=== PATIENT | male | born 1985 | race African-American/Black ===

== ENCOUNTER 2016-12-28 03:40 | Emergency (ER) | payer OTHER ==
[~2016-12-28] VITALS: Ht 180.3 cm; Wt 73.1 kg
[2016-12-28 03:39] VITALS: TEMP 36.6; Ht 180.3 cm; Wt 73.1 kg
--- NOTE | 2016-12-28 03:59 | EMERGENCY ROOM VISIT NOTE ---
History Report prepared by Silvina: Minoo Brooks Under the Supervision of: Dr. Yandy Hook D.O. First contact with patient: 03:43 Chief Complaint: OTHER COMPLAINT History of Present Illness The patient is a 31 year old male who presents to the Emergency Room for medical clearance upon being arrested this evening. The patient is a current meth user for the past 2 weeks, using everyday by snorting and smoking the drug. The patient has also been using Suboxone for the past 2 years everyday orally. He notes the Suboxone is not his prescription. He states that he has not been drinking much recently however he is typically a heavy drinker. The patient does not normally use meth but began due to fights with his girlfriend who is a recovering addict. Last time using meth was yesterday. He denies any other symptoms at this time. Source of History: patient History Limited By: other Onset: tonight Position: other (global) Quality: other (medical clearance) Note: Patient has been using meth for 2 weeks and Suboxone for 2 years. He denies any symptoms at this time. Review of Systems See HPI for pertinent positives & negatives. A total of 10 systems reviewed and were otherwise negative. Past Medical & Surgical No PMH Family History Patient reports no known family medical history. Social History Smoking Status: Current Every Day Smoker Alcohol Use: heavy Drug Use: other (meth) Marital Status: in relationship Housing Status: lives with significant other Occupation Status: employed Current/Historical Medications No Active Prescriptions or Reported Meds Allergies Coded Allergies: Fish (Verified Allergy, Severe, ANAPHYLAXIS, 12/28/16) Physical Exam Vital Signs Date Time Temp Pulse Resp B/P Pulse Ox O2 Delivery O2 Flow Rate FiO2 12/28/16 04:05 84 18 138/93 99 12/28/16 03:39 36.6 78 18 138/93 99 Room Air Physical Exam HEENT: Head - normocephalic and atraumatic Pupils are equal, round, and reactive to light. Extraocular eye muscles are intact, and sclera are anicteric. Nose - moist nasal mucosa without discharge. Mouth - moist buccal mucosa. Oropharynx is nonerythematous and there is no tonsillar exudate or edema noted. Neck: Supple; no JVD, nuchal rigidity, cervical lymphadenopathy. Heart: Regular rate and rhythm. There is a normal S1 and S2 with no murmurs, clicks, or gallops appreciated. Lungs: Clear to auscultation bilaterally with no wheezes, rales, or rhonchi. Abdomen: Soft, completely nontender, nondistended, with good bowel sounds. There are no palpable pulsatile masses or hepatosplenomegaly. There is no guarding, rigidity, or rebound noted. Extremities: Superficial laceration of ventral aspect of right 5th digit. No evidence of cyanosis, clubbing, or edema. There are easily palpable peripheral pulses. Skin: warm and dry with good turgor and no rashes. Medical Decision & Procedures ED Course 0347: The patient was evaluated in room B12. A complete history and physical exam was performed. I looked at the wound on his right hand. It was redressed with a Band-Aid. 0356: The patient was hemodynamically stable. He had no complaints of pain. He only complained of sleep deprivation. The patient will be discharged in the care of police. Medical Decision The patient is a 31 year old male who presents to the ED for medical clearance before he [facility]. The patient has been abusing oral Suboxone and meth for the past 2 weeks. He has not slept in last 5 days. He got into an argument with his girlfriend herberth and states that he went crazy. Police were called. They responded to the home and did not find the patient. He was out for a stroll as he describes it. Finally he got tired and came back to the house. He was arrested at that time brought here for medical clearance. Impression Primary Impression: Polysubstance abuse Additional Impression: Sleep deprivation Scribe Attestation The scribe's documentation has been prepared under my direction and personally reviewed by me in its entirety. I confirm that the note above accurately reflects all work, treatment, procedures, and medical decision making performed by me. Departure Information Dispostion Other (Prision) Prescriptions No Active Prescriptions or Reported Meds Referrals No Doctor, Assigned (PCP) Forms HOME CARE DOCUMENTATION FORM, IMPORTANT VISIT INFORMATION, WORK / SCHOOL INSTRUCTIONS Patient Instructions My [facility] Additional Instructions Avoid suboxone abuse and meth use. Keep the wound on your finger clean with soap and water. Watch for signs of infection Problem Qualifiers
[2016-12-28 04:05] VITALS: BP 138/93; PULSE 84; O2SAT 99
[2017-05-20] MEDS ORDERED: GABA1CAP PO (12:30)
== END 2016-12-28 04:06 | disposition home or self-care (01) ==
LOC: EDSEX 03:40 → EDBD 03:40 → C.EDB 03:41
DX: F15.10 Other stimulant abuse, uncomplicated (principal); F11.10 Opioid abuse, uncomplicated; Z72.820 Sleep deprivation; F17.210 Nicotine dependence, cigarettes, uncomplicated

== ENCOUNTER → 2017-04-13 | Outpatient (CLI) | payer OTHER ==
[~2017-04-13] MED LIST: AMOX500C3 PO; AMX500 PO; BUPR1SUB23 PO; CMD5 PO; DOXY100C76 PO; ENOX120I SQ; GABA1CAP PO; HYDR-3126 PO; LACT1TAB4 PO; LCTX PO; OXYC1TAB3 PO; RIVA1.5T PO; WARF5TAB90 PO
--- NOTE | 2017-04-13 15:51 | DIAGNOSTIC IMAGING REPORT ---
CHEST 2 VIEWS ROUTINE CLINICAL HISTORY: R07.89 Atypical chest pain COMPARISON STUDY: No previous studies for comparison. FINDINGS: The cardiac and mediastinal contours are normal. There is no evidence of focal pulmonary consolidation. There is no evidence of failure. No pleural effusions are visualized.[ There are linear opacities the right lung base, likely representing subsegmental atelectasis. There is a retroxiphoid opacity, likely representing a prominent fat pad. IMPRESSION: 1. Linear right basilar opacities, likely atelectatic 2. Retroxiphoid opacity, likely secondary to a prominent fat pad 3. No evidence of lobar consolidation. No evidence of failure. No evidence of pneumothorax. Electronically signed by: Benjamin Welch M.D. 04/13/2017 3:50 PM Dictated Date/Time: 04/13/2017 3:48 PM
[2017-04-13 17:17] LABS: BASO % 0.3 %; BASO ABS # 0.04 K/uL (0-0.2); COMPLETE YES; EOS % 2.9 %; HEMATOCRIT 40.2 % (42-52); IG% 0.8 %; LYMPH % 17.6 %; LYMPH ABS # 2.11 K/uL (1.2-3.4); MEAN CELL VOLUME 86.6 fL (80-100); MEAN CORPUSCULAR HGB CONC 35.8 g/dl (32-36); MEAN PLATELET VOLUME 9.6 fL (7.4-10.4); MONO % 12.7 %; NEUT % 65.7 %; PLATELET COUNT 255 K/uL (130-400); RED BLOOD COUNT 4.64 M/uL (4.7-6.1); WHITE BLOOD COUNT 11.98 K/uL (4.8-10.8)
[2017-04-13 17:27] LABS: ALT/SGPT 41 U/L (12-78); AST/SGOT 27 U/L (15-37); BLOOD UREA NITROGEN 12 mg/dl (7-18); BUN/CREATININE RATIO 9.7 (10-20); CALCIUM 8.8 mg/dl (8.5-10.1); CARBON DIOXIDE 26 mmol/L (21-32); CHLORIDE 105 mmol/L (98-107); GLUCOSE 96 mg/dl (70-99); POTASSIUM 4.3 mmol/L (3.5-5.1); SODIUM 137 mmol/L (136-145)
[2017-04-13 17:38] LABS: ALB/GLOB RATIO 1.1 (0.9-2); ALKALINE PHOSPHATASE 152 U/L (45-117)
== END | disposition home or self-care (01) ==
LOC: C.RADBC 15:30
PROVIDERS: ATTEND Physician Assistant
DX: R07.89 Other chest pain (principal); J98.4 Other disorders of lung

== ENCOUNTER 2017-04-16 12:16 | Emergency (ER) | payer OTHER ==
[~2017-04-16] VITALS: Ht 180.3 cm; Wt 84.8 kg
[2017-04-16 12:22] VITALS: TEMP 37.2; Ht 180.3 cm; Wt 84.8 kg
[2017-04-16] MEDS ORDERED: IBUPROFEN 600 MG TAB PO STA (13:49)
--- NOTE | 2017-04-16 13:55 | DIAGNOSTIC IMAGING REPORT ---
CHEST 2 VIEWS ROUTINE CLINICAL HISTORY: Difficulty breathing COMPARISON STUDY: 04/13/2017 FINDINGS: The heart remains normal in size. There are progressive right basilar airspace opacities. This favors an inflammatory over atelectatic process. Again evident is a retroxiphoid opacity. Previously this is felt to represent a prominent fat pad. It is conceivable that this represents a pleural-based area of focal consolidation. CT angiography the chest might be considered to exclude a pulmonary infarct.[ IMPRESSION: 1. Progressive right basilar airspace opacities 2. Retroxiphoid opacity. A pleural-based area of parenchymal consolidation cannot be excluded. 3. CT angiography of the chest should be considered in follow-up to exclude pulmonary embolism with infarction. Electronically signed by: Benjamin Welch M.D. 04/16/2017 1:54 PM Dictated Date/Time: 04/16/2017 1:52 PM
--- NOTE | 2017-04-16 14:01 | EMERGENCY ROOM VISIT NOTE ---
History Report prepared by Silvina: Juanjo Joy Under the Supervision of: Dr. Julio Yap M.D. First contact with patient: 13:45 Chief Complaint: RESPIRATORY PROBLEMS Stated Complaint: DIFFICULTY BREATHING-SENT BY DR.-WTE PROCTOR [facility] Triage Summary: Pt states "Dr Rosenda Lawton said my white count in my one lung is high and in the other it's off. I think I have walking pneumonia." Denies cough. Pt c/o pain in "my lungs" x 2 days. "I'm disoriented, I've been fired from 2 jobs in the last week". States they did xray and blood work at [facility] but did not prescribe any antibiotics. Pt states he passed out twice 2 days ago. Takes Gabapentin for anxiety. History of Present Illness The patient is a 32 year old male who presents to the Emergency Room with complaints of constant shortness of breath for the past few days, and a sharp pain in his back The patient states that he was told that he had walking pneumonia yesterday, though he was not prescribed any antibiotics. The patient additionally states that he has a fever and chills. He denies any cough or abdominal pain. He states that he might have had pneumonia when he was younger, and he smokes about a pack per day. The patient states that he took a gabapentin this morning. Source of History: patient Onset: a few days ago Position: other (global) Quality: other (shortness of breath) Timing: constant Associated Symptoms: + fevers, + chills, No cough, No abdominal pain Review of Systems All systems have been listed, reviewed, and are negative other than those previously mentioned. Please see Additional Medical History Sheet. Family History FH: pulmonary embolism Heart disease Hypertension Social History Smoking Status: Current Every Day Smoker Alcohol Use: heavy Drug Use: other Marital Status: in relationship Housing Status: lives with significant other Occupation Status: employed Current/Historical Medications No Active Prescriptions or Reported Meds Allergies Coded Allergies: Fish (Verified Allergy, Severe, ANAPHYLAXIS, 04/16/17) Physical Exam Vital Signs Date Time Temp Pulse Resp B/P (MAP) Pulse Ox O2 Delivery O2 Flow Rate FiO2 04/16/17 17:43 71 18 139/66 97 Room Air 04/16/17 16:08 76 18 120/65 98 Room Air 04/16/17 16:07 80 04/16/17 15:16 89 18 149/82 95 Room Air 04/16/17 14:04 18 167/88 98 04/16/17 12:27 98 Room Air 04/16/17 12:22 37.2 110 18 129/79 97 Room Air Physical Exam GENERAL: Patient awake, alert, oriented x 3. Patient follows commands. Patient does not appear toxic. Patient is adequately hydrated and well- nourished. SKIN: No erythema, pallor, cyanosis or rash HEENT: Normal head, pupils equal, reactive to light and accommodation. Ears normal. Oral cavity and posterior pharynx appear normal. Neck: Without adenopathy, no neck vein distention. LUNGS: Some pain with deep inspiration. Clear to auscultation. No wheezes, no rales, no rhonchi. HEART: No murmurs. No gallops. No rubs EXTREMITIES: No signs of trauma or infection. NEUROLOGIC: Cranial nerves II-XII within normal limits. No gross motor sensory function deficits. Medical Decision & Procedures ER Provider Diagnostic Interpretation: Radiology results as stated below per my review and radiologist interpretation: CHEST 2 VIEWS ROUTINE CLINICAL HISTORY: Difficulty breathing COMPARISON STUDY: 04/13/2017 FINDINGS: The heart remains normal in size. There are progressive right basilar airspace opacities. This favors an inflammatory over atelectatic process. Again evident is a retroxiphoid opacity. Previously this is felt to represent a prominent fat pad. It is conceivable that this represents a pleural-based area of focal consolidation. CT angiography the chest might be considered to exclude a pulmonary infarct.[ IMPRESSION: 1. Progressive right basilar airspace opacities 2. Retroxiphoid opacity. A pleural-based area of parenchymal consolidation cannot be excluded. 3. CT angiography of the chest should be considered in follow-up to exclude pulmonary embolism with infarction. Electronically signed by: Benjamin Welch M.D. 04/16/2017 1:54 PM Dictated Date/Time: 04/16/2017 1:52 PM (CHEST FOR PE) ANGIO WITH CLINICAL HISTORY: 32 years-old Male presenting with chest pain. TECHNIQUE: Multidetector CT angiography of the chest was performed after administration of intravenous contrast. 3-D volumetric and maximum intensity projection (MIP) images were subsequently reconstructed for review. IV contrast: 100 mL of Optiray 320. COMPARISON: Chest x-ray performed the same day. CT DOSE: The estimated cumulative dose is 389.57 mGy.cm. FINDINGS: Gear Repair Supervisor topogram: Bandlike opacity in the right lung base. Pulmonary vasculature: The study is adequate for assessment of the pulmonary vascular tree. Filling defect within segmental pulmonary arteries to the anteromedial basal left lower lobe, which appear acute. Main pulmonary artery not enlarged. No flattening of the interventricular septum. No intracardiac filling defect. Remaining chest: On soft tissue windows, normal thyroid and thoracic inlet. No axillary, supraclavicular, or mediastinal lymphadenopathy. Few prominent lymph nodes in the right hilum. Top normal heart size. No pericardial effusion. Trace right pleural effusion. On lung windows, bandlike opacities in the right middle and lower lobes. Groundglass opacity in the right apex and right lung base dependently. No opacity in the left lung. Airways patent. On bone windows, normal osseous structures. IMPRESSION: 1. Acute pulmonary embolus in the anteromedial basal segmental artery to the left lower lobe. No radiographic evidence of right heart failure. 2. Bandlike and hazy opacities in the right lung may represent atelectasis, although the presence of a trace right effusion may raise concern for other etiologies including infection. The report will be called/faxed according to standard departmental protocol. Electronically signed by: Chau Mathews M.D. 04/16/2017 3:55 PM Dictated Date/Time: 04/16/2017 3:45 PM Laboratory Results 04/16/17 14:10 Red Blood Count 5.08, Mean Corpuscular Volume 87.2, Mean Corpuscular Hemoglobin 31.7, Mean Corpuscular Hemoglobin Concent 36.3, Mean Platelet Volume 9.5, Neutrophils (%) (Auto) 61.4, Lymphocytes (%) (Auto) 21.8, Monocytes (%) (Auto) 11.3, Eosinophils (%) (Auto) 4.1, Basophils (%) (Auto) 0.7, Neutrophils # (Auto ) 5.51, Lymphocytes # (Auto) 1.95, Monocytes # (Auto) 1.01, Eosinophils # (Auto ) 0.37, Basophils # (Auto) 0.06 04/16/17 14:10 Test 04/16/17 14:10 White Blood Count 8.96 K/uL (4.8-10.8) Red Blood Count 5.08 M/uL (4.7-6.1) Hemoglobin 16.1 g/dL (14.0-18.0) Hematocrit 44.3 % (42-52) Mean Corpuscular Volume 87.2 fL (80-100) Mean Corpuscular Hemoglobin 31.7 pg (25-34) Mean Corpuscular Hemoglobin Concent 36.3 g/dl (32-36) Platelet Count 247 K/uL (130-400) Mean Platelet Volume 9.5 fL (7.4-10.4) Neutrophils (%) (Auto) 61.4 % Lymphocytes (%) (Auto) 21.8 % Monocytes (%) (Auto) 11.3 % Eosinophils (%) (Auto) 4.1 % Basophils (%) (Auto) 0.7 % Neutrophils # (Auto) 5.51 K/uL (1.4-6.5) Lymphocytes # (Auto) 1.95 K/uL (1.2-3.4) Monocytes # (Auto) 1.01 K/uL (0.11-0.59) Eosinophils # (Auto) 0.37 K/uL (0-0.5) Basophils # (Auto) 0.06 K/uL (0-0.2) RDW Standard Deviation 35.9 fL (36.4-46.3) RDW Coefficient of Variation 11.3 % (11.5-14.5) Immature Granulocyte % (Auto) 0.7 % Immature Granulocyte # (Auto) 0.06 K/uL (0.00-0.02) Anion Gap 4.0 mmol/L (3-11) Est Creatinine Clear Calc Drug Dose 92.3 ml/min Estimated GFR () 90.9 Estimated GFR (Non- 78.4 BUN/Creatinine Ratio 11.9 (10-20) Calcium Level 9.3 mg/dl (8.5-10.1) Total Bilirubin 0.5 mg/dl (0.2-1) Aspartate Amino Transf (AST/SGOT) 26 U/L (15-37) Alanine Aminotransferase (ALT/SGPT) 33 U/L (12-78) Alkaline Phosphatase 156 U/L (45-117) Troponin I < 0.015 ng/ml (0-0.045) Total Protein 7.5 gm/dl (6.4-8.2) Albumin 3.6 gm/dl (3.4-5.0) Globulin 3.9 gm/dl (2.5-4.0) Albumin/Globulin Ratio 0.9 (0.9-2) Laboratory results as stated above per my review. Medications Administered Medications (Trade) Dose Ordered Sig/Herb Route Start Time Stop Time Status Last Admin Dose Admin Ibuprofen (Motrin Tab) 600 mg NOW STAT PO 04/16/17 13:49 04/16/17 13:50 DC 04/16/17 14:05 600 MG ECG Indication: SOB/dyspnea Rate (beats per minute): 71 Rhythm: normal sinus Findings: nonspecific-ST abn, no ectopy ED Course 1345: Past medical records reviewed. The patient was evaluated in room B7. A complete history and physical examination was performed. 1349: Ibuprofen 600mg PO 1616:I discussed the patient's case with Dr. Perry, Hospitalist, and he thinks that the patient can be discharged home. 170: I discussed the patients case with Dr. Breaux, Tap Out Operator, and he is going to follow up with the patient on Wednesday at 6pm in his office. 1715: Xarelto Tab 15mg PO 1739: Upon reevaluation, the patient appeared to have improvement of his symptoms. I discussed today's findings with him. He verbalized agreement of the treatment plan. He was discharged home. Medical Decision Nurses notes reviewed. Medical history sheet reviewed. Differential diagnosis includes but is not limited to: pneumonia, atelectasis, muscle strain, rib fracture. Blood pressure Screening: Patient was found to have normal blood pressure on screening and does not require follow up. Medication Reconciliation: I attest that I have personally reviewed the patient' s current medication list. Multiple labs, EKG and imaging were obtained. Please see above. The patient has a segmental PE. I believe this is the source of his discomfort. I discussed care with who believes he can safely be discharged home on Xarelto. The patient was started on Xarelto now. He will continue that medication bid. The patient has a scheduled appointment on 04/19 for follow-up. He is encouraged to return here sooner if he's having more shortness of breath or chest pain. Consults Time Called: 1610 Consulting Physician: Dr. Perry, Hospitalist Returned Call: 1616 I discussed the patient's case with Dr. Perry, Hospitalist, and he thinks that the patient can be discharged home. Additional Consults: Time Called: 1650 Consulted Physician: Dr. Breaux Returned Call: 1700 Additional Comments: I discussed the patients case with Dr. Breaux, Tap Out Operator, and he is going to follow up with the patient on Wednesday at 6pm in his office. Impression Primary Impression: Pulmonary embolism Scribe Attestation The scribe's documentation has been prepared under my direction and personally reviewed by me in its entirety. I confirm that the note above accurately reflects all work, treatment, procedures, and medical decision making performed by me. Departure Information Dispostion Home / Self-Care Prescriptions No Active Prescriptions or Reported Meds Referrals No Doctor, Assigned (PCP) Forms HOME CARE DOCUMENTATION FORM, IMPORTANT VISIT INFORMATION, WORK / SCHOOL INSTRUCTIONS Patient Instructions My [facility] T-Quad 22, Rivaroxaban oral tablets Additional Instructions 15 mg of Xarelto twice a day with food for the next 21 days. Follow-up with on Wednesday at 6 pm [facility] office. Return here sooner if you become more short of breath or develop more chest pain. Slowly wean your self off of gabapentin.
[2017-04-16 14:22] LABS: BASO % 0.7 %; BASO ABS # 0.06 K/uL (0-0.2); COMPLETE YES; EOS % 4.1 %; HEMATOCRIT 44.3 % (42-52); IG% 0.7 %; LYMPH % 21.8 %; LYMPH ABS # 1.95 K/uL (1.2-3.4); MEAN CELL VOLUME 87.2 fL (80-100); MEAN CORPUSCULAR HEMOGLOBIN 31.7 pg (25-34); MEAN CORPUSCULAR HGB CONC 36.3 g/dl (32-36); MEAN PLATELET VOLUME 9.5 fL (7.4-10.4); MONO % 11.3 %; NEUT % 61.4 %; PLATELET COUNT 247 K/uL (130-400); RED BLOOD COUNT 5.08 M/uL (4.7-6.1); WHITE BLOOD COUNT 8.96 K/uL (4.8-10.8)
[2017-04-16 14:39] LABS: BUN/CREATININE RATIO 11.9 (10-20); CALCIUM 9.3 mg/dl (8.5-10.1); CREATININE 1.2 mg/dl (0.60-1.40); POTASSIUM 4.3 mmol/L (3.5-5.1)
[2017-04-16 14:42] LABS: ALB/GLOB RATIO 0.9 (0.9-2)
[2017-04-16] MEDS ORDERED: OPTIRAY 320 IV PRN (15:15)
--- NOTE | 2017-04-16 15:56 | DIAGNOSTIC IMAGING REPORT ---
(CHEST FOR PE) ANGIO WITH CLINICAL HISTORY: 32 years-old Male presenting with chest pain. TECHNIQUE: Multidetector CT angiography of the chest was performed after administration of intravenous contrast. 3-D volumetric and maximum intensity projection (MIP) images were subsequently reconstructed for review. IV contrast: 100 mL of Optiray 320. COMPARISON: Chest x-ray performed the same day. CT DOSE: The estimated cumulative dose is 389.57 mGy.cm. FINDINGS: Director Of Surgery topogram: Bandlike opacity in the right lung base. Pulmonary vasculature: The study is adequate for assessment of the pulmonary vascular tree. Filling defect within segmental pulmonary arteries to the anteromedial basal left lower lobe, which appear acute. Main pulmonary artery not enlarged. No flattening of the interventricular septum. No intracardiac filling defect. Remaining chest: On soft tissue windows, normal thyroid and thoracic inlet. No axillary, supraclavicular, or mediastinal lymphadenopathy. Few prominent lymph nodes in the right hilum. Top normal heart size. No pericardial effusion. Trace right pleural effusion. On lung windows, bandlike opacities in the right middle and lower lobes. Groundglass opacity in the right apex and right lung base dependently. No opacity in the left lung. Airways patent. On bone windows, normal osseous structures. IMPRESSION: 1. Acute pulmonary embolus in the anteromedial basal segmental artery to the left lower lobe. No radiographic evidence of right heart failure. 2. Bandlike and hazy opacities in the right lung may represent atelectasis, although the presence of a trace right effusion may raise concern for other etiologies including infection. The report will be called/faxed according to standard departmental protocol. Electronically signed by: Chau Mathews M.D. 04/16/2017 3:55 PM Dictated Date/Time: 04/16/2017 3:45 PM
[2017-04-16] MEDS ORDERED: RIVAROXABAN 20 MG TAB PO ONE (17:15)
[2017-04-16] MEDS ORDERED: RIVAROXABAN TAB 15 MG TAB PO ONE (17:15)
[2017-04-16 17:43] VITALS: BP 139/66; PULSE 71; O2SAT 97
== END 2017-04-16 17:57 | disposition home or self-care (01) ==
LOC: C.EDB 12:20
DX: I26.99 Other pulmonary embolism without acute cor pulmonale (principal); F17.210 Nicotine dependence, cigarettes, uncomplicated; Z82.49 Family history of ischemic heart disease and other diseases of the circulatory system

== ENCOUNTER → 2017-04-22 | Outpatient (CLI) | payer OTHER ==
[2017-04-22 11:48] LABS: INR 1.2 (0.9-1.1); PARTIAL THROMBOPLASTIN RATIO 1.6; PROTHROMBIN TIME (PATIENT) 13.2 SECONDS (9.0-12.0)
[2017-04-26 23:37] LABS: B2 GLYCOPROTEIN IGA <9 SAU (<=20); B2 GLYCOPROTEIN IGG <9 SGU (<=20); B2 GLYCOPROTEIN IGM <9 SMU (<=20); COAG FACTOR 2 ACTIVITY*TC 331 117 % (70-150); DRVVT MIX INTERPRETAION Not Indicated; LAC PTT SCREEN 61 sec (<=40); LUPUS ANTICOAGULANT** TC36573X Positive (Negative); PHOSPHATIDYLSERINE IGA <20 U/mL (<20); PHOSPHATIDYLSERINE IGG 13 U/mL (<10); PHOSPHATIDYLSERINE IGM <25 U/mL (<25); PROTEIN C ACTIVITY** TC 1777X 165 % (70-180); PROTEIN S ACT(FUNCT)**1779X 138 % (70-150)
[2017-04-28 07:20] LABS: THROMBIN TIME(REFLEX!DO NOTORD 15 sec (13-19)
[2017-04-28 07:23] LABS: DRVVTNEUT(REFLEX!DO NOT ORDER) Negative (Negative)
== END | disposition home or self-care (01) ==
LOC: C.LAB1850 11:03
PROVIDERS: ATTEND Internal Medicine
DX: I26.99 Other pulmonary embolism without acute cor pulmonale (principal)

== ENCOUNTER → 2017-04-23 | Outpatient (CLI) | payer OTHER ==
--- NOTE | 2017-04-23 12:43 | DIAGNOSTIC IMAGING REPORT ---
(RENAL)RETROPERITONEA COMP HISTORY: Pain R10.9 Acute right flank pain COMPARISON: None. FINDINGS: Right kidney: Maximum dimension 12.0 cm. No evidence for hydronephrosis. Normal corticomedullary differentiation and cortical thickness. Left kidney: Maximum dimension 11.9 cm. No evidence for hydronephrosis. Normal corticomedullary differentiation and cortical thickness. Bladder: No bladder wall thickening. The bilateral ureteral jets were identified. IMPRESSION: Normal renal ultrasound. The above report was generated using voice recognition software. It may contain grammatical, syntax or spelling errors. Electronically signed by: Mark Anthony Vasquez M.D. 04/23/2017 12:42 PM Dictated Date/Time: 04/23/2017 12:41 PM
== END | disposition home or self-care (01) ==
LOC: C.ULTR 12:11
PROVIDERS: ATTEND Physician Assistant
DX: R10.9 Unspecified abdominal pain (principal)

== ENCOUNTER 2017-04-24 10:53 | Emergency (ER) | payer OTHER ==
[~2017-04-24] VITALS: Ht 180.3 cm; Wt 84.1 kg
[2017-04-24 10:56] VITALS: TEMP 36.8; Ht 180.3 cm; Wt 84.1 kg
[2017-04-24] MEDS ORDERED: HYDROmorphone INJ 1 MG/ML SYR IV STA (11:35)
[2017-04-24] MEDS ORDERED: SODIUM CHLORIDE 0.9% 1000ML 1,000 ML IV STA (11:35)
--- NOTE | 2017-04-24 11:40 | EMERGENCY ROOM VISIT NOTE ---
History Report prepared by Silvina: Robert Choi Under the Supervision of: Dr. Greg Murphy M.D. First contact with patient: 11:23 Chief Complaint: PAIN (GENERALIZED) Stated Complaint: PE, SOB, CHEST PAIN SWELLING TO LEFT LEG History of Present Illness The patient is a 32 year old male who presents to the Emergency Room with complaints of constant right sided abdominal pain that started a couple of days ago. He rates his pain as a 9/10 in severity. The patient states that he has been experiencing chest pains, shortness of breath, swelling to his left leg, and states his right kidney "feels like it is going to explode". The patient states that he was seen here two days ago and had an ultrasound done yesterday. The patient denies taking any medication for his current symptoms. He admits that he takes Xarelto and denies missing a dose. The patient also admits that he has a history of pulmonary embolism that he was diagnosed with on April 16. Source of History: patient Onset: a couple of days ago Position: abdomen Symptom Intensity: 9/10 Timing: constant Associated Symptoms: + chest pain, + SOB Review of Systems See HPI for pertinent positives & negatives. A total of 10 systems reviewed and were otherwise negative. Family History FH: pulmonary embolism Heart disease Hypertension Social History Smoking Status: Current Every Day Smoker Alcohol Use: heavy Drug Use: other Marital Status: in relationship Housing Status: lives with significant other Occupation Status: employed Current/Historical Medications Scheduled Doxycycline Monohydrate (Monodox), 100 MG PO BID Gabapentin (Neurontin), 200 MG PO TID Hydroxyzine Hcl (Atarax), 50 MG PO DAILY Rivaroxaban (Xarelto), 15 MG PO BID Scheduled PRN Oxycodone Immediate Rel Tab (Roxicodone Ir), 1-2 TAB PO Q4H PRN for Severe Pain Allergies Coded Allergies: Fish (Verified Allergy, Severe, ANAPHYLAXIS, 04/24/17) Physical Exam Vital Signs Date Time Temp Pulse Resp B/P (MAP) Pulse Ox O2 Delivery O2 Flow Rate FiO2 04/24/17 14:01 88 133/94 99 04/24/17 13:31 133/94 04/24/17 13:23 81 22 04/24/17 13:01 144/89 04/24/17 12:53 83 15 100 04/24/17 12:31 148/89 04/24/17 12:28 84 04/24/17 12:24 142/92 04/24/17 11:42 100 Room Air 04/24/17 11:41 100 Room Air 04/24/17 10:56 36.8 97 20 143/83 97 Room Air Physical Exam GENERAL: Patient is a healthy-appearing well-nourished mildly uncomfortably 32 year old male. HEAD: Normocephalic atraumatic EYES: Ocular movements intact pupils equal and react to light OROPHARYNX mucous membranes are moist no exudates present no erythema or edema present NECK: Supple no nuchal rigidity CHEST: Good equal expansion LUNGS: Clear and equal to auscultation CARDIAC: Normal S1 and S2 ABDOMEN: exquisitely tender to right upper abdomen area. no guarding BACK: No CVA tenderness EXTREMITIES: No pain upon palpation normal muscle strength in all groups no clubbing cyanosis or edema NEURO: Patient is following commands and answering questions appropriately. Alert and oriented x3 Cranial Nerves 2-12 grossly intact Medical Decision & Procedures ER Provider Diagnostic Interpretation: Radiology results as stated below per my review and radiologist interpretation: CHEST ONE VIEW PORTABLE CLINICAL HISTORY: Chest pain and. Shortness of breath. COMPARISON STUDY: Chest CT April 16, 2017. FINDINGS: There is no pneumothorax. There is no evidence of pulmonary edema. Cardiac size is normal. A small right pleural effusion is present. Linear right lower lung opacity favors atelectasis. IMPRESSION: Small right pleural effusion. Mild right lower lung opacity. While nonspecific, the configuration favors atelectasis. Electronically signed by: Robert Schulte M.D. 04/24/2017 12:24 PM Dictated Date/Time: 04/24/2017 12:[address] OF THE ABDOMEN AND PELVIS WITH CONTRAST CLINICAL HISTORY: Right upper quadrant pain. Right flank pain. History of recent pulmonary embolus. COMPARISON STUDY: Chest CT April 16, 2017. Renal ultrasound April 23, 2017. TECHNIQUE: Following IV administration of 95 mL of Optiray-320, axial images of the abdomen and pelvis were obtained from the lung bases to the proximal femurs. Images were reviewed in the axial, sagittal, and coronal planes. IV contrast was administered without complication. A dose lowering technique was utilized adhering to the principles of ALARA. CT DOSE: 483.94 mGy.cm FINDINGS: Visualized portions of the lower chest demonstrate slight increase in size of a small right pleural effusion since chest CT of April 16, 2017. There are persistent linear and groundglass right middle lobe and right lower lobe opacities. The liver, spleen, adrenal glands, kidneys and pancreas are unremarkable. There is no biliary or pancreatic ductal dilatation. There is no peripancreatic or pericholecystic infiltration. Caliber and wall thickness of small and large bowel are normal. The appendix is normal. There is no ascites. There is no lymphadenopathy. Skeletal structures are unremarkable. IMPRESSION: 1. No acute process within the abdomen or pelvis. 2. Slight increase in size of a small right pleural effusion since chest CT of April 16, 2017. Persistent right middle lobe and lower lobe groundglass and linear opacities. These findings are nonspecific but could reflect pneumonia or occult pulmonary infarct given known pulmonary emboli shown on prior chest CT. Electronically signed by: Robert Schulte M.D. 04/24/2017 12:51 PM Dictated Date/Time: 04/24/2017 12:43 PM Laboratory Results 04/24/17 11:38 Red Blood Count 4.63, Mean Corpuscular Volume 86.0, Mean Corpuscular Hemoglobin 31.3, Mean Corpuscular Hemoglobin Concent 36.4, Mean Platelet Volume 9.0, Neutrophils (%) (Auto) 63.0, Lymphocytes (%) (Auto) 14.9, Monocytes (%) (Auto) 11.4, Eosinophils (%) (Auto) 9.9, Basophils (%) (Auto) 0.4, Neutrophils # (Auto ) 7.11, Lymphocytes # (Auto) 1.68, Monocytes # (Auto) 1.29, Eosinophils # (Auto ) 1.12, Basophils # (Auto) 0.04 04/24/17 11:38 Test 04/24/17 11:38 04/24/17 11:48 White Blood Count 11.29 K/uL (4.8-10.8) Red Blood Count 4.63 M/uL (4.7-6.1) Hemoglobin 14.5 g/dL (14.0-18.0) Hematocrit 39.8 % (42-52) Mean Corpuscular Volume 86.0 fL (80-100) Mean Corpuscular Hemoglobin 31.3 pg (25-34) Mean Corpuscular Hemoglobin Concent 36.4 g/dl (32-36) Platelet Count 286 K/uL (130-400) Mean Platelet Volume 9.0 fL (7.4-10.4) Neutrophils (%) (Auto) 63.0 % Lymphocytes (%) (Auto) 14.9 % Monocytes (%) (Auto) 11.4 % Eosinophils (%) (Auto) 9.9 % Basophils (%) (Auto) 0.4 % Neutrophils # (Auto) 7.11 K/uL (1.4-6.5) Lymphocytes # (Auto) 1.68 K/uL (1.2-3.4) Monocytes # (Auto) 1.29 K/uL (0.11-0.59) Eosinophils # (Auto) 1.12 K/uL (0-0.5) Basophils # (Auto) 0.04 K/uL (0-0.2) RDW Standard Deviation 34.5 fL (36.4-46.3) RDW Coefficient of Variation 11.1 % (11.5-14.5) Immature Granulocyte % (Auto) 0.4 % Immature Granulocyte # (Auto) 0.05 K/uL (0.00-0.02) Est Creatinine Clear Calc Drug Dose 92.3 ml/min Estimated GFR () 90.9 Estimated GFR (Non- 78.4 BUN/Creatinine Ratio 12.5 (10-20) Calcium Level 8.9 mg/dl (8.5-10.1) Total Bilirubin 0.4 mg/dl (0.2-1) Direct Bilirubin 0.1 mg/dl (0-0.2) Aspartate Amino Transf (AST/SGOT) 19 U/L (15-37) Alanine Aminotransferase (ALT/SGPT) 27 U/L (12-78) Alkaline Phosphatase 152 U/L (45-117) Total Creatine Kinase 192 U/L (39-308) Creatine Kinase MB 1.4 ng/ml (0.5-3.6) Creatine Kinase MB Ratio 0.7 (0-3.0) Troponin I < 0.015 ng/ml (0-0.045) Total Protein 7.4 gm/dl (6.4-8.2) Albumin 3.5 gm/dl (3.4-5.0) Lipase 109 U/L (73-393) Bedside Hemoglobin 13.3 g/dl (14.0-18.0) Bedside Hematocrit 39 % (42-52) Bedside Sodium 139 mEq/L (135-144) Bedside Potassium 4.1 mEq/L (3.3-5.0) Bedside Chloride 100 mEq/L (101-112) Bedside Total CO2 28 mEq/l (24-31) Anion Gap 17.0 mmol/L (16-25) Bedside Blood Urea Nitrogen 16 mg/dl (7-18) Bedside Creatinine 1.4 mg/dl (0.6-1.3) Bedside Glucose (other) 72 mg/dl (70-99) Bedside Ionized Calcium (Berto) 1.23 mmol/l (1.12-1.32) Labs reviewed by ED physician. Medications Administered Medications (Trade) Dose Ordered Sig/Herb Route Start Time Stop Time Status Last Admin Dose Admin Sodium Chloride 1,000 ml @ 999 mls/hr Q1H1M STAT IV 04/24/17 11:35 04/24/17 12:35 DC 04/24/17 11:53 999 MLS/HR Hydromorphone HCl (Dilaudid Inj) 1 mg NOW STAT IV 04/24/17 11:35 04/24/17 11:37 DC 04/24/17 11:53 1 MG Doxycycline Hyclate (Vibramycin Cap) 100 mg ONE ONCE PO 04/24/17 13:30 04/24/17 13:31 DC 04/24/17 13:57 100 MG ECG Indication: chest pain Rate (beats per minute): 76 Rhythm: normal sinus Findings: no acute ischemic change, no ectopy ED Course 1130: Past medical records reviewed. The patient was evaluated in room C10. A complete history and physical examination was performed. 1135: Dilaudid Injection 1 mg, Sodium Chloride 1000 ml @ 999 mls/hr IV. 1256: I discussed the patient's case with Dr. Blevins Pulmonology. He advises that the patient be admitted and follow up with him. 1258: Upon reexamination the patient is resting comfortably. I discussed results and treatment plan with the patient and had a full length conversation about my recommendation to be admitted. He would not like to be admitted and wants to go home. I told him to follow up with Dr. Blevins, Pulmonology. The patient is ready for discharge. 1330: Vibramycin Cap 100 mg PO. Medical Decision The differential diagnosis includes but is not limited to: etiologies such as appendicitis, diverticulitis, PUD, biliary pathology, UTI, pancreatitis, obstruction, mesenteric ischemia, aortic pathology, infections, inflammatory bowel disease, renal colic, as well as others were entertained. Medication Reconciliation: I attest that I have personally reviewed the patient' s current medication list Blood Pressure Screening: Patient was found to have an elevated blood pressure and was referred to their primary care doctor for recheck and further treatment This is a 32-year-old male who presents emergency department complaining of right-sided chest pain and is increased since last week. Based on the patient' s inability to take deep breath on physical exam as well as his history of PE the patient was sent over for CAT scan of the abdomen and pelvis. This was concerning for right pulmonary infarction however there does not appear to be any evidence of PE at this point. Patient reports she has not missed any doses of his arrival toe. I did discuss this case with pulmonology and recommended to the patient that he be admitted however at this point he is adamantly refusing. I am going to cover him for pneumonia and place him on doxycycline and I stressed the need to have his pain under control. In the emergency department he was given Dilaudid. I recommended Tylenol at home as well as on see for breakthrough pain as well as a follow-up with Dr. Blevins. The patient has demonstrated no significant defect in the decision-making capacity to make choices. The encounter had a good level of communication with language the patient can easily understand. I feel trust was present and conveyed that our action/intentions were the best interest of the patient. The patient was given all relevant information and reiterated the explained risks and benefits. The patient explained the reasoning for refusing treatment clearly. The patient possesses and expresses a set of values and goals, the ability to communicate and understand, and an ability to reason and deliberate. Despite acting emphatically, attentively and with the utmost patient's the patient declined further treatment. I offered options, negotiated, and explored every reasonable choice. I must respect the patient's autonomy and that they feel that their choices are best for them despite the associated risks of leaving without completing the evaluation. The patient was informed about the findings as listed above. All questions were answered and he was pleased with the treatment. Return instructions were outlined and the patient was discharged in stable condition. Consults Time Called: [phone] Consulting Physician: Dr. Blevins, Pulmonology Returned Call: [phone] I discussed the patient's case with Dr. Blevins Pulmonology. He advises that the patient be admitted and follow up with him. Impression Primary Impression: Pulmonary infarction Scribe Attestation The scribe's documentation has been prepared under my direction and personally reviewed by me in its entirety. I confirm that the note above accurately reflects all work, treatment, procedures, and medical decision making performed by me. Departure Information Dispostion Home / Self-Care Prescriptions Doxycycline Monohydrate (Monodox) 100 Mg Cap 100 MG PO BID for 10 Days, #20 CAP Prov: Greg Murphy MD 04/24/17 Oxycodone Immediate Rel Tab (ROXICODONE IR) 5 Mg Tab 1-2 TAB PO Q4H Y for Severe Pain, #24 TAB Prov: Greg Murphy MD 04/24/17 Referrals Lidya Breaux M.D. (PCP) Forms HOME CARE DOCUMENTATION FORM, IMPORTANT VISIT INFORMATION, WORK / SCHOOL INSTRUCTIONS Patient Instructions Incentive Spirometer Fl, [facility] Additional Instructions Follow up with DR Blevins's office Use incentive spirometer every 15 minutes You were found to have an elevated blood pressure today (>120 sytolic or >90 diastolic). Per medicare guidelines, you need to follow up with this blood pressure screening with your Primary Care Physician (PCP). For a new PCP call [phone]. You received narcotic or benzodiazepene medication while in the emergency room today. Do not drive, operate heavy machinery, or drink alcohol under the influence of this medication. Take 1000 mg Tylenol every 6 hours Take oxy for breakthrough pain Continue Xarelto You have been examined and treated today on an emergency basis only. This is not a substitute for, or an effort to provide, complete comprehensive medical care. It is impossible to recognize and treat all injuries or illnesses in a single emergency department visit. It is therefore important that you follow up closely with Dr Breaux. Call as soon as possible for an appointment. Thank you for your time and consideration. I look forward to speaking with you again soon. Please don't hesitate to call us if you have any questions.
[2017-04-24 11:42] VITALS: O2SAT 100
[2017-04-24] MEDS ORDERED: OPTIRAY 320 IV PRN (11:45)
[2017-04-24 11:47] LABS: BASO % 0.4 %; BASO ABS # 0.04 K/uL (0-0.2); COMPLETE YES; EOS % 9.9 %; HEMATOCRIT 39.8 % (42-52); IG% 0.4 %; LYMPH % 14.9 %; LYMPH ABS # 1.68 K/uL (1.2-3.4); MEAN CORPUSCULAR HEMOGLOBIN 31.3 pg (25-34); MEAN CORPUSCULAR HGB CONC 36.4 g/dl (32-36); MONO % 11.4 %; PLATELET COUNT 286 K/uL (130-400); RED BLOOD COUNT 4.63 M/uL (4.7-6.1); WHITE BLOOD COUNT 11.29 K/uL (4.8-10.8)
[2017-04-24 11:59] LABS: ISTAT CREATININE 1.4 mg/dl (0.6-1.3); ISTAT HEMOGLOBIN 13.3 g/dl (14.0-18.0); ISTAT IONIZED CALCIUM 1.23 mmol/l (1.12-1.32)
[2017-04-24 12:06] LABS: ALT/SGPT 27 U/L (12-78); AST/SGOT 19 U/L (15-37); BLOOD UREA NITROGEN 15 mg/dl (7-18); BUN/CREATININE RATIO 12.5 (10-20); CALCIUM 8.9 mg/dl (8.5-10.1); CARBON DIOXIDE 30 mmol/L (21-32); CHLORIDE 107 mmol/L (98-107); GLUCOSE 97 mg/dl (70-99); POTASSIUM 4.2 mmol/L (3.5-5.1); SODIUM 141 mmol/L (136-145)
[2017-04-24 12:11] LABS: ALKALINE PHOSPHATASE 152 U/L (45-117); CKMB/CK RATIO 0.7 (0-3.0)
--- NOTE | 2017-04-24 12:26 | DIAGNOSTIC IMAGING REPORT ---
CHEST ONE VIEW PORTABLE CLINICAL HISTORY: Chest pain and. Shortness of breath. COMPARISON STUDY: Chest CT April 16, 2017. FINDINGS: There is no pneumothorax. There is no evidence of pulmonary edema. Cardiac size is normal. A small right pleural effusion is present. Linear right lower lung opacity favors atelectasis. IMPRESSION: Small right pleural effusion. Mild right lower lung opacity. While nonspecific, the configuration favors atelectasis. Electronically signed by: Robert Schulte M.D. 04/24/2017 12:24 PM Dictated Date/Time: 04/24/2017 12:21 PM
[2017-04-24] MEDS ORDERED: HYDR-3126 PO (12:30)
[2017-04-24] MEDS ORDERED: RIVA1.5T PO (12:31)
--- NOTE | 2017-04-24 12:53 | DIAGNOSTIC IMAGING REPORT ---
CT OF THE ABDOMEN AND PELVIS WITH CONTRAST CLINICAL HISTORY: Right upper quadrant pain. Right flank pain. History of recent pulmonary embolus. COMPARISON STUDY: Chest CT April 16, 2017. Renal ultrasound April 23, 2017. TECHNIQUE: Following IV administration of 95 mL of Optiray-320, axial images of the abdomen and pelvis were obtained from the lung bases to the proximal femurs. Images were reviewed in the axial, sagittal, and coronal planes. IV contrast was administered without complication. A dose lowering technique was utilized adhering to the principles of ALARA. CT DOSE: 483.94 mGy.cm FINDINGS: Visualized portions of the lower chest demonstrate slight increase in size of a small right pleural effusion since chest CT of April 16, 2017. There are persistent linear and groundglass right middle lobe and right lower lobe opacities. The liver, spleen, adrenal glands, kidneys and pancreas are unremarkable. There is no biliary or pancreatic ductal dilatation. There is no peripancreatic or pericholecystic infiltration. Caliber and wall thickness of small and large bowel are normal. The appendix is normal. There is no ascites. There is no lymphadenopathy. Skeletal structures are unremarkable. IMPRESSION: 1. No acute process within the abdomen or pelvis. 2. Slight increase in size of a small right pleural effusion since chest CT of April 16, 2017. Persistent right middle lobe and lower lobe groundglass and linear opacities. These findings are nonspecific but could reflect pneumonia or occult pulmonary infarct given known pulmonary emboli shown on prior chest CT. Electronically signed by: Robert Schlute M.D. 04/24/2017 12:51 PM Dictated Date/Time: 04/24/2017 12:43 PM
[2017-04-24] MEDS ORDERED: OXYC1TAB3 PO (13:21)
[2017-04-24] MEDS ORDERED: DOXY100C76 PO (13:21)
[2017-04-24] MEDS ORDERED: DOXYCYCLINE HYCLATE 100 MG CAP PO ONE (13:30)
[2017-04-24 14:01] VITALS: BP 133/94; PULSE 88; O2SAT 99
[2017-05-20] MEDS ORDERED: GABA1CAP PO (12:30)
== END 2017-04-24 14:07 | disposition home or self-care (01) ==
LOC: C.EDB 10:55 → C.EDC 14:07
DX: I26.99 Other pulmonary embolism without acute cor pulmonale (principal); Z82.49 Family history of ischemic heart disease and other diseases of the circulatory system; F17.200 Nicotine dependence, unspecified, uncomplicated; F10.10 Alcohol abuse, uncomplicated

== ENCOUNTER 2017-04-29 12:18 | Inpatient (IN) | payer OTHER ==
[~2017-04-29] VITALS: Ht 180.3 cm; Wt 85.6 kg
[~2017-04-29 12:18] MED LIST changes: -AMOX500C3 PO; -AMX500 PO; -BUPR1SUB23 PO; -CMD5 PO; -ENOX120I SQ; -GABA1CAP PO; -LACT1TAB4 PO; -LCTX PO; -WARF5TAB90 PO
[2017-04-29 17:15] VITALS: BP 146/82; PULSE 103; TEMP 36.7; O2SAT 98; Ht 180.3 cm; Wt 85.6 kg
[2017-04-29] MEDS ORDERED: POLYETHYLENE (MIRALAX) 17 GM PACK PO PRN (17:30)
[2017-04-29] MEDS ORDERED: ACETAMINOPHEN 325 MG TAB PO PRN (17:30)
[2017-04-29] MEDS ORDERED: ONDANSETRON INJ 2 MG/ML 2 ML VIAL IV PRN (17:30)
[2017-04-29] MEDS ORDERED: ALUMINUM/MAGNESIUM/SIMETH (MAALOX MAX) 30 ML UDC PO PRN (17:30)
[2017-04-29] MEDS ORDERED: MAGNESIUM HYDROXIDE SUSP 30 ML UDC PO PRN (17:30)
[2017-04-29] MEDS ORDERED: VANCOMYCIN CONSULT ACTIVE PRN (18:00)
[2017-04-29] MEDS ORDERED: OPTIRAY 320 IV PRN (18:00)
[2017-04-29] MEDS ORDERED: PIPERACILL/TAZOBAC CONSULT ACTIVE PRN (18:00)
[2017-04-29] MEDS: OXYCODONE HCL IR 5 MG TAB (IMMEDIATE RELEASE) PO PRN ×2 (18:04→22:03)
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
[2017-04-29] MEDS: NICOTINE 14 MG/24 HR TDSY TD SCH (18:22)
[2017-04-29 19:22] LABS: BASO % 0.2 %; BASO ABS # 0.03 K/uL (0-0.2); COMPLETE YES; EOS % 12.2 %; HEMATOCRIT 37.3 % (42-52); IG% 0.7 %; LYMPH % 20.5 %; LYMPH ABS # 2.57 K/uL (1.2-3.4); MEAN CELL VOLUME 86.1 fL (80-100); MEAN CORPUSCULAR HEMOGLOBIN 30.3 pg (25-34); MEAN CORPUSCULAR HGB CONC 35.1 g/dl (32-36); MONO % 10.4 %; PLATELET COUNT 309 K/uL (130-400); RED BLOOD COUNT 4.33 M/uL (4.7-6.1); WHITE BLOOD COUNT 12.51 K/uL (4.8-10.8)
[2017-04-29] MEDS ORDERED: PIPERACILL/TAZOBAC IV 4.5 GM in DEXTROSE 5% 100ML IV ONE (19:30)
[2017-04-29 19:36] VITALS: BP 117/71; PULSE 91; TEMP 36.9; O2SAT 93
[2017-04-29 19:37] LABS: INR 1.1 (0.9-1.1); PARTIAL THROMBOPLASTIN RATIO 1.4; PROTHROMBIN TIME (PATIENT) 11.3 SECONDS (9.0-12.0)
[2017-04-29 19:47] LABS: ALT/SGPT 23 U/L (12-78); AST/SGOT 18 U/L (15-37); BLOOD UREA NITROGEN 12 mg/dl (7-18); BUN/CREATININE RATIO 9.9 (10-20); CALCIUM 8.7 mg/dl (8.5-10.1); CARBON DIOXIDE 30 mmol/L (21-32); CHLORIDE 107 mmol/L (98-107); GLUCOSE 98 mg/dl (70-99); POTASSIUM 3.7 mmol/L (3.5-5.1); SODIUM 140 mmol/L (136-145)
[2017-04-29 19:52] LABS: ALB/GLOB RATIO 0.9 (0.9-2); ALKALINE PHOSPHATASE 152 U/L (45-117)
[2017-04-29] MEDS ORDERED: VANCOMYCIN INJ 2,000 MG in SODIUM CHLORIDE 0.9% 500ML 500 ML IV ONE (20:00)
--- NOTE | 2017-04-29 20:52 | Pharmacy Progress Note ---
Pharmacy Abx Dose Short Note Date of Service Apr 29, 2017. Assessment & Plan Pt is a 32 yo M presents after being seen by Dr. Harris today. Starting empiric Vanco/Zosyn for PNA or IE (infective endocarditis). He recently was prescribed PO Doxycycline. He currently is afebrile, experiencing leukocytosis with a left shift, tachycardic, RR WNL. Currently no SOB or wheezing. CRP is pending. Renal fxn looks to be at baseline: pt population p'kinetics: ke=0.081, t1/2=8.5, Vd= 0.7. MRSA nasal is pending, BC pending, Sputum pending. He has a h/o of IVDU (Minor Rodriguez Criteria). At the current time unsure if he has any Major Rodriguez Criteria for infective endocarditis; however, proper pathogens are covered: MRSA, MSSA, Enterococci, HACEK group. Cardiology and ID both consulted. Vanco: * Vanco 2000mg(24mg/kg) x1 @2000, to achieve a peak of about 34mcg/mL * Then Vanco 1250mg(14.7mg/kg) q10 @0200 04/30/17 * Goal trough: 15-20mcg/mL * Trough ordered: 05/01/17 @0730 prior to the 4th MD. Pharmacy will continue to follow and will adjust dose/frequency as necessary. Thank you.
[2017-04-29] MEDS ORDERED: VANCOMYCIN INJ 1,000 MG in SODIUM CHLORIDE 0.9% 250ML 250 ML IV SCH (21:00)
[2017-04-29] MEDS ORDERED: PIPERACILL/TAZOBAC IV 3.375 GM in DEXTROSE 5% 100ML 100 ML IV SCH (21:00)
[2017-04-29 21:08] LABS: C-REACTIVE PROTEIN 3.42 mg/dl (0-0.29)
--- NOTE | 2017-04-29 21:38 | DIAGNOSTIC IMAGING REPORT ---
(CHEST FOR PE) ANGIO WITH CT DOSE: 497.90 mGycm HISTORY: 32 years-old Male with acute chest pain and pneumonia. Recently diagnosed acute pulmonary embolus. TECHNIQUE: Multiple CTA images of the chest were obtained after the intravenous administration of 111ml Optiray 320. Coronal and sagittal MIPS were obtained from the axial data set and were submitted for review. A dose lowering technique was utilized adhering to the principles of ALARA. COMPARISON: CT chest 04/16/2017. FINDINGS: CTA: Heart is normal in size. No thoracic aortic aneurysm or dissection. There is near complete resolution of the previously noted emboli of the left lower lobe. There is linear filling defect seen within a lingular lobar branch on image 182 suggesting residual chronic thrombus. No new pulmonary emboli are identified. CT CHEST: There is a [id number] right pleural effusion. Multifocal consolidative opacities involve the right middle and right lower lobes. Ground glass opacities involve the right upper lobe. The left lung is generally clear. No obstructing bronchial lesion is seen. The upper abdominal structures are within normal limits. The soft tissues are unremarkable. The bones appear intact. IMPRESSION: 1. Near complete resolution of the previously noted pulmonary emboli of the left lower lobe. Likely minimal residual thrombus is seen within a lingular lobar branch. No acute occlusive pulmonary emboli are identified. 2. Small to moderate right pleural effusion with multifocal consolidative opacities of the right middle and lower lobes suggest pneumonia with associated bronchitis. 3. Groundglass opacities of the upper lobes suggest associated atelectasis. The above report was generated using voice recognition software. It may contain grammatical, syntax or spelling errors. Electronically signed by: Harris Jacobo M.D. 04/29/2017 9:37 PM Dictated Date/Time: 04/29/2017 9:30 PM
--- NOTE | 2017-04-29 21:48 | DIAGNOSTIC IMAGING REPORT ---
BILATERAL LOWER EXTREMITY VENOUS DOPPLER HISTORY: Pulmonary embolus. COMPARISON STUDY: CTA pulmonary artery study of same day. FINDINGS: There is normal compressibility, flow, and augmentation within the bilateral lower extremity deep venous systems. IMPRESSION: No DVT within the right or left lower extremity. Electronically signed by: Harris Jacobo M.D. 04/29/2017 9:47 PM Dictated Date/Time: 04/29/2017 9:46 PM
[2017-04-29] MEDS: GABAPENTIN 100 MG CAP PO SCH (22:03)
[2017-04-29 23:31] VITALS: BP 132/86; PULSE 76; TEMP 36.8; O2SAT 97
[2017-04-30] VITALS (7 sets, daily range): BP systolic 122–136; BP diastolic 71–85; PULSE 72–83; TEMP 36.4–37.1; O2SAT 95–97
[2017-04-30] MEDS: PIPERACILL/TAZOBAC IV 3.375 GM in DEXTROSE 5% 100ML IV SCH ×3 (01:43→17:25)
[2017-04-30] MEDS ORDERED: VANCOMYCIN INJ 1,250 MG in SODIUM CHLORIDE 0.9% 250ML 250 ML IV SCH (02:00)
[2017-04-30 02:12] LABS: URINE APPEARANCE CLEAR (CLEAR); URINE BILIRUBIN NEG (NEG); URINE COLOR YELLOW; URINE EPITHELIAL CELL AUTO 0-5 /lpf (0-5); URINE NITRITE NEG (NEG); URINE SPECIFIC GRAVITY > 1.045 (1.000-1.030); UROBILINOGEN NEG (NEG); ZZUR CULT IF INDIC CLEAN CATCH NO
[2017-04-30 02:13] LABS: MANUAL MICROSCOPIC REQUIRED? NO; REVIEW REQ? NO
[2017-04-30] MEDS: OXYCODONE HCL IR 5 MG TAB (IMMEDIATE RELEASE) PO PRN (06:31)
[2017-04-30] MEDS: NICOTINE 14 MG/24 HR TDSY TD SCH (06:32)
[2017-04-30] MEDS ORDERED: HEPARIN 25000 UNIT/ D5W 500 ML (PHARMACY PREPARED) IV PRN ×2 (07:00)
[2017-04-30] MEDS ORDERED: HEPARIN IV BOLUS 6,000 UNIT in SYRINGE 0 ML IV ONE (07:00)
[2017-04-30 07:30] LABS: HEMATOCRIT 37.6 % (42-52); MEAN CELL VOLUME 86.6 fL (80-100); MEAN CORPUSCULAR HEMOGLOBIN 30.2 pg (25-34); MEAN CORPUSCULAR HGB CONC 34.8 g/dl (32-36); MEAN PLATELET VOLUME 8.8 fL (7.4-10.4); PLATELET COUNT 294 K/uL (130-400); RED BLOOD COUNT 4.34 M/uL (4.7-6.1); WHITE BLOOD COUNT 11.21 K/uL (4.8-10.8)
[2017-04-30 07:57] LABS: ALT/SGPT 22 U/L (12-78); AST/SGOT 17 U/L (15-37); BLOOD UREA NITROGEN 10 mg/dl (7-18); BUN/CREATININE RATIO 9.1 (10-20); CALCIUM 8.6 mg/dl (8.5-10.1); CARBON DIOXIDE 31 mmol/L (21-32); CHLORIDE 106 mmol/L (98-107); GLUCOSE 87 mg/dl (70-99); MAGNESIUM 2.2 mg/dl (1.8-2.4); POTASSIUM 3.5 mmol/L (3.5-5.1); SODIUM 139 mmol/L (136-145)
[2017-04-30 08:02] LABS: ALB/GLOB RATIO 0.9 (0.9-2); ALKALINE PHOSPHATASE 147 U/L (45-117); PHOSPHORUS 4.1 mg/dl (2.5-4.9)
[2017-04-30 08:10] LABS: COMPLETE YES; EOSINOPHIL % 10.4 %; LYMPH ABS # 2.34 K/uL (1.2-3.4); LYMPHOCYTE % 20.9 %; MYELOCYTE % 1.7 %; NEUTROPHILS % 58.3 %
[2017-04-30 08:30] LABS: PARTIAL THROMBOPLASTIN RATIO > 11.0
[2017-04-30] MEDS: GABAPENTIN 100 MG CAP PO SCH ×3 (09:08→20:43)
--- NOTE | 2017-04-30 12:10 | Pulmonary Consultation ---
History General Date of Service: Apr 30, 2017. Stated Complaint: Pleurisy, Pneumonia, Pleural Effusion HPI The patient is a 32 year old male who presents to [facility] with complaints of Pneumonia, Pleural Effusion. The patient's primary care provider is Lidya Breaux M.D.. Patient is a pleasant 32-year-old male admitted for chest pain. His a past medical history significant for lupus anticoagulation testing positive, sickle cell trait, history of drug abuse, tobacco use/abuse, depression, anxiety, PTSD and aggressive behavior. He is a recent complex history in which she presented to the emergency room on 04/16/[address] angiographic criteria for acute pulmonary embolisms. He was started on Zaroxolyn at that time and discharged as he refused admission and was notably hemodynamically stable. He then represented to the emergency room on 04/24/2017 where he was worked up for right-sided flank and abdominal discomfort with a diagnosis of pneumonia made it was started on doxycycline. Patient is also recently been worked up for kidney stones and ruled out on 04/22/[address] Corey. As stated earlier the patient does have a history of hypercoagulable state with sickle cell trait as well as SLE and a strong family history with his sister/ triplet and father both having clotting episodes in the past. I spoke to the patient at length and he denies any history of previous anticoagulation prior to 04/16/2017. Recent hypercoagulable workup didn't demonstrate lupus anticoagulant positive study. At this time the patient still notes severe right- sided chest pain at 8 out of 10 at times with deep inspiration or aggressive motion which is consistent with pleurisy. He denies: Fever, chills, productive cough, classic cardiac chest pain or unintentional weight loss. Current Work-Up EKG: NSR, rate: 76, with signs of LVH WBC: 13K11K H/H: 13/38 PLT: 309--294 ESR: 10 (WNL) PT: 11.3 INR: 1.1 aPPT: >300 PTT ratio: >11 Troponin I: <0.015 Albumin: 3.2 HIV: Negative Pending: Urine Legionella Quantiferon Gold [id number] CTA Thorax (04/29/17) No Acute PE noted Near complete resolution of the emboli in the LLL Decreased emboli burden in the Lingula Small moderate right sided pleural effusion Opacification of the RML & RLL with associated bronchiectasis GGO Review of Systems Constitutional: reports: no symptoms Eyes: reports: no symptoms ENT: reports: no symptoms Cardiovascular: reports: as stated in HPI Respiratory: reports: as stated in HPI Gastrointestinal: reports: no symptoms Genitourinary - Male: reports: no symptoms Musculoskeletal: reports: no symptoms Integumentary: reports: no symptoms Neurologic: reports: no symptoms Psychiatric: reports: no symptoms Endocrine: no symptoms Hematologic / Lymphatic: no symptoms Allergic / Immunologic: no symptoms Past Medical History Past Medical History: lupus anticoagulant positive sickle-cell trait h/o drug abuse-- snorting/smoking meth and marijuana tobacco abuse depression/anxiety/PTSD/explosive disorder Anxiety Atypical Chest pain Epididymitis Glaucoma PTSDprevious service Past Surgical History: none per patient Family History FH: pulmonary embolism Heart disease Hypertension pulmonary embolism Heart disease Hypertension Bipolar/Depression HTN Sickle cell trait Social History Smoking Status: Current Every Day Smoker Smokeless Tobacco Use: No Alcohol Use: occasionally/Hx of abuse Drug Use: snorting/smoking meth and marijuana Marital Status: in relationship Occupational Status: employed 1 of 3 siblings/triplets Hx Tobacco Use In Past Year?: Yes Smoking Status: Current Every Day Smoker Marital status: in relationship Occupational Status: employed Allergies Coded Allergies: Fish (Verified Allergy, Severe, ANAPHYLAXIS, 04/24/17) Current Medications Reported Home Medications Medications Dose Route/Sig Max Daily Dose Days Date Category Monodox (Doxycycline Monohydrate) 100 Mg Cap 100 Mg PO BID 10 04/24/17 Rx Roxicodone Ir (Oxycodone HCl) 5 Mg Tab 1-2 Tab PO Q4H PRN 04/24/17 Rx Xarelto (Rivaroxaban) 15 Mg Tab 15 Mg PO BID 04/24/17 Reported Atarax (Hydroxyzine Hcl) 50 Mg Tab 50 Mg PO DAILY 04/24/17 Reported Neurontin (Gabapentin) 100 Mg Cap 200 Mg PO TID 04/24/17 Reported Physical Physical Exam Vital Signs: Date Time Temp Pulse Resp B/P (MAP) Pulse Ox O2 Delivery O2 Flow Rate FiO2 04/30/17 08:02 36.7 83 19 122/79 (93) 95 Room Air 04/30/17 07:28 Room Air 04/30/17 04:00 Room Air 04/30/17 03:20 36.4 80 18 126/72 (90) 96 Room Air 04/29/17 23:59 Room Air 04/29/17 23:31 36.8 76 22 132/86 (101) 97 Room Air 04/29/17 20:00 Room Air 04/29/17 19:36 36.9 91 22 117/71 (86) 93 Room Air 04/29/17 17:15 36.7 103 16 146/82 98 Room Air General Appearance: WELL-APPEARING, WD/WN, NO APPARENT DISTRESS, uncomfortable Head: NORMOCEPHALIC, ATRAUMATIC Eyes: PERRLA, NO DISCHARGE, EOMI, SCLERAE NORMAL, CONJUNCTIVAE NORMAL ENT: NORMAL EAR EXAM, NORMAL NASAL EXAM, NORMAL MOUTH EXAM, NORMAL THROAT EXAM , NORMAL DENTAL EXAM, NORMAL SINUS EXAM Neck: NORMAL RANGE OF MOTION, NO TENDERNESS, TRACHEA MIDLINE, NO STRIDOR Respiratory: other (decreased breath sounds right lower lobe with dullness to percussion and notable splinting) Cardiovasular: REGULAR RATE/RHYTHM, NORMAL S1S2, NO M/G/R, NO MURMUR, NO GALLOP Abdomen: NON TENDER, NORMAL BOWEL SOUNDS, NO REBOUND, NO MASSES, NO GUARDING, NO ORGANOMEGALY Genitourinary - Male: EXTERNAL GENITALIA NORMAL Back: NORMAL INSPECTION, NO MIDLINE TENDERNESS, NO CVA TENDERNESS, NO PARAVERTEBRAL TTP Upper Extremities: NO EDEMA, NO DEFORMITY, NORMAL ROM Lower Extremities: NO EDEMA, NO DEFORMITY, NORMAL ROM Pulses: carotid (R) (2+), carotid (L) (2+), posterior tibial (R), posterior tibial (L) (2+) Neuro: ALERT, ORIENTED x 3, NORMAL MOTOR EXAM, NORMAL SENSATION, NORMAL CEREBELLAR EXAM, NORMAL SPEECH Reflexes: biceps (R) (2+), bicpes (L) (2+), achilles (R) (2+), achilles (L) (2+ ) Babinski Testing: right (downgoing), left (downgoing) Psychiatric: NORMAL AFFECT, NO SUICIDAL IDEATION Diagnostics Labs Results Past 24 Hours Test 04/29/17 18:09 04/29/17 18:48 04/30/17 00:25 04/30/17 01:45 Range/Units Creatine Kinase MB Ratio 0-3.0 White Blood Count 12.51 4.8-10.8 K/uL Red Blood Count 4.33 4.7-6.1 M/uL Hemoglobin 13.1 14.0-18.0 g/dL Hematocrit 37.3 42-52 % Mean Corpuscular Volume 86.1 80-100 fL Mean Corpuscular Hemoglobin 30.3 25-34 pg Mean Corpuscular Hemoglobin Concent 35.1 32-36 g/dl Platelet Count 309 130-400 K/uL Mean Platelet Volume 9.0 7.4-10.4 fL Neutrophils (%) (Auto) 56.0 % Lymphocytes (%) (Auto) 20.5 % Monocytes (%) (Auto) 10.4 % Eosinophils (%) (Auto) 12.2 % Basophils (%) (Auto) 0.2 % Neutrophils # (Auto) 6.99 1.4-6.5 K/uL Lymphocytes # (Auto) 2.57 1.2-3.4 K/uL Monocytes # (Auto) 1.30 0.11-0.59 K/uL Eosinophils # (Auto) 1.53 0-0.5 K/uL Basophils # (Auto) 0.03 0-0.2 K/uL RDW Standard Deviation 35.1 36.4-46.3 fL RDW Coefficient of Variation 11.2 11.5-14.5 % Immature Granulocyte % (Auto) 0.7 % Immature Granulocyte # (Auto) 0.09 0.00-0.02 K/uL Erythrocyte Sedimentation Rate 10 0-14 mm/hr Prothrombin Time 11.3 9.0-12.0 SECONDS Prothromb Time International Ratio 1.1 0.9-1.1 Activated Partial Thromboplast Time 35.7 21.0-31.0 SECONDS Partial Thromboplastin Ratio 1.4 Sodium Level 140 136-145 mmol/L Potassium Level 3.7 3.5-5.1 mmol/L Chloride Level 107 98-107 mmol/L Carbon Dioxide Level 30 21-32 mmol/L Anion Gap 3.0 3-11 mmol/L Blood Urea Nitrogen 12 7-18 mg/dl Creatinine 1.20 0.60-1.40 mg/dl Est Creatinine Clear Calc Drug Dose 92.3 ml/min Estimated GFR () 90.9 Estimated GFR (Non- 78.4 BUN/Creatinine Ratio 9.9 10-20 Random Glucose 98 70-99 mg/dl Calcium Level 8.7 8.5-10.1 mg/dl Total Bilirubin 0.4 0.2-1 mg/dl Aspartate Amino Transf (AST/SGOT) 18 15-37 U/L Alanine Aminotransferase (ALT/SGPT) 23 12-78 U/L Alkaline Phosphatase 152 45-117 U/L Creatine Kinase MB 1.6 0.5-3.6 ng/ml Troponin I < 0.015 < 0.015 0-0.045 ng/ml C-Reactive Protein 3.42 0-0.29 mg/dl Total Protein 7.0 6.4-8.2 gm/dl Albumin 3.3 3.4-5.0 gm/dl Globulin 3.7 2.5-4.0 gm/dl Albumin/Globulin Ratio 0.9 0.9-2 HIV (1&2) Ab and P24 Ag, 4th Gener NEG NEG Procalcitonin 0.19 0-0.5 ng/ml Urine Color YELLOW Urine Appearance CLEAR CLEAR Urine pH 5.0 4.5-7.5 Urine Specific Media > 1.045 1.000-1.030 Urine Protein NEG NEG Urine Glucose (UA) NEG NEG Urine Ketones NEG NEG Urine Occult Blood NEG NEG Urine Nitrite NEG NEG Urine Bilirubin NEG NEG Urine Urobilinogen NEG NEG Urine Leukocyte Esterase NEG NEG Urine WBC (Auto) 1-5 0-5 /hpf Urine RBC (Auto) 0-4 0-4 /hpf Urine Hyaline Casts (Auto) 0 0-5 /lpf Urine Epithelial Cells (Auto) 0-5 0-5 /lpf Urine Bacteria (Auto) NEG NEG Test 04/30/17 07:10 Range/Units White Blood Count 11.21 4.8-10.8 K/uL Red Blood Count 4.34 4.7-6.1 M/uL Hemoglobin 13.1 14.0-18.0 g/dL Hematocrit 37.6 42-52 % Mean Corpuscular Volume 86.6 80-100 fL Mean Corpuscular Hemoglobin 30.2 25-34 pg Mean Corpuscular Hemoglobin Concent 34.8 32-36 g/dl Platelet Count 294 130-400 K/uL Mean Platelet Volume 8.8 7.4-10.4 fL RDW Standard Deviation 35.4 36.4-46.3 fL RDW Coefficient of Variation 11.2 11.5-14.5 % Neutrophils % (Manual) 58.3 % Lymphocytes % (Manual) 20.9 % Monocytes % (Manual) 8.7 % Eosinophils % (Manual) 10.4 % Myelocytes % 1.7 % Neutrophils # (Manual) 6.54 1.4-6.5 K/uL Total Absolute Neutrophils 6.54 1.4-6.5 K/uL Lymphocytes # (Manual) 2.34 1.2-3.4 K/uL Total Absolute Lymphocytes 2.34 1.2-3.4 K/uL Monocytes # (Manual) 0.98 0.11-0.59 K/uL Eosinophils # (Manual) 1.17 0-0.5 K/uL Myelocytes # 0.19 0-0 K/uL Activated Partial Thromboplast Time > 300.0 21.0-31.0 SECONDS Partial Thromboplastin Ratio > 11.0 Sodium Level 139 136-145 mmol/L Potassium Level 3.5 3.5-5.1 mmol/L Chloride Level 106 98-107 mmol/L Carbon Dioxide Level 31 21-32 mmol/L Anion Gap 2.0 3-11 mmol/L Blood Urea Nitrogen 10 7-18 mg/dl Creatinine 1.10 0.60-1.40 mg/dl Est Creatinine Clear Calc Drug Dose 100.7 ml/min Estimated GFR () 101.0 Estimated GFR (Non- 87.1 BUN/Creatinine Ratio 9.1 10-20 Random Glucose 87 70-99 mg/dl Lactic Acid Level 0.8 0.4-2.0 mmol/L Calcium Level 8.6 8.5-10.1 mg/dl Phosphorus Level 4.1 2.5-4.9 mg/dl Magnesium Level 2.2 1.8-2.4 mg/dl Total Bilirubin 0.6 0.2-1 mg/dl Aspartate Amino Transf (AST/SGOT) 17 15-37 U/L Alanine Aminotransferase (ALT/SGPT) 22 12-78 U/L Alkaline Phosphatase 147 45-117 U/L Troponin I < 0.015 0-0.045 ng/ml Total Protein 6.7 6.4-8.2 gm/dl Albumin 3.2 3.4-5.0 gm/dl Globulin 3.5 2.5-4.0 gm/dl Albumin/Globulin Ratio 0.9 0.9-2 Microbiology Results 04/29/17 Blood Culture, Received Pending 04/29/17 Blood Culture, Received Pending 04/29/17 MRSA DNA Surveillance Screen - Final, Complete Specimen Negative for MRSA by DNA Probe Diagnostic Radiology CTA Thorax (04/29/17) No Acute PE noted Near complete resolution of the emboli in the LLL Decreased emboli burden in the Lingula Small moderate right sided pleural effusion Opacification of the RML & RLL with associated bronchiectasis GGO EKG NSR, rate: 76, with signs of LVH Impression Assessment and Plan 52-year-old male with hypercoagulable background admitted with a recent pulmonary emboli, possible pneumonia and chest pain: #1 Chest pain: At this time I believe the most likely etiology of the patient's chest pain is pleurisy. The etiology could be from previous pulmonary emboli causing localized lung infarction and/or new or possibly new pneumonia. I will start the patient on Toradol. #2 Pulmonary Embolism: There are no definitive evaluations of the patient with hypercoagulable state such as sickle cell trait or lupus anticoagulant positive studies. This shows no definitive literature suggesting Xarelto is an appropriate treatment I do suggest we initiate Lovenox at this time and start Coumadin. As the patient has a strong family history of venous thromboembolism' s as well as medical characteristics/diseases such as sickle cell trait and positive lupus anticoagulant require lifetime anticoagulation. I suggest we initiate therapy and then consult the admitting/anticoagulation clinic.
--- NOTE | 2017-04-30 12:37 | Medical Consult ---
Consultation Date of Consultation: Apr 30, 2017. Attending Physician: Roc Ortiz M.D. Reason for Consultation: RLL opacity, hx. drug abuse History of Present Illness Patient is a 32-year-old male who presented to the hospital for admission under the recommendation of Dr. Harris the in regards to right-sided chest pain. The patient has a complicated past medical history including sickle cell trait, positive lupus anticoagulant, history of drug abuse, PTSD, and recently was diagnosed with a PE and placed on Xarelto. The patient states he had been experiencing this right-sided chest pain for multiple days, but otherwise has felt well. He feels the pain is worse with a deep breath, coughing, and movement. He has had a very mild, nonproductive cough starting yesterday. The patient did have a CTA of the chest upon admission, which showed near complete resolution of prior PE. It also showed small to moderate right pleural effusion with multi focal consolidative opacities of the right middle and lower lobe suggesting pneumonia. The patient was placed on IV vancomycin and Zosyn. Blood cultures are pending. MRSA nasal swab was negative. white blood cell count on admission was 12.51. ESR was 10. Procalcitonin was 0.19, and C reactive protein was 3.42. I did discuss this patient with Dr. Connors, Dr. Ng, and Dr. Ortiz. Past Medical/Surgical History Medical Problems: (1) Polysubstance abuse Status: Acute (2) Pulmonary embolism Status: Acute (3) Pulmonary infarction Status: Acute (4) Sleep deprivation Status: Acute Medical Problems: (1) Chest pain, pleuritic (2) Pulmonary embolism Family History FH: pulmonary embolism Heart disease Hypertension Noncontributory Social History Smoking Status: Current Every Day Smoker Smokeless Tobacco Use: No Alcohol Use: occasionally Drug Use: other Marital Status: in relationship Housing Status: lives with significant other Occupation Status: employed Allergies Coded Allergies: Fish (Verified Allergy, Severe, ANAPHYLAXIS, 04/24/17) Home Medications Reported Home Medications Medications Dose Route/Sig Max Daily Dose Days Date Category Monodox (Doxycycline Monohydrate) 100 Mg Cap 100 Mg PO BID 10 04/24/17 Rx Roxicodone Ir (Oxycodone HCl) 5 Mg Tab 1-2 Tab PO Q4H PRN 04/24/17 Rx Xarelto (Rivaroxaban) 15 Mg Tab 15 Mg PO BID 04/24/17 Reported Atarax (Hydroxyzine Hcl) 50 Mg Tab 50 Mg PO DAILY 04/24/17 Reported Neurontin (Gabapentin) 100 Mg Cap 200 Mg PO TID 04/24/17 Reported Current Inpatient Medications Current Inpatient Medications Medications (Trade) Dose Ordered Sig/Herb Route Start Time Stop Time Status Last Admin Dose Admin Acetaminophen (Tylenol Tab) 650 mg Q4H PRN PO 04/29/17 17:30 05/29/17 17:29 Al Hydrox/Mg Hydrox/Simethicone (Maalox Max Susp) 15 ml Q4H PRN PO 04/29/17 17:30 05/29/17 17:29 Magnesium Hydroxide (Milk Of Magnesia Susp) 30 ml Q12H PRN PO 04/29/17 17:30 05/29/17 17:29 Ondansetron HCl (Zofran Inj) 4 mg Q6H PRN IV 04/29/17 17:30 05/29/17 17:29 Polyethylene (Miralax Powder Packet) 17 gm DAILY PRN PO 04/29/17 17:30 05/29/17 17:29 Gabapentin (Neurontin Cap) 200 mg TID PO 04/29/17 21:00 05/29/17 20:59 04/30/17 09:08 200 MG Oxycodone HCl (Roxicodone Immediate Rel Tab) 5 mg Q4H PRN PO 04/29/17 17:30 05/13/17 17:29 04/30/17 06:31 5 MG Nicotine (Nicoderm Cq 14MG Patch) 1 patch QAM TD 04/29/17 18:00 05/29/17 17:59 04/30/17 06:32 1 PATCH Miscellaneous (Remove Nicoderm Patch) 1 ea HS N/A 04/29/17 21:00 05/29/17 20:59 Ioversol (Optiray 320) 100 ml UD PRN IV 04/29/17 18:00 05/03/17 17:59 Piperacillin Sod/ Tazobactam Sod (Consult) 1 ea UD PRN N/A 04/29/17 18:00 05/29/17 17:59 Piperacillin Sod/ Tazobactam Sod 3.375 gm/Dextrose 115 ml @ 28.75 mls/ hr Q8H IV 04/30/17 02:00 05/02/17 01:59 04/30/17 09:43 28.75 MLS/HR Heparin Sodium (Porcine) 94919 unit/Dextrose 500 ml @ 28 mls/hr [id number] PRN IV 04/30/17 07:00 05/30/17 06:59 04/30/17 07:06 28 MLS/HR Miscellaneous Information (Standard Warfarin Nomogram) 1 ea DAILY@14 PO 04/30/17 14:00 05/30/17 13:59 UNV Miscellaneous Information (Standard Warfarin Nomogram) 1 ea DAILY@14 PO 04/30/17 14:00 05/30/17 13:59 UNV Miscellaneous Information (Standard Warfarin Nomogram) 1 ea DAILY@14 PO 04/30/17 14:00 05/30/17 13:59 UNV Miscellaneous Information (Low Intensity Warfarin Nomogram) 1 ea DAILY@14 PO 04/30/17 14:00 05/30/17 13:59 UNV Review of Systems Constitutional: No fever, No chills, No sweats Eyes: No worsening of vision ENT: No hearing loss Respiratory: + cough (yesterday, mild ), No shortness of breath, No dyspnea on exertion Cardiovascular: + chest pain (right sided) Abdomen: No pain, No nausea, No vomiting Musculoskeletal: No joint pain, No muscle pain Genitourinary - Male: No hematuria, No dysuria, No urinary frequency Neurologic: No numbness/tingling Integumentary: No rash, No itch Physical Exam Date Time Temp Pulse Resp B/P (MAP) Pulse Ox O2 Delivery O2 Flow Rate FiO2 04/30/17 11:55 36.5 77 20 136/75 (95) 96 Room Air 04/30/17 08:02 36.7 83 19 122/79 (93) 95 Room Air 04/30/17 07:28 Room Air 04/30/17 04:00 Room Air 04/30/17 03:20 36.4 80 18 126/72 (90) 96 Room Air 04/29/17 23:59 Room Air 04/29/17 23:31 36.8 76 22 132/86 (101) 97 Room Air 04/29/17 20:00 Room Air 7/27/17 19:36 36.9 91 22 117/71 (86) 93 Room Air 04/29/17 17:15 36.7 103 16 146/82 98 Room Air General: Patient is awake, alert, cooperative, and in no acute distress. Well developed. Well-nourished. Skin: Normal appearance, texture, and temperature. No apparent rash or ecchymoses. HEENT: Normocephalic and atraumatic. Eyes are anicteric and non-erythematous. EOMI c PERRLA. Hearing intact and without difficulty. Nose appears normal and without drainage. Trachea midline. Thyroid appears normal, and neck is supple. Lungs: No accessory muscle use. Decreased breath sounds right base. Heart: Regular rate and rhythm. Normal S1 and S2 heard. No S3/S4, rubs, murmurs , or gallops appreciated. Abdomen: Active bowel sounds heard throughout all 4 quadrants. Abdomen is soft and nontender with no organomegally or masses to palpation. Extremities: No cyanosis or edema. Gait normal and without difficulty. Freely moving extremities during exam. Neuro: Alert and oriented X3. CN II-XII grossly intact. Sensation and motor function grossly intact. Psych: Mood and affect are slightly labile Laboratory Results (CHEST FOR PE) ANGIO WITH CT DOSE: 497.90 mGycm HISTORY: 32 years-old Male with acute chest pain and pneumonia. Recently diagnosed acute pulmonary embolus. TECHNIQUE: Multiple CTA images of the chest were obtained after the intravenous administration of 111ml Optiray 320. Coronal and sagittal MIPS were obtained from the axial data set and were submitted for review. A dose lowering technique was utilized adhering to the principles of ALARA. COMPARISON: CT chest 04/16/2017. FINDINGS: CTA: Heart is normal in size. No thoracic aortic aneurysm or dissection. There is near complete resolution of the previously noted emboli of the left lower lobe. There is linear filling defect seen within a lingular lobar branch on image 182 suggesting residual chronic thrombus. No new pulmonary emboli are identified. CT CHEST: There is a [id number] right pleural effusion. Multifocal consolidative opacities involve the right middle and right lower lobes. Ground glass opacities involve the right upper lobe. The left lung is generally clear. No obstructing bronchial lesion is seen. The upper abdominal structures are within normal limits. The soft tissues are unremarkable. The bones appear intact. IMPRESSION: 1. Near complete resolution of the previously noted pulmonary emboli of the left lower lobe. Likely minimal residual thrombus is seen within a lingular lobar branch. No acute occlusive pulmonary emboli are identified. 2. Small to moderate right pleural effusion with multifocal consolidative opacities of the right middle and lower lobes suggest pneumonia with associated bronchitis. 3. Groundglass opacities of the upper lobes suggest associated atelectasis. Item Value Date Time MRSA DNA Surveillance Screen - Final Complete 04/29/17 2300 Nasal Specimen Negative for MRSA by DNA Probe Blood Culture Received 04/29/17 1905 Blood Pending Blood Culture Received 04/29/17 1848 Blood Pending Last 24 Hours Test 04/29/17 18:09 04/29/17 18:48 04/30/17 00:25 04/30/17 01:45 Creatine Kinase MB Ratio White Blood Count 12.51 K/uL Red Blood Count 4.33 M/uL Hemoglobin 13.1 g/dL Hematocrit 37.3 % Mean Corpuscular Volume 86.1 fL Mean Corpuscular Hemoglobin 30.3 pg Mean Corpuscular Hemoglobin Concent 35.1 g/dl Platelet Count 309 K/uL Mean Platelet Volume 9.0 fL Neutrophils (%) (Auto) 56.0 % Lymphocytes (%) (Auto) 20.5 % Monocytes (%) (Auto) 10.4 % Eosinophils (%) (Auto) 12.2 % Basophils (%) (Auto) 0.2 % Neutrophils # (Auto) 6.99 K/uL Lymphocytes # (Auto) 2.57 K/uL Monocytes # (Auto) 1.30 K/uL Eosinophils # (Auto) 1.53 K/uL Basophils # (Auto) 0.03 K/uL RDW Standard Deviation 35.1 fL RDW Coefficient of Variation 11.2 % Immature Granulocyte % (Auto) 0.7 % Immature Granulocyte # (Auto) 0.09 K/uL Erythrocyte Sedimentation Rate 10 mm/hr Prothrombin Time 11.3 SECONDS Prothromb Time International Ratio 1.1 Activated Partial Thromboplast Time 35.7 SECONDS Partial Thromboplastin Ratio 1.4 Sodium Level 140 mmol/L Potassium Level 3.7 mmol/L Chloride Level 107 mmol/L Carbon Dioxide Level 30 mmol/L Anion Gap 3.0 mmol/L Blood Urea Nitrogen 12 mg/dl Creatinine 1.20 mg/dl Est Creatinine Clear Calc Drug Dose 92.3 ml/min Estimated GFR () 90.9 Estimated GFR (Non- 78.4 BUN/Creatinine Ratio 9.9 Random Glucose 98 mg/dl Calcium Level 8.7 mg/dl Total Bilirubin 0.4 mg/dl Aspartate Amino Transf (AST/SGOT) 18 U/L Alanine Aminotransferase (ALT/SGPT) 23 U/L Alkaline Phosphatase 152 U/L Creatine Kinase MB 1.6 ng/ml Troponin I < 0.015 ng/ml < 0.015 ng/ml C-Reactive Protein 3.42 mg/dl Total Protein 7.0 gm/dl Albumin 3.3 gm/dl Globulin 3.7 gm/dl Albumin/Globulin Ratio 0.9 HIV (1&2) Ab and P24 Ag, 4th Gener NEG Procalcitonin 0.19 ng/ml Urine Color YELLOW Urine Appearance CLEAR Urine pH 5.0 Urine Specific [place] > 1.045 Urine Protein NEG Urine Glucose (UA) NEG Urine Ketones NEG Urine Occult Blood NEG Urine Nitrite NEG Urine Bilirubin NEG Urine Urobilinogen NEG Urine Leukocyte Esterase NEG Urine WBC (Auto) 1-5 /hpf Urine RBC (Auto) 0-4 /hpf Urine Hyaline Casts (Auto) 0 /lpf Urine Epithelial Cells (Auto) 0-5 /lpf Urine Bacteria (Auto) NEG Test 04/30/17 07:10 White Blood Count 11.21 K/uL Red Blood Count 4.34 M/uL Hemoglobin 13.1 g/dL Hematocrit 37.6 % Mean Corpuscular Volume 86.6 fL Mean Corpuscular Hemoglobin 30.2 pg Mean Corpuscular Hemoglobin Concent 34.8 g/dl Platelet Count 294 K/uL Mean Platelet Volume 8.8 fL RDW Standard Deviation 35.4 fL RDW Coefficient of Variation 11.2 % Neutrophils % (Manual) 58.3 % Lymphocytes % (Manual) 20.9 % Monocytes % (Manual) 8.7 % Eosinophils % (Manual) 10.4 % Myelocytes % 1.7 % Neutrophils # (Manual) 6.54 K/uL Total Absolute Neutrophils 6.54 K/uL Lymphocytes # (Manual) 2.34 K/uL Total Absolute Lymphocytes 2.34 K/uL Monocytes # (Manual) 0.98 K/uL Eosinophils # (Manual) 1.17 K/uL Myelocytes # 0.19 K/uL Activated Partial Thromboplast Time > 300.0 SECONDS Partial Thromboplastin Ratio > 11.0 Sodium Level 139 mmol/L Potassium Level 3.5 mmol/L Chloride Level 106 mmol/L Carbon Dioxide Level 31 mmol/L Anion Gap 2.0 mmol/L Blood Urea Nitrogen 10 mg/dl Creatinine 1.10 mg/dl Est Creatinine Clear Calc Drug Dose 100.7 ml/min Estimated GFR () 101.0 Estimated GFR (Non- 87.1 BUN/Creatinine Ratio 9.1 Random Glucose 87 mg/dl Lactic Acid Level 0.8 mmol/L Calcium Level 8.6 mg/dl Phosphorus Level 4.1 mg/dl Magnesium Level 2.2 mg/dl Total Bilirubin 0.6 mg/dl Aspartate Amino Transf (AST/SGOT) 17 U/L Alanine Aminotransferase (ALT/SGPT) 22 U/L Alkaline Phosphatase 147 U/L Troponin I < 0.015 ng/ml Total Protein 6.7 gm/dl Albumin 3.2 gm/dl Globulin 3.5 gm/dl Albumin/Globulin Ratio 0.9 Assessment & Plan Patient with chest pain, probable pleuritic in nature, and possible new pneumonia of the RML and RLL. He is currently on IV Vancomycin and Zosyn. MRSA nasal swab was negative. Will D/C Vancomycin. Feel that Zosyn is appropriate pending further workup/improvement. He may ultimately be OK to transition to PO Augmentin if he continues to improve to complete 7-10 days. We will follow. PROVIDER ADDENDUM: Patient examined and reviewed with YOVANA. Agree with above assessment.
[2017-04-30] MEDS ORDERED: ACETAMINOPHEN IV 650 MG in EMPTY BAG 0 ML IV PRN (12:45)
[2017-04-30] MEDS ORDERED: LOW INTENSITY WARFARIN NOMOGRAM PO SCH (14:00)
[2017-04-30] MEDS ORDERED: STANDARD WARFARIN NOMOGRAM PO SCH ×3 (14:00)
[2017-04-30] MEDS: CeleBREX 100 MG CAP PO SCH ×2 (14:13→20:43)
[2017-04-30 16:23] LABS: PARTIAL THROMBOPLASTIN RATIO 2.2
[2017-04-30] MEDS: WARFARIN SOD 5 MG TAB PO SCH (16:48)
--- NOTE | 2017-04-30 18:15 | Progress Note ---
Subjective Date of Service: Apr 30, 2017. Subjective this pt is still with pleuritic pain, no cough tobacco withdrawal qwelled with patch Problem List Medical Problems: (1) Polysubstance abuse Status: Acute (2) Pulmonary embolism Status: Acute (3) Pulmonary infarction Status: Acute (4) Sleep deprivation Status: Acute Review of Systems Constitutional: No fever, No chills Respiratory: + dyspnea on exertion, No cough, No sputum, No wheezing, No shortness of breath Cardiac: + chest pain, No orthopnea, No PND, No edema Abdomen: No pain, No nausea, No vomiting, No diarrhea Psychiatric: No depression symptoms, No anhedonism Objective Vital Signs Date Time Temp Pulse Resp B/P (MAP) Pulse Ox O2 Delivery O2 Flow Rate FiO2 04/30/17 08:02 36.7 83 19 122/79 (93) 95 Room Air 04/30/17 07:28 Room Air 04/30/17 04:00 Room Air 04/30/17 03:20 36.4 80 18 126/72 (90) 96 Room Air 04/29/17 23:59 Room Air 04/29/17 23:31 36.8 76 22 132/86 (101) 97 Room Air 04/29/17 20:00 Room Air 04/29/17 19:36 36.9 91 22 117/71 (86) 93 Room Air 04/29/17 17:15 36.7 103 16 146/82 98 Room Air Physical Exam General Appearance: WD/WN, + mild distress Neck: supple, no JVD Respiratory/Chest: no respiratory distress, + decreased breath sounds, + accessory muscle use Cardiovascular: regular rate, rhythm, no murmur Abdomen: normal bowel sounds, non tender, soft Extremities: no pedal edema, no calf tenderness Neurologic/Psychiatric: alert, oriented x 3 Laboratory Results Last 24 Hours Test 04/29/17 18:09 04/29/17 18:48 04/30/17 00:25 04/30/17 01:45 Creatine Kinase MB Ratio White Blood Count 12.51 K/uL Red Blood Count 4.33 M/uL Hemoglobin 13.1 g/dL Hematocrit 37.3 % Mean Corpuscular Volume 86.1 fL Mean Corpuscular Hemoglobin 30.3 pg Mean Corpuscular Hemoglobin Concent 35.1 g/dl Platelet Count 309 K/uL Mean Platelet Volume 9.0 fL Neutrophils (%) (Auto) 56.0 % Lymphocytes (%) (Auto) 20.5 % Monocytes (%) (Auto) 10.4 % Eosinophils (%) (Auto) 12.2 % Basophils (%) (Auto) 0.2 % Neutrophils # (Auto) 6.99 K/uL Lymphocytes # (Auto) 2.57 K/uL Monocytes # (Auto) 1.30 K/uL Eosinophils # (Auto) 1.53 K/uL Basophils # (Auto) 0.03 K/uL RDW Standard Deviation 35.1 fL RDW Coefficient of Variation 11.2 % Immature Granulocyte % (Auto) 0.7 % Immature Granulocyte # (Auto) 0.09 K/uL Erythrocyte Sedimentation Rate 10 mm/hr Prothrombin Time 11.3 SECONDS Prothromb Time International Ratio 1.1 Activated Partial Thromboplast Time 35.7 SECONDS Partial Thromboplastin Ratio 1.4 Sodium Level 140 mmol/L Potassium Level 3.7 mmol/L Chloride Level 107 mmol/L Carbon Dioxide Level 30 mmol/L Anion Gap 3.0 mmol/L Blood Urea Nitrogen 12 mg/dl Creatinine 1.20 mg/dl Est Creatinine Clear Calc Drug Dose 92.3 ml/min Estimated GFR () 90.9 Estimated GFR (Non- 78.4 BUN/Creatinine Ratio 9.9 Random Glucose 98 mg/dl Calcium Level 8.7 mg/dl Total Bilirubin 0.4 mg/dl Aspartate Amino Transf (AST/SGOT) 18 U/L Alanine Aminotransferase (ALT/SGPT) 23 U/L Alkaline Phosphatase 152 U/L Creatine Kinase MB 1.6 ng/ml Troponin I < 0.015 ng/ml < 0.015 ng/ml C-Reactive Protein 3.42 mg/dl Total Protein 7.0 gm/dl Albumin 3.3 gm/dl Globulin 3.7 gm/dl Albumin/Globulin Ratio 0.9 HIV (1&2) Ab and P24 Ag, 4th Gener NEG Procalcitonin 0.19 ng/ml Urine Color YELLOW Urine Appearance CLEAR Urine pH 5.0 Urine Specific [place] > 1.045 Urine Protein NEG Urine Glucose (UA) NEG Urine Ketones NEG Urine Occult Blood NEG Urine Nitrite NEG Urine Bilirubin NEG Urine Urobilinogen NEG Urine Leukocyte Esterase NEG Urine WBC (Auto) 1-5 /hpf Urine RBC (Auto) 0-4 /hpf Urine Hyaline Casts (Auto) 0 /lpf Urine Epithelial Cells (Auto) 0-5 /lpf Urine Bacteria (Auto) NEG Test 04/30/17 07:10 White Blood Count 11.21 K/uL Red Blood Count 4.34 M/uL Hemoglobin 13.1 g/dL Hematocrit 37.6 % Mean Corpuscular Volume 86.6 fL Mean Corpuscular Hemoglobin 30.2 pg Mean Corpuscular Hemoglobin Concent 34.8 g/dl Platelet Count 294 K/uL Mean Platelet Volume 8.8 fL RDW Standard Deviation 35.4 fL RDW Coefficient of Variation 11.2 % Neutrophils % (Manual) 58.3 % Lymphocytes % (Manual) 20.9 % Monocytes % (Manual) 8.7 % Eosinophils % (Manual) 10.4 % Myelocytes % 1.7 % Neutrophils # (Manual) 6.54 K/uL Total Absolute Neutrophils 6.54 K/uL Lymphocytes # (Manual) 2.34 K/uL Total Absolute Lymphocytes 2.34 K/uL Monocytes # (Manual) 0.98 K/uL Eosinophils # (Manual) 1.17 K/uL Myelocytes # 0.19 K/uL Sodium Level 139 mmol/L Potassium Level 3.5 mmol/L Chloride Level 106 mmol/L Carbon Dioxide Level 31 mmol/L Anion Gap 2.0 mmol/L Blood Urea Nitrogen 10 mg/dl Creatinine 1.10 mg/dl Est Creatinine Clear Calc Drug Dose 100.7 ml/min Estimated GFR () 101.0 Estimated GFR (Non- 87.1 BUN/Creatinine Ratio 9.1 Random Glucose 87 mg/dl Lactic Acid Level 0.8 mmol/L Calcium Level 8.6 mg/dl Phosphorus Level 4.1 mg/dl Magnesium Level 2.2 mg/dl Total Bilirubin 0.6 mg/dl Aspartate Amino Transf (AST/SGOT) 17 U/L Alanine Aminotransferase (ALT/SGPT) 22 U/L Alkaline Phosphatase 147 U/L Troponin I < 0.015 ng/ml Total Protein 6.7 gm/dl Albumin 3.2 gm/dl Globulin 3.5 gm/dl Albumin/Globulin Ratio 0.9 Assessment and Plan 32 M with chest pain recent PE, concern for pneumonia, with PMHx of PE, lupus anticoagulant positive, sickle-cell trait, h/o drug abuse, tobacco abuse, depression/anxiety/PTSD, chest pain- ECHO endocarditis - Hold Xarelto and begin IV Heparin, given hypercoagulable lupus anticoagulant positive and sickle cell trait, xarelto may not be best choice and pulmonary med feels should transition to coumadin - Broad spectrum IV antibiotics w/ IV Zosyn - Oxycodone and Tylenol PRN for pain control - Consult Dr. Connors no plans for thoracentesis Anxiety/depression, PTSD, explosive disorder: Continue Gabapentin 100 mg TID h/o drug abuse, counselled on stopping h/o tobacco abuse- 1/2-1 pack per day: Nicotine patch DVT Prophylaxis: Xarelto/IV Heparin Code Status: LEVEL I, FULL Dispo: From home- transition social worker consulted
--- NOTE | 2017-04-30 18:26 | ECHOCARDIOGRAM REPORT ---
*NOTICE TO RECEIVING LIBERTARIAN AGENCY This information is strictly Confidential and protected under [place] law. [place] law prohibits you from making any further disclosure of this information unless further disclosure is expressly permitted by the written consent of the person to whom it pertains or is authorized by law. A general authorization for the release of medical or other information is not sufficient for this purpose. Hospital accepts no responsibility if the information is made available to any other person, INCLUDING THE PATIENT. Interpretation Summary * Name: VICKY ESCOBAR II Study Date: 04/30/2017 01:15 PM BP: 126/72 mmHg * Patient Location: [facility]\S\S241\S\1 HR: 80 * : 1985 (M/d/yyyy) Gender: Male Height: 75 in * Age: 32 yrs Ethnicity: AA Weight: 186 lb * Ordering Physician: Starla Rosales * Referring Physician: Alejandro Martin * Performed By: Keren Diop RCS * * Reason For Study: Endocarditis * BSA: 2.1 m2 * -- Conclusions -- * 1. Normal LV size and wall thickness. * 2. Normal LV systolic funciton. LVEF 60-65%. No regional wall motion abnormalities. * 3. Normal RV size and function. * 4. No significant valvular pathology. No vegetations noted. * 5. Positive bubble study for interatrial shunt. * 6. No prior studies for comparison. Procedure Details * A complete two-dimensional transthoracic echocardiogram was performed (2D, M-mode, Doppler and color flow Doppler). * A saline contrast injection was performed to assess for cardiac shunting. * The injection was performed through an intravenous line in the right arm. * The attending nurse who injected the saline contrast was Deja Batista RN. * A total of 10 cc of agitated saline was given. Left Ventricle * The left ventricle is grossly normal size. * There is normal left ventricular wall thickness. * Ejection Fraction = 60-65%. * No regional wall motion abnormalities noted. Right Ventricle * The right ventricle is grossly normal size. * The right ventricular systolic function is normal as assessed by tricuspid annular plane systolic excursion (TAPSE) (normal >1.5 cm). Atria * The left atrial size is normal. * Right atrial size is normal. * Injection of contrast documented an interatrial shunt. Mitral Valve * The mitral valve is grossly normal. * There is no vegetation seen on the mitral valve. * Mitral stenosis is absent. * Significant mitral regurgitation is absent. Tricuspid Valve * There is no tricuspid valve vegetation. * There is trace tricuspid regurgitation. * Right ventricular systolic pressure is normal. Aortic Valve * The aortic valve opens well. * The aortic valve is trileaflet. * There is no aortic valvular vegetation. * No hemodynamically significant valvular aortic stenosis. * Trace aortic regurgitation. Pulmonic Valve * The pulmonary valve is inadequately visualized, but the Doppler data is adequate for interpretation. * Pulmonic stenosis is absent. * Trace pulmonic valvular regurgitation. Great Vessels * The aortic root and proximal ascending aorta are normal sized. Pericardium/Pleural * There is no pericardial effusion. Great Vessels * Normal inferior vena cava size and collapsability with sniff indicates a normal right atrial pressure of 3 mmHg MMode 2D Measurements and Calculations IVSd 0.99 cm IVSs 1.3 cm LVIDd 4.8 cm LVIDs 3.2 cm LVPWd 0.92 cm LVPWs 1.3 cm IVS/LVPW 1.1 FS 31.7 % EDV(Teich) 105.4 ml ESV(Teich) 42.5 ml EF(Teich) 59.7 % EDV(cubed) 107.8 ml ESV(cubed) 34.3 ml EF(cubed) 68.2 % % IVS thick 35.1 % % LVPW thick 40.9 % LV mass(C)d 157.0 grams LV mass(C)dI 73.8 grams/m\S\2 LV mass(C)s 140.6 grams LV mass(C)sI 66.1 grams/m\S\2 CO(Teich) 4.8 l/min CI(Teich) 2.3 l/min/m\S\2 SV(Teich) 62.9 ml SI(Teich) 29.6 ml/m\S\2 CO(cubed) 5.7 l/min CI(cubed) 2.7 l/min/m\S\2 SV(cubed) 73.5 ml SI(cubed) 34.6 ml/m\S\2 Ao root diam 3.2 cm Ao root area 8.1 cm\S\2 ACS 2.1 cm LA dimension 3.5 cm asc Aorta Diam 2.6 cm LA/Ao 1.1 LVAd ap4 32.4 cm\S\2 LVLd ap4 8.4 cm EDV(MOD-sp4) 104.0 ml LVAs ap4 16.5 cm\S\2 LVLs ap4 7.1 cm ESV(MOD-sp4) 33.0 ml EF(MOD-sp4) 68.3 % LVAd ap2 35.1 cm\S\2 LVLd ap2 8.9 cm EDV(MOD-sp2) 119.0 ml LVAs ap2 18.9 cm\S\2 LVLs ap2 7.1 cm ESV(MOD-sp2) 46.0 ml EF(MOD-sp2) 61.3 % CO(MOD-sp4) 5.5 l/min CI(MOD-sp4) 2.6 l/min/m\S\2 SV(MOD-sp4) 71.0 ml SI(MOD-sp4) 33.4 ml/m\S\2 CO(MOD-sp2) 5.6 l/min CI(MOD-sp2) 2.6 l/min/m\S\2 SV(MOD-sp2) 73.0 ml SI(MOD-sp2) 34.3 ml/m\S\2 Doppler Measurements and Calculations MV E max viv 96.7 cm/sec MV A max viv 65.6 cm/sec MV E/A 1.5 MV P1/2t max viv 121.2 cm/sec MV P1/2t 83.1 msec MVA(P1/2t) 2.6 cm\S\2 MV dec slope 427.1 cm/sec\S\2 MV dec time 0.20 sec Ao V2 max 132.7 cm/sec Ao max PG 7.0 mmHg Ao max PG (full) 1.0 mmHg LV V1 max PG 6.0 mmHg LV V1 max 122.9 cm/sec PA V2 max 98.5 cm/sec PA max PG 3.9 mmHg PI max viv 201.5 cm/sec PI max PG 16.2 mmHg PI dec slope 190.7 cm/sec\S\2 PI P1/2t 309.5 msec TR max viv 272.7 cm/sec
[2017-05-01] MEDS: HEPARIN 25,000 UNIT/500ML D5W 500 ML IV PRN ×2 (00:50→18:15)
[2017-05-01] MEDS: PIPERACILL/TAZOBAC IV 3.375 GM in DEXTROSE 5% 100ML IV SCH ×3 (02:09→18:13)
[2017-05-01 04:09] VITALS: BP 130/80; PULSE 70; TEMP 36.5; O2SAT 96
[2017-05-01 04:27] LABS: HEMATOCRIT 34.4 % (42-52); MEAN CELL VOLUME 87.1 fL (80-100); MEAN CORPUSCULAR HEMOGLOBIN 30.4 pg (25-34); MEAN CORPUSCULAR HGB CONC 34.9 g/dl (32-36); MEAN PLATELET VOLUME 9.6 fL (7.4-10.4); PLATELET COUNT 296 K/uL (130-400); RED BLOOD COUNT 3.95 M/uL (4.7-6.1); WHITE BLOOD COUNT 10.92 K/uL (4.8-10.8)
[2017-05-01 04:42] LABS: PARTIAL THROMBOPLASTIN RATIO 2.4; PROTHROMBIN TIME (PATIENT) 10.4 SECONDS (9.0-12.0)
[2017-05-01 04:52] LABS: BUN/CREATININE RATIO 15.9 (10-20); CALCIUM 8.7 mg/dl (8.5-10.1); CREATININE 1.2 mg/dl (0.60-1.40); POTASSIUM 4.1 mmol/L (3.5-5.1)
[2017-05-01] MEDS ORDERED: VANCOMYCIN CONSULT ACTIVE PRN (06:45)
[2017-05-01] MEDS ORDERED: VANCOMYCIN INJ 1,250 MG in SODIUM CHLORIDE 0.9% 250ML 250 ML IV ONE (07:00)
[2017-05-01] MEDS ORDERED: VANCOMYCIN TROUGH ONE (07:30)
[2017-05-01 07:57] VITALS: BP 115/68; PULSE 65; TEMP 37; O2SAT 96
[2017-05-01] MEDS: GABAPENTIN 100 MG CAP PO SCH ×3 (09:10→20:32)
[2017-05-01] MEDS: CeleBREX 100 MG CAP PO SCH ×2 (09:10→20:32)
[2017-05-01] MEDS: NICOTINE 14 MG/24 HR TDSY TD SCH (09:11)
[2017-05-01] MEDS: TRAMADOL HCL 50 MG TAB PO PRN (10:58)
[2017-05-01 11:15] VITALS: BP 121/72; PULSE 80; TEMP 36.7; O2SAT 97
[2017-05-01 12:50] VITALS: BP 121/72; PULSE 80; TEMP 36.7; O2SAT 97
[2017-05-01] MEDS: OXYCODONE HCL IR 5 MG TAB (IMMEDIATE RELEASE) PO PRN ×2 (14:32→20:32)
--- NOTE | 2017-05-01 14:32 | Pulmonology Progress Note ---
Pulmonary Progress Note Date of Service May 01, 2017. Attending Dr. Connors Subjective The patient notes overall improvement in his chest pain Objective Patient is sitting up in bed able to easily finish our conversation was no signs of increased work of breathing or splinting at this time. Vital signs: Patient currently in room air Respiratory: Rhonchi appreciated in the right hemithorax lower quadrants predominant Cardiac: S1-S2 regular rate and rhythm next and abdomen: Positive bowel sounds soft nontender Assessment & Plan 32-year-old gentleman admitted for uncontrollable chest pain with history of pulmonary embolism: #1 chest pain: Etiology of her patient's chest pain is most likely pleurisy/ pleuritic in nature. At this time it is improving he will continue Toradol. #2 pulmonary embolism: As the patient does have a hypercoagulable underlying disorder and no current literature suggests its role to his appropriate treatment we have initiated Lovenox and we are bridging to Coumadin. Once the patient's pain is well-controlled and he is properly anticoagulated he can follow-up in the pulmonary Department and anticoagulation clinic. Data Medications: Current Inpatient Medications Medications (Trade) Dose Ordered Sig/Herb Route Start Time Stop Time Status Last Admin Dose Admin Acetaminophen (Tylenol Tab) 650 mg Q4H PRN PO 04/29/17 17:30 05/29/17 17:29 Al Hydrox/Mg Hydrox/Simethicone (Maalox Max Susp) 15 ml Q4H PRN PO 04/29/17 17:30 05/29/17 17:29 Magnesium Hydroxide (Milk Of Magnesia Susp) 30 ml Q12H PRN PO 04/29/17 17:30 05/29/17 17:29 Ondansetron HCl (Zofran Inj) 4 mg Q6H PRN IV 04/29/17 17:30 05/29/17 17:29 Polyethylene (Miralax Powder Packet) 17 gm DAILY PRN PO 04/29/17 17:30 05/29/17 17:29 Gabapentin (Neurontin Cap) 200 mg TID PO 04/29/17 21:00 05/29/17 20:59 05/01/17 09:10 200 MG Oxycodone HCl (Roxicodone Immediate Rel Tab) 5 mg Q4H PRN PO 04/29/17 17:30 05/13/17 17:29 04/30/17 06:31 5 MG Nicotine (Nicoderm Cq 14MG Patch) 1 patch QAM TD 04/29/17 18:00 05/29/17 17:59 05/01/17 09:11 1 PATCH Miscellaneous (Remove Nicoderm Patch) 1 ea HS N/A 04/29/17 21:00 05/29/17 20:59 04/30/17 20:42 1 EA Ioversol (Optiray 320) 100 ml UD PRN IV 04/29/17 18:00 05/03/17 17:59 Piperacillin Sod/ Tazobactam Sod (Consult) 1 ea UD PRN N/A 04/29/17 18:00 05/29/17 17:59 Piperacillin Sod/ Tazobactam Sod 3.375 gm/Dextrose 115 ml @ 28.75 mls/ hr Q8H IV 04/30/17 02:00 05/02/17 01:59 05/01/17 10:29 28.75 MLS/HR Acetaminophen 650 mg/Empty Bag 65 ml @ 260 mls/hr Q6H PRN IV 04/30/17 12:45 05/30/17 12:44 Celecoxib (CeleBREX CAP) 100 mg BID PO 04/30/17 12:45 05/30/17 12:44 05/01/17 09:10 100 MG Tramadol HCl (Ultram Tab) 50 mg Q4H PRN PO 04/30/17 12:45 05/30/17 12:44 05/01/17 10:58 50 MG Warfarin Sodium (Coumadin Tab) 5 mg DAILY@16 PO 04/30/17 16:00 05/30/17 15:59 04/30/17 16:48 5 MG Heparin Sodium/ Dextrose 500 ml @ 28 mls/hr [id number] PRN IV 05/01/17 00:15 05/31/17 00:14 05/01/17 00:50 28 MLS/HR Vancomycin HCl (Consult) 1 ea UD PRN N/A 05/01/17 06:45 05/31/17 06:44 Vancomycin HCl 1350 mg/Sodium Chloride 277 ml @ 125 mls/hr Q10H IV 05/01/17 14:00 05/15/17 13:59 Vital Signs: Date Time Temp Pulse Resp B/P (MAP) Pulse Ox O2 Delivery O2 Flow Rate FiO2 05/01/17 12:50 36.7 80 18 97 05/01/17 11:15 36.7 80 18 121/72 (88) 97 Room Air 05/01/17 08:00 Room Air 05/01/17 07:57 37.0 65 18 115/68 (84) 96 Room Air 05/01/17 04:09 36.5 70 22 130/80 (97) 96 Room Air 05/01/17 04:00 Room Air 05/01/17 00:00 Room Air 04/30/17 23:39 37.1 73 22 123/71 (88) 96 Room Air 04/30/17 20:00 Room Air 04/30/17 19:34 36.9 76 19 128/77 (94) 97 Room Air 04/30/17 16:00 Room Air 04/30/17 15:32 36.7 72 20 135/85 (102) 97 Room Air Laboratory Results: Last 24 Hours Test 04/30/17 15:45 05/01/17 03:45 Activated Partial Thromboplast Time 57.5 SECONDS 61.8 SECONDS Partial Thromboplastin Ratio 2.2 2.4 White Blood Count 10.92 K/uL Red Blood Count 3.95 M/uL Hemoglobin 12.0 g/dL Hematocrit 34.4 % Mean Corpuscular Volume 87.1 fL Mean Corpuscular Hemoglobin 30.4 pg Mean Corpuscular Hemoglobin Concent 34.9 g/dl RDW Standard Deviation 36.0 fL RDW Coefficient of Variation 11.2 % Platelet Count 296 K/uL Mean Platelet Volume 9.6 fL Prothrombin Time 10.4 SECONDS Prothromb Time International Ratio 1.0 Sodium Level 140 mmol/L Potassium Level 4.1 mmol/L Chloride Level 106 mmol/L Carbon Dioxide Level 31 mmol/L Anion Gap 3.0 mmol/L Blood Urea Nitrogen 19 mg/dl Creatinine 1.20 mg/dl Est Creatinine Clear Calc Drug Dose 92.3 ml/min Estimated GFR () 90.9 Estimated GFR (Non- 78.4 BUN/Creatinine Ratio 15.9 Random Glucose 103 mg/dl Calcium Level 8.7 mg/dl
[2017-05-01] MEDS: WARFARIN SOD 5 MG TAB PO SCH (16:18)
[2017-05-01] MEDS: VANCOMYCIN INJ 1,350 MG in SODIUM CHLORIDE 0.9% 250ML 250 ML IV SCH (16:18)
[2017-05-01 16:22] VITALS: BP 149/88; PULSE 73; TEMP 36.3; O2SAT 96
[2017-05-01] MEDS ORDERED: WARFARIN SOD 5 MG TAB PO ONE (16:53)
--- NOTE | 2017-05-01 17:16 | Progress Note ---
Subjective Date of Service: May 01, 2017. Subjective this pt is doing well and his pain is improving, understands that he will be on coumadin Problem List Medical Problems: (1) Polysubstance abuse Status: Acute (2) Pulmonary embolism Status: Acute (3) Pulmonary infarction Status: Acute (4) Sleep deprivation Status: Acute Review of Systems Constitutional: + fever, + chills, + weakness Respiratory: + cough, + shortness of breath, + dyspnea on exertion Abdomen: + pain, + nausea, + vomiting, + diarrhea Musculoskeletal: No joint pain, No muscle pain Male : No dysuria, No urinary frequency, No incontinence Psychiatric: No depression symptoms, No anhedonism Objective Vital Signs Date Time Temp Pulse Resp B/P (MAP) Pulse Ox O2 Delivery O2 Flow Rate FiO2 05/01/17 16:22 36.3 73 18 149/88 (108) 96 Room Air 05/01/17 12:50 36.7 80 18 97 05/01/17 11:15 36.7 80 18 121/72 (88) 97 Room Air 05/01/17 08:00 Room Air 05/01/17 07:57 37.0 65 18 115/68 (84) 96 Room Air 05/01/17 04:09 36.5 70 22 130/80 (97) 96 Room Air 05/01/17 04:00 Room Air 05/01/17 00:00 Room Air 04/30/17 23:39 37.1 73 22 123/71 (88) 96 Room Air 04/30/17 20:00 Room Air 04/30/17 19:34 36.9 76 19 128/77 (94) 97 Room Air Physical Exam General Appearance: WD/WN, + mild distress Neck: supple, no JVD Respiratory/Chest: chest non-tender, lungs clear, normal breath sounds Cardiovascular: regular rate, rhythm, no murmur Abdomen: normal bowel sounds, non tender, soft Extremities: no pedal edema, no calf tenderness Neurologic/Psychiatric: alert, oriented x 3 Laboratory Results Last 24 Hours Test 05/01/17 03:45 White Blood Count 10.92 K/uL Red Blood Count 3.95 M/uL Hemoglobin 12.0 g/dL Hematocrit 34.4 % Mean Corpuscular Volume 87.1 fL Mean Corpuscular Hemoglobin 30.4 pg Mean Corpuscular Hemoglobin Concent 34.9 g/dl RDW Standard Deviation 36.0 fL RDW Coefficient of Variation 11.2 % Platelet Count 296 K/uL Mean Platelet Volume 9.6 fL Prothrombin Time 10.4 SECONDS Prothromb Time International Ratio 1.0 Activated Partial Thromboplast Time 61.8 SECONDS Partial Thromboplastin Ratio 2.4 Sodium Level 140 mmol/L Potassium Level 4.1 mmol/L Chloride Level 106 mmol/L Carbon Dioxide Level 31 mmol/L Anion Gap 3.0 mmol/L Blood Urea Nitrogen 19 mg/dl Creatinine 1.20 mg/dl Est Creatinine Clear Calc Drug Dose 92.3 ml/min Estimated GFR () 90.9 Estimated GFR (Non- 78.4 BUN/Creatinine Ratio 15.9 Random Glucose 103 mg/dl Calcium Level 8.7 mg/dl Assessment and Plan 32 M with chest pain recent PE, concern for pneumonia, with PMHx of PE, lupus anticoagulant positive, sickle-cell trait, h/o drug abuse, tobacco abuse, depression/anxiety/PTSD, chest pain- ECHO endocarditis -Discontinue Xarelto and begin IV Heparin, given hypercoagulable lupus anticoagulant positive and sickle cell trait, xarelto will not be best choice and pulmonary med feels best treatment will be coumadin, this was also discussed with coumadin clinic - Broad spectrum IV antibiotics w/ IV Zosyn consider transition to augmentin - Oxycodone and Tylenol PRN for pain control - Dr. Connors no plans for thoracentesis Anxiety/depression, PTSD, explosive disorder: Continue Gabapentin 100 mg TID h/o drug abuse, counselled on stopping h/o tobacco abuse- 1/2-1 pack per day: Nicotine patch wants to go outside promises not to smoke DVT Prophylaxis: IV Heparin Code Status: LEVEL I, FULL Dispo: From home- adoption social worker consulted
[2017-05-01] MEDS ORDERED: NICOTINE 14 MG/24 HR TDSY TD ONE (19:30)
[2017-05-01 23:07] VITALS: BP 162/88; PULSE 79; TEMP 36.4; O2SAT 98
[2017-05-02 07:12] VITALS: BP 144/91; PULSE 84; TEMP 36.9; O2SAT 96
[2017-05-02] MEDS: NICOTINE 14 MG/24 HR TDSY TD SCH (07:56)
[2017-05-02] MEDS: GABAPENTIN 100 MG CAP PO SCH ×3 (07:57→21:16)
[2017-05-02] MEDS: CeleBREX 100 MG CAP PO SCH ×2 (07:58→21:16)
[2017-05-02 08:00] LABS: INR 1.1 (0.9-1.1); PROTHROMBIN TIME (PATIENT) 11.8 SECONDS (9.0-12.0)
[2017-05-02] MEDS: VANCOMYCIN INJ 1,350 MG in SODIUM CHLORIDE 0.9% 250ML 250 ML IV SCH ×3 (10:25)
[2017-05-02 10:59] LABS: PARTIAL THROMBOPLASTIN RATIO 2.6
[2017-05-02] MEDS: HEPARIN 25,000 UNIT/500ML D5W 500 ML IV PRN (10:59)
[2017-05-02] MEDS: AMOXICILLIN/CLAVULANATE TAB 875 MG TAB PO SCH ×2 (12:55→17:08)
--- NOTE | 2017-05-02 14:14 | Pulmonology Progress Note ---
Pulmonary Progress Note Date of Service May 02, 2017. Attending Dr. Connors Subjective Patient doing well today notes dramatic improvement almost completely resolution of his pleurisy Objective Patient is standing up in the room moving around freely showing no signs of respiratory insufficiency Vital signs: Patient currently in room air Respiratory: Rhonchi appreciated in the right hemithorax lower quadrants predominant Cardiac: S1-S2 regular rate and rhythm next and abdomen: Positive bowel sounds soft nontender INR: 2.6 Assessment & Plan 32-year-old gentleman admitted for uncontrollable chest pain with history of pulmonary embolism: #1 Chest Pain: I believe the most likely etiology of the patient's chest pain was pleurisy which has been well-controlled. At this time the easiest medication to control pleurisy as an outpatient is actually ibuprofen 600-800 mg 3-4 times per day as needed. I did discuss this with the patient also told him he cannot be on ibuprofen chronically as this can cause chronic renal as well as gastric issues. This should only be used for a 2-3 day window as needed. #2 Pulmonary Embolism: As the patient does have a hypercoagulable underlying disorder and no current literature suggests its role to his appropriate treatment we have initiated Lovenox and we are bridging to Coumadin. Once the patient's pain is well-controlled and he is properly anticoagulated he can follow-up in the pulmonary Department and anticoagulation clinic. #3: Follow-up: The patient should follow up 2-3 weeks after his discharge with the pulmonary Department. Signoff: At this time the pulmonary team will sign off Data Medications: Current Inpatient Medications Medications (Trade) Dose Ordered Sig/Herb Route Start Time Stop Time Status Last Admin Dose Admin Acetaminophen (Tylenol Tab) 650 mg Q4H PRN PO 04/29/17 17:30 05/29/17 17:29 Al Hydrox/Mg Hydrox/Simethicone (Maalox Max Susp) 15 ml Q4H PRN PO 04/29/17 17:30 05/29/17 17:29 Magnesium Hydroxide (Milk Of Magnesia Susp) 30 ml Q12H PRN PO 04/29/17 17:30 05/29/17 17:29 Ondansetron HCl (Zofran Inj) 4 mg Q6H PRN IV 04/29/17 17:30 05/29/17 17:29 Polyethylene (Miralax Powder Packet) 17 gm DAILY PRN PO 04/29/17 17:30 05/29/17 17:29 Gabapentin (Neurontin Cap) 200 mg TID PO 04/29/17 21:00 05/29/17 20:59 05/02/17 12:55 200 MG Oxycodone HCl (Roxicodone Immediate Rel Tab) 5 mg Q4H PRN PO 04/29/17 17:30 05/13/17 17:29 05/01/17 20:32 5 MG Nicotine (Nicoderm Cq 14MG Patch) 1 patch QAM TD 04/29/17 18:00 05/29/17 17:59 05/02/17 07:56 1 PATCH Miscellaneous (Remove Nicoderm Patch) 1 ea HS N/A 04/29/17 21:00 05/29/17 20:59 04/30/17 20:42 1 EA Ioversol (Optiray 320) 100 ml UD PRN IV 04/29/17 18:00 05/03/17 17:59 Acetaminophen 650 mg/Empty Bag 65 ml @ 260 mls/hr Q6H PRN IV 04/30/17 12:45 05/30/17 12:44 Celecoxib (CeleBREX CAP) 100 mg BID PO 04/30/17 12:45 05/30/17 12:44 05/02/17 07:58 100 MG Tramadol HCl (Ultram Tab) 50 mg Q4H PRN PO 04/30/17 12:45 05/30/17 12:44 05/01/17 10:58 50 MG Warfarin Sodium (Coumadin Tab) 5 mg DAILY@16 PO 04/30/17 16:00 05/30/17 15:59 05/01/17 16:18 5 MG Heparin Sodium/ Dextrose 500 ml @ 28 mls/hr [id number] PRN IV 05/01/17 00:15 05/31/17 00:14 05/02/17 10:59 28 MLS/HR Amoxicillin/ Clavulanate Potassium (Augmentin Tab) 875 mg BIDM PO 05/02/17 11:27 05/09/17 11:26 05/02/17 12:55 875 MG Vital Signs: Date Time Temp Pulse Resp B/P (MAP) Pulse Ox O2 Delivery O2 Flow Rate FiO2 05/02/17 08:28 Room Air 05/02/17 07:12 36.9 84 18 144/91 (108) 96 Room Air 05/02/17 00:00 Room Air 05/01/17 23:07 36.4 79 18 162/88 (112) 98 Room Air 05/01/17 20:00 Room Air 05/01/17 16:22 36.3 73 18 149/88 (108) 96 Room Air 05/01/17 16:00 Room Air Laboratory Results: Last 24 Hours Test 05/02/17 07:07 05/02/17 09:48 Prothrombin Time 11.8 SECONDS Prothromb Time International Ratio 1.1 Activated Partial Thromboplast Time 66.9 SECONDS Partial Thromboplastin Ratio 2.6
--- NOTE | 2017-05-02 14:14 | Progress Note ---
Subjective Date of Service: May 02, 2017. Subjective pt continues to improve with pain and deep breathing. inr is stubborn to rise up. Problem List Medical Problems: (1) Polysubstance abuse Status: Acute (2) Pulmonary embolism Status: Acute (3) Pulmonary infarction Status: Acute (4) Sleep deprivation Status: Acute Review of Systems Constitutional: No fever, No chills Respiratory: No cough, No shortness of breath, No dyspnea on exertion Cardiac: + chest pain, No orthopnea, No edema Abdomen: No pain, No nausea Psychiatric: No depression symptoms, No anhedonism Objective Vital Signs Date Time Temp Pulse Resp B/P (MAP) Pulse Ox O2 Delivery O2 Flow Rate FiO2 05/02/17 08:28 Room Air 05/02/17 07:12 36.9 84 18 144/91 (108) 96 Room Air 05/02/17 00:00 Room Air 05/01/17 23:07 36.4 79 18 162/88 (112) 98 Room Air 05/01/17 20:00 Room Air 05/01/17 16:22 36.3 73 18 149/88 (108) 96 Room Air 05/01/17 16:00 Room Air Physical Exam General Appearance: WD/WN, + mild distress Neck: supple, thyroid normal Respiratory/Chest: chest non-tender, lungs clear, normal breath sounds Cardiovascular: regular rate, rhythm, no murmur Abdomen: normal bowel sounds, non tender, soft Extremities: no pedal edema, no calf tenderness Neurologic/Psychiatric: alert, oriented x 3 Laboratory Results Last 24 Hours Test 05/02/17 07:07 05/02/17 09:48 Prothrombin Time 11.8 SECONDS Prothromb Time International Ratio 1.1 Activated Partial Thromboplast Time 66.9 SECONDS Partial Thromboplastin Ratio 2.6 Assessment and Plan 32 M with chest pain recent PE, concern for pneumonia, with PMHx of PE, lupus anticoagulant positive, sickle-cell trait, h/o drug abuse, tobacco abuse, depression/anxiety/PTSD, chest pain felt to be pleuritic chests pain, from recent PE possible pulm infarct or even associated with mild pneumonia, ECHO normal except for intraatrial shunt -Discontinue Xarelto and begin IV Heparin, given hypercoagulable lupus anticoagulant positive and sickle cell trait, xarelto will not be best choice and pulmonary med feels best treatment will be coumadin, this was also discussed with coumadin clinic has gotten 02-10-10 - Broad spectrum IV antibiotics transition to augmentin - Oxycodone and Tylenol PRN for pain control - Dr. Connors no plans for thoracentesis Anxiety/depression, PTSD, explosive disorder: Continue Gabapentin 100 mg TID h/o drug abuse, counselled on stopping h/o tobacco abuse- 1/2-1 pack per day: Nicotine patch, has gone for walks outside promises not to smoke DVT Prophylaxis: IV Heparin/ coumadin Code Status: LEVEL I, FULL Dispo: From home- director of social work consulted
[2017-05-02 15:35] VITALS: BP 152/91; PULSE 83; TEMP 36.4; O2SAT 98
[2017-05-02] MEDS: WARFARIN SOD 5 MG TAB PO SCH (16:21)
[2017-05-02] MEDS: OXYCODONE HCL IR 5 MG TAB (IMMEDIATE RELEASE) PO PRN (21:17)
[2017-05-03 00:05] VITALS: BP 160/94; PULSE 101; TEMP 36.9; O2SAT 97
[2017-05-03] MEDS ORDERED: NURSING VERBAL MED ORDER ONE (05:00)
[2017-05-03] MEDS ORDERED: CETIRIZINE HCL 10 MG TAB PO ONE (05:15)
[2017-05-03] MEDS: HEPARIN 25,000 UNIT/500ML D5W 500 ML IV PRN ×2 (05:29→23:52)
[2017-05-03] MEDS ORDERED: VANCOMYCIN TROUGH SCH ×2 (05:30→06:00)
[2017-05-03 07:20] VITALS: BP 142/93; PULSE 83; TEMP 36.5; O2SAT 97
[2017-05-03 07:45] LABS: INR 1.4 (0.9-1.1); PROTHROMBIN TIME (PATIENT) 15.3 SECONDS (9.0-12.0)
[2017-05-03 09:04] LABS: PARTIAL THROMBOPLASTIN RATIO 2.5
[2017-05-03] MEDS: GABAPENTIN 100 MG CAP PO SCH ×3 (09:26→20:48)
[2017-05-03] MEDS: AMOXICILLIN/CLAVULANATE TAB 875 MG TAB PO SCH (09:26)
[2017-05-03] MEDS: NICOTINE 14 MG/24 HR TDSY TD SCH (09:27)
[2017-05-03] MEDS: CeleBREX 100 MG CAP PO SCH ×2 (09:27→20:47)
[2017-05-03] MEDS: OXYCODONE HCL IR 5 MG TAB (IMMEDIATE RELEASE) PO PRN ×3 (09:33→23:58)
--- NOTE | 2017-05-03 10:47 | Infectious Disease Progress Nt ---
Progress Note Date of Service May 03, 2017. Subjective Pt evaluation today including: conversation w/ patient, physical exam, chart review, lab review, review of studies, review of inpatient medication list Patient is feeling poorly this morning. He is very concerned about his lungs. He is labile during discussion. The patient did have Aerobic Actinomyces growing in 1/2 blood cultures from admission. He was transitioned to PO Augmentin. He is tolerating that medication well. He states that the pain in his right side had dissipated but is unfortunately coming back now. All Other Systems: Reviewed and Negative Medications Current Inpatient Medications Medications (Trade) Dose Ordered Sig/Herb Route Start Time Stop Time Status Last Admin Dose Admin Acetaminophen (Tylenol Tab) 650 mg Q4H PRN PO 04/29/17 17:30 05/29/17 17:29 Al Hydrox/Mg Hydrox/Simethicone (Maalox Max Susp) 15 ml Q4H PRN PO 04/29/17 17:30 05/29/17 17:29 Magnesium Hydroxide (Milk Of Magnesia Susp) 30 ml Q12H PRN PO 04/29/17 17:30 05/29/17 17:29 Ondansetron HCl (Zofran Inj) 4 mg Q6H PRN IV 04/29/17 17:30 05/29/17 17:29 Polyethylene (Miralax Powder Packet) 17 gm DAILY PRN PO 04/29/17 17:30 05/29/17 17:29 Gabapentin (Neurontin Cap) 200 mg TID PO 04/29/17 21:00 05/29/17 20:59 05/03/17 09:26 200 MG Oxycodone HCl (Roxicodone Immediate Rel Tab) 5 mg Q4H PRN PO 04/29/17 17:30 05/13/17 17:29 05/03/17 09:33 5 MG Nicotine (Nicoderm Cq 14MG Patch) 1 patch QAM TD 04/29/17 18:00 05/29/17 17:59 05/03/17 09:27 1 PATCH Miscellaneous (Remove Nicoderm Patch) 1 ea HS N/A 04/29/17 21:00 05/29/17 20:59 05/02/17 21:17 1 EA Ioversol (Optiray 320) 100 ml UD PRN IV 04/29/17 18:00 05/03/17 17:59 Acetaminophen 650 mg/Empty Bag 65 ml @ 260 mls/hr Q6H PRN IV 04/30/17 12:45 05/30/17 12:44 Celecoxib (CeleBREX CAP) 100 mg BID PO 04/30/17 12:45 05/30/17 12:44 05/03/17 09:27 100 MG Tramadol HCl (Ultram Tab) 50 mg Q4H PRN PO 04/30/17 12:45 05/30/17 12:44 05/01/17 10:58 50 MG Warfarin Sodium (Coumadin Tab) 5 mg DAILY@16 PO 04/30/17 16:00 05/30/17 15:59 05/02/17 16:21 5 MG Heparin Sodium/ Dextrose 500 ml @ 28 mls/hr [id number] PRN IV 05/01/17 00:15 05/31/17 00:14 05/03/17 05:29 28 MLS/HR Amoxicillin/ Clavulanate Potassium (Augmentin Tab) 875 mg BIDM PO 05/02/17 11:27 05/09/17 11:26 05/03/17 09:26 875 MG Objective Vital Signs Date Time Temp Pulse Resp B/P (MAP) Pulse Ox O2 Delivery O2 Flow Rate FiO2 05/03/17 07:20 36.5 83 18 142/93 (109) 97 Room Air 05/03/17 00:05 36.9 101 16 160/94 (116) 97 Room Air 05/03/17 00:00 Room Air 05/02/17 16:00 Room Air 05/02/17 15:35 36.4 83 18 152/91 (111) 98 Room Air Physical Exam General Appearance: WD/WN, + mild distress (labile) Eyes: normal inspection, sclerae normal ENT: hearing grossly normal Neck: supple, trachea midline Respiratory/Chest: chest non-tender, no respiratory distress, no accessory muscle use, + decreased breath sounds (right base), + pertinent finding (coarse breath sounds of right lower lobe) Cardiovascular: regular rate, rhythm Abdomen: normal bowel sounds, non tender Extremities: normal range of motion, normal inspection Neurologic/Psychiatric: alert, + depressed affect Skin: normal color, warm/dry, no rash Laboratory Results Item Value Date Time MRSA DNA Surveillance Screen - Final Complete 04/29/17 2300 Nasal Specimen Negative for MRSA by DNA Probe Blood Culture - Preliminary Resulted 04/29/17 1905 Blood NO GROWTH TO DATE. Blood Culture - Preliminary Resulted 04/29/17 1848 Blood Aerobic Actinomycete Last 24 Hours Test 05/02/17 16:50 05/03/17 07:18 Prothrombin Time 15.3 SECONDS Prothromb Time International Ratio 1.4 Activated Partial Thromboplast Time 63.7 SECONDS Partial Thromboplastin Ratio 2.5 Assessment and Plan Patient with chest pain, probable pleuritic in nature, and possible pneumonia of the RML and RLL with Actinomyces growing in 1/2 initial blood cultures. He is currently on PO Augmentin. Will repeat blood cultures. Will transition back to IV Unasyn pending likely surgical intervention. Augmentin should cover, but pending further workup will change to IV therapy. PROVIDER ADDENDUM: Pt. reviewed with YOVANA. Agree with above assessment.
[2017-05-03 11:05] LABS: QUANTIF TB AG-NIL 0.03 IU/ML; QUANTIFERON NIL 0.04 IU/ML
[2017-05-03 11:47] LABS: LEGIONELLA ANTIGEN NOT DETECTED (NOT DETECTED)
[2017-05-03] MEDS ORDERED: AMPICILLIN/SULBACTAM CONSULT ACTIVE PRN ×2 (12:45)
[2017-05-03] MEDS: AMPICILLIN/SULBACTAM SOD INJ 3,000 MG in SODIUM CHLORIDE 0.9% 100ML 100 ML IV SCH ×3 (13:34→23:53)
--- NOTE | 2017-05-03 14:48 | Progress Note ---
Subjective Date of Service: May 03, 2017. Subjective Pt evaluation today including: conversation w/ patient, physical exam, chart review, lab review, review of studies, conversation w/ independent consultant, review of inpatient medication list Problem List Medical Problems: (1) Polysubstance abuse Status: Acute (2) Pulmonary embolism Status: Acute (3) Pulmonary infarction Status: Acute (4) Sleep deprivation Status: Acute Review of Systems Constitutional: No see HPI, No fever, No chills, No sweats, No weight loss, No weakness, No fatigue, No problem reported Eyes: No see HPI, No worsening of vision, No eye pain, No redness, No discharge , No diplopia, No problem reported ENT: No see HPI, No hearing loss, No unusual epistaxis, No nasal symptoms, No sore throat, No tinnitus, No dental problems, No trouble swallowing, No problem reported Respiratory: No see HPI, No cough, No sputum, No wheezing, No shortness of breath, No dyspnea on exertion, No dyspnea at rest, No hemoptysis, No problem reported Cardiac: + chest pain, No see HPI, No orthopnea, No PND, No edema, No claudication, No palpitations, No problem reported Abdomen: No see HPI, No pain, No nausea, No vomiting, No diarrhea, No constipation, No GI bleeding, No problem reported Musculoskeletal: No see HPI, No joint pain, No muscle pain, No swelling, No calf pain, No problem reported Male : No see HPI, No dysuria, No urinary frequency, No incontinence, No nocturia more than once/night, No slowing stream, No hematuria, No sexual dysfunction, No problem reported Neurologic: No see HPI, No memory loss, No paralysis, No weakness, No numbness/ tingling, No vertigo, No balance problems, No problem reported Psychiatric: No see HPI, No depression symptoms, No anhedonism, No anxiety, No insomnia, No substance abuse, No problem reported Endo: No see HPI, No fatigue, No excessive thirst, No excessive urination, No problem reported Skin: No see HPI, No rash, No itch, No new/changing skin lesions, No color change, No bleeding, No problem reported Objective Vital Signs Date Time Temp Pulse Resp B/P (MAP) Pulse Ox O2 Delivery O2 Flow Rate FiO2 05/03/17 08:00 Room Air 05/03/17 07:20 36.5 83 18 142/93 (109) 97 Room Air 05/03/17 00:05 36.9 101 16 160/94 (116) 97 Room Air 05/03/17 00:00 Room Air 05/02/17 16:00 Room Air 05/02/17 15:35 36.4 83 18 152/91 (111) 98 Room Air Physical Exam General Appearance: WD/WN, no apparent distress Eyes: normal inspection, EOMI ENT: normal ENT inspection, hearing grossly normal Neck: supple Respiratory/Chest: chest non-tender, lungs clear, normal breath sounds, no respiratory distress, no accessory muscle use Cardiovascular: regular rate, rhythm, no edema, no gallop, no JVD, no murmur Abdomen: normal bowel sounds, non tender, soft, no organomegaly Extremities: normal range of motion, non-tender, normal inspection, no pedal edema Neurologic/Psychiatric: floorperson II-XII nml as tested, no motor/sensory deficits, alert, normal mood/affect, oriented x 3 Skin: normal color, warm/dry, no rash Laboratory Results Last 24 Hours Test 05/02/17 16:50 05/03/17 07:18 Prothrombin Time 15.3 SECONDS Prothromb Time International Ratio 1.4 Activated Partial Thromboplast Time 63.7 SECONDS Partial Thromboplastin Ratio 2.5 Assessment and Plan 32 y/o male, with PMHx of drug and tobacco abuse, depression, anxiety, PTSD and positive SLE recently Dx with left sided PE started on xarelto. Patient continued to complain of severe right CVA pain. CT abd showed worsening effusion and lower lung density (note his PE is on the left side) Assessment: RLL density/pleural effusion, likely parapneumonic in nature actinomyces bacteremia Recent PE Hx of drug abuse Plan: - consult ID, consult Dr. Connors appreciated - will need PIC line for prolong Abx (denies any IVDA, in the past he used to snore) - TTE showed no endocarditis but was Positive bubble study for interatrial shunt., will need BRODIE - continue holding Xarelto and begin IV Heparin tomorrow AM - Hypercoagulable workup completed- lupus anticoagulant positive - Broad spectrum IV antibiotics w/ IV Zosyn and Vancomycin- MRSA swab pending - Oxycodone and Tylenol PRN for pain control - BCx grew actinomyces - Check UA - pending Fungitel / Quantiferone Gold -HIV test (patient verbally agreed)
--- NOTE | 2017-05-03 15:04 | Hospitalist Progress Note ---
Hospitalist Progress Note Date of Service May 03, 2017. (Starla Rosales ., YOVANA) Subjective Pt evaluation today including: conversation w/ patient, physical exam, chart review, lab review, review of studies, review of inpatient medication list Voiding: no voiding problems, no incontinence Patient states he is feeling well. Continues to have pleuritic chest pain. Patient denies any fever, chills, sweats, lightheadedness, dizziness, vision changes, palpitations, edema, SOB, wheezing, cough, abdominal pain, nausea, vomiting, diarrhea, urinary symptoms, melena, numbness/tingling, weakness, muscle/joint pain, anxiety/depression, active bleeding, or new skin discoloration/changes. (Starla Rosales ., ISAACC) Medications Current Inpatient Medications Medications (Trade) Dose Ordered Sig/Herb Route Start Time Stop Time Status Last Admin Dose Admin Acetaminophen (Tylenol Tab) 650 mg Q4H PRN PO 04/29/17 17:30 05/29/17 17:29 Al Hydrox/Mg Hydrox/Simethicone (Maalox Max Susp) 15 ml Q4H PRN PO 04/29/17 17:30 05/29/17 17:29 Magnesium Hydroxide (Milk Of Magnesia Susp) 30 ml Q12H PRN PO 04/29/17 17:30 05/29/17 17:29 Ondansetron HCl (Zofran Inj) 4 mg Q6H PRN IV 04/29/17 17:30 05/29/17 17:29 Polyethylene (Miralax Powder Packet) 17 gm DAILY PRN PO 04/29/17 17:30 05/29/17 17:29 Gabapentin (Neurontin Cap) 200 mg TID PO 04/29/17 21:00 05/29/17 20:59 05/03/17 13:35 200 MG Oxycodone HCl (Roxicodone Immediate Rel Tab) 5 mg Q4H PRN PO 04/29/17 17:30 05/13/17 17:29 05/03/17 09:33 5 MG Nicotine (Nicoderm Cq 14MG Patch) 1 patch QAM TD 04/29/17 18:00 05/29/17 17:59 05/03/17 09:27 1 PATCH Miscellaneous (Remove Nicoderm Patch) 1 ea HS N/A 04/29/17 21:00 05/29/17 20:59 05/02/17 21:17 1 EA Ioversol (Optiray 320) 100 ml UD PRN IV 04/29/17 18:00 05/03/17 17:59 Acetaminophen 650 mg/Empty Bag 65 ml @ 260 mls/hr Q6H PRN IV 04/30/17 12:45 05/30/17 12:44 Celecoxib (CeleBREX CAP) 100 mg BID PO 04/30/17 12:45 05/30/17 12:44 05/03/17 09:27 100 MG Tramadol HCl (Ultram Tab) 50 mg Q4H PRN PO 04/30/17 12:45 05/30/17 12:44 05/01/17 10:58 50 MG Heparin Sodium/ Dextrose 500 ml @ 28 mls/hr [id number] PRN IV 05/01/17 00:15 05/31/17 00:14 05/03/17 05:29 28 MLS/HR Ampicillin Sodium/ Sulbactam Sodium 3000 mg/Sodium Chloride 108 ml @ 200 mls/hr Q6H IV 05/03/17 12:00 05/10/17 11:59 05/03/17 13:34 200 MLS/HR Ampicillin Sodium/ Sulbactam Sodium (Consult) 1 ea UD PRN N/A 05/03/17 12:45 06/02/17 12:44 (Starla Rosales, PA-C) Objective Vital Signs Date Time Temp Pulse Resp B/P (MAP) Pulse Ox O2 Delivery O2 Flow Rate FiO2 05/03/17 08:00 Room Air 05/03/17 07:20 36.5 83 18 142/93 (109) 97 Room Air 05/03/17 00:05 36.9 101 16 160/94 (116) 97 Room Air 05/03/17 00:00 Room Air 05/02/17 16:00 Room Air 05/02/17 15:35 36.4 83 18 152/91 (111) 98 Room Air (Starla Rosales, PA-C) Physical Exam General Appearance: no apparent distress Eyes: normal inspection, PERRL ENT: hearing grossly normal Neck: supple Respiratory/Chest: lungs clear, no respiratory distress, no accessory muscle use Cardiovascular: regular rate, rhythm Abdomen: normal bowel sounds, non tender, soft Extremities: no pedal edema, no calf tenderness Neurologic/Psychiatric: alert, normal mood/affect, oriented x 3 Skin: normal color, warm/dry, no rash (Starla Rosales PA-C) Laboratory Results Last 24 Hours Test 05/02/17 16:50 05/03/17 07:18 Prothrombin Time 15.3 SECONDS Prothromb Time International Ratio 1.4 Activated Partial Thromboplast Time 63.7 SECONDS Partial Thromboplastin Ratio 2.5 (Starla Rosales PA-C) Assessment and Plan Patient is a pleasant 32 y/o male, with PMHx of PE, lupus anticoagulant positive , sickle-cell trait, h/o drug abuse, tobacco abuse, depression/anxiety/PTSD, who was a direct admission from Dr. Harris's office due to persistent pleuritic right-sided CP here for additional workup. Persistent pleuritic right-sided CP: - Admit to tele for cardiac monitoring- no acute events -- Transferred to med/surg on 05/01 - Cardiac enzymes- negative - CTA reviewed - Bilateral lower extremity venous US- no evidence of DVT - ECHO to r/o endocarditis * 1. Normal LV size and wall thickness. * 2. Normal LV systolic funciton. LVEF 60-65%. No regional wall motion abnormalities. * 3. Normal RV size and function. * 4. No significant valvular pathology. No vegetations noted. * 5. Positive bubble study for interatrial shunt. * 6. No prior studies for comparison. - IV Heparin bridging w/ PO Coumadin due to hypercoagulable state -- Following INR - Hypercoagulable workup completed- lupus anticoagulant positive - Broad spectrum IV antibiotics w/ IV Zosyn and Vancomycin- MRSA swab negative -- Transitioned to PO Augmentin on 05/02- d/c'd on 05/03 and transitioned to IV Unasyn due to BCx - Oxycodone, Celebrex BID, and Tramadol, Tylenol PRN for pain control - BCx- growing aerobic actinomycete -- Repeat BCx on 05/03 -- ID following- begin IV Unasyn - UA, HIV, TB, urine legionella- negative - CBC, CMP, PT/INR/PTT pending at this time - Consult pulmonary, appreciate recommendations -- No thoracentesis - Consult ID, appreciate recommendations - Consult thoracic surgery, appreciate recommendations Anxiety/depression, PTSD, explosive disorder: Continue Gabapentin 100 mg TID h/o drug abuse- use to snort/smoke Meth: Denies IVDA h/o tobacco abuse- 1/2-1 pack per day: Nicotine patch DVT Prophylaxis: IV Heparin, Coumadin Code Status: LEVEL I, FULL Dispo: From home- social work specialist consulted - Will need PICC for antibiotic therapy at discharge (Starla Rosales, PA-C) Addendum added separately (Alejandro Martin MD)
[2017-05-03 15:33] VITALS: BP 137/78; PULSE 80; TEMP 36.5; O2SAT 97
[2017-05-03 18:41] LABS: FUNGITELL (1-3)-B-D-GLUCAN* <31 pg/mL; FUNGITELL INTERP NEGATIVE
--- NOTE | 2017-05-03 19:11 | Pulmonology Progress Note ---
Pulmonary Progress Note Date of Service May 03, 2017. Attending Dr. Blevins Subjective Patient seen and examined. He is still complaining of right pleuritic chest pain with deep inspiration. He denies any fevers, chills, cough, shortness of breath. Objective Vital signs reviewed and within normal limits. Gen.: Sitting in bed, in no acute respiratory distress, speaking in full sentences on room air. Head: Atraumatic, normocephalic Mouth: No oral thrush, no tonsillar exudates. Neck: Supple, nontender, no cervical lymphadenopathy CVS: S1-S2, regular rate and rhythm, no murmurs, rubs or gallops appreciated Lungs/chest: good air entry bilaterally, basilar crackles on the right. Reproducible chest pain on palpation of right chest wall. Abdomen: Soft, nontender, bowel sounds positive Extremities: No edema bilaterally seen on lower extremities, no cyanosis, no clubbing Labs and medications reviewed Labs CoagulationPTT 62.7 INR 1.4 Phosphatidylserine IgG 13 HIV antibody 04/29/2017negative Urine Legionella from 04/30/2017not detected QuantiFERON from 04/22/2017negative Beta-1, 3-D glucan from 04/30/2017pending Microbiology Blood culture 04/29/2017Actinomyces Blood culture 04/29/2017no growth to date Blood culture 2 05/03/2017pending TTE * -- Conclusions -- * 1. Normal LV size and wall thickness. * 2. Normal LV systolic funciton. LVEF 60-65%. No regional wall motion abnormalities. * 3. Normal RV size and function. * 4. No significant valvular pathology. No vegetations noted. * 5. Positive bubble study for interatrial shunt. * 6. No prior studies for comparison. Assessment & Plan 32-year-old male with right-sided pleuritic chest pain as he is being .Patient found to have right-sided pleural effusion and is currently being treated for left-sided pulmonary embolism. He is positive for lupus anticoagulant and is currently on heparin drip and Coumadin for anticoagulation. Blood cultures positive for actinomyces. He was empirically treated with vancomycin and Zosyn, and from 04/29/2017 to . His clinical status improved and he was switched to Augmentin on 05/02. However in light of his new blood cultures used has been switched to Unasyn. HIV, QuantiFERON and urine legionella are negative thus far. He has been on oxycodone, Celebrex, tramadol and Tylenol when necessary for pain control. As the aggressive nature of actinomyces, agree with treatment with Unasyn. Recommend repeat blood cultures as well as BRODIE to rule out endocarditis. Will follow-up with Dr. Santiago regarding thoracentesis to evaluate pleural fluid. If this is an actinomyces empyema decortication is warranted. Discussed the risk and benefits of this procedure with patient and he would like time to consider it if needed. For tobacco use disorder continue with nicotine patch. Smoking cessation and illicit drug cessation advised. For the venous thromboembolism, he will most likely require lifelong treatment and to be followed up as outpatient. He does not require supplemental at this time oxygen. 2 L nasal cannula when necessary if needed. Patient is emotionally labile and compliance with medical treatment may be compromised because of this. I will continue to follow with you. Data Medications: Current Inpatient Medications Medications (Trade) Dose Ordered Sig/Herb Route Start Time Stop Time Status Last Admin Dose Admin Acetaminophen (Tylenol Tab) 650 mg Q4H PRN PO 04/29/17 17:30 05/29/17 17:29 Al Hydrox/Mg Hydrox/Simethicone (Maalox Max Susp) 15 ml Q4H PRN PO 04/29/17 17:30 05/29/17 17:29 Magnesium Hydroxide (Milk Of Magnesia Susp) 30 ml Q12H PRN PO 04/29/17 17:30 05/29/17 17:29 Ondansetron HCl (Zofran Inj) 4 mg Q6H PRN IV 04/29/17 17:30 05/29/17 17:29 Polyethylene (Miralax Powder Packet) 17 gm DAILY PRN PO 04/29/17 17:30 05/29/17 17:29 Gabapentin (Neurontin Cap) 200 mg TID PO 04/29/17 21:00 05/29/17 20:59 05/03/17 13:35 200 MG Oxycodone HCl (Roxicodone Immediate Rel Tab) 5 mg Q4H PRN PO 04/29/17 17:30 05/13/17 17:29 05/03/17 16:49 5 MG Nicotine (Nicoderm Cq 14MG Patch) 1 patch QAM TD 04/29/17 18:00 8/26/17 17:59 05/03/17 09:27 1 PATCH Miscellaneous (Remove Nicoderm Patch) 1 ea HS N/A 04/29/17 21:00 05/29/17 20:59 05/02/17 21:17 1 EA Acetaminophen 650 mg/Empty Bag 65 ml @ 260 mls/hr Q6H PRN IV 04/30/17 12:45 05/30/17 12:44 Celecoxib (CeleBREX CAP) 100 mg BID PO 04/30/17 12:45 05/30/17 12:44 05/03/17 09:27 100 MG Tramadol HCl (Ultram Tab) 50 mg Q4H PRN PO 04/30/17 12:45 05/30/17 12:44 05/01/17 10:58 50 MG Heparin Sodium/ Dextrose 500 ml @ 28 mls/hr [id number] PRN IV 05/01/17 00:15 05/31/17 00:14 05/03/17 05:29 28 MLS/HR Ampicillin Sodium/ Sulbactam Sodium 3000 mg/Sodium Chloride 108 ml @ 200 mls/hr Q6H IV 05/03/17 12:00 05/10/17 11:59 05/03/17 18:25 200 MLS/HR Ampicillin Sodium/ Sulbactam Sodium (Consult) 1 ea UD PRN N/A 05/03/17 12:45 06/02/17 12:44 Heparin Sodium (Porcine) (Heparin 10 Unit/ ml 5 ml Flush) 5 ml PRN PRN FLUSH 05/03/17 17:00 06/02/17 16:59 I & O: 24-Hour Column 05/04/17 08:00 Intake Total 462 ml Balance 462 ml Vital Signs: Date Time Temp Pulse Resp B/P (MAP) Pulse Ox O2 Delivery O2 Flow Rate FiO2 05/03/17 15:33 36.5 80 16 137/78 (97) 97 Room Air 05/03/17 08:00 Room Air 05/03/17 07:20 36.5 83 18 142/93 (109) 97 Room Air 05/03/17 00:05 36.9 101 16 160/94 (116) 97 Room Air 05/03/17 00:00 Room Air Laboratory Results: Last 24 Hours Test 05/03/17 07:18 Prothrombin Time 15.3 SECONDS Prothromb Time International Ratio 1.4 Activated Partial Thromboplast Time 63.7 SECONDS Partial Thromboplastin Ratio 2.5
--- NOTE | 2017-05-03 19:18 | Pulmonology Progress Note ---
Pulmonary Progress Note Date of Service May 03, 2017. Attending Assessment & Plan Please see follow-up written at later time. This note was written in error. Data Medications: Current Inpatient Medications Medications (Trade) Dose Ordered Sig/Herb Route Start Time Stop Time Status Last Admin Dose Admin Acetaminophen (Tylenol Tab) 650 mg Q4H PRN PO 04/29/17 17:30 05/29/17 17:29 Al Hydrox/Mg Hydrox/Simethicone (Maalox Max Susp) 15 ml Q4H PRN PO 04/29/17 17:30 05/29/17 17:29 Magnesium Hydroxide (Milk Of Magnesia Susp) 30 ml Q12H PRN PO 04/29/17 17:30 05/29/17 17:29 Ondansetron HCl (Zofran Inj) 4 mg Q6H PRN IV 04/29/17 17:30 05/29/17 17:29 Polyethylene (Miralax Powder Packet) 17 gm DAILY PRN PO 04/29/17 17:30 05/29/17 17:29 Gabapentin (Neurontin Cap) 200 mg TID PO 04/29/17 21:00 05/29/17 20:59 05/03/17 13:35 200 MG Oxycodone HCl (Roxicodone Immediate Rel Tab) 5 mg Q4H PRN PO 04/29/17 17:30 05/13/17 17:29 05/03/17 09:33 5 MG Nicotine (Nicoderm Cq 14MG Patch) 1 patch QAM TD 04/29/17 18:00 05/29/17 17:59 05/03/17 09:27 1 PATCH Miscellaneous (Remove Nicoderm Patch) 1 ea HS N/A 04/29/17 21:00 05/29/17 20:59 05/02/17 21:17 1 EA Ioversol (Optiray 320) 100 ml UD PRN IV 04/29/17 18:00 05/03/17 17:59 Acetaminophen 650 mg/Empty Bag 65 ml @ 260 mls/hr Q6H PRN IV 04/30/17 12:45 05/30/17 12:44 Celecoxib (CeleBREX CAP) 100 mg BID PO 04/30/17 12:45 05/30/17 12:44 05/03/17 09:27 100 MG Tramadol HCl (Ultram Tab) 50 mg Q4H PRN PO 04/30/17 12:45 05/30/17 12:44 05/01/17 10:58 50 MG Heparin Sodium/ Dextrose 500 ml @ 28 mls/hr [id number] PRN IV 05/01/17 00:15 05/31/17 00:14 05/03/17 05:29 28 MLS/HR Ampicillin Sodium/ Sulbactam Sodium 3000 mg/Sodium Chloride 108 ml @ 200 mls/hr Q6H IV 05/03/17 12:00 05/10/17 11:59 05/03/17 13:34 200 MLS/HR Ampicillin Sodium/ Sulbactam Sodium (Consult) 1 ea UD PRN N/A 05/03/17 12:45 06/02/17 12:44 I & O: 24-Hour Column 05/04/17 08:00 Intake Total 462 ml Balance 462 ml Vital Signs: Date Time Temp Pulse Resp B/P (MAP) Pulse Ox O2 Delivery O2 Flow Rate FiO2 05/03/17 15:33 36.5 80 16 137/78 (97) 97 Room Air 05/03/17 08:00 Room Air 05/03/17 07:20 36.5 83 18 142/93 (109) 97 Room Air 05/03/17 00:05 36.9 101 16 160/94 (116) 97 Room Air 05/03/17 00:00 Room Air 05/02/17 16:00 Room Air Laboratory Results: Last 24 Hours Test 05/02/17 16:50 05/03/17 07:18 Prothrombin Time 15.3 SECONDS Prothromb Time International Ratio 1.4 Activated Partial Thromboplast Time 63.7 SECONDS Partial Thromboplastin Ratio 2.5
[2017-05-03 23:12] VITALS: BP 138/81; PULSE 93; TEMP 37.1; O2SAT 98
--- NOTE | 2017-05-04 00:44 | SURGICAL CONSULTATION ---
DATE OF CONSULTATION: 05/03/2017 REASON FOR CONSULTATION: Actinomyces empyema and pneumonic process, right chest. HISTORY OF PRESENT ILLNESS: A 32-year-old, who has multiple issues, including use of cigarettes, non-IV drug use, sickle cell trait, lupus anticoagulant positive, PTSD after his [place] in the [place], anxiety, depression and "explosive disorder" and was found to have a recent pulmonary emboli, where he presented with acute shortness of breath. He refused admission for this on 04/16/2017, but was treated with Xarelto. He came back 8 days later, he worked up for right-sided abdominal pain and was found to have, what appeared to be, pneumonia and was placed on doxycycline. He had right-sided pleural chest pain and was finally admitted 3 days ago, on 04/30/2017, with marked pleuritic pain on the right. This has improved. He never had a productive cough. He denied any drinking in the last 3 months. He has had no weight loss. PAST MEDICAL HISTORY: 1. Positive lupus anticoagulant (by history). 2. Sickle cell trait. 3. Non-IV drug use. 4. History of cigarette smoking. 5. Depression and anxiety. 6. Posttraumatic stress disorder. 7. Explosive disorder. 8. Anxiety. 9. Epididymitis in the past. 10. Questionable glaucoma. PAST SURGICAL HISTORY: Suturing of a laceration of the scalp. MEDICATIONS: 1. Doxycycline. 2. Oxycodone. 3. Xarelto. 4. Atarax. 5. Gabapentin. ALLERGIES: No known drug allergies, although he has a severe FISH ALLERGY WITH ANAPHYLAXIS. FAMILY MEDICAL HISTORY: The patient is one of triplets. His sister and his father both had venous thrombosis in the past. SOCIAL HISTORY: The patient is a smoker. He does not use drugs now or alcohol really. He is employed. He is one of triplets. He is currently employed. 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 REVIEW OF SYSTEMS: He has had no weight loss, no productive cough, no fevers. He has had no GI or complaints. He has had no wound breakdown. He has had no visual or auditory symptoms. PHYSICAL EXAMINATION: GENERAL: Well-developed, well-nourished, -M[place] male, who is awake, alert and oriented. He stands 5 feet 11 inches tall and weighs 188 pounds. HEENT: His extraocular movements are intact. His pupils are equal, round and reactive. His sclerae are anicteric. He has no nasolabial flattening. His teeth are in good repair. He has no oral mucosal lesions. He has no supraclavicular, cervical or axillary adenopathy. NECK: No thyromegaly or carotid bruits. LUNGS: He does have decreased breath sounds on the right. HEART: He has a regular rate and rhythm of his heart without a rub. ABDOMEN: Flat, soft, nontender. EXTREMITIES: Good femoral pulses. Good pedal pulses. No peripheral edema, no wound breakdown and no joint swelling. NEUROLOGIC: Completely intact. ASSESSMENT AND PLAN: 1. 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 I discussed this case with Louise Rogers from infectious disease as well as Dr. Connors from pulmonary. The patient has improved clinically with antibiotics. I will discuss this case with infectious disease further, but I think at this point, I would hold off decortication. This is especially in view of the fact that he has had acute pulmonary emboli about 2 weeks ago. He does have resolution of these emboli on CT scan and his clot burden is greatly decreased, but he now has fluid in his chest that could well be due to actinomycosis, as this is going out of his blood. I would not be interested to do a decortication on this patient. He really has no symptoms from this. He denies shortness of breath. He has had no productive cough. I would like to treat him further with antibiotics and repeat a CT scan in the near future.
[2017-05-04 05:27] LABS: BASO % 0.4 %; BASO ABS # 0.05 K/uL (0-0.2); COMPLETE YES; EOS % 15.5 %; HEMATOCRIT 36.8 % (42-52); IG% 0.5 %; LYMPH % 16.2 %; LYMPH ABS # 2.08 K/uL (1.2-3.4); MEAN CELL VOLUME 86.6 fL (80-100); MEAN CORPUSCULAR HEMOGLOBIN 29.9 pg (25-34); MEAN CORPUSCULAR HGB CONC 34.5 g/dl (32-36); MEAN PLATELET VOLUME 9.3 fL (7.4-10.4); MONO % 11.1 %; NEUT % 56.3 %; PLATELET COUNT 308 K/uL (130-400); RED BLOOD COUNT 4.25 M/uL (4.7-6.1); WHITE BLOOD COUNT 12.84 K/uL (4.8-10.8)
[2017-05-04 05:47] LABS: INR 1.4 (0.9-1.1); PARTIAL THROMBOPLASTIN RATIO 2.9; PROTHROMBIN TIME (PATIENT) 15.5 SECONDS (9.0-12.0)
[2017-05-04 05:52] LABS: BUN/CREATININE RATIO 11.1 (10-20); CREATININE 0.97 mg/dl (0.60-1.40); MAGNESIUM 2.1 mg/dl (1.8-2.4); POTASSIUM 3.9 mmol/L (3.5-5.1)
[2017-05-04 05:54] LABS: ALB/GLOB RATIO 0.9 (0.9-2); PHOSPHORUS 3.4 mg/dl (2.5-4.9)
[2017-05-04] MEDS: AMPICILLIN/SULBACTAM SOD INJ 3,000 MG in SODIUM CHLORIDE 0.9% 100ML 100 ML IV SCH ×2 (06:06→11:23)
[2017-05-04] MEDS: HEPARIN 25,000 UNIT/500ML D5W 500 ML IV PRN ×5 (06:07→23:13)
[2017-05-04 07:09] VITALS: BP 146/76; PULSE 73; TEMP 36.5; O2SAT 97
[2017-05-04] MEDS: GABAPENTIN 100 MG CAP PO SCH ×3 (08:50→21:20)
[2017-05-04] MEDS: CeleBREX 100 MG CAP PO SCH ×2 (08:50→21:20)
[2017-05-04] MEDS: NICOTINE 14 MG/24 HR TDSY TD SCH (08:50)
--- NOTE | 2017-05-04 09:50 | SURGERY PROGRESS NOTE ---
DATE: 05/04/2017 I saw Mr. Panda today on 05/04/2017 with his significant other. He looks good. He states he had a quiet night. His pain seems a bit better. He is afebrile. Vital signs are stable. Pulse oximetry is 97% on room air. He does have decreased breath sounds on the right. His white count bumped a bit to 12,840. Hemoglobin is stable. Platelet count is stable. His vital signs are stable. His INR is up to 1.4 and his PT is 76.3. I had a long discussion with the patient, his significant other as well as Dr. Blevins and Dr. Connors. We could make a case for performing a thoracentesis; however, he has very little fluid. Dr. Blevins is going to use an ultrasound to see if he thinks he could tap a small amount of fluid at bedside under ultrasound guidance. I discussed this with Mr. Panda and of course he is agreeable. On the other hand, he looks so much better that I think simply repeating a CT scan in a few days to see where we are from a fluid standpoint is also an option.
[2017-05-04] MEDS: OXYCODONE HCL IR 5 MG TAB (IMMEDIATE RELEASE) PO PRN ×2 (11:21→21:19)
[2017-05-04 12:43] LABS: PARTIAL THROMBOPLASTIN RATIO 2.6
[2017-05-04] MEDS ORDERED: ENOX120I SQ ×2 (13:23→13:29)
[2017-05-04] MEDS ORDERED: WARF5TAB90 PO (13:23)
--- NOTE | 2017-05-04 13:29 | Medical Student: [facility] ---
Med Student Progress Note Date of Service May 04, 2017. Dottie Pierce is doing well today. His only complaint today is some back pain with deep inspiration. He describes the pain as an achy type pain, and says that it has improved since yesterday. He does not feel short of breath however, and denies productive cough, fever, chills, nausea or vomiting. He expressed his concerns regarding being discharged too soon and discussed how he would rather stay longer if it meant less problems in the long run. 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 He also wanted to know more about cleaning and protecting the PICC line area. I told him that these details will be discussed closer to discharge and he will receive instructions at that time. He also mentioned concerns with housing and finances. Review of Systems Constitutional: No fever, No chills, No sweats, No problem reported ENT: No nasal symptoms, No sore throat Respiratory: + see HPI, + problem reported (Pain with deep inhalation), No cough, No sputum, No wheezing, No shortness of breath Cardiac: No chest pain, No PND, No edema, No claudication, No problem reported Abdomen: No pain, No nausea, No vomiting, No diarrhea, No problem reported Objective Vital Signs Date Time Temp Pulse Resp B/P (MAP) Pulse Ox O2 Delivery O2 Flow Rate FiO2 05/04/17 07:58 Room Air 05/04/17 07:09 36.5 73 18 146/76 (99) 97 Room Air 05/04/17 00:00 Room Air 05/03/17 23:12 37.1 93 20 138/81 (100) 98 Room Air 05/03/17 16:00 Room Air 05/03/17 15:33 36.5 80 16 137/78 (97) 97 Room Air Physical Exam General Appearance: WD/WN, + mild distress ENT: hearing grossly normal Neck: no JVD, trachea midline Respiratory/Chest: chest non-tender, no respiratory distress, no accessory muscle use, + decreased breath sounds (bilaterally lower thomas, with greater decrease on right compared to left. Dullness to percussion on both bases.) Cardiovascular: regular rate, rhythm, no edema, no JVD, no murmur, + extra beats (heard best over pulmonic valve) Abdomen: normal bowel sounds, non tender, soft Extremities: no pedal edema Neurologic/Psychiatric: alert, normal mood/affect, oriented x 3 Skin: normal color, warm/dry Laboratory Results Last 24 Hours Test 05/04/17 04:55 05/04/17 12:11 White Blood Count 12.84 K/uL Red Blood Count 4.25 M/uL Hemoglobin 12.7 g/dL Hematocrit 36.8 % Mean Corpuscular Volume 86.6 fL Mean Corpuscular Hemoglobin 29.9 pg Mean Corpuscular Hemoglobin Concent 34.5 g/dl Platelet Count 308 K/uL Mean Platelet Volume 9.3 fL Neutrophils (%) (Auto) 56.3 % Lymphocytes (%) (Auto) 16.2 % Monocytes (%) (Auto) 11.1 % Eosinophils (%) (Auto) 15.5 % Basophils (%) (Auto) 0.4 % Neutrophils # (Auto) 7.24 K/uL Lymphocytes # (Auto) 2.08 K/uL Monocytes # (Auto) 1.42 K/uL Eosinophils # (Auto) 1.99 K/uL Basophils # (Auto) 0.05 K/uL RDW Standard Deviation 35.5 fL RDW Coefficient of Variation 11.4 % Immature Granulocyte % (Auto) 0.5 % Immature Granulocyte # (Auto) 0.06 K/uL Prothrombin Time 15.5 SECONDS Prothromb Time International Ratio 1.4 Activated Partial Thromboplast Time 76.3 SECONDS 66.8 SECONDS Partial Thromboplastin Ratio 2.9 2.6 Sodium Level 141 mmol/L Potassium Level 3.9 mmol/L Chloride Level 108 mmol/L Carbon Dioxide Level 27 mmol/L Anion Gap 6.0 mmol/L Blood Urea Nitrogen 11 mg/dl Creatinine 0.97 mg/dl Est Creatinine Clear Calc Drug Dose 114.2 ml/min Estimated GFR () 117.6 Estimated GFR (Non- 101.4 BUN/Creatinine Ratio 11.1 Random Glucose 117 mg/dl Calcium Level 9.0 mg/dl Phosphorus Level 3.4 mg/dl Magnesium Level 2.1 mg/dl Total Bilirubin 0.2 mg/dl Aspartate Amino Transf (AST/SGOT) 23 U/L Alanine Aminotransferase (ALT/SGPT) 28 U/L Alkaline Phosphatase 162 U/L Total Protein 7.3 gm/dl Albumin 3.4 gm/dl Globulin 3.9 gm/dl Albumin/Globulin Ratio 0.9 Assessment and Plan Assessment and Plan: Stan is a 32 yo male with a history notable for non-IV substance use, hypercoagulability, Pulmonary Embolism, and Sickle cell trait who presented for shortness of breath and chest pain. Was found to have consolidation of fluid in right lung on CXR. Blood cultures grew Actinomyces. He is being treated with IV Ampicillin/Sulbactam. Pneumonia: He is currently stable and in only mild distress. Thoracic surgery consult decided not to intervene at this time. His treatment will need to continue for 4-6 weeks via IV, followed by 6-12 months oral penicillin. He will need a PICC line placed for outpatient therapy and education provided. Continue with monitoring for signs of worsening pulmonary function. Hypercoagulable state: Continue with heparin while inpatient. Continue with Warfarin outpatient. Social concerns: there is a concern that he may have difficulty with housing following discharge, and this may severely impact his ability to manage a PICC line outpatient. client services director consult may be beneficial. I personally examined and interviewed the patient I discussed above plan with medical student I wrote a separate note Alejandro Woodson
[2017-05-04] MEDS ORDERED: LCTX PO (13:41)
--- NOTE | 2017-05-04 13:49 | Discharge Instructions ---
Discharge Instructions Date of Service May 04, 2017. Admission Reason for Admission: Pneumonia, Pleural Effusion Discharge Discharge Diagnosis / Problem: Bacteremia Discharge Goals Goal(s): Decrease discomfort, Improve function, Improve disease control, Learn about illness, Diagnostic testing, Therapeutic intervention, Prevent Disease Progression Activity Recommendations Activity Limitations: resume your previous activity . Instructions / Follow-Up Instructions / Follow-Up You were admitted to the hospital because of persistent right-sided chest pain, which is likely multifactorial: 1. 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 This requires IV Penicillin G ( antibiotic) x6 weeks, then oral antibiotics x1 year Due to 6 weeks of IV antibiotic treatment, a PICC line was placed. Your were evaluated by thoracic surgery (Dr. Santiago)- sometimes, decortication (removing the bacteria) is need. Fortunately, no intervention is required. A repeat CT scan was completed on 05/09, which reported improved in consolidation opacities (infection). Please take the Floranex (probiotic) 4 tablets by mouth three times per day. This will help keep the "good" bacteria growing in your GI tract while on antibiotic therapy. 2. Pulmonary embolism- Due to your history of hypercoagulable state, Xarelto is NOT recommended. We have been treating you with IV Heparin/Lovenox and Coumadin in the hospital. You will be taking Coumadin by mouth once daily TAKE 2.5 mg Coumadin (half a tablet) on 05/10 and follow INR on 05/11 You will need to follow-up with routine INR blood work- you will then be further be instructed on your Coumadin dosage. Blood work will be completed by home health services and sent to your PCP. 3. Pleural effusion (fluid between the lung and chest wall)- You were evaluated by Dr. Santiago and pulmonary (Dr. Blevins)- sometimes this fluid needs drained. Fortunately, no intervention is required at this time. A repeat CT scan was completed on 05/09, which reported improved pleural effusion. For the chest pain: You may take Ibuprofen 600 mg by mouth as needed every 6 hours. Do NOT take for more than 2-3 days as excessive use of this medication can be harmful to the kidneys Please eat when taking medication to prevent upset stomach Additionally, you may take Tylenol 650 mg by mouth as needed every 6 hours. Do NOT exceed more than 4g of Tylenol per day as excessive use of this medication can be harmful to the liver FOLLOW-UP: Please follow-up with your PCP as scheduled on 05/13/17 Please follow-up with Infectious disease as scheduled on 05/21/17 Please follow-up with Pulmonary on 05/28/17 Follow-up with routine INR Please follow-up/keep all of your subspecialty appointments Medication Instructions: * Warfarin is a medicine prescribed to prevent blood clots * Warfarin will thin your blood and help prevent new clots * Take your medications exactly as directed * Never skip a dose. Never take a double dose. If you miss a dose, take it as soon as you remember * It is important for your doctor to monitor your prothrombin time (PT). This is a lab test * Keep your appointment for lab tests Risk of Adverse Drug Reactions and Interactions: * Warfarin increases your risk of bleeding * The food you eat and other medications you take can affect how Warfarin works in your body * Ask your doctor about daily aspirin therapy * It is very important to talk with your doctor about all of the other medicines, antibiotics, vitamins or herbal products that you are taking * All of your medication must be approved by your doctor, including new medicines, as well as medicines you have taken before you started taking Warfarin Diet: * In order for Warfarin to work properly, it is important to keep your intake of Vitamin K as consistent as possible * You should avoid any sudden change in Vitamin K intake * Report any significant changes in your diet or weight to your doctor Call your Doctor if you experience any of the following: * Swelling or Pain in your leg * Sudden, continuous pain deep in a muscle * Pain that worsens when you are active or when you stand still for a long time * Chest Pain * Sudden Shortness of Breath * Rapid or pounding heart beat * Fainting * Dizziness * Cough with blood or bloody sputum * Sweating more than normal * Bruises * heavy or uncontrolled bleeding * Blood in your urine, stool or vomit * Black or tarry stools Caring for Your Self at Home: * Avoid sitting, standing or lying down for long periods without moving your legs and feet * When traveling by car, stop to get out and move around at least once every 3 hours * On long airplane, train or bus rides, get up and move around when possible * If you can't get up, wiggle your toes and tighten your calves to keep your blood moving Follow Up: * It is important for you to keep your follow up appointments with your medical provider. Current Hospital Diet Patient's current hospital diet: Regular Diet Discharge Diet Recommended Diet: Regular Diet Procedures Procedures Performed: Echocardiogram, cheat CTA, bilateral lower extremity venous doppler, upper extremity ultrasound, chest CT Pending Studies Studies pending at discharge: no Medical Emergencies . Who to Call and When: Medical Emergencies: If at any time you feel your situation is an emergency, please call 911 immediately. . Non-Emergent Contact Non-Emergency issues call your: Primary Care Provider . . "Provider Documentation" section prepared by Starla Rosales. . VTE Core Measure Inpt VTE Proph given/why not?: Enoxaparin (Lovenox)SQ (bridged with Lovenox until INR therapuetic x2 days), Warfarin (Coumadin), T.E.D. Stockings, SCD's
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
[2017-05-04 14:49] VITALS: BP 101/72; PULSE 110; TEMP 36.8; O2SAT 97
[2017-05-04] MEDS ORDERED: PENICILLIN G POTASSIUM IV 6 MU in DEXTROSE 5% 250ML 250 ML IV ONE (15:00)
--- NOTE | 2017-05-04 15:12 | Hospitalist Progress Note ---
Hospitalist Progress Note Date of Service May 04, 2017. Subjective Pt evaluation today including: conversation w/ patient, physical exam, chart review, lab review, review of inpatient medication list Voiding: no voiding problems, no incontinence Patient states he is feeling well. Eating and drinking OK. No pleuritic CP. Patient denies any fever, chills, sweats, lightheadedness, dizziness, vision changes, CP, palpitations, edema, SOB, wheezing, cough, abdominal pain, nausea, vomiting, diarrhea, urinary symptoms, melena, numbness/tingling, weakness, muscle/joint pain, anxiety/depression, active bleeding, or new skin discoloration/changes. Medications Current Inpatient Medications Medications (Trade) Dose Ordered Sig/Herb Route Start Time Stop Time Status Last Admin Dose Admin Acetaminophen (Tylenol Tab) 650 mg Q4H PRN PO 04/29/17 17:30 05/29/17 17:29 Al Hydrox/Mg Hydrox/Simethicone (Maalox Max Susp) 15 ml Q4H PRN PO 04/29/17 17:30 05/29/17 17:29 Magnesium Hydroxide (Milk Of Magnesia Susp) 30 ml Q12H PRN PO 04/29/17 17:30 05/29/17 17:29 Ondansetron HCl (Zofran Inj) 4 mg Q6H PRN IV 04/29/17 17:30 05/29/17 17:29 Polyethylene (Miralax Powder Packet) 17 gm DAILY PRN PO 04/29/17 17:30 05/29/17 17:29 Gabapentin (Neurontin Cap) 200 mg TID PO 04/29/17 21:00 05/29/17 20:59 05/04/17 08:50 200 MG Oxycodone HCl (Roxicodone Immediate Rel Tab) 5 mg Q4H PRN PO 04/29/17 17:30 05/13/17 17:29 05/03/17 23:58 5 MG Nicotine (Nicoderm Cq 14MG Patch) 1 patch QAM TD 04/29/17 18:00 05/29/17 17:59 05/04/17 08:50 1 PATCH Miscellaneous (Remove Nicoderm Patch) 1 ea HS N/A 04/29/17 21:00 05/29/17 20:59 05/03/17 20:49 1 EA Acetaminophen 650 mg/Empty Bag 65 ml @ 260 mls/hr Q6H PRN IV 04/30/17 12:45 05/30/17 12:44 Celecoxib (CeleBREX CAP) 100 mg BID PO 04/30/17 12:45 05/30/17 12:44 05/04/17 08:50 100 MG Tramadol HCl (Ultram Tab) 50 mg Q4H PRN PO 04/30/17 12:45 05/30/17 12:44 05/01/17 10:58 50 MG Heparin Sodium/ Dextrose 500 ml @ 28 mls/hr [id number] PRN IV 05/01/17 00:15 05/31/17 00:14 05/04/17 06:56 28 MLS/HR Ampicillin Sodium/ Sulbactam Sodium 3000 mg/Sodium Chloride 108 ml @ 200 mls/hr Q6H IV 05/03/17 12:00 05/10/17 11:59 05/04/17 06:06 200 MLS/HR Ampicillin Sodium/ Sulbactam Sodium (Consult) 1 ea UD PRN N/A 05/03/17 12:45 06/02/17 12:44 Heparin Sodium (Porcine) (Heparin 10 Unit/ ml 5 ml Flush) 5 ml PRN PRN FLUSH 05/03/17 17:00 06/02/17 16:59 05/04/17 08:51 5 ML Objective Vital Signs Date Time Temp Pulse Resp B/P (MAP) Pulse Ox O2 Delivery O2 Flow Rate FiO2 05/04/17 07:58 Room Air 05/04/17 07:09 36.5 73 18 146/76 (99) 97 Room Air 05/04/17 00:00 Room Air 05/03/17 23:12 37.1 93 20 138/81 (100) 98 Room Air 05/03/17 16:00 Room Air 05/03/17 15:33 36.5 80 16 137/78 (97) 97 Room Air Physical Exam General Appearance: WD/WN, no apparent distress Eyes: PERRL ENT: hearing grossly normal Neck: supple Respiratory/Chest: lungs clear, no respiratory distress, no accessory muscle use Cardiovascular: regular rate, rhythm Abdomen: normal bowel sounds, non tender, soft Extremities: no pedal edema, no calf tenderness Neurologic/Psychiatric: no motor/sensory deficits, alert, normal mood/affect, oriented x 3 Skin: normal color, warm/dry, no rash Laboratory Results Last 24 Hours Test 05/04/17 04:55 White Blood Count 12.84 K/uL Red Blood Count 4.25 M/uL Hemoglobin 12.7 g/dL Hematocrit 36.8 % Mean Corpuscular Volume 86.6 fL Mean Corpuscular Hemoglobin 29.9 pg Mean Corpuscular Hemoglobin Concent 34.5 g/dl Platelet Count 308 K/uL Mean Platelet Volume 9.3 fL Neutrophils (%) (Auto) 56.3 % Lymphocytes (%) (Auto) 16.2 % Monocytes (%) (Auto) 11.1 % Eosinophils (%) (Auto) 15.5 % Basophils (%) (Auto) 0.4 % Neutrophils # (Auto) 7.24 K/uL Lymphocytes # (Auto) 2.08 K/uL Monocytes # (Auto) 1.42 K/uL Eosinophils # (Auto) 1.99 K/uL Basophils # (Auto) 0.05 K/uL RDW Standard Deviation 35.5 fL RDW Coefficient of Variation 11.4 % Immature Granulocyte % (Auto) 0.5 % Immature Granulocyte # (Auto) 0.06 K/uL Prothrombin Time 15.5 SECONDS Prothromb Time International Ratio 1.4 Activated Partial Thromboplast Time 76.3 SECONDS Partial Thromboplastin Ratio 2.9 Sodium Level 141 mmol/L Potassium Level 3.9 mmol/L Chloride Level 108 mmol/L Carbon Dioxide Level 27 mmol/L Anion Gap 6.0 mmol/L Blood Urea Nitrogen 11 mg/dl Creatinine 0.97 mg/dl Est Creatinine Clear Calc Drug Dose 114.2 ml/min Estimated GFR () 117.6 Estimated GFR (Non- 101.4 BUN/Creatinine Ratio 11.1 Random Glucose 117 mg/dl Calcium Level 9.0 mg/dl Phosphorus Level 3.4 mg/dl Magnesium Level 2.1 mg/dl Total Bilirubin 0.2 mg/dl Aspartate Amino Transf (AST/SGOT) 23 U/L Alanine Aminotransferase (ALT/SGPT) 28 U/L Alkaline Phosphatase 162 U/L Total Protein 7.3 gm/dl Albumin 3.4 gm/dl Globulin 3.9 gm/dl Albumin/Globulin Ratio 0.9 Assessment and Plan Patient is a pleasant 32 y/o male, with PMHx of PE, lupus anticoagulant positive , sickle-cell trait, h/o drug abuse, tobacco abuse, depression/anxiety/PTSD, who was a direct admission from Dr. Harris's office due to persistent pleuritic right-sided CP here for additional workup. Persistent pleuritic right-sided CP: - Admit to tele for cardiac monitoring- no acute events -- Transferred to med/surg on 05/01 - Cardiac enzymes- negative - CTA reviewed - Bilateral lower extremity venous US- no evidence of DVT - ECHO to r/o endocarditis * 1. Normal LV size and wall thickness. * 2. Normal LV systolic funciton. LVEF 60-65%. No regional wall motion abnormalities. * 3. Normal RV size and function. * 4. No significant valvular pathology. No vegetations noted. * 5. Positive bubble study for interatrial shunt. * 6. No prior studies for comparison. - Obtain BRODIE to r/o endocarditis - IV Heparin bridging w/ PO Coumadin due to hypercoagulable state -- Following INR - Hypercoagulable workup completed- lupus anticoagulant positive - Broad spectrum IV antibiotics w/ IV Zosyn and Vancomycin- MRSA swab negative -- Transitioned to PO Augmentin on 05/02- d/c'd on 05/03 and transitioned to IV Unasyn due to BCx- transition to Penicillin G on 05/04 - Oxycodone, Celebrex BID, and Tramadol, Tylenol PRN for pain control - BCx- growing aerobic actinomycete -- Repeat BCx on 05/03 pending -- ID following- begin IV Unasyn - UA, HIV, TB, urine legionella- negative - CBC, CMP, PT/INR/PTT pending at this time - Consult pulmonary, appreciate recommendations -- No thoracentesis - Consult ID, appreciate recommendations -- Penicillin G IV 24 mu daily x6 weeks, then PO antibiotic x1 year - Consult thoracic surgery, appreciate recommendations -- No indication for decortication Anxiety/depression, PTSD, explosive disorder: Continue Gabapentin 100 mg TID h/o drug abuse- use to snort/smoke Meth: Denies IVDA h/o tobacco abuse- 1/2-1 pack per day: Nicotine patch DVT Prophylaxis: IV Heparin, Coumadin Code Status: LEVEL I, FULL Dispo: Discharge to home tomorrow - PICC placed on 05/03
--- NOTE | 2017-05-04 15:30 | Infectious Disease Progress Nt ---
Progress Note Date of Service May 04, 2017. Subjective Pt evaluation today including: conversation w/ patient, physical exam, chart review, lab review, review of studies, conversation w/ databases software consultant, review of inpatient medication list Patient doing somewhat better, anticipating discharge. No fever. No other new complaints. Appears to be tolerating antibiotic without apparent difficulty. All Other Systems: Reviewed and Negative Medications Current Inpatient Medications Medications (Trade) Dose Ordered Sig/Herb Route Start Time Stop Time Status Last Admin Dose Admin Acetaminophen (Tylenol Tab) 650 mg Q4H PRN PO 04/29/17 17:30 05/29/17 17:29 Al Hydrox/Mg Hydrox/Simethicone (Maalox Max Susp) 15 ml Q4H PRN PO 04/29/17 17:30 05/29/17 17:29 Magnesium Hydroxide (Milk Of Magnesia Susp) 30 ml Q12H PRN PO 04/29/17 17:30 05/29/17 17:29 Ondansetron HCl (Zofran Inj) 4 mg Q6H PRN IV 04/29/17 17:30 05/29/17 17:29 Polyethylene (Miralax Powder Packet) 17 gm DAILY PRN PO 04/29/17 17:30 05/29/17 17:29 Gabapentin (Neurontin Cap) 200 mg TID PO 04/29/17 21:00 05/29/17 20:59 05/04/17 13:26 200 MG Oxycodone HCl (Roxicodone Immediate Rel Tab) 5 mg Q4H PRN PO 04/29/17 17:30 05/13/17 17:29 05/04/17 11:21 5 MG Nicotine (Nicoderm Cq 14MG Patch) 1 patch QAM TD 04/29/17 18:00 05/29/17 17:59 05/04/17 08:50 1 PATCH Miscellaneous (Remove Nicoderm Patch) 1 ea HS N/A 04/29/17 21:00 05/29/17 20:59 05/03/17 20:49 1 EA Acetaminophen 650 mg/Empty Bag 65 ml @ 260 mls/hr Q6H PRN IV 04/30/17 12:45 05/30/17 12:44 Celecoxib (CeleBREX CAP) 100 mg BID PO 04/30/17 12:45 05/30/17 12:44 05/04/17 08:50 100 MG Tramadol HCl (Ultram Tab) 50 mg Q4H PRN PO 04/30/17 12:45 05/30/17 12:44 05/01/17 10:58 50 MG Heparin Sodium/ Dextrose 500 ml @ 25 mls/hr Q20H PRN IV 05/01/17 00:15 05/31/17 00:14 05/04/17 14:02 25 MLS/HR Ampicillin Sodium/ Sulbactam Sodium (Consult) 1 ea UD PRN N/A 05/03/17 12:45 06/02/17 12:44 Heparin Sodium (Porcine) (Heparin 10 Unit/ ml 5 ml Flush) 5 ml PRN PRN FLUSH 05/03/17 17:00 06/02/17 16:59 05/04/17 08:51 5 ML Penicillin G Potassium 6 mu/ Dextrose 262 ml @ 100 mls/hr Q6 IV 05/04/17 15:15 05/18/17 15:14 UNV Objective Vital Signs Date Time Temp Pulse Resp B/P (MAP) Pulse Ox O2 Delivery O2 Flow Rate FiO2 05/04/17 14:49 36.8 110 20 101/72 (82) 97 Room Air 05/04/17 07:58 Room Air 05/04/17 07:09 36.5 73 18 146/76 (99) 97 Room Air 05/04/17 00:00 Room Air 05/03/17 23:12 37.1 93 20 138/81 (100) 98 Room Air 05/03/17 16:00 Room Air 05/03/17 15:33 36.5 80 16 137/78 (97) 97 Room Air Physical Exam General Appearance: WD/WN, no apparent distress Eyes: normal inspection, EOMI, sclerae normal ENT: normal ENT inspection, hearing grossly normal, pharynx normal Neck: supple, no adenopathy, thyroid normal, trachea midline Respiratory/Chest: chest non-tender, no respiratory distress, no accessory muscle use, + rhonchi Cardiovascular: regular rate, rhythm, no gallop, no murmur Abdomen: normal bowel sounds, non tender, soft, no organomegaly Extremities: non-tender, no calf tenderness Neurologic/Psychiatric: blueprint blocker II-XII nml as tested, alert, oriented x 3 Skin: normal color, no rash Lymphatic: no adenopathy Laboratory Results Last 24 Hours Test 05/04/17 04:55 05/04/17 12:11 White Blood Count 12.84 K/uL Red Blood Count 4.25 M/uL Hemoglobin 12.7 g/dL Hematocrit 36.8 % Mean Corpuscular Volume 86.6 fL Mean Corpuscular Hemoglobin 29.9 pg Mean Corpuscular Hemoglobin Concent 34.5 g/dl Platelet Count 308 K/uL Mean Platelet Volume 9.3 fL Neutrophils (%) (Auto) 56.3 % Lymphocytes (%) (Auto) 16.2 % Monocytes (%) (Auto) 11.1 % Eosinophils (%) (Auto) 15.5 % Basophils (%) (Auto) 0.4 % Neutrophils # (Auto) 7.24 K/uL Lymphocytes # (Auto) 2.08 K/uL Monocytes # (Auto) 1.42 K/uL Eosinophils # (Auto) 1.99 K/uL Basophils # (Auto) 0.05 K/uL RDW Standard Deviation 35.5 fL RDW Coefficient of Variation 11.4 % Immature Granulocyte % (Auto) 0.5 % Immature Granulocyte # (Auto) 0.06 K/uL Prothrombin Time 15.5 SECONDS Prothromb Time International Ratio 1.4 Activated Partial Thromboplast Time 76.3 SECONDS 66.8 SECONDS Partial Thromboplastin Ratio 2.9 2.6 Sodium Level 141 mmol/L Potassium Level 3.9 mmol/L Chloride Level 108 mmol/L Carbon Dioxide Level 27 mmol/L Anion Gap 6.0 mmol/L Blood Urea Nitrogen 11 mg/dl Creatinine 0.97 mg/dl Est Creatinine Clear Calc Drug Dose 114.2 ml/min Estimated GFR () 117.6 Estimated GFR (Non- 101.4 BUN/Creatinine Ratio 11.1 Random Glucose 117 mg/dl Calcium Level 9.0 mg/dl Phosphorus Level 3.4 mg/dl Magnesium Level 2.1 mg/dl Total Bilirubin 0.2 mg/dl Aspartate Amino Transf (AST/SGOT) 23 U/L Alanine Aminotransferase (ALT/SGPT) 28 U/L Alkaline Phosphatase 162 U/L Total Protein 7.3 gm/dl Albumin 3.4 gm/dl Globulin 3.9 gm/dl Albumin/Globulin Ratio 0.9 Assessment and Plan Patient with chest pain, probable pleuritic in nature, and possible pneumonia of the RML and RLL with Actinomyces growing in 2 initial blood cultures. He will be discharged for outpatient treatment with IV penicillin as discussed with hospitalist service. Will follow up with patient in the office.
--- NOTE | 2017-05-04 15:50 | Pulmonology Progress Note ---
Pulmonary Progress Note Date of Service May 04, 2017. Attending Dr. Blevins Subjective Patient seen and examined this morning. He still complains of right pleuritic chest pain with deep inspiration. Denies any fevers, chills, cough, or shortness of breath. Objective Vital signs reviewed and within normal limits. Gen.: Sitting in bed, in no acute respiratory distress, speaking in full sentences on room air. Head: Atraumatic, normocephalic Mouth: No oral thrush, no tonsillar exudates. Neck: Supple, nontender, no cervical lymphadenopathy CVS: S1-S2, regular rate and rhythm, no murmurs, rubs or gallops appreciated Lungs/chest: good air entry bilaterally, basilar crackles on the right. Reproducible chest pain on palpation of right chest wall. Abdomen: Soft, nontender, bowel sounds positive Extremities: No edema bilaterally seen on lower extremities, no cyanosis, no clubbing Bedside ultrasound done to evaluate for possible thoracentesis. There was not a sufficient echogenic fluid window for safe thoracentesis to be performed. Labs and medications reviewed Labs reviewed Phosphatidylserine IgG 13 HIV antibody 04/29/2017negative Urine Legionella from 04/30/2017not detected QuantiFERON from 04/22/2017negative Beta-1, 3-D glucan from 04/30/2017 negative Microbiology Blood culture 04/29/2017Actinomyces Blood culture 04/29/2017no growth to date Blood culture 2 05/03/2017pending TTE * -- Conclusions -- * 1. Normal LV size and wall thickness. * 2. Normal LV systolic funciton. LVEF 60-65%. No regional wall motion abnormalities. * 3. Normal RV size and function. * 4. No significant valvular pathology. No vegetations noted. * 5. Positive bubble study for interatrial shunt. * 6. No prior studies for comparison. Assessment & Plan Actinomyces bacteremia Right pleuritic chest pain Right pleural effusion Pulmonary embolism 32-year-old male who presented with right-sided pleuritic chest pain. Patient found to have right-sided pleural effusion and is currently being treated for left-sided pulmonary embolism. He is positive for lupus anticoagulant and is currently on heparin drip and Coumadin for anticoagulation. Blood cultures positive for actinomyces. He was empirically treated with vancomycin and Zosyn, and from 04/29/2017 to . His clinical status improved and he was switched to Augmentin on 05/02. However in light of his new blood cultures used has been switched to Unasyn. Today he was switched to penicillin G per infectious disease recommendations. HIV, QuantiFERON and urine legionella are negative thus far. He has been on oxycodone, Celebrex, tramadol and Tylenol when necessary for pain control. Recommendations: Follow-up repeat blood cultures. Recommend BRODIE to rule out endocarditis. Patient did not have sufficient window to safely perform thoracentesis. At this time I would recommend to continue with penicillin per ID recommendations. He should have a repeat CT chest without contrast 6-8 weeks after completion of antibiotic therapy to evaluate for interval resolution of pleural effusion. 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 For tobacco use disorder continue with nicotine patch. Smoking cessation and illicit drug cessation advised. Data Medications: Current Inpatient Medications Medications (Trade) Dose Ordered Sig/Herb Route Start Time Stop Time Status Last Admin Dose Admin Acetaminophen (Tylenol Tab) 650 mg Q4H PRN PO 04/29/17 17:30 05/29/17 17:29 Al Hydrox/Mg Hydrox/Simethicone (Maalox Max Susp) 15 ml Q4H PRN PO 04/29/17 17:30 05/29/17 17:29 Magnesium Hydroxide (Milk Of Magnesia Susp) 30 ml Q12H PRN PO 04/29/17 17:30 05/29/17 17:29 Ondansetron HCl (Zofran Inj) 4 mg Q6H PRN IV 04/29/17 17:30 05/29/17 17:29 Polyethylene (Miralax Powder Packet) 17 gm DAILY PRN PO 04/29/17 17:30 05/29/17 17:29 Gabapentin (Neurontin Cap) 200 mg TID PO 04/29/17 21:00 05/29/17 20:59 05/04/17 13:26 200 MG Oxycodone HCl (Roxicodone Immediate Rel Tab) 5 mg Q4H PRN PO 04/29/17 17:30 05/13/17 17:29 05/04/17 11:21 5 MG Nicotine (Nicoderm Cq 14MG Patch) 1 patch QAM TD 04/29/17 18:00 05/29/17 17:59 05/04/17 08:50 1 PATCH Miscellaneous (Remove Nicoderm Patch) 1 ea HS N/A 04/29/17 21:00 05/29/17 20:59 05/03/17 20:49 1 EA Acetaminophen 650 mg/Empty Bag 65 ml @ 260 mls/hr Q6H PRN IV 04/30/17 12:45 05/30/17 12:44 Celecoxib (CeleBREX CAP) 100 mg BID PO 04/30/17 12:45 05/30/17 12:44 05/04/17 08:50 100 MG Tramadol HCl (Ultram Tab) 50 mg Q4H PRN PO 04/30/17 12:45 05/30/17 12:44 05/01/17 10:58 50 MG Heparin Sodium/ Dextrose 500 ml @ 25 mls/hr Q20H PRN IV 05/01/17 00:15 05/31/17 00:14 05/04/17 14:02 25 MLS/HR Heparin Sodium (Porcine) (Heparin 10 Unit/ ml 5 ml Flush) 5 ml PRN PRN FLUSH 05/03/17 17:00 06/02/17 16:59 05/04/17 08:51 5 ML Penicillin G Potassium 6 mu/ Dextrose 262 ml @ 100 mls/hr Q6@0400,1000,1600,2200 IV 05/04/17 16:00 05/18/17 15:59 I & O: 24-Hour Column 05/05/17 08:00 Intake Total 739 ml Balance 739 ml Vital Signs: Date Time Temp Pulse Resp B/P (MAP) Pulse Ox O2 Delivery O2 Flow Rate FiO2 05/04/17 14:49 36.8 110 20 101/72 (82) 97 Room Air 05/04/17 07:58 Room Air 05/04/17 07:09 36.5 73 18 146/76 (99) 97 Room Air 05/04/17 00:00 Room Air 05/03/17 23:12 37.1 93 20 138/81 (100) 98 Room Air 05/03/17 16:00 Room Air Laboratory Results: Last 24 Hours Test 05/04/17 04:55 05/04/17 12:11 White Blood Count 12.84 K/uL Red Blood Count 4.25 M/uL Hemoglobin 12.7 g/dL Hematocrit 36.8 % Mean Corpuscular Volume 86.6 fL Mean Corpuscular Hemoglobin 29.9 pg Mean Corpuscular Hemoglobin Concent 34.5 g/dl Platelet Count 308 K/uL Mean Platelet Volume 9.3 fL Neutrophils (%) (Auto) 56.3 % Lymphocytes (%) (Auto) 16.2 % Monocytes (%) (Auto) 11.1 % Eosinophils (%) (Auto) 15.5 % Basophils (%) (Auto) 0.4 % Neutrophils # (Auto) 7.24 K/uL Lymphocytes # (Auto) 2.08 K/uL Monocytes # (Auto) 1.42 K/uL Eosinophils # (Auto) 1.99 K/uL Basophils # (Auto) 0.05 K/uL RDW Standard Deviation 35.5 fL RDW Coefficient of Variation 11.4 % Immature Granulocyte % (Auto) 0.5 % Immature Granulocyte # (Auto) 0.06 K/uL Prothrombin Time 15.5 SECONDS Prothromb Time International Ratio 1.4 Activated Partial Thromboplast Time 76.3 SECONDS 66.8 SECONDS Partial Thromboplastin Ratio 2.9 2.6 Sodium Level 141 mmol/L Potassium Level 3.9 mmol/L Chloride Level 108 mmol/L Carbon Dioxide Level 27 mmol/L Anion Gap 6.0 mmol/L Blood Urea Nitrogen 11 mg/dl Creatinine 0.97 mg/dl Est Creatinine Clear Calc Drug Dose 114.2 ml/min Estimated GFR () 117.6 Estimated GFR (Non- 101.4 BUN/Creatinine Ratio 11.1 Random Glucose 117 mg/dl Calcium Level 9.0 mg/dl Phosphorus Level 3.4 mg/dl Magnesium Level 2.1 mg/dl Total Bilirubin 0.2 mg/dl Aspartate Amino Transf (AST/SGOT) 23 U/L Alanine Aminotransferase (ALT/SGPT) 28 U/L Alkaline Phosphatase 162 U/L Total Protein 7.3 gm/dl Albumin 3.4 gm/dl Globulin 3.9 gm/dl Albumin/Globulin Ratio 0.9
[2017-05-04 16:00] VITALS: O2SAT 97
[2017-05-04] MEDS: PENICILLIN G POTASSIUM IV 6 MU in DEXTROSE 5% 250ML 250 ML IV SCH ×2 (16:26→22:01)
--- NOTE | 2017-05-04 17:57 | Progress Note ---
Subjective Date of Service: May 04, 2017. Subjective Pt evaluation today including: conversation w/ patient, physical exam, chart review, lab review, review of studies, conversation w/ furniture sales consultant, review of inpatient medication list Problem List Medical Problems: (1) Polysubstance abuse Status: Acute (2) Pulmonary embolism Status: Acute (3) Pulmonary infarction Status: Acute (4) Sleep deprivation Status: Acute Review of Systems Constitutional: No see HPI, No fever, No chills, No sweats, No weight loss, No weakness, No fatigue, No problem reported Eyes: No see HPI, No worsening of vision, No eye pain, No redness, No discharge , No diplopia, No problem reported ENT: No see HPI, No hearing loss, No unusual epistaxis, No nasal symptoms, No sore throat, No tinnitus, No dental problems, No trouble swallowing, No problem reported Respiratory: No see HPI, No cough, No sputum, No wheezing, No shortness of breath, No dyspnea on exertion, No dyspnea at rest, No hemoptysis, No problem reported Cardiac: No see HPI, No chest pain, No orthopnea, No PND, No edema, No claudication, No palpitations, No problem reported Abdomen: No see HPI, No pain, No nausea, No vomiting, No diarrhea, No constipation, No GI bleeding, No problem reported Musculoskeletal: No see HPI, No joint pain, No muscle pain, No swelling, No calf pain, No problem reported Neurologic: No see HPI, No memory loss, No paralysis, No weakness, No numbness/ tingling, No vertigo, No balance problems, No problem reported Psychiatric: No see HPI, No depression symptoms, No anhedonism, No anxiety, No insomnia, No substance abuse, No problem reported Heme: No see HPI, No abnormal bleeding/bruising, No clotting problems, No swollen lymph nodes, No night sweats, No problem reported Endo: No see HPI, No fatigue, No excessive thirst, No excessive urination, No problem reported Skin: No see HPI, No rash, No itch, No new/changing skin lesions, No color change, No bleeding, No problem reported Objective Vital Signs Date Time Temp Pulse Resp B/P (MAP) Pulse Ox O2 Delivery O2 Flow Rate FiO2 05/04/17 16:00 97 Room Air 05/04/17 14:49 36.8 110 20 101/72 (82) 97 Room Air 8/1/17 07:58 Room Air 05/04/17 07:09 36.5 73 18 146/76 (99) 97 Room Air 05/04/17 00:00 Room Air 05/03/17 23:12 37.1 93 20 138/81 (100) 98 Room Air Physical Exam General Appearance: WD/WN, no apparent distress Eyes: normal inspection, EOMI ENT: normal ENT inspection, hearing grossly normal Neck: supple Respiratory/Chest: chest non-tender, lungs clear, normal breath sounds, no respiratory distress, no accessory muscle use Cardiovascular: regular rate, rhythm, no edema, no gallop, no JVD, no murmur Abdomen: normal bowel sounds, non tender, soft, no organomegaly, no pulsatile mass Extremities: normal range of motion, non-tender, normal inspection, no pedal edema, no calf tenderness Neurologic/Psychiatric: whipper II-XII nml as tested, no motor/sensory deficits, alert, normal mood/affect, oriented x 3 Skin: normal color, warm/dry, no rash Laboratory Results Last 24 Hours Test 05/04/17 04:55 05/04/17 12:11 White Blood Count 12.84 K/uL Red Blood Count 4.25 M/uL Hemoglobin 12.7 g/dL Hematocrit 36.8 % Mean Corpuscular Volume 86.6 fL Mean Corpuscular Hemoglobin 29.9 pg Mean Corpuscular Hemoglobin Concent 34.5 g/dl Platelet Count 308 K/uL Mean Platelet Volume 9.3 fL Neutrophils (%) (Auto) 56.3 % Lymphocytes (%) (Auto) 16.2 % Monocytes (%) (Auto) 11.1 % Eosinophils (%) (Auto) 15.5 % Basophils (%) (Auto) 0.4 % Neutrophils # (Auto) 7.24 K/uL Lymphocytes # (Auto) 2.08 K/uL Monocytes # (Auto) 1.42 K/uL Eosinophils # (Auto) 1.99 K/uL Basophils # (Auto) 0.05 K/uL RDW Standard Deviation 35.5 fL RDW Coefficient of Variation 11.4 % Immature Granulocyte % (Auto) 0.5 % Immature Granulocyte # (Auto) 0.06 K/uL Prothrombin Time 15.5 SECONDS Prothromb Time International Ratio 1.4 Activated Partial Thromboplast Time 76.3 SECONDS 66.8 SECONDS Partial Thromboplastin Ratio 2.9 2.6 Sodium Level 141 mmol/L Potassium Level 3.9 mmol/L Chloride Level 108 mmol/L Carbon Dioxide Level 27 mmol/L Anion Gap 6.0 mmol/L Blood Urea Nitrogen 11 mg/dl Creatinine 0.97 mg/dl Est Creatinine Clear Calc Drug Dose 114.2 ml/min Estimated GFR () 117.6 Estimated GFR (Non- 101.4 BUN/Creatinine Ratio 11.1 Random Glucose 117 mg/dl Calcium Level 9.0 mg/dl Phosphorus Level 3.4 mg/dl Magnesium Level 2.1 mg/dl Total Bilirubin 0.2 mg/dl Aspartate Amino Transf (AST/SGOT) 23 U/L Alanine Aminotransferase (ALT/SGPT) 28 U/L Alkaline Phosphatase 162 U/L Total Protein 7.3 gm/dl Albumin 3.4 gm/dl Globulin 3.9 gm/dl Albumin/Globulin Ratio 0.9 Assessment and Plan Assessment: RLL density/pleural effusion, likely parapneumonic in nature actinomyces bacteremia Recent PE intra atrial shunt (positive bubble sign on echo) Hx of drug abuse (only smoking or sniffing never IV ) Plan: - consult ID, consult and Pulm - PIC line placed 05/03 after 5 days of Abx , previous blood Cx turned positive after 4 days. doubt any culture will turn machine operator positive but discussed with patient and ID. He is supposed to come back in 5-7 days for removal of this PICC and placing a new one in the other arm (discussed with IV team, being on coumadin is fine ) (denies any IVDA, in the past he used to snore), will need 6 weeks of IV PCN then repeat CT chest as an OP, F/U w implement mechanic and ID, then after 6 weeks of IV he will need 12 months of oral, plus probiotics - TTE showed no endocarditis but was Positive bubble study for interatrial shunt., instructed to always use a filter for his IV line, instructed to keep INR 2-3 , patient was given a copy of his echo report (can not have repair until infection is treated) - switched Abx to PCN G IV - Hypercoagulable workup completed- lupus anticoagulant positive - Oxycodone and Tylenol PRN for pain control - BCx 04/30 grew actinomyces , the rest of Bcx are negative thus far but need to be followed for a longer time - negative Fungitel / Quantiferone Gold -HIV test pending(patient verbally agreed)
[2017-05-04] MEDS: WARFARIN SOD 5 MG TAB PO SCH (19:30)
[2017-05-04 23:36] VITALS: PULSE 104; TEMP 37; O2SAT 98
[2017-05-05] MEDS: OXYCODONE HCL IR 5 MG TAB (IMMEDIATE RELEASE) PO PRN ×2 (01:28→19:00)
[2017-05-05] MEDS: PENICILLIN G POTASSIUM IV 6 MU in DEXTROSE 5% 250ML 250 ML IV SCH ×4 (04:08→21:39)
[2017-05-05 05:53] LABS: BASO % 0.4 %; BASO ABS # 0.05 K/uL (0-0.2); COMPLETE YES; EOS % 15.9 %; HEMATOCRIT 35.6 % (42-52); IG% 0.8 %; LYMPH % 16.7 %; LYMPH ABS # 2.12 K/uL (1.2-3.4); MEAN CELL VOLUME 86.8 fL (80-100); MEAN CORPUSCULAR HEMOGLOBIN 30.5 pg (25-34); MEAN CORPUSCULAR HGB CONC 35.1 g/dl (32-36); MEAN PLATELET VOLUME 9.2 fL (7.4-10.4); MONO % 10.3 %; NEUT % 55.9 %; PLATELET COUNT 264 K/uL (130-400); WHITE BLOOD COUNT 12.69 K/uL (4.8-10.8)
[2017-05-05 06:22] LABS: INR 1.3 (0.9-1.1); PARTIAL THROMBOPLASTIN RATIO 2.5; PROTHROMBIN TIME (PATIENT) 14.2 SECONDS (9.0-12.0)
[2017-05-05 06:26] LABS: BUN/CREATININE RATIO 9.6 (10-20); POTASSIUM 4.2 mmol/L (3.5-5.1)
[2017-05-05 06:28] LABS: ALB/GLOB RATIO 0.8 (0.9-2)
--- NOTE | 2017-05-05 06:35 | DIAGNOSTIC IMAGING REPORT ---
ULTRASOUND venous Doppler ultrasound the right upper extremity CLINICAL HISTORY: Right arm pain. Indwelling PICC line. COMPARISON STUDY: No previous studies for comparison. FINDINGS: The right internal jugular, subclavian, axillary, brachial, basilic, radial, and ulnar veins appeared patent. A right-sided PICC catheter is visualized. There is thrombus present within the mid right cephalic vein. IMPRESSION: Mid right cephalic vein thrombus. Electronically signed by: Benjamin Welch M.D. 05/05/2017 7:13 AM Dictated Date/Time: 05/05/2017 6:34 AM
[2017-05-05] MEDS: HEPARIN 25,000 UNIT/500ML D5W 500 ML IV PRN (07:16)
[2017-05-05 07:36] VITALS: BP 154/95; PULSE 86; TEMP 36.4; O2SAT 91
[2017-05-05 08:00] VITALS: O2SAT 91
[2017-05-05] MEDS: NICOTINE 14 MG/24 HR TDSY TD SCH (09:00)
[2017-05-05] MEDS: GABAPENTIN 100 MG CAP PO SCH ×3 (09:16→21:38)
[2017-05-05] MEDS: CeleBREX 100 MG CAP PO SCH ×2 (09:16→21:38)
[2017-05-05] MEDS ORDERED: WARF5TAB90 PO (11:00)
--- NOTE | 2017-05-05 11:11 | Medical Student: [facility] ---
Med Student Progress Note Date of Service May 05, 2017. Dottie Pierce is feeling ok today. He describes the chest pain with breathing as about the same as yesterday, by which it is a constant pain that is somewhat dull in quality. Some swelling of his ankles has developed since yesterday. He had many concerns about his PICC line, in particular he is concerned that it moves some with flexion and extension of his arm, and there is some bleeding around the site. At our conversation he was expressing a desire to have it removed and just "take his chances". I informed him that we will have this evaluated by someone with more experiences in PICC lines than myself. He also has developed some sharp midline back pain at about the level of T12. He denies coughing, n/v/ d but mentions he had chills all last night. He discussed his housing situation with me, explaining that their are two locations he is planning to go to. One is with a friend in a trailer, and the other is in a house of a family member. He is concerned that he won't be able to continue his job after discharge due to the PICC line. He was also curious about his INR and coagulation studies. These were discussed with him. He also asked if he could be allowed to try incentive spirometry. Lastly, he asked again where the infection came from, although this was discussed to him in the past. Review of Systems Constitutional: + see HPI, + chills, No weight loss, No weakness, No fatigue Eyes: No problem reported ENT: No nasal symptoms, No sore throat, No problem reported Respiratory: + problem reported (Constant chest pain with breathing. Points to posterior lung bases when describing pain.), No cough, No sputum, No wheezing Cardiac: + see HPI, + edema (bilateral swelling of ankles), No chest pain, No orthopnea, No PND, No claudication, No palpitations Abdomen: + problem reported (Mentioned his abdomen feels "firm"), No pain, No nausea, No vomiting, No diarrhea, No constipation Objective Vital Signs Date Time Temp Pulse Resp B/P (MAP) Pulse Ox O2 Delivery O2 Flow Rate FiO2 05/05/17 08:00 91 Room Air 05/05/17 07:36 36.4 86 20 154/95 (114) 91 Room Air 05/05/17 01:10 Room Air 05/04/17 23:36 37.0 104 20 98 Room Air 05/04/17 16:00 97 Room Air 05/04/17 14:49 36.8 110 20 101/72 (82) 97 Room Air Physical Exam General Appearance: WD/WN, + mild distress (appeared to have some difficulty with breathing) ENT: hearing grossly normal, pharynx normal Neck: supple, no adenopathy, no JVD, trachea midline Respiratory/Chest: chest non-tender, no accessory muscle use, + respiratory distress (mild distress), + decreased breath sounds (Decreased over right lung base, dullness to percussion) Cardiovascular: regular rate, rhythm, no gallop, no JVD, no murmur Abdomen: normal bowel sounds, non tender, soft, no pulsatile mass Extremities: non-tender, normal inspection (No splinter hemmorhages, no janeway lesion, no osler nodules present), no calf tenderness, + pedal edema ( bilateral ankle non-pitting swelling) Neurologic/Psychiatric: alert, normal mood/affect, oriented x 3 Laboratory Results Last 24 Hours Test 05/04/17 12:11 05/05/17 05:38 Activated Partial Thromboplast Time 66.8 SECONDS 64.0 SECONDS Partial Thromboplastin Ratio 2.6 2.5 White Blood Count 12.69 K/uL Red Blood Count 4.10 M/uL Hemoglobin 12.5 g/dL Hematocrit 35.6 % Mean Corpuscular Volume 86.8 fL Mean Corpuscular Hemoglobin 30.5 pg Mean Corpuscular Hemoglobin Concent 35.1 g/dl Platelet Count 264 K/uL Mean Platelet Volume 9.2 fL Neutrophils (%) (Auto) 55.9 % Lymphocytes (%) (Auto) 16.7 % Monocytes (%) (Auto) 10.3 % Eosinophils (%) (Auto) 15.9 % Basophils (%) (Auto) 0.4 % Neutrophils # (Auto) 7.09 K/uL Lymphocytes # (Auto) 2.12 K/uL Monocytes # (Auto) 1.31 K/uL Eosinophils # (Auto) 2.02 K/uL Basophils # (Auto) 0.05 K/uL RDW Standard Deviation 36.8 fL RDW Coefficient of Variation 11.6 % Immature Granulocyte % (Auto) 0.8 % Immature Granulocyte # (Auto) 0.10 K/uL Prothrombin Time 14.2 SECONDS Prothromb Time International Ratio 1.3 Sodium Level 140 mmol/L Potassium Level 4.2 mmol/L Chloride Level 107 mmol/L Carbon Dioxide Level 28 mmol/L Anion Gap 5.0 mmol/L Blood Urea Nitrogen 10 mg/dl Creatinine 1.00 mg/dl Est Creatinine Clear Calc Drug Dose 110.8 ml/min Estimated GFR () 113.3 Estimated GFR (Non- 97.8 BUN/Creatinine Ratio 9.6 Random Glucose 102 mg/dl Calcium Level 9.0 mg/dl Total Bilirubin 0.2 mg/dl Aspartate Amino Transf (AST/SGOT) 27 U/L Alanine Aminotransferase (ALT/SGPT) 30 U/L Alkaline Phosphatase 145 U/L Total Protein 7.3 gm/dl Albumin 3.3 gm/dl Globulin 4.0 gm/dl Albumin/Globulin Ratio 0.8 Assessment and Plan Assessment and Plan: Stan is a 32 yo male with a history of hypercoagulability, PE, substance use, and sickle cell trait who presented for chest pain and shortness of breath and was diagnosed with pneumonia with blood cultures growing actinomyces. He is currently being treated with IV penicillin, subQ heparin, and PRN pain management. An US yesterday demonstrated a thrombus in the mid Right cephalic vein, the same arm as the PICC line. Pneumonia, actinomyces: -Per physical exam, improving -Per subjective, the same or possibly worsening -US findings of thrombus in R cephalic vein - Continue with IV penicillin. - Remove PICC line due to thrombus - Consider incentive Spirometry. Hypercoagulability: -Recent thrombus while on anticoagulation is concerning - INR 1.3 and PTT of 64.0 - Echo with positive bubble sign suggesting abnormal communication between heart chambers - Continue with Heparin - Transition to Warfarin for outpatient therapy - Monitor INR and PTT - Consider vascular surgery for IVC filter due to failure of anticoagulant Continued [facility] stay due to: other (insertion of new PICC line)
[2017-05-05] MEDS ORDERED: LOVENOX TEACHING KIT ONE (11:15)
--- NOTE | 2017-05-05 12:38 | Hospitalist Progress Note ---
Hospitalist Progress Note Date of Service May 05, 2017. (Starla Rosales ., YOVANA) Subjective Pt evaluation today including: conversation w/ patient, conversation w/ family (GF- at bedside ), physical exam, chart review, lab review, review of studies, review of inpatient medication list Voiding: no voiding problems, no incontinence Patient states he is feeling well. Eating and drinking OK. Patient denies any fever, chills, sweats, lightheadedness, dizziness, vision changes, CP, palpitations, edema, SOB, wheezing, cough, abdominal pain, nausea, vomiting, diarrhea, urinary symptoms, melena, numbness/tingling, weakness, muscle/joint pain, anxiety/depression, active bleeding, or new skin discoloration/changes. (Starla Rosales ., ISAACC) Medications Current Inpatient Medications Medications (Trade) Dose Ordered Sig/Herb Route Start Time Stop Time Status Last Admin Dose Admin Acetaminophen (Tylenol Tab) 650 mg Q4H PRN PO 04/29/17 17:30 05/29/17 17:29 Al Hydrox/Mg Hydrox/Simethicone (Maalox Max Susp) 15 ml Q4H PRN PO 04/29/17 17:30 05/29/17 17:29 Magnesium Hydroxide (Milk Of Magnesia Susp) 30 ml Q12H PRN PO 04/29/17 17:30 05/29/17 17:29 Ondansetron HCl (Zofran Inj) 4 mg Q6H PRN IV 04/29/17 17:30 05/29/17 17:29 Polyethylene (Miralax Powder Packet) 17 gm DAILY PRN PO 04/29/17 17:30 05/29/17 17:29 Gabapentin (Neurontin Cap) 200 mg TID PO 04/29/17 21:00 05/29/17 20:59 05/05/17 09:16 200 MG Oxycodone HCl (Roxicodone Immediate Rel Tab) 5 mg Q4H PRN PO 04/29/17 17:30 05/13/17 17:29 05/05/17 01:28 5 MG Nicotine (Nicoderm Cq 14MG Patch) 1 patch QAM TD 04/29/17 18:00 05/29/17 17:59 05/04/17 08:50 1 PATCH Miscellaneous (Remove Nicoderm Patch) 1 ea HS N/A 04/29/17 21:00 05/29/17 20:59 05/04/17 21:21 1 EA Acetaminophen 650 mg/Empty Bag 65 ml @ 260 mls/hr Q6H PRN IV 04/30/17 12:45 05/30/17 12:44 Celecoxib (CeleBREX CAP) 100 mg BID PO 04/30/17 12:45 05/30/17 12:44 05/05/17 09:16 100 MG Tramadol HCl (Ultram Tab) 50 mg Q4H PRN PO 04/30/17 12:45 05/30/17 12:44 05/01/17 10:58 50 MG Heparin Sodium/ Dextrose 500 ml @ 25 mls/hr Q20H PRN IV 05/01/17 00:15 05/31/17 00:14 Future Hold 05/05/17 07:16 25 MLS/HR Heparin Sodium (Porcine) (Heparin 10 Unit/ ml 5 ml Flush) 5 ml PRN PRN FLUSH 05/03/17 17:00 06/02/17 16:59 05/05/17 01:14 5 ML Penicillin G Potassium 6 mu/ Dextrose 262 ml @ 100 mls/hr Q6@0400,1000,1600,2200 IV 05/04/17 16:00 05/18/17 15:59 05/05/17 12:12 100 MLS/HR Warfarin Sodium (Coumadin Tab) 5 mg DAILY@16 PO 05/04/17 18:00 06/03/17 17:59 05/04/17 19:30 5 MG Enoxaparin Sodium (Lovenox Inj) 90 mg Q12 SQ 05/05/17 12:00 06/04/17 11:59 (Starla Rosales, YOVANA) Objective Vital Signs Date Time Temp Pulse Resp B/P (MAP) Pulse Ox O2 Delivery O2 Flow Rate FiO2 05/05/17 08:00 91 Room Air 05/05/17 07:36 36.4 86 20 154/95 (114) 91 Room Air 05/05/17 01:10 Room Air 05/04/17 23:36 37.0 104 20 98 Room Air 05/04/17 16:00 97 Room Air 05/04/17 14:49 36.8 110 20 101/72 (82) 97 Room Air (Starla Rosales PA-C) Physical Exam General Appearance: WD/WN, no apparent distress Eyes: normal inspection, PERRL ENT: hearing grossly normal Neck: supple Respiratory/Chest: lungs clear, no respiratory distress, no accessory muscle use Cardiovascular: regular rate, rhythm Abdomen: normal bowel sounds, non tender, soft Extremities: non-tender, no pedal edema Neurologic/Psychiatric: alert, normal mood/affect, oriented x 3 Skin: normal color, warm/dry, no rash (Starla Rosales PA-C) Laboratory Results Last 24 Hours Test 05/05/17 05:38 White Blood Count 12.69 K/uL Red Blood Count 4.10 M/uL Hemoglobin 12.5 g/dL Hematocrit 35.6 % Mean Corpuscular Volume 86.8 fL Mean Corpuscular Hemoglobin 30.5 pg Mean Corpuscular Hemoglobin Concent 35.1 g/dl Platelet Count 264 K/uL Mean Platelet Volume 9.2 fL Neutrophils (%) (Auto) 55.9 % Lymphocytes (%) (Auto) 16.7 % Monocytes (%) (Auto) 10.3 % Eosinophils (%) (Auto) 15.9 % Basophils (%) (Auto) 0.4 % Neutrophils # (Auto) 7.09 K/uL Lymphocytes # (Auto) 2.12 K/uL Monocytes # (Auto) 1.31 K/uL Eosinophils # (Auto) 2.02 K/uL Basophils # (Auto) 0.05 K/uL RDW Standard Deviation 36.8 fL RDW Coefficient of Variation 11.6 % Immature Granulocyte % (Auto) 0.8 % Immature Granulocyte # (Auto) 0.10 K/uL Prothrombin Time 14.2 SECONDS Prothromb Time International Ratio 1.3 Activated Partial Thromboplast Time 64.0 SECONDS Partial Thromboplastin Ratio 2.5 Sodium Level 140 mmol/L Potassium Level 4.2 mmol/L Chloride Level 107 mmol/L Carbon Dioxide Level 28 mmol/L Anion Gap 5.0 mmol/L Blood Urea Nitrogen 10 mg/dl Creatinine 1.00 mg/dl Est Creatinine Clear Calc Drug Dose 110.8 ml/min Estimated GFR () 113.3 Estimated GFR (Non- 97.8 BUN/Creatinine Ratio 9.6 Random Glucose 102 mg/dl Calcium Level 9.0 mg/dl Total Bilirubin 0.2 mg/dl Aspartate Amino Transf (AST/SGOT) 27 U/L Alanine Aminotransferase (ALT/SGPT) 30 U/L Alkaline Phosphatase 145 U/L Total Protein 7.3 gm/dl Albumin 3.3 gm/dl Globulin 4.0 gm/dl Albumin/Globulin Ratio 0.8 (Starla Rosales, YOVANA) Assessment and Plan Patient is a pleasant 32 y/o male, with PMHx of PE, lupus anticoagulant positive , sickle-cell trait, h/o drug abuse, tobacco abuse, depression/anxiety/PTSD, who was a direct admission from Dr. Harris's office due to persistent pleuritic right-sided CP here for additional workup. Persistent pleuritic right-sided CP: - Admit to tele for cardiac monitoring- no acute events -- Transferred to med/surg on 05/01 - Cardiac enzymes- negative - CTA reviewed - Bilateral lower extremity venous US- no evidence of DVT - ECHO to r/o endocarditis * 1. Normal LV size and wall thickness. * 2. Normal LV systolic funciton. LVEF 60-65%. No regional wall motion abnormalities. * 3. Normal RV size and function. * 4. No significant valvular pathology. No vegetations noted. * 5. Positive bubble study for interatrial shunt. * 6. No prior studies for comparison. - IV Heparin bridging w/ PO Coumadin due to hypercoagulable state -- Following INR- 1.3 today -- Transitioned to Lovenox 1 mg/kg q12 on 05/05 in preparation for discharge - Lovenox teaching completed - Hypercoagulable workup completed- lupus anticoagulant positive -- Due to hypercoagulable state, Xarelto is NOT recommend. Discussed w/ patient, will be placed on Coumadin with routine INR f/u - Broad spectrum IV antibiotics w/ IV Zosyn and Vancomycin- MRSA swab negative -- Transitioned to PO Augmentin on 05/02- d/c'd on 05/03 and transitioned to IV Unasyn due to BCx, transitioned to IV Penicillin G on 05/04 - Oxycodone, Celebrex BID, and Tramadol, Tylenol PRN for pain control - BCx- growing aerobic actinomycete -- Repeat BCx on 05/03- NGTD -- ID following- begin IV Unasyn on 05/03, transition to Penicillin G on - UA, HIV, TB, urine legionella- negative - Consult pulmonary, appreciate recommendations -- No thoracentesis -- Repeat CT scan in 6-8 weeks after IV antibiotics - Consult ID, appreciate recommendations -- IV Penicillin G 24 MU/day x6 weeks, then PO antibiotics x1 year - Consult thoracic surgery, appreciate recommendations -- No decortication - PICC on 05/03 -- NEEDS FILTER DO TO INTRA-ATRIAL SHUNT -- RUE US on 05/05- Mid right cephalic vein thrombus. -- Spoke w/ IV team, not associated to PICC- no need for PICC replacement -- On anticoagulation Anxiety/depression, PTSD, explosive disorder: Continue Gabapentin 100 mg TID h/o drug abuse- use to snort/smoke Meth: - Denies IVDA - States he is no longer on Suboxone h/o tobacco abuse- 1/2-1 pack per day: Nicotine patch DVT Prophylaxis: Lovenox, Coumadin Code Status: LEVEL I, FULL Dispo: Discharge to home w/ [facility]- at this time, patient is medically stable for discharge, but is homeless- Discharge pending housing (Starla Rosales ., PA-C) Attending Attestation: Pt seen/examined, chart reviewed, care plan d/w BEVERLY Rosales. I agree w/ the wasserman components of her documentation. During my visit the patient was very frustrated. He felt that our team was "throwing him out of the hospital." He initially told me he wanted to stay until his INR was >2, then stated he wanted to leave, and finally towards the end stated "I have no place to go." He previously lived with his girlfriend, but when asked where he was going to live following the hospital stay he said "I don't know." He voiced frustration when I told him he would probably need to be out of work for about 1 week. When asked about drugs he admitted to meth use about 2-3 weeks ago. Following the conclusion of our discussion he stated he felt better because he had more information regarding his medical conditions. VSS no fever gen- nad but quite agitated neck - no JVD mouth - no sores or lesions heart - RRR lungs - rales with decreased BS right base abd - soft, no HSM ext - right upper extremity mildly swollen; palpable cord over cephalic vein over the biceps; PICC in place medial aspect of arm INR 1.3 A/P: 1. 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 underlying risk factor for #1 - drug abuse; fortunately HIV negative 3. cont IV PCN for #1 4. drug abuse 5. homelessness / complex social situation 6. h/o recent PE 7. right upper extremity DVT - provoked in setting of recent IV 8. transition to lovenox 1mg/kg BID and cont coumadin with daily INR appreciate social work with their help on this complicated social situation hold discharge today until dispo plan (is where he will live/stay after discharge) is sorted out Jarad Gamez MD (Jarad Gamez MD)
[2017-05-05] MEDS: ENOXAPARIN 100 MG/1ML SYR SQ SCH ×2 (13:25→22:30)
--- NOTE | 2017-05-05 14:45 | Infectious Disease Progress Nt ---
Progress Note Date of Service May 05, 2017. Subjective Pt evaluation today including: conversation w/ patient, physical exam, chart review, lab review, review of studies, conversation w/ environmental consultant, review of inpatient medication list No new complaints today. Remains afebrile. No increase in shortness of breath or chest pain. All Other Systems: Reviewed and Negative Medications Current Inpatient Medications Medications (Trade) Dose Ordered Sig/Herb Route Start Time Stop Time Status Last Admin Dose Admin Acetaminophen (Tylenol Tab) 650 mg Q4H PRN PO 04/29/17 17:30 05/29/17 17:29 Al Hydrox/Mg Hydrox/Simethicone (Maalox Max Susp) 15 ml Q4H PRN PO 04/29/17 17:30 05/29/17 17:29 Magnesium Hydroxide (Milk Of Magnesia Susp) 30 ml Q12H PRN PO 04/29/17 17:30 05/29/17 17:29 Ondansetron HCl (Zofran Inj) 4 mg Q6H PRN IV 04/29/17 17:30 05/29/17 17:29 Polyethylene (Miralax Powder Packet) 17 gm DAILY PRN PO 04/29/17 17:30 05/29/17 17:29 Gabapentin (Neurontin Cap) 200 mg TID PO 04/29/17 21:00 05/29/17 20:59 05/05/17 14:18 200 MG Oxycodone HCl (Roxicodone Immediate Rel Tab) 5 mg Q4H PRN PO 04/29/17 17:30 05/13/17 17:29 05/05/17 01:28 5 MG Nicotine (Nicoderm Cq 14MG Patch) 1 patch QAM TD 04/29/17 18:00 05/29/17 17:59 05/04/17 08:50 1 PATCH Miscellaneous (Remove Nicoderm Patch) 1 ea HS N/A 04/29/17 21:00 05/29/17 20:59 05/04/17 21:21 1 EA Acetaminophen 650 mg/Empty Bag 65 ml @ 260 mls/hr Q6H PRN IV 04/30/17 12:45 05/30/17 12:44 Celecoxib (CeleBREX CAP) 100 mg BID PO 04/30/17 12:45 05/30/17 12:44 05/05/17 09:16 100 MG Tramadol HCl (Ultram Tab) 50 mg Q4H PRN PO 04/30/17 12:45 05/30/17 12:44 05/01/17 10:58 50 MG Heparin Sodium/ Dextrose 500 ml @ 25 mls/hr Q20H PRN IV 05/01/17 00:15 05/31/17 00:14 Future Hold 05/05/17 07:16 25 MLS/HR Heparin Sodium (Porcine) (Heparin 10 Unit/ ml 5 ml Flush) 5 ml PRN PRN FLUSH 05/03/17 17:00 06/02/17 16:59 05/05/17 13:24 5 ML Penicillin G Potassium 6 mu/ Dextrose 262 ml @ 100 mls/hr Q6@0400,1000,1600,2200 IV 05/04/17 16:00 05/18/17 15:59 05/05/17 12:12 100 MLS/HR Warfarin Sodium (Coumadin Tab) 5 mg DAILY@16 PO 05/04/17 18:00 06/03/17 17:59 05/04/17 19:30 5 MG Enoxaparin Sodium (Lovenox Inj) 90 mg Q12 SQ 05/05/17 12:00 06/04/17 11:59 05/05/17 13:25 90 MG Objective Vital Signs Date Time Temp Pulse Resp B/P (MAP) Pulse Ox O2 Delivery O2 Flow Rate FiO2 05/05/17 08:00 91 Room Air 05/05/17 07:36 36.4 86 20 154/95 (114) 91 Room Air 05/05/17 01:10 Room Air 05/04/17 23:36 37.0 104 20 98 Room Air 05/04/17 16:00 97 Room Air 05/04/17 14:49 36.8 110 20 101/72 (82) 97 Room Air Physical Exam General Appearance: WD/WN, no apparent distress Eyes: normal inspection, sclerae normal ENT: normal ENT inspection, pharynx normal Neck: supple, no adenopathy, trachea midline Respiratory/Chest: chest non-tender, no respiratory distress, + rhonchi Cardiovascular: regular rate, rhythm, no gallop, no murmur Abdomen: normal bowel sounds, non tender, soft, no organomegaly Extremities: non-tender, no calf tenderness Neurologic/Psychiatric: alert, oriented x 3 Skin: normal color, warm/dry, no rash Lymphatic: no adenopathy Laboratory Results Last 24 Hours Test 05/05/17 05:38 White Blood Count 12.69 K/uL Red Blood Count 4.10 M/uL Hemoglobin 12.5 g/dL Hematocrit 35.6 % Mean Corpuscular Volume 86.8 fL Mean Corpuscular Hemoglobin 30.5 pg Mean Corpuscular Hemoglobin Concent 35.1 g/dl Platelet Count 264 K/uL Mean Platelet Volume 9.2 fL Neutrophils (%) (Auto) 55.9 % Lymphocytes (%) (Auto) 16.7 % Monocytes (%) (Auto) 10.3 % Eosinophils (%) (Auto) 15.9 % Basophils (%) (Auto) 0.4 % Neutrophils # (Auto) 7.09 K/uL Lymphocytes # (Auto) 2.12 K/uL Monocytes # (Auto) 1.31 K/uL Eosinophils # (Auto) 2.02 K/uL Basophils # (Auto) 0.05 K/uL RDW Standard Deviation 36.8 fL RDW Coefficient of Variation 11.6 % Immature Granulocyte % (Auto) 0.8 % Immature Granulocyte # (Auto) 0.10 K/uL Prothrombin Time 14.2 SECONDS Prothromb Time International Ratio 1.3 Activated Partial Thromboplast Time 64.0 SECONDS Partial Thromboplastin Ratio 2.5 Sodium Level 140 mmol/L Potassium Level 4.2 mmol/L Chloride Level 107 mmol/L Carbon Dioxide Level 28 mmol/L Anion Gap 5.0 mmol/L Blood Urea Nitrogen 10 mg/dl Creatinine 1.00 mg/dl Est Creatinine Clear Calc Drug Dose 110.8 ml/min Estimated GFR () 113.3 Estimated GFR (Non- 97.8 BUN/Creatinine Ratio 9.6 Random Glucose 102 mg/dl Calcium Level 9.0 mg/dl Total Bilirubin 0.2 mg/dl Aspartate Amino Transf (AST/SGOT) 27 U/L Alanine Aminotransferase (ALT/SGPT) 30 U/L Alkaline Phosphatase 145 U/L Total Protein 7.3 gm/dl Albumin 3.3 gm/dl Globulin 4.0 gm/dl Albumin/Globulin Ratio 0.8 Assessment and Plan Patient with chest pain, pleuritic in nature, and possible pneumonia of the RML and RLL with Actinomyces growing in 1/2 initial blood cultures. He will be discharged for outpatient treatment with IV penicillin as discussed with hospitalist service. Will follow up with patient in the office.
[2017-05-05 15:33] VITALS: BP 156/97; PULSE 99; TEMP 36.4; O2SAT 100
[2017-05-05 16:00] VITALS: O2SAT 100
[2017-05-05] MEDS: WARFARIN SOD 5 MG TAB PO SCH (16:03)
[2017-05-05] MEDS: TRAMADOL HCL 50 MG TAB PO PRN (21:39)
[2017-05-05 22:34] VITALS: BP 153/98; PULSE 83; TEMP 36.3; O2SAT 99
[2017-05-06] MEDS: OXYCODONE HCL IR 5 MG TAB (IMMEDIATE RELEASE) PO PRN ×2 (00:44→11:00)
[2017-05-06] MEDS: PENICILLIN G POTASSIUM IV 6 MU in DEXTROSE 5% 250ML 250 ML IV SCH ×4 (04:56→21:57)
[2017-05-06 05:54] LABS: HEMATOCRIT 37.1 % (42-52); MEAN CELL VOLUME 85.7 fL (80-100); MEAN CORPUSCULAR HEMOGLOBIN 29.8 pg (25-34); MEAN CORPUSCULAR HGB CONC 34.8 g/dl (32-36); MEAN PLATELET VOLUME 9.3 fL (7.4-10.4); PLATELET COUNT 274 K/uL (130-400); RED BLOOD COUNT 4.33 M/uL (4.7-6.1); WHITE BLOOD COUNT 16.89 K/uL (4.8-10.8)
[2017-05-06 06:20] LABS: BUN/CREATININE RATIO 8.1 (10-20); CALCIUM 9.1 mg/dl (8.5-10.1); CREATININE 1.2 mg/dl (0.60-1.40); INR 1.5 (0.9-1.1); PARTIAL THROMBOPLASTIN RATIO 1.8; POTASSIUM 3.8 mmol/L (3.5-5.1); PROTHROMBIN TIME (PATIENT) 16.3 SECONDS (9.0-12.0)
[2017-05-06 07:20] VITALS: BP 130/86; PULSE 78; TEMP 36.6; O2SAT 97
[2017-05-06] MEDS: CeleBREX 100 MG CAP PO SCH ×2 (08:16→21:02)
[2017-05-06] MEDS: GABAPENTIN 100 MG CAP PO SCH ×3 (08:16→21:00)
[2017-05-06] MEDS: ENOXAPARIN 100 MG/1ML SYR SQ SCH ×2 (08:17→21:02)
[2017-05-06] MEDS: NICOTINE 14 MG/24 HR TDSY TD SCH (08:18)
--- NOTE | 2017-05-06 09:50 | Progress Note ---
Progress Note Date of Service May 06, 2017. Progress Note THORACIC SURGERY PROGRESS NOTE: Mr. Panda was seen this morning. Continued complaint of pain but states it only occurs at night. He still has decreased breath sounds on auscultation. Patient has problems with this position as he currently has no residents. He is going to require intravenous penicillin. At this point I would like to repeat a CT scan without contrast in 4 days on Wednesday, May 10. This will help us determine whether or not he is require thoracoscopic decortication or will respond to antibiotics.
--- NOTE | 2017-05-06 11:29 | Hospitalist Progress Note ---
Hospitalist Progress Note Date of Service May 06, 2017. (Starla Rosales ., PA-C) Subjective Pt evaluation today including: conversation w/ patient, physical exam, chart review, lab review, review of inpatient medication list Voiding: no voiding problems, no incontinence Patient states he is feeling well. Calm and respectful today- apologetic about yesterday, states he is under a lot of stress with everything going on. +bilateral ankle edema- TEDs. Venous US negative for DVT on 04/29. Anticoagulated. Admits to using meth about 1 month ago. Got his Suboxone from the streets. Last used about 2 months ago. Ambitious about staying clean this time around. Follows with IOP- will continue to do so at discharge. States he will have housing arrangements by Wednesday or Wednesday. He states this will be a stable environment for him with little triggers to relapse. Patient denies any fever, chills, sweats, lightheadedness, dizziness, vision changes, CP, palpitations, edema, SOB, wheezing, cough, abdominal pain, nausea, vomiting, diarrhea, urinary symptoms, melena, numbness/tingling, weakness, muscle/joint pain, anxiety/depression, active bleeding, or new skin discoloration/changes. (Starla Rosales ., PA-C) Medications Current Inpatient Medications Medications (Trade) Dose Ordered Sig/Herb Route Start Time Stop Time Status Last Admin Dose Admin Acetaminophen (Tylenol Tab) 650 mg Q4H PRN PO 04/29/17 17:30 05/29/17 17:29 Al Hydrox/Mg Hydrox/Simethicone (Maalox Max Susp) 15 ml Q4H PRN PO 04/29/17 17:30 05/29/17 17:29 Magnesium Hydroxide (Milk Of Magnesia Susp) 30 ml Q12H PRN PO 04/29/17 17:30 05/29/17 17:29 Ondansetron HCl (Zofran Inj) 4 mg Q6H PRN IV 04/29/17 17:30 05/29/17 17:29 Polyethylene (Miralax Powder Packet) 17 gm DAILY PRN PO 04/29/17 17:30 05/29/17 17:29 Gabapentin (Neurontin Cap) 200 mg TID PO 04/29/17 21:00 05/29/17 20:59 05/06/17 08:16 200 MG Oxycodone HCl (Roxicodone Immediate Rel Tab) 5 mg Q4H PRN PO 04/29/17 17:30 05/13/17 17:29 05/06/17 11:00 5 MG Nicotine (Nicoderm Cq 14MG Patch) 1 patch QAM TD 04/29/17 18:00 05/29/17 17:59 05/06/17 08:18 1 PATCH Miscellaneous (Remove Nicoderm Patch) 1 ea HS N/A 04/29/17 21:00 05/29/17 20:59 05/05/17 21:27 1 EA Acetaminophen 650 mg/Empty Bag 65 ml @ 260 mls/hr Q6H PRN IV 04/30/17 12:45 05/30/17 12:44 Celecoxib (CeleBREX CAP) 100 mg BID PO 04/30/17 12:45 05/30/17 12:44 05/06/17 08:16 100 MG Tramadol HCl (Ultram Tab) 50 mg Q4H PRN PO 04/30/17 12:45 05/30/17 12:44 05/05/17 21:39 50 MG Heparin Sodium/ Dextrose 500 ml @ 25 mls/hr Q20H PRN IV 05/01/17 00:15 05/31/17 00:14 Future Hold 05/05/17 07:16 25 MLS/HR Heparin Sodium (Porcine) (Heparin 10 Unit/ ml 5 ml Flush) 5 ml PRN PRN FLUSH 05/03/17 17:00 06/02/17 16:59 05/06/17 06:24 5 ML Penicillin G Potassium 6 mu/ Dextrose 262 ml @ 100 mls/hr Q6@0400,1000,1600,2200 IV 05/04/17 16:00 05/18/17 15:59 05/06/17 10:54 100 MLS/HR Warfarin Sodium (Coumadin Tab) 5 mg DAILY@16 PO 05/04/17 18:00 06/03/17 17:59 05/05/17 16:03 5 MG Enoxaparin Sodium (Lovenox Inj) 90 mg Q12 SQ 05/05/17 12:00 06/04/17 11:59 05/06/17 08:17 90 MG (Murarik, Starla ., PA-C) Objective Vital Signs Date Time Temp Pulse Resp B/P (MAP) Pulse Ox O2 Delivery O2 Flow Rate FiO2 05/06/17 07:20 36.6 78 20 130/86 (101) 97 Room Air 05/06/17 00:00 Room Air 05/05/17 22:34 36.3 83 19 153/98 (116) 99 Room Air 05/05/17 16:00 100 Room Air 05/05/17 15:33 36.4 99 20 156/97 (116) 100 Room Air (Starla Rosales PA-C) Physical Exam General Appearance: WD/WN, no apparent distress Eyes: PERRL ENT: hearing grossly normal Neck: supple Respiratory/Chest: lungs clear, no respiratory distress, no accessory muscle use, + decreased breath sounds (R lung base ) Cardiovascular: regular rate, rhythm Abdomen: normal bowel sounds, non tender, soft Extremities: normal range of motion, no pedal edema, no calf tenderness Neurologic/Psychiatric: alert, normal mood/affect, oriented x 3 Skin: normal color, warm/dry, no rash (Starla Rosales PA-C) Laboratory Results Last 24 Hours Test 05/06/17 05:31 White Blood Count 16.89 K/uL Red Blood Count 4.33 M/uL Hemoglobin 12.9 g/dL Hematocrit 37.1 % Mean Corpuscular Volume 85.7 fL Mean Corpuscular Hemoglobin 29.8 pg Mean Corpuscular Hemoglobin Concent 34.8 g/dl RDW Standard Deviation 35.3 fL RDW Coefficient of Variation 11.2 % Platelet Count 274 K/uL Mean Platelet Volume 9.3 fL Prothrombin Time 16.3 SECONDS Prothromb Time International Ratio 1.5 Activated Partial Thromboplast Time 47.5 SECONDS Partial Thromboplastin Ratio 1.8 Sodium Level 138 mmol/L Potassium Level 3.8 mmol/L Chloride Level 103 mmol/L Carbon Dioxide Level 31 mmol/L Anion Gap 4.0 mmol/L Blood Urea Nitrogen 10 mg/dl Creatinine 1.20 mg/dl Est Creatinine Clear Calc Drug Dose 92.3 ml/min Estimated GFR () 90.9 Estimated GFR (Non- 78.4 BUN/Creatinine Ratio 8.1 Random Glucose 108 mg/dl Calcium Level 9.1 mg/dl (Starla Rosales PA-C) Assessment and Plan Patient is a pleasant 32 y/o male, with PMHx of PE, lupus anticoagulant positive , sickle-cell trait, h/o drug abuse, tobacco abuse, depression/anxiety/PTSD, who was a direct admission from Dr. Harris's office due to persistent pleuritic right-sided CP here for additional workup. Persistent pleuritic right-sided CP: - Admit to tele for cardiac monitoring- no acute events -- Transferred to med/surg on 05/01 - Cardiac enzymes- negative - CTA reviewed - Bilateral lower extremity venous US- no evidence of DVT - ECHO to r/o endocarditis * 1. Normal LV size and wall thickness. * 2. Normal LV systolic funciton. LVEF 60-65%. No regional wall motion abnormalities. * 3. Normal RV size and function. * 4. No significant valvular pathology. No vegetations noted. * 5. Positive bubble study for interatrial shunt. * 6. No prior studies for comparison. - IV Heparin bridging w/ PO Coumadin due to hypercoagulable state -- Following INR- 1.5 today -- Transitioned to Lovenox 1 mg/kg q12 on 05/05 in preparation for discharge - Lovenox teaching completed - Hypercoagulable workup completed- lupus anticoagulant positive -- Due to hypercoagulable state, Xarelto is NOT recommend. Discussed w/ patient, will be placed on Coumadin with routine INR f/u - Broad spectrum IV antibiotics w/ IV Zosyn and Vancomycin- MRSA swab negative -- Transitioned to PO Augmentin on 05/02- d/c'd on 05/03 and transitioned to IV Unasyn due to BCx, transitioned to IV Penicillin G on 05/04 - Oxycodone, Celebrex BID, and Tramadol, Tylenol PRN for pain control - BCx- growing aerobic actinomycete -- Repeat BCx on 05/03- NGTD -- ID following- begin IV Unasyn on 05/03, transition to Penicillin G on - UA, HIV, TB, urine legionella- negative - Consult pulmonary, appreciate recommendations -- No thoracentesis - Consult ID, appreciate recommendations -- IV Penicillin G 24 MU/day x6 weeks, then PO antibiotics x1 year - Consult thoracic surgery, appreciate recommendations -- No decortication at this time -- Repeat CT scan w/out contrast on 05/10 to assess antibiotic response - PICC on 05/03 -- NEEDS FILTER DO TO INTRA-ATRIAL SHUNT -- RUE US on 05/05- Mid right cephalic vein thrombus. -- Spoke w/ IV team, not associated to PICC- no need for PICC replacement -- On anticoagulation Anxiety/depression, PTSD, explosive disorder: Continue Gabapentin 100 mg TID h/o drug abuse- use to snort/smoke Meth: - Denies IVDA - States he is no longer on Suboxone- last snorted meth 1 month ago h/o tobacco abuse- /-1 pack per day: Nicotine patch DVT Prophylaxis: Lovenox, Coumadin Code Status: LEVEL I, FULL Dispo: Discharge to home w/ [facility]- at this time, patient is medically stable for discharge, but is homeless- Discharge pending housing (Starla Rosales ., PACaseyC) Attending Attestation: Pt seen/examined, chart reviewed, care plan d/w BEVERLY Rosales. I agree w/ the wasserman components of her documentation. Feels better today psychologically - less "stressed." He states he will have housing by Wednesday of this coming week (apartment). No new complaints. VSS no fever gen- nad neck - no JVD heart - RRR lungs - rales with decreased BS right base abd - soft, no HSM ext - right upper extremity mildly swollen but improved; palpable cord over cephalic vein over the biceps; PICC in place medial aspect of arm A/P: 1. 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 underlying risk factor for #1 - drug abuse; fortunately HIV negative 3. cont IV PCN for #1 4. drug abuse (meth) 5. homelessness / complex social situation 6. h/o recent PE 7. right upper extremity DVT - provoked in setting of recent IV 8. continue lovenox 1mg/kg BID and cont coumadin with daily INR; needs 2-day overlap appreciate social work with their help on this complicated social situation dispo - to apartment in [employer] this coming Wednesday Jarad Gamez MD (Jarad Gamez MD)
[2017-05-06 12:33] LABS: COUMADIN 1.1 mcg/mL (1.0-10.0)
--- NOTE | 2017-05-06 13:59 | Medical Student: [facility] ---
Med Student Progress Note Date of Service May 06, 2017. Subjective Pt evaluation today including: conversation w/ patient Pain: improving since yesterday Stan is feeling alot more calm today. He says that yesterday he was feeling very anxious about being discharged and worried about where he would live. He apologized for his behavior, and said that this has happened in the past when he gets worried about things. I spoke to him about considering seeking help as improving this behavior may be beneficial to his future careers and this will help him be more financially stable and get back on track with his life. He agreed with this and said that he realizes now that these episodes aren't normal and may worsen situations. Otherwise, we discussed what his situation was with housing and he is still having difficulty obtaining housing. 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 I discussed with him what this was and what type of patients typically get these infections. He was also concerned that he messed up the dressing of his PICC line during his sleep. At the end of our conversation he appeared to be very intent on becoming clean of substance use, I hope that this is genuine and that he can continue with this attitude. Review of Systems Constitutional: + chills, No fever, No sweats, No weakness, No fatigue ENT: No sore throat, No problem reported Respiratory: + shortness of breath, + problem reported (Pain with breathing), No cough, No sputum, No wheezing, No hemoptysis Cardiac: + edema (swelling of the ankles bilaterally), No chest pain, No orthopnea, No PND, No claudication, No palpitations Abdomen: No pain, No nausea, No vomiting, No diarrhea, No constipation, No problem reported Musculoskeletal: + problem reported (Midline back pain at about T12 level, improving since yesterday) Psychiatric: + anxiety (Improved since yesterday) Objective Vital Signs Date Time Temp Pulse Resp B/P (MAP) Pulse Ox O2 Delivery O2 Flow Rate FiO2 05/06/17 08:22 Room Air 05/06/17 07:20 36.6 78 20 130/86 (101) 97 Room Air 05/06/17 00:00 Room Air 05/05/17 22:34 36.3 83 19 153/98 (116) 99 Room Air 05/05/17 16:00 100 Room Air 05/05/17 15:33 36.4 99 20 156/97 (116) 100 Room Air Physical Exam General Appearance: WD/WN, no apparent distress ENT: hearing grossly normal, pharynx normal Neck: supple, trachea midline Respiratory/Chest: chest non-tender, lungs clear, normal breath sounds, no respiratory distress, no accessory muscle use Cardiovascular: regular rate, rhythm, no edema, no gallop, no JVD, no murmur Abdomen: non tender, soft, no pulsatile mass Extremities: + pedal edema (non-pitting edema of the ankles) Neurologic/Psychiatric: alert, normal mood/affect, oriented x 3 Skin: normal color, warm/dry, no rash Comments: Lung exam is greatly improved since yesterday Laboratory Results Last 24 Hours Test 05/06/17 05:31 White Blood Count 16.89 K/uL Red Blood Count 4.33 M/uL Hemoglobin 12.9 g/dL Hematocrit 37.1 % Mean Corpuscular Volume 85.7 fL Mean Corpuscular Hemoglobin 29.8 pg Mean Corpuscular Hemoglobin Concent 34.8 g/dl RDW Standard Deviation 35.3 fL RDW Coefficient of Variation 11.2 % Platelet Count 274 K/uL Mean Platelet Volume 9.3 fL Prothrombin Time 16.3 SECONDS Prothromb Time International Ratio 1.5 Activated Partial Thromboplast Time 47.5 SECONDS Partial Thromboplastin Ratio 1.8 Sodium Level 138 mmol/L Potassium Level 3.8 mmol/L Chloride Level 103 mmol/L Carbon Dioxide Level 31 mmol/L Anion Gap 4.0 mmol/L Blood Urea Nitrogen 10 mg/dl Creatinine 1.20 mg/dl Est Creatinine Clear Calc Drug Dose 92.3 ml/min Estimated GFR () 90.9 Estimated GFR (Non- 78.4 BUN/Creatinine Ratio 8.1 Random Glucose 108 mg/dl Calcium Level 9.1 mg/dl Assessment and Plan Assessment and Plan: Stan is a 32 yo male with a history notable for substance abuse and hypercoagulability, including a PE who presented for shortness of breath and was diagnosed with pneumonia. Blood cultures at admission grew Actinomyces. He is being treated with Penicillin IV, Enoxaparin and Warfarin. His INR today was 1.5 and PTT of 47.5. The PICC line is still present in his right upper arm. His recent blood cultures on 05/03 have grown no bacteria to date. Pneumonia, Actinomyces: - Pain is improving, breathing is non-labored - Blood culture has not grown any bacteria since 05/03 - Lungs are improving on physical exam - Continues to have ankle swelling, may be due to IV fluids - Continue with IV Penicillin, plan for outpatient IV penicillin for 4-6 weeks followed by 6-12 mos as oral medication only - Per thoracic surgery, perform Chest CT wednesday to assess affect of therapy on pulmonary fluid accumulation. - Consult case management for help with housing situation - Plan to insert new PICC line prior to discharge, as well as provide education on managing a PICC line Hypercoagulable state: - INR improved to 1.5 - PTT of 47.5 - Continue with enoxaparin and Warfarin anticoagulation - Plan for routine INR checks Continued [facility] stay due to: other (insertion of new PICC line)
[2017-05-06 15:30] VITALS: BP 152/90; PULSE 107; TEMP 37.1; O2SAT 98
[2017-05-06] MEDS: WARFARIN SOD 5 MG TAB PO SCH (17:18)
[2017-05-06 22:18] VITALS: BP 136/95; PULSE 99; TEMP 36.4; O2SAT 96
[2017-05-07] MEDS: PENICILLIN G POTASSIUM IV 6 MU in DEXTROSE 5% 250ML 250 ML IV SCH ×4 (03:59→21:45)
[2017-05-07 06:06] LABS: HEMATOCRIT 37.9 % (42-52); MEAN CELL VOLUME 86.5 fL (80-100); MEAN CORPUSCULAR HEMOGLOBIN 29.9 pg (25-34); MEAN CORPUSCULAR HGB CONC 34.6 g/dl (32-36); MEAN PLATELET VOLUME 9.4 fL (7.4-10.4); PLATELET COUNT 260 K/uL (130-400); RED BLOOD COUNT 4.38 M/uL (4.7-6.1); WHITE BLOOD COUNT 11.05 K/uL (4.8-10.8)
[2017-05-07 06:23] LABS: INR 1.8 (0.9-1.1); PROTHROMBIN TIME (PATIENT) 19.7 SECONDS (9.0-12.0)
[2017-05-07 06:41] LABS: BUN/CREATININE RATIO 10.9 (10-20); CALCIUM 9.4 mg/dl (8.5-10.1); POTASSIUM 4.2 mmol/L (3.5-5.1)
[2017-05-07] MEDS: ENOXAPARIN 100 MG/1ML SYR SQ SCH ×2 (08:53→21:45)
[2017-05-07] MEDS: CeleBREX 100 MG CAP PO SCH ×2 (08:54→21:44)
[2017-05-07] MEDS: GABAPENTIN 100 MG CAP PO SCH ×3 (08:54→21:45)
[2017-05-07] MEDS: NICOTINE 14 MG/24 HR TDSY TD SCH (08:55)
[2017-05-07] MEDS: OXYCODONE HCL IR 5 MG TAB (IMMEDIATE RELEASE) PO PRN (08:59)
[2017-05-07 09:09] VITALS: BP 127/85; PULSE 100; TEMP 36.7; O2SAT 96
--- NOTE | 2017-05-07 11:35 | Hospitalist Progress Note ---
Hospitalist Progress Note Date of Service May 07, 2017. (Starla Rosales ., YOVANA) Subjective Pt evaluation today including: conversation w/ patient, physical exam, chart review, lab review, review of inpatient medication list Voiding: no voiding problems, no incontinence No complaints/changes. Patient denies any fever, chills, sweats, lightheadedness, dizziness, vision changes, CP, palpitations, edema, SOB, wheezing, cough, abdominal pain, nausea, vomiting, diarrhea, urinary symptoms, melena, numbness/tingling, weakness, muscle/joint pain, anxiety/depression, active bleeding, or new skin discoloration/changes. Per nursing, patient stated he left for a "quick trip to [place]" yesterday. (Starla Rosales ., ISAACC) Medications Current Inpatient Medications Medications (Trade) Dose Ordered Sig/Herb Route Start Time Stop Time Status Last Admin Dose Admin Acetaminophen (Tylenol Tab) 650 mg Q4H PRN PO 04/29/17 17:30 05/29/17 17:29 Al Hydrox/Mg Hydrox/Simethicone (Maalox Max Susp) 15 ml Q4H PRN PO 04/29/17 17:30 05/29/17 17:29 Magnesium Hydroxide (Milk Of Magnesia Susp) 30 ml Q12H PRN PO 04/29/17 17:30 05/29/17 17:29 Ondansetron HCl (Zofran Inj) 4 mg Q6H PRN IV 04/29/17 17:30 05/29/17 17:29 Polyethylene (Miralax Powder Packet) 17 gm DAILY PRN PO 04/29/17 17:30 05/29/17 17:29 Gabapentin (Neurontin Cap) 200 mg TID PO 04/29/17 21:00 05/29/17 20:59 05/07/17 08:54 200 MG Oxycodone HCl (Roxicodone Immediate Rel Tab) 5 mg Q4H PRN PO 04/29/17 17:30 05/13/17 17:29 05/07/17 08:59 5 MG Nicotine (Nicoderm Cq 14MG Patch) 1 patch QAM TD 04/29/17 18:00 05/29/17 17:59 05/07/17 08:55 1 PATCH Miscellaneous (Remove Nicoderm Patch) 1 ea HS N/A 04/29/17 21:00 05/29/17 20:59 05/06/17 21:06 1 EA Acetaminophen 650 mg/Empty Bag 65 ml @ 260 mls/hr Q6H PRN IV 04/30/17 12:45 05/30/17 12:44 Celecoxib (CeleBREX CAP) 100 mg BID PO 04/30/17 12:45 05/30/17 12:44 05/07/17 08:54 100 MG Tramadol HCl (Ultram Tab) 50 mg Q4H PRN PO 04/30/17 12:45 05/30/17 12:44 05/05/17 21:39 50 MG Heparin Sodium/ Dextrose 500 ml @ 25 mls/hr Q20H PRN IV 05/01/17 00:15 05/31/17 00:14 Future Hold 05/05/17 07:16 25 MLS/HR Heparin Sodium (Porcine) (Heparin 10 Unit/ ml 5 ml Flush) 5 ml PRN PRN FLUSH 05/03/17 17:00 06/02/17 16:59 05/07/17 08:49 5 ML Penicillin G Potassium 6 mu/ Dextrose 262 ml @ 100 mls/hr Q6@0400,1000,1600,2200 IV 05/04/17 16:00 05/18/17 15:59 05/07/17 10:38 100 MLS/HR Warfarin Sodium (Coumadin Tab) 5 mg DAILY@16 PO 05/04/17 18:00 06/03/17 17:59 05/06/17 17:18 5 MG Enoxaparin Sodium (Lovenox Inj) 90 mg Q12 SQ 05/05/17 12:00 06/04/17 11:59 05/07/17 08:53 90 MG (Starla Rosales, YOVANA) Objective Vital Signs Date Time Temp Pulse Resp B/P (MAP) Pulse Ox O2 Delivery O2 Flow Rate FiO2 05/07/17 09:09 36.7 100 20 127/85 (99) 96 Room Air 05/07/17 08:00 Room Air 05/07/17 00:00 Room Air 05/06/17 22:18 36.4 99 18 136/95 (109) 96 Room Air 05/06/17 20:00 Room Air 05/06/17 16:15 Room Air 05/06/17 15:30 37.1 107 18 152/90 (110) 98 Room Air (Starla Rosales PA-C) Physical Exam General Appearance: WD/WN, no apparent distress Eyes: PERRL ENT: hearing grossly normal Neck: supple Respiratory/Chest: no respiratory distress, no accessory muscle use, + decreased breath sounds (R lung base ), + crackles (R lung base ) Cardiovascular: regular rate, rhythm Abdomen: normal bowel sounds, non tender, soft Extremities: no pedal edema, no calf tenderness, + pertinent finding (TEDs on ) Neurologic/Psychiatric: alert, normal mood/affect, oriented x 3 Skin: normal color, warm/dry, no rash (Starla Rosales PA-C) Laboratory Results Last 24 Hours Test 05/07/17 05:19 White Blood Count 11.05 K/uL Red Blood Count 4.38 M/uL Hemoglobin 13.1 g/dL Hematocrit 37.9 % Mean Corpuscular Volume 86.5 fL Mean Corpuscular Hemoglobin 29.9 pg Mean Corpuscular Hemoglobin Concent 34.6 g/dl RDW Standard Deviation 35.4 fL RDW Coefficient of Variation 11.3 % Platelet Count 260 K/uL Mean Platelet Volume 9.4 fL Prothrombin Time 19.7 SECONDS Prothromb Time International Ratio 1.8 Activated Partial Thromboplast Time 51.0 SECONDS Partial Thromboplastin Ratio 2.0 Sodium Level 139 mmol/L Potassium Level 4.2 mmol/L Chloride Level 104 mmol/L Carbon Dioxide Level 31 mmol/L Anion Gap 4.0 mmol/L Blood Urea Nitrogen 11 mg/dl Creatinine 1.00 mg/dl Est Creatinine Clear Calc Drug Dose 110.8 ml/min Estimated GFR () 113.3 Estimated GFR (Non- 97.8 BUN/Creatinine Ratio 10.9 Random Glucose 108 mg/dl Calcium Level 9.4 mg/dl (Starla Rosales PA-C) Assessment and Plan Patient is a pleasant 32 y/o male, with PMHx of PE, lupus anticoagulant positive , sickle-cell trait, h/o drug abuse, tobacco abuse, depression/anxiety/PTSD, who was a direct admission from Dr. Harris's office due to persistent pleuritic right-sided CP here for additional workup. Persistent pleuritic right-sided CP: - Admit to [facility] for cardiac monitoring- no acute events -- Transferred to med/surg on 05/01 - Cardiac enzymes- negative - CTA reviewed - Bilateral lower extremity venous US- no evidence of DVT - ECHO to r/o endocarditis * 1. Normal LV size and wall thickness. * 2. Normal LV systolic funciton. LVEF 60-65%. No regional wall motion abnormalities. * 3. Normal RV size and function. * 4. No significant valvular pathology. No vegetations noted. * 5. Positive bubble study for interatrial shunt. * 6. No prior studies for comparison. - IV Heparin bridging w/ PO Coumadin due to hypercoagulable state -- Following INR- 1.8 today -- Transitioned to Lovenox 1 mg/kg q12 on 05/05 in preparation for discharge - Lovenox teaching completed - Hypercoagulable workup completed- lupus anticoagulant positive -- Due to hypercoagulable state, Xarelto is NOT recommend. Discussed w/ patient, will be placed on Coumadin with routine INR f/u - Broad spectrum IV antibiotics w/ IV Zosyn and Vancomycin- MRSA swab negative -- Transitioned to PO Augmentin on 05/02- d/c'd on 05/03 and transitioned to IV Unasyn due to BCx, transitioned to IV Penicillin G on 05/04 - Oxycodone, Celebrex BID, and Tramadol, Tylenol PRN for pain control - BCx- growing aerobic actinomycete -- Repeat BCx on 05/03- NGTD -- ID following- begin IV Unasyn on 05/03, transition to Penicillin G on - UA, HIV, TB, urine legionella- negative - Consult pulmonary, appreciate recommendations -- No thoracentesis - Consult ID, appreciate recommendations -- IV Penicillin G 24 MU/day x6 weeks, then PO antibiotics x1 year - Consult thoracic surgery, appreciate recommendations -- No decortication at this time -- Repeat CT scan w/out contrast on 05/10 to assess antibiotic response - PICC on 05/03 -- NEEDS FILTER DO TO INTRA-ATRIAL SHUNT -- RUE US on 05/05- Mid right cephalic vein thrombus. -- Spoke w/ IV team, not associated to PICC- no need for PICC replacement -- On anticoagulation Anxiety/depression, PTSD, explosive disorder: Continue Gabapentin 100 mg TID h/o drug abuse- use to snort/smoke Meth: - Denies IVDA - States he is no longer on Suboxone- last snorted meth 1 month ago - Patient leaving facility property (went to [place] on 05/06), ?suspicious activity and episodes of tachycardia- check [facility] drug screen -- If wishes to go outside, MUST have employee supervision h/o tobacco abuse- 1/2-1 pack per day: Nicotine patch DVT Prophylaxis: Lovenox, Coumadin Code Status: LEVEL I, FULL Dispo: Discharge to home w/ [facility]- Patient is medically stable for discharge, but is homeless (states will have housing Wed or .)- Discharge pending housing (Starla Rosales ., PACaseyC) Attending Attestation: Pt seen/examined, chart reviewed, care plan d/w BEVERLY Rosales. I agree w/ the wasserman components of her documentation. We had lengthy discussion about NOT leaving hospital property. I told him frankly that is NOT allowed. I also told him he can NOT leave the medical [facility] without supervision by a hospital employee. He is now saying that he wishes to discharge to [place], [place] where is best friend lives. He plans to live with this person. He states his friend is a policewoman. When asked if his girlfriend will be going with him he stated no. No new physical complaints today. VSS no fever gen- nad neck - no JVD mouth - new burn chan on buccal mucosa heart - RRR lungs - rales with decreased BS right base abd - soft, no HSM ext - right upper extremity mildly swollen but improved; PICC in place A/P: 1. 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 underlying risk factor for #1 - drug abuse; fortunately HIV negative 3. cont IV PCN for #1 4. drug abuse (meth); I am suspicious he could be doing this on trips downstairs and even during his trip to [place] yesterday 5. homelessness / complex social situation 6. h/o recent PE 7. right upper extremity DVT - provoked in setting of recent IV 8. continue lovenox 1mg/kg BID and cont coumadin with daily INR; needs 2-day overlap appreciate social work with their help on this complicated social situation Charge nurse, caser up, and administration is aware of the patient's irregular behavior, his trip to [facility], etc. He has been counseled this is not acceptable and all trips to the [facility] from this point forward will be supervised. I am suspicious about illicit drug use during these trips; urine drug screen now. Is is safe for him to leave hospital with PICC line due to drug abuse history?? d/w Dr. Ng. Jarad Gamez MD (Jarad Gamez MD)
--- NOTE | 2017-05-07 11:41 | Medical Student: [facility] ---
Med Student Progress Note Date of Service May 07, 2017. Subjective Our meeting today was brief, as he is primarily staying inpatient due to housing concerns at this point. He feels the pain with breathing continues to improve, and so does the back pain. He has been wearing compression stockings for the ankle swelling and continues to walk around. He mentioned that yesterday he left the hospital and went to [facility] and experienced dizziness while there. He has not had chills recently, and denies fever, sweats, n/v/d, constipation, cough, sputum production, chest pain, or psychiatric changes. I asked him about smoking since being in the hospital and he claims to have had 3 cigarettes during the time he has been here. He denies any other substances during his stay. He describes that the housing situation is still the same as yesterday and that he needs to wait until Wed/Wed. Review of Systems Constitutional: + see HPI, + problem reported (Dizziness), No fever, No chills , No sweats, No weakness, No fatigue ENT: No sore throat Respiratory: + problem reported (pain with breathing), No cough, No sputum, No wheezing, No shortness of breath, No dyspnea on exertion, No dyspnea at rest, No hemoptysis Cardiac: + edema (swelling of ankles), No chest pain, No orthopnea, No PND, No claudication, No palpitations Abdomen: No pain, No nausea, No vomiting, No diarrhea, No constipation, No GI bleeding, No problem reported Neurologic: No memory loss Psychiatric: No depression symptoms, No anxiety, No substance abuse Skin: No rash, No new/changing skin lesions, No color change Objective Vital Signs Date Time Temp Pulse Resp B/P (MAP) Pulse Ox O2 Delivery O2 Flow Rate FiO2 05/07/17 09:09 36.7 100 20 127/85 (99) 96 Room Air 05/07/17 08:00 Room Air 05/07/17 00:00 Room Air 05/06/17 22:18 36.4 99 18 136/95 (109) 96 Room Air 05/06/17 20:00 Room Air 05/06/17 16:15 Room Air 05/06/17 15:30 37.1 107 18 152/90 (110) 98 Room Air Physical Exam General Appearance: WD/WN, no apparent distress ENT: hearing grossly normal, pharynx normal Neck: supple, no JVD, trachea midline Respiratory/Chest: chest non-tender, lungs clear, normal breath sounds, no respiratory distress, no accessory muscle use Cardiovascular: regular rate, rhythm, no gallop, no JVD, no murmur Abdomen: non tender, soft, no pulsatile mass Extremities: non-tender, no calf tenderness, normal capillary refill, + pedal edema (non-pitting edema of ankles bilaterally) Neurologic/Psychiatric: alert, normal mood/affect, oriented x 3 Skin: normal color, warm/dry, no rash Laboratory Results Last 24 Hours Test 05/07/17 05:19 White Blood Count 11.05 K/uL Red Blood Count 4.38 M/uL Hemoglobin 13.1 g/dL Hematocrit 37.9 % Mean Corpuscular Volume 86.5 fL Mean Corpuscular Hemoglobin 29.9 pg Mean Corpuscular Hemoglobin Concent 34.6 g/dl RDW Standard Deviation 35.4 fL RDW Coefficient of Variation 11.3 % Platelet Count 260 K/uL Mean Platelet Volume 9.4 fL Prothrombin Time 19.7 SECONDS Prothromb Time International Ratio 1.8 Activated Partial Thromboplast Time 51.0 SECONDS Partial Thromboplastin Ratio 2.0 Sodium Level 139 mmol/L Potassium Level 4.2 mmol/L Chloride Level 104 mmol/L Carbon Dioxide Level 31 mmol/L Anion Gap 4.0 mmol/L Blood Urea Nitrogen 11 mg/dl Creatinine 1.00 mg/dl Est Creatinine Clear Calc Drug Dose 110.8 ml/min Estimated GFR () 113.3 Estimated GFR (Non- 97.8 BUN/Creatinine Ratio 10.9 Random Glucose 108 mg/dl Calcium Level 9.4 mg/dl Assessment and Plan Assessment and Plan: Stan is a 32 yo male with history of hypercoagulability, PE and non-IV substance abuse who presented for shortness of breath and chest pain and was diagnosed with Actinomyces Pneumonia. His 05/03 blood cultures have shown no growth and he is currently on Penicillin IV, Lovenox, and Warfarin. In the past 24 hours his vitals have been notable for episodes of tachycardia, continued hypertension, and afebrile. His WBC has decreased from 16.89 to 11.05 and H/H continues to improve. INR is 1.8 and PTT is 57.0 Pneumonia, Actinomyces: - Cultures 05/03 negative for growth - Chest pain improving - Afebrile - Ambulating and doing incentive spirometry - Continue with IV PCN - Plan for new PICC line in Left arm prior to discharge - Continue to manage housing issue for discharge - Monitor vitals Q8-12 for fever - CBC, INR, PTT prior to discharge Hypercoagulability: - INR 1.8 - PTT 57.0 - Tolerating medications well - Ambulating regularly - Continue lovenox and D/C once INR is within 2-3 for 48 hrs - Continue with Warfarin for the foreseeable future Continued [facility] stay due to: other (insertion of new PICC line) Discharge planning: home
--- NOTE | 2017-05-07 13:38 | SURGERY PROGRESS NOTE ---
DATE: 05/07/2017 DATE: 05/07/2017 Mr. Panda was seen today on 05/07/2017. He thinks his pain is better. He has no trouble breathing. He has been afebrile. His white count is down a bit to 11,050. His lungs actually sound a bit better to me. ASSESSMENT AND PLAN: Possible actinomycosis right pleural empyema. We are going to continue IV penicillin and repeat a CT scan on him Wednesday. Depending on his response he may require a decortication. We will make a decision at that time. He should be allowed to go home when he is able to next week.
--- NOTE | 2017-05-07 14:36 | Infectious Disease Progress Nt ---
Progress Note Date of Service May 07, 2017. Subjective Pt evaluation today including: conversation w/ patient, physical exam, chart review, lab review, review of studies, conversation w/ healthcare management consultant, review of inpatient medication list Feeling slightly better with less pain. Tolerating Abx. Remains afebrile. No other new complaints. All Other Systems: Reviewed and Negative Medications Current Inpatient Medications Medications (Trade) Dose Ordered Sig/Herb Route Start Time Stop Time Status Last Admin Dose Admin Acetaminophen (Tylenol Tab) 650 mg Q4H PRN PO 04/29/17 17:30 05/29/17 17:29 Al Hydrox/Mg Hydrox/Simethicone (Maalox Max Susp) 15 ml Q4H PRN PO 04/29/17 17:30 05/29/17 17:29 Magnesium Hydroxide (Milk Of Magnesia Susp) 30 ml Q12H PRN PO 04/29/17 17:30 05/29/17 17:29 Ondansetron HCl (Zofran Inj) 4 mg Q6H PRN IV 04/29/17 17:30 05/29/17 17:29 Polyethylene (Miralax Powder Packet) 17 gm DAILY PRN PO 04/29/17 17:30 05/29/17 17:29 Gabapentin (Neurontin Cap) 200 mg TID PO 04/29/17 21:00 05/29/17 20:59 05/07/17 13:29 200 MG Oxycodone HCl (Roxicodone Immediate Rel Tab) 5 mg Q4H PRN PO 04/29/17 17:30 05/13/17 17:29 05/07/17 08:59 5 MG Nicotine (Nicoderm Cq 14MG Patch) 1 patch QAM TD 04/29/17 18:00 05/29/17 17:59 05/07/17 08:55 1 PATCH Miscellaneous (Remove Nicoderm Patch) 1 ea HS N/A 04/29/17 21:00 05/29/17 20:59 05/06/17 21:06 1 EA Acetaminophen 650 mg/Empty Bag 65 ml @ 260 mls/hr Q6H PRN IV 04/30/17 12:45 05/30/17 12:44 Celecoxib (CeleBREX CAP) 100 mg BID PO 04/30/17 12:45 05/30/17 12:44 05/07/17 08:54 100 MG Tramadol HCl (Ultram Tab) 50 mg Q4H PRN PO 04/30/17 12:45 05/30/17 12:44 05/05/17 21:39 50 MG Heparin Sodium/ Dextrose 500 ml @ 25 mls/hr Q20H PRN IV 05/01/17 00:15 05/31/17 00:14 Future Hold 05/05/17 07:16 25 MLS/HR Heparin Sodium (Porcine) (Heparin 10 Unit/ ml 5 ml Flush) 5 ml PRN PRN FLUSH 05/03/17 17:00 06/02/17 16:59 05/07/17 08:49 5 ML Penicillin G Potassium 6 mu/ Dextrose 262 ml @ 100 mls/hr Q6@0400,1000,1600,2200 IV 05/04/17 16:00 05/18/17 15:59 05/07/17 10:38 100 MLS/HR Warfarin Sodium (Coumadin Tab) 5 mg DAILY@16 PO 05/04/17 18:00 06/03/17 17:59 05/06/17 17:18 5 MG Enoxaparin Sodium (Lovenox Inj) 90 mg Q12 SQ 05/05/17 12:00 06/04/17 11:59 05/07/17 08:53 90 MG Objective Vital Signs Date Time Temp Pulse Resp B/P (MAP) Pulse Ox O2 Delivery O2 Flow Rate FiO2 05/07/17 09:09 36.7 100 20 127/85 (99) 96 Room Air 05/07/17 08:00 Room Air 05/07/17 00:00 Room Air 05/06/17 22:18 36.4 99 18 136/95 (109) 96 Room Air 05/06/17 20:00 Room Air 05/06/17 16:15 Room Air 05/06/17 15:30 37.1 107 18 152/90 (110) 98 Room Air Physical Exam General Appearance: WD/WN, no apparent distress Eyes: normal inspection, EOMI, sclerae normal ENT: normal ENT inspection, pharynx normal Neck: supple, no adenopathy, trachea midline Respiratory/Chest: chest non-tender, no respiratory distress, no accessory muscle use, + crackles Cardiovascular: regular rate, rhythm, no gallop, no murmur Abdomen: normal bowel sounds, non tender, soft, no organomegaly Extremities: non-tender, no calf tenderness Neurologic/Psychiatric: alert, oriented x 3 Skin: normal color, no rash Lymphatic: no adenopathy Laboratory Results Last 24 Hours Test 05/07/17 05:19 White Blood Count 11.05 K/uL Red Blood Count 4.38 M/uL Hemoglobin 13.1 g/dL Hematocrit 37.9 % Mean Corpuscular Volume 86.5 fL Mean Corpuscular Hemoglobin 29.9 pg Mean Corpuscular Hemoglobin Concent 34.6 g/dl RDW Standard Deviation 35.4 fL RDW Coefficient of Variation 11.3 % Platelet Count 260 K/uL Mean Platelet Volume 9.4 fL Prothrombin Time 19.7 SECONDS Prothromb Time International Ratio 1.8 Activated Partial Thromboplast Time 51.0 SECONDS Partial Thromboplastin Ratio 2.0 Sodium Level 139 mmol/L Potassium Level 4.2 mmol/L Chloride Level 104 mmol/L Carbon Dioxide Level 31 mmol/L Anion Gap 4.0 mmol/L Blood Urea Nitrogen 11 mg/dl Creatinine 1.00 mg/dl Est Creatinine Clear Calc Drug Dose 110.8 ml/min Estimated GFR () 113.3 Estimated GFR (Non- 97.8 BUN/Creatinine Ratio 10.9 Random Glucose 108 mg/dl Calcium Level 9.4 mg/dl Assessment and Plan Patient with chest pain, pleuritic in nature, and possible pneumonia of the RML and RLL with Actinomyces growing in 1/2 initial blood cultures. He will be discharged for outpatient treatment with IV penicillin as discussed with hospitalist service. Will follow up with patient in the office.
[2017-05-07 14:48] VITALS: BP 149/90; PULSE 104; TEMP 37; O2SAT 97
[2017-05-07] MEDS: WARFARIN SOD 5 MG TAB PO SCH (15:59)
[2017-05-07 16:00] VITALS: O2SAT 97
[2017-05-07 23:56] VITALS: BP 147/88; PULSE 91; TEMP 36.9; O2SAT 97
[2017-05-08] MEDS: PENICILLIN G POTASSIUM IV 6 MU in DEXTROSE 5% 250ML 250 ML IV SCH ×4 (03:41→22:33)
[2017-05-08 06:45] LABS: BENZODIAZEPINE, URINE NEG (NEG); COCAINE,URINE NEG (NEG); PHENCYCLIDINE, URINE NEG (NEG)
[2017-05-08 06:46] LABS: INR 1.8 (0.9-1.1); PROTHROMBIN TIME (PATIENT) 20.3 SECONDS (9.0-12.0)
[2017-05-08 07:13] VITALS: BP 142/93; PULSE 92; TEMP 36.5; O2SAT 98
[2017-05-08] MEDS: GABAPENTIN 100 MG CAP PO SCH ×3 (09:35→21:09)
[2017-05-08] MEDS: ENOXAPARIN 100 MG/1ML SYR SQ SCH ×2 (09:36→21:12)
[2017-05-08] MEDS: CeleBREX 100 MG CAP PO SCH ×2 (09:37→21:09)
[2017-05-08] MEDS: NICOTINE 14 MG/24 HR TDSY TD SCH (09:38)
[2017-05-08] MEDS ORDERED: ACETAMINOPHEN 500 MG TAB PO PRN (13:30)
[2017-05-08 14:50] VITALS: BP 129/77; PULSE 81; TEMP 36.8; O2SAT 98
[2017-05-08] MEDS ORDERED: WARFARIN SOD 10 MG TAB PO SCH (16:00)
--- NOTE | 2017-05-08 20:58 | Progress Note ---
Subjective Date of Service: May 08, 2017. Subjective Pt evaluation today including: conversation w/ patient, physical exam, chart review, lab review, review of inpatient medication list Pain: none voiced PO Intake: normal Voiding: no voiding problems feels good reports he now will have an apartment in [place] on Wednesday denies cough denies dyspnea right arm swelling resolved no new complaints Problem List Medical Problems: (1) Polysubstance abuse Status: Acute (2) Pulmonary embolism Status: Acute (3) Pulmonary infarction Status: Acute (4) Sleep deprivation Status: Acute Review of Systems Constitutional: No fever, No chills Respiratory: No cough, No sputum, No shortness of breath, No dyspnea on exertion Cardiac: No chest pain, No orthopnea Abdomen: No pain Objective Vital Signs Date Time Temp Pulse Resp B/P (MAP) Pulse Ox O2 Delivery O2 Flow Rate FiO2 05/08/17 16:00 Room Air 05/08/17 14:50 36.8 81 16 129/77 (94) 98 Room Air 05/08/17 08:00 Room Air 05/08/17 07:13 36.5 92 20 142/93 (109) 98 05/08/17 00:00 Room Air 05/07/17 23:56 36.9 91 18 147/88 (107) 97 Room Air Physical Exam General Appearance: no apparent distress ENT: + pertinent finding (MMM) Neck: no JVD Respiratory/Chest: no respiratory distress, no accessory muscle use, + crackles (right base; airation improved) Cardiovascular: regular rate, rhythm, no gallop, no murmur Abdomen: normal bowel sounds, non tender, soft, no organomegaly Extremities: no pedal edema, + pertinent finding (right arm swelling just about resolved) Neurologic/Psychiatric: alert, oriented x 3 Skin: no rash, + pertinent finding (PICC line, right upper arm - clean) Laboratory Results Last 24 Hours Test 05/08/17 05:40 05/08/17 05:55 Urine Opiates Screen NEG Urine Methadone, Qualitative NEG Urine Barbiturates NEG Urine Phencyclidine (PCP) Level NEG Ur Amphetamine/Methamphetamine POS MDMA (Ecstasy) Screen NEG Urine Benzodiazepines Screen NEG Urine Cocaine Metabolite NEG Urine Marijuana (THC) NEG Prothrombin Time 20.3 SECONDS Prothromb Time International Ratio 1.8 Assessment and Plan 32yo male with: 1. 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 Repeat blood cx's negative. Cont IV PCN as previous. Uunderlying risk factor for this infection - drug abuse; fortunately HIV negative ID to follow after discharge. 2. RUE DVT - lovenox/coumadin. 3. recent PE - lovenox/coumadin. INR 1.8 for 2 days. Will increase coumadin to 10mg for 1-2 days. INR in am. 4. drug abuse (meth): I am suspicious he may have used meth during a trip downstairs to the outside of the hospital or even during his trip to [place] recently. Urine drug screen + for meth. He has been counseled he cannot leave the hospital grounds and any trip downstairs needs to be supervised. 5. homelessness / complex social situation - apparently will have apartment locally on Wednesday. 6. leukocytosis - resolved. 7. right-sided pleural effusion - CT chest tomorrow night to reassess. CT surgery has been following. 8. oddly his tox screen was negative for narcotics despite him receiving such while hospitalized. Is it possible that he was keeping the oxycodone in his possession and giving these to visitors? very odd - since pain is resolved will d/c oxycodone, ultram, etc tylenol as needed at this time Continued [facility] stay due to: multiple IV medications needed Discharge planning: home with home health
[2017-05-08 22:49] VITALS: BP 137/76; PULSE 88; TEMP 36.4; O2SAT 96
[2017-05-09] VITALS: O2SAT 96
[2017-05-09] MEDS: PENICILLIN G POTASSIUM IV 6 MU in DEXTROSE 5% 250ML 250 ML IV SCH ×4 (04:00→22:23)
[2017-05-09 06:46] LABS: INR 2.5 (0.9-1.1)
[2017-05-09 07:36] VITALS: BP 143/82; PULSE 85; TEMP 36.6; O2SAT 99
[2017-05-09] MEDS: CeleBREX 100 MG CAP PO SCH ×2 (09:34→20:56)
[2017-05-09] MEDS: GABAPENTIN 100 MG CAP PO SCH ×3 (09:34→20:56)
[2017-05-09] MEDS: NICOTINE 14 MG/24 HR TDSY TD SCH (09:37)
[2017-05-09] MEDS: ENOXAPARIN 100 MG/1ML SYR SQ SCH ×2 (09:37→20:58)
[2017-05-09 15:40] VITALS: O2SAT 99
[2017-05-09] MEDS ORDERED: WARFARIN SOD 5 MG TAB PO SCH (16:00)
[2017-05-09 16:03] VITALS: BP_SYST 161; BP_SYST 166; BP_DIAS 113; BP_DIAS 92; PULSE 112; TEMP 36.7; O2SAT 100
--- NOTE | 2017-05-09 18:15 | DIAGNOSTIC IMAGING REPORT ---
(CHEST) CT THORAX WITHOUT CT DOSE: 289.84 mGy.cm HISTORY: eval for ongoing effusion, infiltrates TECHNIQUE: Multiaxial CT images of the chest were performed without contrast. A dose lowering technique was utilized adhering to the principles of ALARA. COMPARISON: Chest CT 04/29/2017. FINDINGS: The central airways are patent. No pneumothorax. The left lung is essentially clear. Improving groundglass densities within the right upper lobe. Small right pleural effusion and right basilar consolidative opacities have significantly improved. Stable 3 mm groundglass nodule within the left lower lobe on image 31. No fractures within the visualized osseous structures. A right PICC terminates in the proximal SVC. Normal caliber thoracic aorta. The heart is normal in size. No significant pericardial effusion. The visualized liver and spleen are unremarkable. IMPRESSION: 1. Significant improvement with near complete resolution of the right basilar consolidative opacities. 2. Small right pleural effusion has also improved. Electronically signed by: Edmond Garner M.D. 05/09/2017 6:14 PM Dictated Date/Time: 05/09/2017 6:07 PM
--- NOTE | 2017-05-09 20:18 | Progress Note ---
Subjective Date of Service: May 09, 2017. Subjective Pt evaluation today including: conversation w/ patient, physical exam, chart review, lab review, review of studies (CT chest), review of inpatient medication list Pain: none - pleurisy resolved PO Intake: excellent Voiding: no voiding problems feels good again confirms he will have an apartment in [place] starting tomorrow staff voice no concerns Problem List Medical Problems: (1) Polysubstance abuse Status: Acute (2) Pulmonary embolism Status: Acute (3) Pulmonary infarction Status: Acute (4) Sleep deprivation Status: Acute Review of Systems Constitutional: No fever, No chills Respiratory: No cough, No sputum, No wheezing, No shortness of breath, No dyspnea on exertion Cardiac: No chest pain, No orthopnea Abdomen: No pain Objective Vital Signs Date Time Temp Pulse Resp B/P (MAP) Pulse Ox O2 Delivery O2 Flow Rate FiO2 05/09/17 16:03 36.7 112 18 161/113 (129) 100 Room Air 166/92 (116) 05/09/17 15:40 99 Room Air 05/09/17 08:00 Room Air 05/09/17 07:36 36.6 85 20 143/82 (102) 99 05/09/17 00:00 96 Room Air 05/08/17 22:49 36.4 88 16 137/76 (96) 96 Room Air Physical Exam General Appearance: no apparent distress ENT: + pertinent finding (burn chan buccal mucosa?) Neck: no JVD Respiratory/Chest: no respiratory distress, no accessory muscle use, + rales ( resolving rales Right base o/w CTA b/l ) Cardiovascular: regular rate, rhythm, no gallop, no murmur Abdomen: normal bowel sounds, non tender, soft, no organomegaly Extremities: no pedal edema Neurologic/Psychiatric: alert, oriented x 3 Skin: no rash, + pertinent finding (PICC line, RUE - clean) Laboratory Results Last 24 Hours Test 05/09/17 06:24 Prothrombin Time 28.0 SECONDS Prothromb Time International Ratio 2.5 Assessment and Plan 32yo male with: 1. 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 Repeat blood cx's negative. Cont IV PCN as previous. Underlying risk factor for this infection - drug abuse; fortunately HIV negative ID to follow after discharge. Will have IV PCN via PICC at discharge. 2. RUE DVT - lovenox/coumadin. 3. recent PE - lovenox/coumadin. INR 2.5 today. Reduce coumadin back to 5mg daily. INR in am. 4. drug abuse (meth): I am suspicious he may have used meth during a trip downstairs to the outside of the hospital or even during his trip to [facility] recently. Urine drug screen + for meth. He has been counseled he cannot leave the hospital grounds and any trip downstairs needs to be supervised. 5. homelessness / complex social situation - apparently will have apartment locally on Wednesday. 6. leukocytosis - resolved. 7. right-sided pleural effusion - CT chest today with resolving right sided pneumonia and improved effusion. No Rx needed. Appreciate CT surgery consultation. social work informed today he will have housing tomorrow d/c home tomorrow if INR >2 tomorrow he would have completed his 2-day overlap and will not need additional lovenox Continued [facility] stay due to: multiple IV medications needed Discharge planning: home with home health
[2017-05-09 22:33] VITALS: BP 149/94; PULSE 100; TEMP 36.7; O2SAT 99
[2017-05-10] VITALS: O2SAT 99
[2017-05-10] MEDS: PENICILLIN G POTASSIUM IV 6 MU in DEXTROSE 5% 250ML 250 ML IV SCH ×2 (03:44→10:00)
[2017-05-10 06:33] LABS: HEMATOCRIT 37.1 % (42-52); MEAN CELL VOLUME 86.1 fL (80-100); MEAN CORPUSCULAR HEMOGLOBIN 30.9 pg (25-34); MEAN CORPUSCULAR HGB CONC 35.8 g/dl (32-36); MEAN PLATELET VOLUME 8.9 fL (7.4-10.4); PLATELET COUNT 250 K/uL (130-400); RED BLOOD COUNT 4.31 M/uL (4.7-6.1); WHITE BLOOD COUNT 13.03 K/uL (4.8-10.8)
[2017-05-10 06:41] LABS: INR 2.8 (0.9-1.1)
[2017-05-10 07:12] LABS: BUN/CREATININE RATIO 10.4 (10-20); CALCIUM 9.3 mg/dl (8.5-10.1)
[2017-05-10 07:41] VITALS: BP 146/90; PULSE 94; TEMP 37; O2SAT 97
[2017-05-10 08:00] VITALS: O2SAT 97
[2017-05-10] MEDS: NICOTINE 14 MG/24 HR TDSY TD SCH (08:25)
[2017-05-10] MEDS: CeleBREX 100 MG CAP PO SCH (08:25)
[2017-05-10] MEDS: GABAPENTIN 100 MG CAP PO SCH ×2 (08:25→14:00)
[2017-05-10] MEDS: ENOXAPARIN 100 MG/1ML SYR SQ SCH (08:26)
[2017-05-10 10:50] VITALS: BP 146/90; PULSE 94; TEMP 37; O2SAT 97
--- NOTE | 2017-05-10 12:05 | Surgery Progress Note ---
Subjective Date of Service: May 10, 2017. Pt. notes he feels good. No SOB or CP. No fevers, shakes, chills. 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 as ordered by primary service -case & CT reviewed with Dr. Connors of pulmonary medicine: -he recommends obtaining a PA & lateral CX prior to d/c for future comparison purposes (this study has been ordered) -Dr. Santiago's office will call pt. and arrange a 2 week follow-up appt.
--- NOTE | 2017-05-10 12:37 | DIAGNOSTIC IMAGING REPORT ---
CHEST 2 VIEWS ROUTINE CLINICAL HISTORY: pneumonia COMPARISON STUDY: 04/24/2017 FINDINGS: The cardiac and mediastinal contours are normal. There is a right-sided PICC catheter tip of which projects at the superior vena cava. There is increasing small right pleural effusion. There are minor right basilar airspace opacities likely atelectatic.[ IMPRESSION: Increasing small right pleural effusion. Minor right basilar atelectasis. Electronically signed by: Benjamin Welch M.D. 05/10/2017 12:36 PM Dictated Date/Time: 05/10/2017 12:35 PM
--- NOTE | 2017-05-10 14:46 | Infectious Disease Progress Nt ---
Progress Note Date of Service May 10, 2017. Subjective Pt evaluation today including: conversation w/ patient, physical exam, chart review, lab review, review of studies, conversation w/ art consultant, review of inpatient medication list No new complaints. remains afebrile. All Other Systems: Reviewed and Negative Medications Current Inpatient Medications Medications (Trade) Dose Ordered Sig/Herb Route Start Time Stop Time Status Last Admin Dose Admin Al Hydrox/Mg Hydrox/Simethicone (Maalox Max Susp) 15 ml Q4H PRN PO 04/29/17 17:30 05/29/17 17:29 Magnesium Hydroxide (Milk Of Magnesia Susp) 30 ml Q12H PRN PO 04/29/17 17:30 05/29/17 17:29 Ondansetron HCl (Zofran Inj) 4 mg Q6H PRN IV 04/29/17 17:30 05/29/17 17:29 Polyethylene (Miralax Powder Packet) 17 gm DAILY PRN PO 04/29/17 17:30 05/29/17 17:29 Gabapentin (Neurontin Cap) 200 mg TID PO 04/29/17 21:00 05/29/17 20:59 05/10/17 08:25 200 MG Nicotine (Nicoderm Cq 14MG Patch) 1 patch QAM TD 04/29/17 18:00 05/29/17 17:59 05/10/17 08:25 1 PATCH Miscellaneous (Remove Nicoderm Patch) 1 ea HS N/A 04/29/17 21:00 05/29/17 20:59 05/08/17 21:09 1 EA Acetaminophen 650 mg/Empty Bag 65 ml @ 260 mls/hr Q6H PRN IV 04/30/17 12:45 05/30/17 12:44 Celecoxib (CeleBREX CAP) 100 mg BID PO 04/30/17 12:45 05/30/17 12:44 05/10/17 08:25 100 MG Heparin Sodium/ Dextrose 500 ml @ 25 mls/hr Q20H PRN IV 05/01/17 00:15 05/31/17 00:14 Future Hold 05/05/17 07:16 25 MLS/HR Heparin Sodium (Porcine) (Heparin 10 Unit/ ml 5 ml Flush) 5 ml PRN PRN FLUSH 05/03/17 17:00 06/02/17 16:59 05/09/17 17:39 5 ML Penicillin G Potassium 6 mu/ Dextrose 262 ml @ 100 mls/hr Q6@0400,1000,1600,2200 IV 05/04/17 16:00 05/18/17 15:59 05/10/17 10:00 100 MLS/HR Enoxaparin Sodium (Lovenox Inj) 90 mg Q12 SQ 05/05/17 12:00 06/04/17 11:59 05/10/17 08:26 90 MG Acetaminophen (Tylenol Tab) 1,000 mg Q8 PRN PO 05/08/17 13:30 06/07/17 13:29 Warfarin Sodium (Coumadin Tab) 5 mg DAILY@16 PO 05/09/17 16:00 06/03/17 17:59 05/09/17 16:25 5 MG Objective Vital Signs Date Time Temp Pulse Resp B/P (MAP) Pulse Ox O2 Delivery O2 Flow Rate FiO2 05/10/17 10:50 37.0 94 18 97 Room Air 05/10/17 08:00 97 Room Air 05/10/17 07:41 37.0 94 18 146/90 (108) 97 Room Air 05/10/17 00:00 99 Room Air 05/09/17 22:33 36.7 100 18 149/94 (112) 99 Room Air 05/09/17 16:03 36.7 112 18 161/113 (129) 100 Room Air 166/92 (116) 05/09/17 15:40 99 Room Air Physical Exam General Appearance: WD/WN, no apparent distress Eyes: normal inspection, sclerae normal ENT: normal ENT inspection, pharynx normal Neck: supple, trachea midline Respiratory/Chest: chest non-tender, no respiratory distress, + rhonchi Cardiovascular: regular rate, rhythm, no gallop, no murmur Abdomen: normal bowel sounds, non tender, soft, no organomegaly Extremities: non-tender, no calf tenderness Neurologic/Psychiatric: alert, oriented x 3 Skin: normal color, no rash Lymphatic: no adenopathy Laboratory Results Last 24 Hours Test 05/10/17 06:18 White Blood Count 13.03 K/uL Red Blood Count 4.31 M/uL Hemoglobin 13.3 g/dL Hematocrit 37.1 % Mean Corpuscular Volume 86.1 fL Mean Corpuscular Hemoglobin 30.9 pg Mean Corpuscular Hemoglobin Concent 35.8 g/dl RDW Standard Deviation 35.7 fL RDW Coefficient of Variation 11.4 % Platelet Count 250 K/uL Mean Platelet Volume 8.9 fL Prothrombin Time 31.0 SECONDS Prothromb Time International Ratio 2.8 Sodium Level 139 mmol/L Potassium Level 4.0 mmol/L Chloride Level 106 mmol/L Carbon Dioxide Level 27 mmol/L Anion Gap 6.0 mmol/L Blood Urea Nitrogen 10 mg/dl Creatinine 1.00 mg/dl Est Creatinine Clear Calc Drug Dose 110.8 ml/min Estimated GFR () 113.3 Estimated GFR (Non- 97.8 BUN/Creatinine Ratio 10.4 Random Glucose 97 mg/dl Calcium Level 9.3 mg/dl Assessment and Plan Patient with chest pain, pleuritic in nature, and possible pneumonia of the RML and RLL with Actinomyces growing in 1/2 initial blood cultures. He will be discharged for outpatient treatment with IV penicillin as discussed with hospitalist service. Will follow up with patient in the office.
[2017-05-20] MEDS ORDERED: GABA1CAP PO (12:30)
== END 2017-05-10 15:11 | disposition home health service (06) | DRG 177 ==
LOC: C.2T 16:19 → C.MS2W 05-01 12:09 → ENRESERV 05-01 12:55 → UNDODISIN 05-01 15:15
PROVIDERS: ADMIT Internal Medicine; ATTEND Internal Medicine
PROC: 02HV33Z Insertion of Infusion Device into Superior Vena Cava, Percutaneous Approach (ICD-10-PCS; principal; 2017-04-29)
DX: A42.0 Pulmonary actinomycosis (principal); I26.99 Other pulmonary embolism without acute cor pulmonale; R78.81 Bacteremia; J90 Pleural effusion, not elsewhere classified; D68.312 Antiphospholipid antibody with hemorrhagic disorder; J86.9 Pyothorax without fistula; D57.3 Sickle-cell trait; F17.210 Nicotine dependence, cigarettes, uncomplicated; F12.21 Cannabis dependence, in remission; F19.21 Other psychoactive substance dependence, in remission; Z86.711 Personal history of pulmonary embolism; F60.3 Borderline personality disorder; F43.10 Post-traumatic stress disorder, unspecified; Z59.0 Homelessness

== ENCOUNTER → 2017-05-13 | Outpatient (CLI) | payer OTHER ==
[~2017-05-13] MED LIST changes: +AMOX500C3 PO; +AMX500 PO; +BUPR1SUB23 PO; +CMD5 PO; -DOXY100C76 PO; +GABA1CAP PO; -HYDR-3126 PO; +LACT1TAB4 PO; +LCTX PO; -OXYC1TAB3 PO; -RIVA1.5T PO; +WARF5TAB90 PO
[2017-05-13 14:56] LABS: INR 1.8 (0.9-1.1); PROTHROMBIN TIME (PATIENT) 19.4 SECONDS (9.0-12.0)
== END | disposition home or self-care (01) ==
LOC: C.LAB1850 13:43
PROVIDERS: ATTEND Internal Medicine
DX: I26.99 Other pulmonary embolism without acute cor pulmonale (principal)

== ENCOUNTER → 2017-05-18 | Outpatient (CLI) | payer OTHER ==
[2017-05-18 13:09] LABS: BASO % 0.4 %; BASO ABS # 0.04 K/uL (0-0.2); COMPLETE YES; EOS % 12.7 %; HEMATOCRIT 38.5 % (42-52); IG% 0.7 %; LYMPH % 26.8 %; LYMPH ABS # 2.87 K/uL (1.2-3.4); MEAN CELL VOLUME 88.1 fL (80-100); MEAN CORPUSCULAR HEMOGLOBIN 29.3 pg (25-34); MEAN CORPUSCULAR HGB CONC 33.2 g/dl (32-36); MEAN PLATELET VOLUME 9.9 fL (7.4-10.4); MONO % 11.1 %; NEUT % 48.3 %; PLATELET COUNT 310 K/uL (130-400); RED BLOOD COUNT 4.37 M/uL (4.7-6.1); WHITE BLOOD COUNT 10.71 K/uL (4.8-10.8)
[2017-05-18 13:34] LABS: ALT/SGPT 27 U/L (12-78); BLOOD UREA NITROGEN 12 mg/dl (7-18); BUN/CREATININE RATIO 11.8 (10-20); C-REACTIVE PROTEIN 3.25 mg/dl (0-0.29); CALCIUM 8.9 mg/dl (8.5-10.1); CARBON DIOXIDE 30 mmol/L (21-32); CHLORIDE 106 mmol/L (98-107); CREATININE 0.98 mg/dl (0.60-1.40); GLUCOSE 108 mg/dl (70-99); POTASSIUM 3.7 mmol/L (3.5-5.1); SODIUM 140 mmol/L (136-145)
[2017-05-18 13:37] LABS: ALB/GLOB RATIO 0.8 (0.9-2); ALKALINE PHOSPHATASE 135 U/L (45-117); AST/SGOT 21 U/L (15-37)
== END | disposition home or self-care (01) ==
LOC: C.LABSPEC 12:23
PROVIDERS: ATTEND Internal Medicine Infectious Disease
DX: R78.81 Bacteremia (principal)

== ENCOUNTER 2017-05-20 13:45 | Inpatient (IN) | payer OTHER ==
[~2017-05-20] VITALS: Ht 180.3 cm; Wt 87.3 kg
[~2017-05-20 13:45] MED LIST changes: -AMOX500C3 PO; -AMX500 PO; -BUPR1SUB23 PO; -CMD5 PO; -LACT1TAB4 PO
[2017-05-20] MEDS ORDERED: SODIUM CHLORIDE 0.9% 1000ML 500 ML IV STA (15:09)
[2017-05-20] MEDS ORDERED: OPTIRAY 320 IV PRN (15:30)
[2017-05-20] MEDS ORDERED: WARF5TAB90 PO (15:41)
[2017-05-20] MEDS ORDERED: LACT1TAB4 PO (15:41)
--- NOTE | 2017-05-20 15:41 | EMERGENCY ROOM VISIT NOTE ---
History Report prepared by Silvina: Ewa Quiroga Under the Supervision of: Dr. dAán Howell M.D. First contact with patient: 15:03 Chief Complaint: INFECTION Stated Complaint: ARM FEELS INFECTED/INR IS LOW/BACK PAIN Nursing Triage Summary: Pt arrived to triage, ambulatory, eating alicia martínez Pt states his INR level low, yesterday 1.3. "I'm mildly confused, but back feels like shattering glass, I feel like my Picc line is infected" Picc for PCN. Infection in blood. "and I might be having a PE because that's how I felt last time I had one. I have chest pain that comes and goes. I know I have blood clots on my chest, I can feel them." History of Present Illness The patient is a 32 year old male who presents to the Emergency Room with complaints of a possible worsening infection for the past several days. He currently has a PICC line in place in his right arm for IV antibiotics and states "I feel like the PICC line is infected". He is currently receiving Penicillin through the line and states his arm feels "very sore", rating his discomfort as a 9/10. The PICC line was placed around May 06. The patient reports the site occasionally produces purulent drainage and is "hard and red". He was treated here in the ED recently for a cough, pneumonia and pleurisy and was discharged home on May 10. He admits to intermittent chest pain recently and states "I can feel clots in my chest". He has a personal history of PE's as well as as extensive family history. He notes he woke up "very disoriented and confused" this afternoon, which prompted him wanting to come to the ED today. The patient notes his most recent INR was 1.3. He also complains of back pain and the chills, describing his back pain as feeling like " shattered glass". He denies any recent fevers, nausea or vomiting. Source of History: patient Onset: several days [employer] Position: arm (right) Symptom Intensity: 9/10 Timing: worsening Associated Symptoms: + chills, + chest pain, + back pain, No fevers, No nausea, No vomiting Review of Systems See HPI for pertinent positives & negatives. A total of 10 systems reviewed and were otherwise negative. Past Medical & Surgical Medical Problems: (1) Chest pain, pleuritic (2) Pulmonary embolism (3) Thrombosis in peripherally inserted central catheter (PICC) Family History FH: pulmonary embolism Heart disease Hypertension Social History Smoking Status: Current Every Day Smoker Alcohol Use: heavy Drug Use: other Marital Status: in relationship Housing Status: lives with significant other Occupation Status: employed Current/Historical Medications Scheduled Gabapentin (Neurontin), 200 MG PO TID Lactobacillus (Floranex), 4 TABS PO TID Warfarin Sodium (Coumadin), 2.5 MG PO Q2D Warfarin Sodium (Coumadin), 5 MG PO Q2D Allergies Coded Allergies: Fish (Verified Allergy, Severe, ANAPHYLAXIS, 04/24/17) Physical Exam Vital Signs Date Time Temp Pulse Resp B/P (MAP) Pulse Ox O2 Delivery O2 Flow Rate FiO2 05/20/17 18:36 100 18 126/89 99 Room Air 05/20/17 16:30 87 15 05/20/17 16:25 76 10 05/20/17 16:20 79 10 05/20/17 16:15 82 18 05/20/17 16:11 104 05/20/17 16:10 90 20 05/20/17 16:05 89 15 05/20/17 16:00 92 17 05/20/17 15:28 98 Room Air 05/20/17 13:49 36.9 101 18 137/86 99 Room Air Physical Exam GENERAL: Patient is in no acute distress. HEENT: No acute trauma, normocephalic atraumatic, mucous membranes moist, no nasal congestion, no scleral icterus. NECK: No stridor, no adenopathy, no meningismus, trachea is midline. LUNGS: Clear to auscultation bilaterally, no wheeze, no rhonchi, breath sounds equal. HEART: Without murmurs gallops or rubs, regular rate and rhythm. ABDOMEN: Soft, nontender, bowel sounds positive, no hernias, no peritonitis. EXTREMITIES: There is a PICC line in the right medial arm, no drainage from insertion site, but there is some tenderness at the site, and what seems to be edema/swelling. No cyanosis, full range of motion of all the joints without pain or difficulty, no signs for acute trauma. NEUROLOGIC: Oriented x 3, no acute motor or sensory deficits, no focal weakness. SKIN: No rash, no jaundice, no diaphoresis. Medical Decision & Procedures ER Provider Diagnostic Interpretation: Radiology results as stated below per my review and radiologist interpretation: RIGHT VENOUS DOPPLER UPR EXT UNIL CLINICAL HISTORY: 32 years-old Male presenting with swelling poss clot Right. TECHNIQUE: Real-time grayscale and color and spectral Doppler ultrasound imaging of the veins of the right upper extremity was performed. Compression and augmentation were also utilized. COMPARISON: 05/04/2017. FINDINGS: Right: Subclavian vein: Patent. Internal jugular vein: Patent. Axillary vein: Patent. Brachial vein: Patent. Cephalic vein: Limited nonocclusive filling defect suggestive of small residual thrombus. Basilic vein: Nearly occlusive filling defect within the basilic vein in the mid upper arm, which also contains a PICC. Distally, slow flow is suspected. Radial vein: Patent. Ulnar vein: Patent. Other: Subcutaneous edema of the right upper arm. IMPRESSION: Nearly occlusive thrombus in the basilic vein associated with the PICC. This is new from prior. Limited nonocclusive cephalic vein thrombus decreased from prior. Electronically signed by: Chau Mathews M.D. 05/20/2017 6:[address] ANGIOGRAM OF THE CHEST CLINICAL HISTORY: Atypical chest pain. COMPARISON STUDY: Chest CT scans dated 05/09/2017 and 04/16/2017. Chest x-ray dated 05/10/2017. TECHNIQUE: Following the IV administration of 90 cc of Optiray 320, CT angiogram of the chest was performed from the upper abdomen to the thoracic inlet utilizing the pulmonary embolus protocol. Images are reviewed in the axial, sagittal, and coronal planes. 3-D MIPS images are created and assessed. IV contrast was administered without complication. A dose lowering technique was utilized adhering to the principles of ALARA. CT DOSE: 544.09 mGycm FINDINGS: Thyroid: Imaged portions of the thyroid gland are normal in size and attenuation. Thoracic aorta: The thoracic aorta is normal in caliber and demonstrates standard 3-vessel arch anatomy. No dissection is seen. A right PICC line is in place. Pulmonary vasculature: The pulmonary trunk is normal in caliber. There are no filling defects identified in main, lobar, or segmental pulmonary branches to suggest pulmonary embolus. Heart: The heart is normal in size and configuration, and without pericardial effusion. Lungs and pleural spaces: There is a small right pleural effusion with right basilar consolidation. The lungs are otherwise clear. The trachea and central airways are patent. Mediastinum: There is no mediastinal lymphadenopathy. Unique: Clear. Axillae: There is no axillary lymphadenopathy. Upper abdomen: Partially visualized upper abdominal viscera is within normal limits. Skeletal structures: No lytic or blastic bony lesions are seen. IMPRESSION: 1. There is no evidence of pulmonary embolus in the main, lobar, or segmental pulmonary arteries. 2. There is a small right pleural effusion with associated right basilar consolidation. This has modestly decreased in size from 05/09/2017. Consolidative change likely represents atelectasis. Correlate clinically for evidence of superimposed pneumonia. 3. The lungs are otherwise clear. Electronically signed by: Adán Isaac M.D. 05/20/2017 6:49 PM RIGHT EXTREMITY NONVASCULAR LIMITED CLINICAL HISTORY: 32 years-old Male presenting with poss abscess or clot--picc line sore right arm Right. TECHNIQUE: Real-time grayscale ultrasound imaging of the right upper extremity was performed. Color Doppler was also performed. COMPARISON: Correlation made to dedicated vascular examination of the right upper extremity performed contemporaneously. FINDINGS: Subcutaneous edema noted in the mid upper arm. Extensive filling defect within the basilic vein associated with the PICC, consistent with nearly occlusive thrombus. No focal fluid collection to suggest abscess. No hyperemia on color Doppler. IMPRESSION: 1. Basilic vein thrombus associated with the PICC. Please see separately dictated Doppler ultrasound examination of the right upper extremity. 2. No focal fluid collection to suggest abscess. Extensive subcutaneous edema. Electronically signed by: Chau Mathews M.D. 05/20/2017 6:41 PM Laboratory Results 05/20/17 15:50 Red Blood Count 4.23, Mean Corpuscular Volume 85.6, Mean Corpuscular Hemoglobin 30.7, Mean Corpuscular Hemoglobin Concent 35.9, Mean Platelet Volume 9.2, Neutrophils (%) (Auto) 58.1, Lymphocytes (%) (Auto) 18.4, Monocytes (%) (Auto) 11.4, Eosinophils (%) (Auto) 11.3, Basophils (%) (Auto) 0.3, Neutrophils # (Auto ) 6.87, Lymphocytes # (Auto) 2.18, Monocytes # (Auto) 1.35, Eosinophils # (Auto ) 1.33, Basophils # (Auto) 0.03 05/20/17 16:28 Test 05/20/17 15:50 05/20/17 16:28 05/20/17 18:40 White Blood Count 11.82 K/uL (4.8-10.8) Red Blood Count 4.23 M/uL (4.7-6.1) Hemoglobin 13.0 g/dL (14.0-18.0) Hematocrit 36.2 % (42-52) Mean Corpuscular Volume 85.6 fL (80-100) Mean Corpuscular Hemoglobin 30.7 pg (25-34) Mean Corpuscular Hemoglobin Concent 35.9 g/dl (32-36) Platelet Count 279 K/uL (130-400) Mean Platelet Volume 9.2 fL (7.4-10.4) Neutrophils (%) (Auto) 58.1 % Lymphocytes (%) (Auto) 18.4 % Monocytes (%) (Auto) 11.4 % Eosinophils (%) (Auto) 11.3 % Basophils (%) (Auto) 0.3 % Neutrophils # (Auto) 6.87 K/uL (1.4-6.5) Lymphocytes # (Auto) 2.18 K/uL (1.2-3.4) Monocytes # (Auto) 1.35 K/uL (0.11-0.59) Eosinophils # (Auto) 1.33 K/uL (0-0.5) Basophils # (Auto) 0.03 K/uL (0-0.2) RDW Standard Deviation 36.1 fL (36.4-46.3) RDW Coefficient of Variation 11.6 % (11.5-14.5) Immature Granulocyte % (Auto) 0.5 % Immature Granulocyte # (Auto) 0.06 K/uL (0.00-0.02) Erythrocyte Sedimentation Rate 29 mm/hr (0-14) Prothrombin Time 16.7 SECONDS (9.0-12.0) Prothromb Time International Ratio 1.5 (0.9-1.1) Activated Partial Thromboplast Time 43.2 SECONDS (21.0-31.0) Partial Thromboplastin Ratio 1.7 Anion Gap 5.0 mmol/L (3-11) Est Creatinine Clear Calc Drug Dose 100.7 ml/min Estimated GFR () 101.0 Estimated GFR (Non- 87.1 BUN/Creatinine Ratio 12.5 (10-20) Calcium Level 9.0 mg/dl (8.5-10.1) Total Bilirubin 0.2 mg/dl (0.2-1) Aspartate Amino Transf (AST/SGOT) 21 U/L (15-37) Alanine Aminotransferase (ALT/SGPT) 22 U/L (12-78) Alkaline Phosphatase 142 U/L (45-117) Troponin I < 0.015 ng/ml (0-0.045) C-Reactive Protein 6.29 mg/dl (0-0.29) Total Protein 7.4 gm/dl (6.4-8.2) Albumin 3.3 gm/dl (3.4-5.0) Globulin 4.1 gm/dl (2.5-4.0) Albumin/Globulin Ratio 0.8 (0.9-2) Thyroid Stimulating Hormone (TSH) 0.622 uIu/ml (0.300-4.500) Urine Color YELLOW Urine Appearance CLEAR (CLEAR) Urine pH 6.0 (4.5-7.5) Urine Specific [place] 1.036 (1.000-1.030) Urine Protein NEG (NEG) Urine Glucose (UA) NEG (NEG) Urine Ketones NEG (NEG) Urine Occult Blood NEG (NEG) Urine Nitrite NEG (NEG) Urine Bilirubin NEG (NEG) Urine Urobilinogen NEG (NEG) Urine Leukocyte Esterase SMALL (NEG) Urine WBC (Auto) 10-30 /hpf (0-5) Urine RBC (Auto) 0-4 /hpf (0-4) Urine Hyaline Casts (Auto) 1-5 /lpf (0-5) Urine Epithelial Cells (Auto) 10-20 /lpf (0-5) Urine Bacteria (Auto) NEG (NEG) Laboratory results reviewed by me. Medications Administered Medications (Trade) Dose Ordered Sig/Herb Route Start Time Stop Time Status Last Admin Dose Admin Sodium Chloride 500 ml @ 999 mls/hr Q31M STAT IV 05/20/17 15:09 05/20/17 15:39 DC 05/20/17 16:00 999 MLS/HR ECG Indication: chest pain Rate (beats per minute): 80 Rhythm: normal sinus Findings: nonspecific-ST abn, no acute ischemic change, no ectopy ED Course 1507: The patient was evaluated in room A3. A complete history and physical exam was performed. 1509: NSS 500 ml @ 999 mls/hr IV. 185: I reevaluated the patient. I discussed my recommendation he remain in the hospital for further evaluation and management and he declined. I will contact his most recent hospital physician for their recommendation. 1899: I discussed the patients case with Dr. Ortiz [facility] Hospitalist. He also recommends the patient should be further evaluated by the hospital medicine team. 1915: I reevaluated the patient. I once again discussed my recommendation he remain in the hospital for further evaluation and management and he is agreeable to this plan. 1916: I discussed the patients case with Dr. Ortiz [facility] Hospitalist. The patient will be further evaluated. Medical Decision The differential diagnose considered include thrombosed PICC line, infected PICC line, PE, pneumonia, failed outpatient treatment, anemia, electrolyte imbalance or bacteremia. There is a mild leukocytosis, this could be consistent with infection with the stress of the situation. No concerning anemia. Sedimentation rate and CRP are both elevated consistent with ongoing infection/inflammation. Urinalysis does not show infection. INR is subtherapeutic for someone on Coumadin at 1.5. Upper extremity ultrasound does not show any evidence for abscess. There is a right upper extremity DVT in the area of the PICC line. Chest CT does not show any pneumonia or acute PE. EKG shows a normal sinus rhythm, no acute ischemia. Cardiac enzyme testing times one is not consistent with acute cardiac injury. The patient received IV saline. I discussed my findings with the patient, I talked to case management. Given the acute clot, given the failed outpatient treatment, admission/observation is warranted. The on-call hospitalist has been consulted. Medication Reconcilliation Current Medication List: was personally reviewed by me Blood Pressure Screening Patient's blood pressure: Normal blood pressure Blood pressure disposition: Did not require urgent referral Consults Time Called: 1899 Consulting Physician: Dr. Ortiz [facility] Hospitalist Returned Call: 1899 I discussed the patients case with Dr. Ortiz [facility] Hospitalist. He also recommends the patient should be further evaluated by the hospital medicine team. Impression Primary Impression: Deep vein thrombosis (DVT) of right upper extremity Additional Impressions: Subtherapeutic international normalized ratio (INR) PICC line complication Scribe Attestation The scribe's documentation has been prepared under my direction and personally reviewed by me in its entirety. I confirm that the note above accurately reflects all work, treatment, procedures, and medical decision making performed by me. Departure Information Dispostion Being Evaluated By Hospitalist Referrals No Doctor, Assigned (PCP) Patient Instructions My [facility] Problem Qualifiers
[2017-05-20 16:08] LABS: BASO % 0.3 %; BASO ABS # 0.03 K/uL (0-0.2); COMPLETE YES; EOS % 11.3 %; HEMATOCRIT 36.2 % (42-52); IG% 0.5 %; LYMPH % 18.4 %; LYMPH ABS # 2.18 K/uL (1.2-3.4); MEAN CELL VOLUME 85.6 fL (80-100); MEAN CORPUSCULAR HEMOGLOBIN 30.7 pg (25-34); MEAN CORPUSCULAR HGB CONC 35.9 g/dl (32-36); MEAN PLATELET VOLUME 9.2 fL (7.4-10.4); MONO % 11.4 %; NEUT % 58.1 %; PLATELET COUNT 279 K/uL (130-400); RED BLOOD COUNT 4.23 M/uL (4.7-6.1); WHITE BLOOD COUNT 11.82 K/uL (4.8-10.8)
[2017-05-20 16:52] LABS: INR 1.5 (0.9-1.1); PARTIAL THROMBOPLASTIN RATIO 1.7; PROTHROMBIN TIME (PATIENT) 16.7 SECONDS (9.0-12.0)
[2017-05-20 17:15] LABS: ALT/SGPT 22 U/L (12-78); BLOOD UREA NITROGEN 14 mg/dl (7-18); BUN/CREATININE RATIO 12.5 (10-20); C-REACTIVE PROTEIN 6.29 mg/dl (0-0.29); CARBON DIOXIDE 28 mmol/L (21-32); CHLORIDE 104 mmol/L (98-107); GLUCOSE 111 mg/dl (70-99); POTASSIUM 3.6 mmol/L (3.5-5.1); SODIUM 137 mmol/L (136-145)
[2017-05-20 17:26] LABS: ALB/GLOB RATIO 0.8 (0.9-2); ALKALINE PHOSPHATASE 142 U/L (45-117); AST/SGOT 21 U/L (15-37); THYROID STIMULATING HORMONE 0.622 uIu/ml (0.300-4.500)
--- NOTE | 2017-05-20 18:40 | DIAGNOSTIC IMAGING REPORT ---
RIGHT VENOUS DOPPLER UPR EXT UNIL CLINICAL HISTORY: 32 years-old Male presenting with swelling poss clot Right. TECHNIQUE: Real-time grayscale and color and spectral Doppler ultrasound imaging of the veins of the right upper extremity was performed. Compression and augmentation were also utilized. COMPARISON: 05/04/2017. FINDINGS: Right: Subclavian vein: Patent. Internal jugular vein: Patent. Axillary vein: Patent. Brachial vein: Patent. Cephalic vein: Limited nonocclusive filling defect suggestive of small residual thrombus. Basilic vein: Nearly occlusive filling defect within the basilic vein in the mid upper arm, which also contains a PICC. Distally, slow flow is suspected. Radial vein: Patent. Ulnar vein: Patent. Other: Subcutaneous edema of the right upper arm. IMPRESSION: Nearly occlusive thrombus in the basilic vein associated with the PICC. This is new from prior. Limited nonocclusive cephalic vein thrombus decreased from prior. Electronically signed by: Chau Mathews M.D. 05/20/2017 6:39 PM Dictated Date/Time: 05/20/2017 6:36 PM
--- NOTE | 2017-05-20 18:42 | DIAGNOSTIC IMAGING REPORT ---
RIGHT EXTREMITY NONVASCULAR LIMITED CLINICAL HISTORY: 32 years-old Male presenting with poss abscess or clot--picc line sore right arm Right. TECHNIQUE: Real-time grayscale ultrasound imaging of the right upper extremity was performed. Color Doppler was also performed. COMPARISON: Correlation made to dedicated vascular examination of the right upper extremity performed contemporaneously. FINDINGS: Subcutaneous edema noted in the mid upper arm. Extensive filling defect within the basilic vein associated with the PICC, consistent with nearly occlusive thrombus. No focal fluid collection to suggest abscess. No hyperemia on color Doppler. IMPRESSION: 1. Basilic vein thrombus associated with the PICC. Please see separately dictated Doppler ultrasound examination of the right upper extremity. 2. No focal fluid collection to suggest abscess. Extensive subcutaneous edema. Electronically signed by: Chau Mathews M.D. 05/20/2017 6:41 PM Dictated Date/Time: 05/20/2017 6:39 PM
--- NOTE | 2017-05-20 18:51 | DIAGNOSTIC IMAGING REPORT ---
CT ANGIOGRAM OF THE CHEST CLINICAL HISTORY: Atypical chest pain. COMPARISON STUDY: Chest CT scans dated 05/09/2017 and 04/16/2017. Chest x-ray dated 05/10/2017. TECHNIQUE: Following the IV administration of 90 cc of Optiray 320, CT angiogram of the chest was performed from the upper abdomen to the thoracic inlet utilizing the pulmonary embolus protocol. Images are reviewed in the axial, sagittal, and coronal planes. 3-D MIPS images are created and assessed. IV contrast was administered without complication. A dose lowering technique was utilized adhering to the principles of ALARA. CT DOSE: 544.09 mGycm FINDINGS: Thyroid: Imaged portions of the thyroid gland are normal in size and attenuation. Thoracic aorta: The thoracic aorta is normal in caliber and demonstrates standard 3-vessel arch anatomy. No dissection is seen. A right PICC line is in place. Pulmonary vasculature: The pulmonary trunk is normal in caliber. There are no filling defects identified in main, lobar, or segmental pulmonary branches to suggest pulmonary embolus. Heart: The heart is normal in size and configuration, and without pericardial effusion. Lungs and pleural spaces: There is a small right pleural effusion with right basilar consolidation. The lungs are otherwise clear. The trachea and central airways are patent. Mediastinum: There is no mediastinal lymphadenopathy. Unique: Clear. Axillae: There is no axillary lymphadenopathy. Upper abdomen: Partially visualized upper abdominal viscera is within normal limits. Skeletal structures: No lytic or blastic bony lesions are seen. IMPRESSION: 1. There is no evidence of pulmonary embolus in the main, lobar, or segmental pulmonary arteries. 2. There is a small right pleural effusion with associated right basilar consolidation. This has modestly decreased in size from 05/09/2017. Consolidative change likely represents atelectasis. Correlate clinically for evidence of superimposed pneumonia. 3. The lungs are otherwise clear. Electronically signed by: Adán Isaac M.D. 05/20/2017 6:49 PM Dictated Date/Time: 05/20/2017 6:37 PM
[2017-05-20 19:00] LABS: URINE APPEARANCE CLEAR (CLEAR); URINE BILIRUBIN NEG (NEG); URINE COLOR YELLOW; URINE NITRITE NEG (NEG); URINE SPECIFIC GRAVITY 1.036 (1.000-1.030); UROBILINOGEN NEG (NEG); ZZUR CULT IF INDIC CLEAN CATCH YES
[2017-05-20 19:03] LABS: MANUAL MICROSCOPIC REQUIRED? NO; REVIEW REQ? NO
[2017-05-20] MEDS ORDERED: METOPROLOL TARTRATE 1 MG/ML VIAL IV PRN (20:30)
[2017-05-20] MEDS ORDERED: ALUMINUM/MAGNESIUM/SIMETH (MAALOX MAX) 30 ML UDC PO PRN (20:30)
[2017-05-20] MEDS ORDERED: POLYETHYLENE (MIRALAX) 17 GM PACK PO PRN (20:30)
[2017-05-20] MEDS ORDERED: ZOLPIDEM TARTRATE 5 MG TAB PO PRN (20:30)
[2017-05-20] MEDS ORDERED: ACETAMINOPHEN 325 MG TAB PO PRN (20:30)
[2017-05-20] MEDS ORDERED: ONDANSETRON INJ 2 MG/ML 2 ML VIAL IV PRN (20:30)
[2017-05-20] MEDS ORDERED: MAGNESIUM HYDROXIDE SUSP 30 ML UDC PO PRN (20:30)
--- NOTE | 2017-05-20 20:57 | History and Physical ---
History & Physical Date & Time of Service: May 20, 2017 at 20:37 Chief Complaint: Arm Feels Infected/Inr Is Low/Back Pain Primary Care Physician: No Doctor, Assigned History of Present Illness Source: patient The patient was difficult to interview secondary to agitation, some of the history was taken from history records This is a 32 yo m with a history of sickle cell trait, lupus anticoag pos, pulmonary emboli, drug abuse and actinomyces pulmonary infection that is presenting to us with right arm pain and swelling surrounding his PICC site. The patient states that he has been generally feeling unwell for two months and was admitted to the hospital for a pulmonary embolism and pneumonia on April 29. He was found to have actinomyces infection during this visit and he was started on PCN G 24 IV x 6 weeks and was to be transitioned to PO antibiotics. He was also transitioned to coumadin from IV heparin as it was recommended that he not be on a NOAC during this acute event. The patient states he has been compliant however he is subtherapeutic in the ED. He was evaluated with an echo during the previous admission as there was concern for endocarditis and he was found to have an intra atrial shunt. He has a history of drug abuse and during the previous admission he was actually leaving the facility and concern for use of meth as he would come back elevated in mood and agitated. He states that he has not used meth since the previous hospitalization but states he has been taking Adderall. He also has a history of explosive disorder. He currently does not have a home and is living at his friend's house. He has a girlfriend however he is unable to stay at her house and she is supporting him. He is currently working at [employer] which is his fourth job and is concerned he will lose his job. Results of echo in April 2017 are as follows: * 1. Normal LV size and wall thickness. * 2. Normal LV systolic funciton. LVEF 60-65%. No regional wall motion abnormalities. * 3. Normal RV size and function. * 4. No significant valvular pathology. No vegetations noted. * 5. Positive bubble study for interatrial shunt. * 6. No prior studies for comparison. Past Medical/Surgical History Pulmonary Embolism Right pleural effusion Anxiety/ Depression PTSD Explosive disorder Intra atrial shunt Family History FH: pulmonary embolism Heart disease Hypertension Social History Smoking Status: Current Every Day Smoker Smokeless Tobacco Use: No Alcohol Use: occasionally Drug Use: other Marital Status: in relationship Housing status: other Occupational Status: employed Allergies Coded Allergies: Fish (Verified Allergy, Severe, ANAPHYLAXIS, 04/24/17) Home Medications Scheduled Gabapentin (Neurontin), 200 MG PO TID Lactobacillus (Floranex), 4 TABS PO TID Warfarin Sodium (Coumadin), 2.5 MG PO Q2D Warfarin Sodium (Coumadin), 5 MG PO Q2D Review of Systems Constitutional: No fever Eyes: No worsening of vision ENT: No hearing loss Respiratory: + problem reported ("feels like clots in chest"), No cough, No sputum, No wheezing, No shortness of breath, No dyspnea on exertion, No dyspnea at rest Cardiovascular: No chest pain Abdomen: No pain, No nausea, No vomiting, No diarrhea, No constipation Musculoskeletal: + swelling (right UE around PICC site), No joint pain, No muscle pain Neurologic: No weakness, No numbness/tingling, No balance problems Endocrine: No fatigue Integumentary: No rash Physical Exam Vital Signs Date Time Temp Pulse Resp B/P (MAP) Pulse Ox O2 Delivery O2 Flow Rate FiO2 05/20/17 18:36 100 18 126/89 99 Room Air 05/20/17 16:30 87 15 05/20/17 16:25 76 10 05/20/17 16:20 79 10 05/20/17 16:15 82 18 05/20/17 16:11 104 05/20/17 16:10 90 20 05/20/17 16:05 89 15 05/20/17 16:00 92 17 05/20/17 15:28 98 Room Air 05/20/17 13:49 36.9 101 18 137/86 99 Room Air General Appearance: no apparent distress, + pertinent finding (Very Anxious ) Head: normocephalic, atraumatic Eyes: normal inspection, + pertinent finding (no eye contact during discussion) ENT: normal ENT inspection Neck: supple Respiratory/Chest: normal breath sounds, no respiratory distress, no accessory muscle use Cardiovascular: regular rate, rhythm, no murmur, normal peripheral pulses Abdomen/GI: normal bowel sounds, non tender, soft Back: normal inspection, no CVA tenderness Extremities/Musculoskelatal: normal inspection, no calf tenderness, no pedal edema, + swelling (right UE, mild erythema on inner aspect of the right UE, slightly tender to palpation, nonfluctuant) Neurologic/Psych: alert, normal mood/affect, oriented x 3 Skin: normal color, warm/dry, no rash Lymphatic: no adenopathy Diagnostics Laboratory Results Results Past 24 Hours Test 05/20/17 15:50 05/20/17 16:28 05/20/17 18:40 Range/Units White Blood Count 11.82 4.8-10.8 K/uL Red Blood Count 4.23 4.7-6.1 M/uL Hemoglobin 13.0 14.0-18.0 g/dL Hematocrit 36.2 42-52 % Mean Corpuscular Volume 85.6 80-100 fL Mean Corpuscular Hemoglobin 30.7 25-34 pg Mean Corpuscular Hemoglobin Concent 35.9 32-36 g/dl Platelet Count 279 130-400 K/uL Mean Platelet Volume 9.2 7.4-10.4 fL Neutrophils (%) (Auto) 58.1 % Lymphocytes (%) (Auto) 18.4 % Monocytes (%) (Auto) 11.4 % Eosinophils (%) (Auto) 11.3 % Basophils (%) (Auto) 0.3 % Neutrophils # (Auto) 6.87 1.4-6.5 K/uL Lymphocytes # (Auto) 2.18 1.2-3.4 K/uL Monocytes # (Auto) 1.35 0.11-0.59 K/uL Eosinophils # (Auto) 1.33 0-0.5 K/uL Basophils # (Auto) 0.03 0-0.2 K/uL RDW Standard Deviation 36.1 36.4-46.3 fL RDW Coefficient of Variation 11.6 11.5-14.5 % Immature Granulocyte % (Auto) 0.5 % Immature Granulocyte # (Auto) 0.06 0.00-0.02 K/uL Erythrocyte Sedimentation Rate 29 0-14 mm/hr Prothrombin Time 16.7 9.0-12.0 SECONDS Prothromb Time International Ratio 1.5 0.9-1.1 Activated Partial Thromboplast Time 43.2 21.0-31.0 SECONDS Partial Thromboplastin Ratio 1.7 Sodium Level 137 136-145 mmol/L Potassium Level 3.6 3.5-5.1 mmol/L Chloride Level 104 98-107 mmol/L Carbon Dioxide Level 28 21-32 mmol/L Anion Gap 5.0 3-11 mmol/L Blood Urea Nitrogen 14 7-18 mg/dl Creatinine 1.10 0.60-1.40 mg/dl Est Creatinine Clear Calc Drug Dose 100.7 ml/min Estimated GFR () 101.0 Estimated GFR (Non- 87.1 BUN/Creatinine Ratio 12.5 10-20 Random Glucose 111 70-99 mg/dl Calcium Level 9.0 8.5-10.1 mg/dl Total Bilirubin 0.2 0.2-1 mg/dl Aspartate Amino Transf (AST/SGOT) 21 15-37 U/L Alanine Aminotransferase (ALT/SGPT) 22 12-78 U/L Alkaline Phosphatase 142 45-117 U/L Troponin I < 0.015 0-0.045 ng/ml C-Reactive Protein 6.29 0-0.29 mg/dl Total Protein 7.4 6.4-8.2 gm/dl Albumin 3.3 3.4-5.0 gm/dl Globulin 4.1 2.5-4.0 gm/dl Albumin/Globulin Ratio 0.8 0.9-2 Thyroid Stimulating Hormone (TSH) 0.622 0.300-4.500 uIu/ml Urine Color YELLOW Urine Appearance CLEAR CLEAR Urine pH 6.0 4.5-7.5 Urine Specific [place] 1.036 1.000-1.030 Urine Protein NEG NEG Urine Glucose (UA) NEG NEG Urine Ketones NEG NEG Urine Occult Blood NEG NEG Urine Nitrite NEG NEG Urine Bilirubin NEG NEG Urine Urobilinogen NEG NEG Urine Leukocyte Esterase SMALL NEG Urine WBC (Auto) 10-30 0-5 /hpf Urine RBC (Auto) 0-4 0-4 /hpf Urine Hyaline Casts (Auto) 1-5 0-5 /lpf Urine Epithelial Cells (Auto) 10-20 0-5 /lpf Urine Bacteria (Auto) NEG NEG Microbiology Results 05/20/17 Blood Culture, Received Pending 05/20/17 Blood Culture, Received Pending 05/20/17 Urine Culture, Received Pending Diagnostic Radiology RIGHT EXTREMITY NONVASCULAR LIMITED CLINICAL HISTORY: 32 years-old Male presenting with poss abscess or clot--picc line sore right arm Right. TECHNIQUE: Real-time grayscale ultrasound imaging of the right upper extremity was performed. Color Doppler was also performed. COMPARISON: Correlation made to dedicated vascular examination of the right upper extremity performed contemporaneously. FINDINGS: Subcutaneous edema noted in the mid upper arm. Extensive filling defect within the basilic vein associated with the PICC, consistent with nearly occlusive thrombus. No focal fluid collection to suggest abscess. No hyperemia on color Doppler. IMPRESSION: 1. Basilic vein thrombus associated with the PICC. Please see separately dictated Doppler ultrasound examination of the right upper extremity. 2. No focal fluid collection to suggest abscess. Extensive subcutaneous edema. CT ANGIOGRAM OF THE CHEST CLINICAL HISTORY: Atypical chest pain. COMPARISON STUDY: Chest CT scans dated 05/09/2017 and 04/16/2017. Chest x-ray dated 05/10/2017. TECHNIQUE: Following the IV administration of 90 cc of Optiray 320, CT angiogram of the chest was performed from the upper abdomen to the thoracic inlet utilizing the pulmonary embolus protocol. Images are reviewed in the axial, sagittal, and coronal planes. 3-D MIPS images are created and assessed. IV contrast was administered without complication. A dose lowering technique was utilized adhering to the principles of ALARA. CT DOSE: 544.09 mGycm FINDINGS: Thyroid: Imaged portions of the thyroid gland are normal in size and attenuation. Thoracic aorta: The thoracic aorta is normal in caliber and demonstrates standard 3-vessel arch anatomy. No dissection is seen. A right PICC line is in place. Pulmonary vasculature: The pulmonary trunk is normal in caliber. There are no filling defects identified in main, lobar, or segmental pulmonary branches to suggest pulmonary embolus. Heart: The heart is normal in size and configuration, and without pericardial effusion. Lungs and pleural spaces: There is a small right pleural effusion with right basilar consolidation. The lungs are otherwise clear. The trachea and central airways are patent. Mediastinum: There is no mediastinal lymphadenopathy. Unique: Clear. Axillae: There is no axillary lymphadenopathy. Upper abdomen: Partially visualized upper abdominal viscera is within normal limits. Skeletal structures: No lytic or blastic bony lesions are seen. IMPRESSION: 1. There is no evidence of pulmonary embolus in the main, lobar, or segmental pulmonary arteries. 2. There is a small right pleural effusion with associated right basilar consolidation. This has modestly decreased in size from 05/09/2017. Consolidative change likely represents atelectasis. Correlate clinically for evidence of superimposed pneumonia. 3. The lungs are otherwise clear. RIGHT VENOUS DOPPLER UPR EXT UNIL CLINICAL HISTORY: 32 years-old Male presenting with swelling poss clot Right. TECHNIQUE: Real-time grayscale and color and spectral Doppler ultrasound imaging of the veins of the right upper extremity was performed. Compression and augmentation were also utilized. COMPARISON: 05/04/2017. FINDINGS: Right: Subclavian vein: Patent. Internal jugular vein: Patent. Axillary vein: Patent. Brachial vein: Patent. Cephalic vein: Limited nonocclusive filling defect suggestive of small residual thrombus. Basilic vein: Nearly occlusive filling defect within the basilic vein in the mid upper arm, which also contains a PICC. Distally, slow flow is suspected. Radial vein: Patent. Ulnar vein: Patent. Other: Subcutaneous edema of the right upper arm. IMPRESSION: Nearly occlusive thrombus in the basilic vein associated with the PICC. This is new from prior. Limited nonocclusive cephalic vein thrombus decreased from prior. EKG Normal sinus rhythm Nonspecific T wave abnormality Abnormal ECG When compared with ECG of 01-MAY-2017 06:44, ST no longer elevated in Anterior leads Nonspecific T wave abnormality now evident in Anterior leads Impression Assessment and Plan This is a 32 yo m with a history of pulmonary embolism, actinomyces infection requiring IV antibiotics, drug abuse and currently suffering from a thrombosis on his PICC and subtherapeutic INR. Thrombosis on PICC; patient has intra atrial shunt - tele admission, concern that thrombosis detaches due to shunt - O2 per nursing protocol - heparin IV initiated - consult coag clinic Subtherapeutic INR in the presence of thrombosis; thrombophilic state - patient was initially on Xarelto prior to this incident and changed to Coumadin - question poor compliance - will continue current dose of warfarin and adjust accordingly Actinomyces infection; pulmonary - continue IV PCN G 6 iu qid per previous admission - consult ID as PICC will need to be removed and discuss need for ongoing IV PCN vs transition to PO Drug abuse; h/o meth use, Suboxone - discussed with patient to refrain from going outside while he is at the hospital, concern for drug abuse - metoprolol prn for HTN or tachycardia and Ativan for agitation H/O PTSD/ anxiety/ depression - patient is rather anxious and agitated, quick to get upset with certain remarks - ativan is available for anxiety DVT Prophylaxis - heparin IV Resident Physician Supervision Note: I was present with Dr. Unger during the history and exam. I discussed the case with the resident and agree with the findings and plan as documented in the note. Any exceptions or clarifications are listed here: Troubled 32 y/o M with extensive polysubstance abuse history, hypercoagulable state, Actinomyces bacteremia - pt currently with PICC line Presented with pain/swelling R arm at PICC site - DVT confirmed OE AAO x 3 S1,2 R CTAB NT, ND Swelling and tenderness of R arm P: Pt placed on anticoagulation and we will have PICC changed prior to D/C Will need to cont ABx - as he has significant drug use issues - for the duration of the ABx therapy, he would certainly be better off in a rehab facility - unclear if he would accept this or if this can be arranged but this should be addressed with porter sample case prior to DC Documented By: Ghanshyam Perry Level of Care Telemetry VTE Prophylaxis VTE Risk Assessment Done? Y/N: Yes Risk Level: High Given or contraindicated: Other Anticoagulation Social Service Consult Homeless Note Total Time: Critical Care 30 - 74 minutes
[2017-05-20] MEDS ORDERED: HEPARIN SOD 5000 UNIT/0.5 ML CARP ONE (20:58)
[2017-05-20] MEDS ORDERED: HEPARIN 25000 UNIT/500 ML D5W ONE (20:58)
[2017-05-20] MEDS ORDERED: LORAZEPAM 2 MG/ML 1 ML VIAL IV PRN (22:00)
[2017-05-20 22:43] VITALS: BP 145/93; PULSE 88; TEMP 37; O2SAT 97; Ht 180.3 cm; Wt 87.3 kg
[2017-05-20 23:29] VITALS: BP 156/116; PULSE 85; TEMP 36.8; O2SAT 96
[2017-05-20] MEDS: PENICILLIN G POTASSIUM IV 6 MU in DEXTROSE 5% 250ML 250 ML IV SCH (23:33)
[2017-05-20] MEDS ORDERED: PNEUMOCOCCAL POLYSACCHARIDES 25 MCG/0.5 ML VIAL/SYR IM. ONE (23:45)
[2017-05-20] MEDS ORDERED: PNEUMOCOCCAL ADMINISTRATION CHARGE ONE (23:45)
[2017-05-21] MEDS: LACTOBACILLUS ACIDOPHILUS (FLORANEX) TAB PO SCH ×4 (00:06→21:17)
[2017-05-21] MEDS: GABAPENTIN 100 MG CAP PO SCH ×4 (00:07→21:18)
[2017-05-21 03:42] LABS: BASO % 0.2 %; BASO ABS # 0.02 K/uL (0-0.2); COMPLETE YES; EOS % 15.7 %; HEMATOCRIT 35.5 % (42-52); IG% 0.5 %; LYMPH % 21.2 %; LYMPH ABS # 2.03 K/uL (1.2-3.4); MEAN CORPUSCULAR HGB CONC 34.9 g/dl (32-36); MEAN PLATELET VOLUME 9.1 fL (7.4-10.4); MONO % 13.8 %; NEUT % 48.6 %; PLATELET COUNT 253 K/uL (130-400); RED BLOOD COUNT 4.13 M/uL (4.7-6.1); WHITE BLOOD COUNT 9.57 K/uL (4.8-10.8)
[2017-05-21 03:49] LABS: BENZODIAZEPINE, URINE NEG (NEG); COCAINE,URINE NEG (NEG); PHENCYCLIDINE, URINE NEG (NEG)
[2017-05-21 04:01] LABS: BUN/CREATININE RATIO 13.1 (10-20); CALCIUM 8.6 mg/dl (8.5-10.1); CREATININE 0.94 mg/dl (0.60-1.40)
[2017-05-21 04:03] LABS: ALB/GLOB RATIO 0.7 (0.9-2)
[2017-05-21] MEDS: PENICILLIN G POTASSIUM IV 6 MU in DEXTROSE 5% 250ML 250 ML IV SCH ×2 (04:05→09:28)
[2017-05-21 04:38] LABS: PARTIAL THROMBOPLASTIN RATIO 5.4
[2017-05-21 04:50] VITALS: BP 105/69; PULSE 56; O2SAT 97
[2017-05-21] MEDS: HEPARIN 25,000 UNIT/500ML D5W 500 ML IV PRN ×3 (05:07→18:36)
[2017-05-21 07:04] VITALS: BP 107/66; PULSE 59; TEMP 36.8; O2SAT 100
[2017-05-21] MEDS ORDERED: BUPR1SUB23 PO (08:33)
[2017-05-21 10:15] LABS: INR 1.8 (0.9-1.1); PARTIAL THROMBOPLASTIN RATIO 2.4; PROTHROMBIN TIME (PATIENT) 19.5 SECONDS (9.0-12.0)
[2017-05-21 11:36] VITALS: BP 124/84; PULSE 70; TEMP 36.7
[2017-05-21 13:37] LABS: PARTIAL THROMBOPLASTIN RATIO 2.6
[2017-05-21 15:30] VITALS: BP 126/76; PULSE 73; TEMP 36.5; O2SAT 98
--- NOTE | 2017-05-21 15:34 | Medical Consult ---
Consultation Date of Consultation: May 21, 2017. Attending Physician: Ghanshyam Perry M.D. Reason for Consultation: Actinomyces, drug abuse, need to remove PICC line History of Present Illness 32-year-old male well known to the Infectious Disease service with history of sickle cell trait, drug abuse, lupus anticoagulant, who was recently hospitalized with pneumonia and found to positive blood cultures for Actinomyces. He was discharged home on IV penicillin, but now is readmitted with progressively worsening swelling of his right arm around his PICC line along with pain and erythema. He has been found to have evidence of thrombosis related to his PICC line. This has now been removed. He otherwise has been feeling reasonably well with improvement in pulmonary symptoms, decreasing cough , and denies any fever. No hemoptysis. Past Medical/Surgical History Medical Problems: (1) Deep vein thrombosis (DVT) of right upper extremity Status: Acute (2) Polysubstance abuse Status: Acute (3) Pulmonary embolism Status: Acute (4) Pulmonary infarction Status: Acute (5) Sleep deprivation Status: Acute (6) Subtherapeutic international normalized ratio (INR) Status: Acute Medical Problems: (1) Chest pain, pleuritic (2) Pulmonary embolism (3) Thrombosis in peripherally inserted central catheter (PICC) Family History FH: pulmonary embolism Heart disease Hypertension Social History Smoking Status: Current Every Day Smoker Smokeless Tobacco Use: No Alcohol Use: occasionally Drug Use: other Marital Status: in relationship Housing Status: lives with significant other Occupation Status: employed Allergies Coded Allergies: Fish (Verified Allergy, Severe, ANAPHYLAXIS, 04/24/17) Current Inpatient Medications Current Inpatient Medications Medications (Trade) Dose Ordered Sig/Herb Route Start Time Stop Time Status Last Admin Dose Admin Ioversol (Optiray 320) 111 ml UD PRN IV 05/20/17 15:30 05/24/17 15:29 Acetaminophen (Tylenol Tab) 650 mg Q4H PRN PO 05/20/17 20:30 06/19/17 20:29 05/21/17 00:07 650 MG Al Hydrox/Mg Hydrox/Simethicone (Maalox Max Susp) 15 ml Q4H PRN PO 05/20/17 20:30 06/19/17 20:29 Magnesium Hydroxide (Milk Of Magnesia Susp) 30 ml Q12H PRN PO 05/20/17 20:30 06/19/17 20:29 Zolpidem Tartrate (Ambien Tab) 5 mg HSZ PRN PO 05/20/17 20:30 06/19/17 20:29 05/21/17 00:07 5 MG Ondansetron HCl (Zofran Inj) 4 mg Q6H PRN IV 05/20/17 20:30 06/19/17 20:29 Polyethylene (Miralax Powder Packet) 17 gm DAILY PRN PO 05/20/17 20:30 06/19/17 20:29 Gabapentin (Neurontin Cap) 200 mg TID PO 05/20/17 21:00 06/19/17 20:59 05/21/17 14:12 200 MG Lactobacillus Acidophilus (Floranex Tab) 4 tab TID PO 05/20/17 21:00 06/19/17 20:59 05/21/17 14:14 4 TAB Metoprolol Tartrate (Lopressor Iv) 5 mg Q4 PRN IV 05/20/17 20:30 06/19/17 20:29 Penicillin G Potassium 6 mu/ Dextrose 262 ml @ 100 mls/hr Q6@0400,1000,1600,2200 IV 05/20/17 23:00 05/27/17 21:59 05/21/17 09:28 100 MLS/HR Lorazepam (Ativan Inj) 0.5 mg Q4H PRN IV 05/20/17 22:00 06/19/17 21:59 Heparin Sodium/ Dextrose 500 ml @ 24 mls/hr [id number] PRN IV 05/20/17 22:45 06/19/17 22:44 05/21/17 07:07 29 MLS/HR Warfarin Sodium (Coumadin Tab) 5 mg DAILY@16 PO 05/21/17 16:00 06/20/17 15:59 Review of Systems Constitutional: No fever, No chills Eyes: No problem reported Respiratory: + cough Cardiovascular: No problem reported Abdomen: No problem reported Musculoskeletal: + swelling Genitourinary - Male: No impotence Neurologic: No problem reported Psychiatric: No problem reported Endocrine: No problem reported Hematologic / Lymphatic: No problem reported Integumentary: + new/changing skin lesions Allergic / Immunologic: No problem reported (The) Physical Exam Date Time Temp Pulse Resp B/P (MAP) Pulse Ox O2 Delivery O2 Flow Rate FiO2 05/21/17 12:07 Room Air 05/21/17 11:36 36.7 70 18 124/84 (97) Room Air 98.0 05/21/17 08:00 Room Air 05/21/17 07:04 36.8 59 16 107/66 (80) 100 Room Air 05/21/17 04:50 56 18 105/69 (81) 97 Room Air 05/21/17 04:00 Room Air 05/21/17 00:01 Room Air 05/20/17 23:29 36.8 85 20 156/116 (129) 96 Room Air 05/20/17 22:43 37.0 88 18 145/93 97 Room Air 05/20/17 20:30 94 18 135/81 99 Room Air 05/20/17 18:36 100 18 126/89 99 Room Air 05/20/17 16:30 87 15 05/20/17 16:25 76 10 05/20/17 16:20 79 10 05/20/17 16:15 82 18 05/20/17 16:11 104 05/20/17 16:10 90 20 05/20/17 16:05 89 15 05/20/17 16:00 92 17 General Appearance: WD/WN, no apparent distress Head: normocephalic, atraumatic Eyes: normal inspection, EOMI, sclerae normal ENT: normal ENT inspection, pharynx normal Neck: supple, no adenopathy, thyroid normal, trachea midline Respiratory/Chest: chest non-tender, lungs clear, normal breath sounds, no respiratory distress Cardiovascular: regular rate, rhythm, no gallop, no murmur Abdomen/GI: normal bowel sounds, non tender, soft, no organomegaly Back: normal inspection, no CVA tenderness Extremities/Musculoskelatal: no calf tenderness, normal capillary refill, + pertinent finding (Right upper extremity swollen and slightly tender) Neurologic/Psych: alert, oriented x 3 Skin: normal color, no rash Lymphatic: no adenopathy Laboratory Results Date/Time Source Procedure Growth Status 05/20/17 16:28 Blood Blood Culture Pending Received 05/20/17 15:50 Blood Blood Culture Pending Received 05/20/17 18:40 Urine , Clean Catch Urine Culture - Preliminary NO GROWTH - LESS THAN 1,000 COLONIES/... Resulted Last 24 Hours Test 05/20/17 15:50 05/20/17 16:28 05/20/17 18:40 05/21/17 03:10 White Blood Count 11.82 K/uL Red Blood Count 4.23 M/uL Hemoglobin 13.0 g/dL Hematocrit 36.2 % Mean Corpuscular Volume 85.6 fL Mean Corpuscular Hemoglobin 30.7 pg Mean Corpuscular Hemoglobin Concent 35.9 g/dl Platelet Count 279 K/uL Mean Platelet Volume 9.2 fL Neutrophils (%) (Auto) 58.1 % Lymphocytes (%) (Auto) 18.4 % Monocytes (%) (Auto) 11.4 % Eosinophils (%) (Auto) 11.3 % Basophils (%) (Auto) 0.3 % Neutrophils # (Auto) 6.87 K/uL Lymphocytes # (Auto) 2.18 K/uL Monocytes # (Auto) 1.35 K/uL Eosinophils # (Auto) 1.33 K/uL Basophils # (Auto) 0.03 K/uL RDW Standard Deviation 36.1 fL RDW Coefficient of Variation 11.6 % Immature Granulocyte % (Auto) 0.5 % Immature Granulocyte # (Auto) 0.06 K/uL Erythrocyte Sedimentation Rate 29 mm/hr Prothrombin Time 16.7 SECONDS Prothromb Time International Ratio 1.5 Activated Partial Thromboplast Time 43.2 SECONDS Partial Thromboplastin Ratio 1.7 Sodium Level 137 mmol/L Potassium Level 3.6 mmol/L Chloride Level 104 mmol/L Carbon Dioxide Level 28 mmol/L Anion Gap 5.0 mmol/L Blood Urea Nitrogen 14 mg/dl Creatinine 1.10 mg/dl Est Creatinine Clear Calc Drug Dose 100.7 ml/min Estimated GFR () 101.0 Estimated GFR (Non- 87.1 BUN/Creatinine Ratio 12.5 Random Glucose 111 mg/dl Calcium Level 9.0 mg/dl Total Bilirubin 0.2 mg/dl Aspartate Amino Transf (AST/SGOT) 21 U/L Alanine Aminotransferase (ALT/SGPT) 22 U/L Alkaline Phosphatase 142 U/L Troponin I < 0.015 ng/ml C-Reactive Protein 6.29 mg/dl Total Protein 7.4 gm/dl Albumin 3.3 gm/dl Globulin 4.1 gm/dl Albumin/Globulin Ratio 0.8 Thyroid Stimulating Hormone (TSH) 0.622 uIu/ml Urine Color YELLOW Urine Appearance CLEAR Urine pH 6.0 Urine Specific [place] 1.036 Urine Protein NEG Urine Glucose (UA) NEG Urine Ketones NEG Urine Occult Blood NEG Urine Nitrite NEG Urine Bilirubin NEG Urine Urobilinogen NEG Urine Leukocyte Esterase SMALL Urine WBC (Auto) 10-30 /hpf Urine RBC (Auto) 0-4 /hpf Urine Hyaline Casts (Auto) 1-5 /lpf Urine Epithelial Cells (Auto) 10-20 /lpf Urine Bacteria (Auto) NEG Urine Opiates Screen NEG Urine Methadone, Qualitative NEG Urine Barbiturates NEG Urine Phencyclidine (PCP) Level NEG Ur Amphetamine/Methamphetamine POS MDMA (Ecstasy) Screen NEG Urine Benzodiazepines Screen NEG Urine Cocaine Metabolite NEG Urine Marijuana (THC) NEG Test 05/21/17 03:12 05/21/17 09:34 05/21/17 12:59 White Blood Count 9.57 K/uL Red Blood Count 4.13 M/uL Hemoglobin 12.4 g/dL Hematocrit 35.5 % Mean Corpuscular Volume 86.0 fL Mean Corpuscular Hemoglobin 30.0 pg Mean Corpuscular Hemoglobin Concent 34.9 g/dl Platelet Count 253 K/uL Mean Platelet Volume 9.1 fL Neutrophils (%) (Auto) 48.6 % Lymphocytes (%) (Auto) 21.2 % Monocytes (%) (Auto) 13.8 % Eosinophils (%) (Auto) 15.7 % Basophils (%) (Auto) 0.2 % Neutrophils # (Auto) 4.65 K/uL Lymphocytes # (Auto) 2.03 K/uL Monocytes # (Auto) 1.32 K/uL Eosinophils # (Auto) 1.50 K/uL Basophils # (Auto) 0.02 K/uL RDW Standard Deviation 35.5 fL RDW Coefficient of Variation 11.4 % Immature Granulocyte % (Auto) 0.5 % Immature Granulocyte # (Auto) 0.05 K/uL Activated Partial Thromboplast Time 142.4 SECONDS 61.6 SECONDS 67.1 SECONDS Partial Thromboplastin Ratio 5.4 2.4 2.6 Sodium Level 138 mmol/L Potassium Level 4.0 mmol/L Chloride Level 105 mmol/L Carbon Dioxide Level 27 mmol/L Anion Gap 6.0 mmol/L Blood Urea Nitrogen 12 mg/dl Creatinine 0.94 mg/dl Est Creatinine Clear Calc Drug Dose 117.9 ml/min Estimated GFR () 122.1 Estimated GFR (Non- 105.4 BUN/Creatinine Ratio 13.1 Random Glucose 90 mg/dl Calcium Level 8.6 mg/dl Total Bilirubin 0.3 mg/dl Aspartate Amino Transf (AST/SGOT) 19 U/L Alanine Aminotransferase (ALT/SGPT) 22 U/L Alkaline Phosphatase 134 U/L Total Protein 6.8 gm/dl Albumin 2.9 gm/dl Globulin 3.9 gm/dl Albumin/Globulin Ratio 0.7 Prothrombin Time 19.5 SECONDS Prothromb Time International Ratio 1.8 Patient Name: VICKY ESCOBAR II Unit Number: [id number] Dictated: 05/20/171836 Transcribed: 05/20/171836 EV Printed Date/Time: [~ rep prt dt]/[~ rep prt tm] [~ rep ct labl] - [~ rep ct ivnm] [facility] [place] [place] [address] Dictated: 05/20/171836 Transcribed: 05/20/171836 EV Printed Date/Time: [~ rep prt dt]/[~ rep prt tm] [~ rep ct labl] - [~ rep ct ivnm] [~ rep ct add3]] CT ANGIOGRAM OF THE CHEST CLINICAL HISTORY: Atypical chest pain. COMPARISON STUDY: Chest CT scans dated 05/09/2017 and 04/16/2017. Chest x-ray dated 05/10/2017. TECHNIQUE: Following the IV administration of 90 cc of Optiray 320, CT angiogram of the chest was performed from the upper abdomen to the thoracic inlet utilizing the pulmonary embolus protocol. Images are reviewed in the axial, sagittal, and coronal planes. 3-D MIPS images are created and assessed. IV contrast was administered without complication. A dose lowering technique was utilized adhering to the principles of ALARA. CT DOSE: 544.09 mGycm FINDINGS: Thyroid: Imaged portions of the thyroid gland are normal in size and attenuation. Thoracic aorta: The thoracic aorta is normal in caliber and demonstrates standard 3-vessel arch anatomy. No dissection is seen. A right PICC line is in place. Pulmonary vasculature: The pulmonary trunk is normal in caliber. There are no filling defects identified in main, lobar, or segmental pulmonary branches to suggest pulmonary embolus. Heart: The heart is normal in size and configuration, and without pericardial effusion. Lungs and pleural spaces: There is a small right pleural effusion with right basilar consolidation. The lungs are otherwise clear. The trachea and central airways are patent. Mediastinum: There is no mediastinal lymphadenopathy. Unique: Clear. Axillae: There is no axillary lymphadenopathy. Upper abdomen: Partially visualized upper abdominal viscera is within normal limits. Skeletal structures: No lytic or blastic bony lesions are seen. IMPRESSION: 1. There is no evidence of pulmonary embolus in the main, lobar, or segmental pulmonary arteries. 2. There is a small right pleural effusion with associated right basilar consolidation. This has modestly decreased in size from 05/09/2017. Consolidative change likely represents atelectasis. Correlate clinically for evidence of superimposed pneumonia. 3. The lungs are otherwise clear. Electronically signed by: Adán Isaac M.D. 05/20/2017 6:49 PM Dictated Date/Time: 05/20/2017 6:37 PM The status of this report is Signed. Draft = Not yet reviewed or approved by Radiologist. Signed = Reviewed and approved by Radiologist. <AttendingPhy></AttendingPhy> <FamilyPhy>No Doctor, Assigned</FamilyPhy> < PrimaryPhy>No Doctor, Assigned</PrimaryPhy> <UnitNumber>[id number]</UnitNumber> <VisitNumber>[id number]</VisitNumber> <PatientName>VICKY ESCOBAR </ PatientName> <DateOfBirth>1985</DateOfBirth> <Location>[facility]</Location> < ServiceDate>05/20/17</ServiceDate> <MNE>ESINDI</MNE> <OrderingPhy>Adán Howell M.D.</OrderingPhy> <OrderingPhyMNE>f rep ord dr collazo</OrderingPhyMNE> < DictatingPhyMNE>f rep dict dr collazo</DictatingPhyMNE> <CCListMNE>f rep ct nkechie</ CCListMNE> <AdmittingPhyMNE>f pt admit dr collazo</AdmittingPhyMNE> <AttendingPhyMNE >f pt attend dr collazo</AttendingPhyMNE> <ConsultingPhyMNE>f pt consult dr collazo</ConsultingPhyMNE> <FamilyPhyMNE>f pt fam dr collazo</FamilyPhyMNE> <OtherPhyMNE>f pt other dr collazo</OtherPhyMNE> < PrimaryPhyMNE>f pt prim care dr collazo</PrimaryPhyMNE> <ReferringPhyMNE>f pt referring dr collazo</ReferringPhyMNE> Assessment & Plan 32-year-old male with sickle cell trait, recently diagnosed with pneumonia with Actinomyces. He now has upper extremity thrombosis related to his PICC line. Given difficulty with managing his access, I think at this time given his clinical improvement he can be transitioned to oral therapy for Actinomyces with amoxicillin 500 milligrams t.i.d.. He will require prolonged therapy to adequately treat. Will follow while in hospital.
[2017-05-21] MEDS ORDERED: WARFARIN SOD 5 MG TAB PO SCH (16:00)
[2017-05-21] MEDS ORDERED: WARFARIN SOD 2.5 MG TAB PO SCH (16:00)
--- NOTE | 2017-05-21 16:01 | Family Medicine Progress Note ---
Progress Note Date of Service May 21, 2017. Subjective Pt evaluation today including: conversation w/ patient, conversation w/ family , physical exam, lab review Voiding: no voiding problems Patient was seen at the bedside. No acute event overnight. Patient states that he has some discomfort at the area where PICC line is. Denies chest pain, SOB, or calf tenderness. Constitutional: No fever Respiratory: No cough, No sputum, No shortness of breath Cardiovascular: No chest pain, No edema Abdomen: No pain, No nausea, No vomiting Male : No dysuria Skin: No rash Medications Current Inpatient Medications Medications (Trade) Dose Ordered Sig/Herb Route Start Time Stop Time Status Last Admin Dose Admin Ioversol (Optiray 320) 111 ml UD PRN IV 05/20/17 15:30 05/24/17 15:29 Acetaminophen (Tylenol Tab) 650 mg Q4H PRN PO 05/20/17 20:30 06/19/17 20:29 05/21/17 00:07 650 MG Al Hydrox/Mg Hydrox/Simethicone (Maalox Max Susp) 15 ml Q4H PRN PO 05/20/17 20:30 06/19/17 20:29 Magnesium Hydroxide (Milk Of Magnesia Susp) 30 ml Q12H PRN PO 05/20/17 20:30 06/19/17 20:29 Zolpidem Tartrate (Ambien Tab) 5 mg HSZ PRN PO 05/20/17 20:30 06/19/17 20:29 05/21/17 00:07 5 MG Ondansetron HCl (Zofran Inj) 4 mg Q6H PRN IV 05/20/17 20:30 06/19/17 20:29 Polyethylene (Miralax Powder Packet) 17 gm DAILY PRN PO 05/20/17 20:30 06/19/17 20:29 Gabapentin (Neurontin Cap) 200 mg TID PO 05/20/17 21:00 06/19/17 20:59 05/21/17 14:12 200 MG Lactobacillus Acidophilus (Floranex Tab) 4 tab TID PO 05/20/17 21:00 06/19/17 20:59 05/21/17 14:14 4 TAB Metoprolol Tartrate (Lopressor Iv) 5 mg Q4 PRN IV 05/20/17 20:30 06/19/17 20:29 Lorazepam (Ativan Inj) 0.5 mg Q4H PRN IV 05/20/17 22:00 06/19/17 21:59 Heparin Sodium/ Dextrose 500 ml @ 24 mls/hr [id number] PRN IV 05/20/17 22:45 06/19/17 22:44 05/21/17 07:07 29 MLS/HR Warfarin Sodium (Coumadin Tab) 5 mg DAILY@16 PO 05/21/17 16:00 06/20/17 15:59 05/21/17 15:49 5 MG Amoxicillin (Amoxil Cap) 500 mg TID PO 05/21/17 21:00 05/28/17 20:59 UNV Objective Vital Signs Date Time Temp Pulse Resp B/P (MAP) Pulse Ox O2 Delivery O2 Flow Rate FiO2 05/21/17 15:30 36.5 73 18 126/76 (93) 98 Room Air 05/21/17 12:07 Room Air 05/21/17 11:36 36.7 70 18 124/84 (97) Room Air 98.0 05/21/17 08:00 Room Air 05/21/17 07:04 36.8 59 16 107/66 (80) 100 Room Air 05/21/17 04:50 56 18 105/69 (81) 97 Room Air 05/21/17 04:00 Room Air 05/21/17 00:01 Room Air 05/20/17 23:29 36.8 85 20 156/116 (129) 96 Room Air 05/20/17 22:43 37.0 88 18 145/93 97 Room Air 05/20/17 20:30 94 18 135/81 99 Room Air 05/20/17 18:36 100 18 126/89 99 Room Air 05/20/17 16:30 87 15 05/20/17 16:25 76 10 05/20/17 16:20 79 10 05/20/17 16:15 82 18 05/20/17 16:11 104 05/20/17 16:10 90 20 05/20/17 16:05 89 15 05/20/17 16:00 92 17 Physical Exam General Appearance: WD/WN, no apparent distress Neck: supple, trachea midline Respiratory/Chest: chest non-tender, lungs clear, normal breath sounds, no respiratory distress, no accessory muscle use Cardiovascular: regular rate, rhythm Abdomen: normal bowel sounds, non tender, soft Extremities: non-tender, no pedal edema, + pertinent finding (right upper ext: non tender to palpation, no significant edema was noted) Neurologic/Psychiatric: alert, oriented x 3 Skin: normal color, warm/dry, no rash Laboratory Results Results Past 24 Hours Test 05/20/17 16:28 05/20/17 18:40 05/21/17 03:10 05/21/17 03:12 Range/Units Erythrocyte Sedimentation Rate 29 0-14 mm/hr Prothrombin Time 16.7 9.0-12.0 SECONDS Prothromb Time International Ratio 1.5 0.9-1.1 Activated Partial Thromboplast Time 43.2 142.4 21.0-31.0 SECONDS Partial Thromboplastin Ratio 1.7 5.4 Sodium Level 137 138 136-145 mmol/L Potassium Level 3.6 4.0 3.5-5.1 mmol/L Chloride Level 104 105 98-107 mmol/L Carbon Dioxide Level 28 27 21-32 mmol/L Anion Gap 5.0 6.0 3-11 mmol/L Blood Urea Nitrogen 14 12 7-18 mg/dl Creatinine 1.10 0.94 0.60-1.40 mg/dl Est Creatinine Clear Calc Drug Dose 100.7 117.9 ml/min Estimated GFR () 101.0 122.1 Estimated GFR (Non- 87.1 105.4 BUN/Creatinine Ratio 12.5 13.1 10-20 Random Glucose 111 90 70-99 mg/dl Calcium Level 9.0 8.6 8.5-10.1 mg/dl Total Bilirubin 0.2 0.3 0.2-1 mg/dl Aspartate Amino Transf (AST/SGOT) 21 19 15-37 U/L Alanine Aminotransferase (ALT/SGPT) 22 22 12-78 U/L Alkaline Phosphatase 142 134 45-117 U/L Troponin I < 0.015 0-0.045 ng/ml C-Reactive Protein 6.29 0-0.29 mg/dl Total Protein 7.4 6.8 6.4-8.2 gm/dl Albumin 3.3 2.9 3.4-5.0 gm/dl Globulin 4.1 3.9 2.5-4.0 gm/dl Albumin/Globulin Ratio 0.8 0.7 0.9-2 Thyroid Stimulating Hormone (TSH) 0.622 0.300-4.500 uIu/ml Urine Color YELLOW Urine Appearance CLEAR CLEAR Urine pH 6.0 4.5-7.5 Urine Specific [place] 1.036 1.000-1.030 Urine Protein NEG NEG Urine Glucose (UA) NEG NEG Urine Ketones NEG NEG Urine Occult Blood NEG NEG Urine Nitrite NEG NEG Urine Bilirubin NEG NEG Urine Urobilinogen NEG NEG Urine Leukocyte Esterase SMALL NEG Urine WBC (Auto) 10-30 0-5 /hpf Urine RBC (Auto) 0-4 0-4 /hpf Urine Hyaline Casts (Auto) 1-5 0-5 /lpf Urine Epithelial Cells (Auto) 10-20 0-5 /lpf Urine Bacteria (Auto) NEG NEG Urine Opiates Screen NEG NEG Urine Methadone, Qualitative NEG NEG Urine Barbiturates NEG NEG Urine Phencyclidine (PCP) Level NEG NEG Ur Amphetamine/Methamphetamine POS NEG MDMA (Ecstasy) Screen NEG NEG Urine Benzodiazepines Screen NEG NEG Urine Cocaine Metabolite NEG NEG Urine Marijuana (THC) NEG NEG White Blood Count 9.57 4.8-10.8 K/uL Red Blood Count 4.13 4.7-6.1 M/uL Hemoglobin 12.4 14.0-18.0 g/dL Hematocrit 35.5 42-52 % Mean Corpuscular Volume 86.0 80-100 fL Mean Corpuscular Hemoglobin 30.0 25-34 pg Mean Corpuscular Hemoglobin Concent 34.9 32-36 g/dl Platelet Count 253 130-400 K/uL Mean Platelet Volume 9.1 7.4-10.4 fL Neutrophils (%) (Auto) 48.6 % Lymphocytes (%) (Auto) 21.2 % Monocytes (%) (Auto) 13.8 % Eosinophils (%) (Auto) 15.7 % Basophils (%) (Auto) 0.2 % Neutrophils # (Auto) 4.65 1.4-6.5 K/uL Lymphocytes # (Auto) 2.03 1.2-3.4 K/uL Monocytes # (Auto) 1.32 0.11-0.59 K/uL Eosinophils # (Auto) 1.50 0-0.5 K/uL Basophils # (Auto) 0.02 0-0.2 K/uL RDW Standard Deviation 35.5 36.4-46.3 fL RDW Coefficient of Variation 11.4 11.5-14.5 % Immature Granulocyte % (Auto) 0.5 % Immature Granulocyte # (Auto) 0.05 0.00-0.02 K/uL Test 05/21/17 09:34 05/21/17 12:59 Range/Units Prothrombin Time 19.5 9.0-12.0 SECONDS Prothromb Time International Ratio 1.8 0.9-1.1 Activated Partial Thromboplast Time 61.6 67.1 21.0-31.0 SECONDS Partial Thromboplastin Ratio 2.4 2.6 Microbiology Results 05/20/17 Blood Culture, Received Pending 05/20/17 Urine Culture - Preliminary, Resulted NO GROWTH - LESS THAN 1,000 COLONIES/... Assessment and Plan This is a 32 yo m with a history of pulmonary embolism, actinomyces infection requiring IV antibiotics, drug abuse and currently suffering from a thrombosis on his PICC and subtherapeutic INR. Per ID recommendation will switch him from IV penicillin to PO amoxicillin 500mg TID for now. Will continue heparin and Coumadin until he becomes therapeutic. PICC is removed. Will give him Coumadin 7.5mg today. Last INR was 1.8 * Thrombosis on PICC; patient has intra atrial shunt - Right UE US showed nearly occlusive thrombus in the basilic vein associated with the PICC. This is new from prior. 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; thrombophilic state - patient was initially on Xarelto prior to this incident and changed to Coumadin - question poor compliance - will continue 5mg warfarin (which was his current dose at home) and adjust accordingly * Actinomyces infection; pulmonary - Switch to PO Amoxicillin 500mg TID - PICC line is removed - consult ID and appreciated his recommendation * Drug abuse; h/o meth use, Suboxone - discussed with patient to refrain from going outside while he is at the hospital, concern for drug abuse - metoprolol prn for HTN or tachycardia and Ativan for agitation * H/O PTSD/ anxiety/ depression - patient is rather anxious and agitated, quick to get upset with certain remarks - ativan is available for anxiety * DVT Prophylaxis - heparin IV Resident Physician Supervision Note: I was present with Dr. Smalls during the history and exam. I discussed the case with the resident and agree with the findings and plan as documented in the note. Any exceptions or clarifications are listed here: 1) increase Coumadin to 7.5 mg this evening 2) continue heparin drip 3) he has used Lovenox in the past and it may be reasonable to have him overlap for 24-48 hours with therapeutic Coumadin. 4) with his history of lupus anticoagulant, he is probably better on Coumadin rather than a novel anticoagulant as there has been really no literature to support their use in patients with lupus anticoagulant. 5) the patient requested some dietary teaching and information regarding Coumadin and this will be provided for him. Documented By: Erich Hernandez
[2017-05-21] MEDS ORDERED: WARFARIN SOD 0.5 MG TAB PO ONE (17:45)
[2017-05-21] MEDS ORDERED: WARFARIN SOD 1 MG TAB PO ONE (17:45)
[2017-05-21] MEDS: AMOXICILLIN 500 MG CAP PO SCH ×2 (18:16→21:18)
[2017-05-21 19:56] VITALS: BP 144/84; PULSE 85; TEMP 36.7; O2SAT 96
[2017-05-22 00:07] VITALS: BP 121/78; PULSE 88; TEMP 36.8; O2SAT 92
[2017-05-22 03:57] VITALS: BP 143/79; PULSE 73; TEMP 36.8; O2SAT 98
[2017-05-22 06:22] LABS: HEMATOCRIT 37.2 % (42-52); MEAN CELL VOLUME 85.3 fL (80-100); MEAN CORPUSCULAR HGB CONC 35.2 g/dl (32-36); MEAN PLATELET VOLUME 9.3 fL (7.4-10.4); PLATELET COUNT 272 K/uL (130-400); RED BLOOD COUNT 4.36 M/uL (4.7-6.1); WHITE BLOOD COUNT 7.08 K/uL (4.8-10.8)
[2017-05-22 06:41] LABS: INR 1.7 (0.9-1.1); PARTIAL THROMBOPLASTIN RATIO 2.9
[2017-05-22] MEDS: HEPARIN 25,000 UNIT/500ML D5W 500 ML IV PRN (06:57)
[2017-05-22 08:00] VITALS: BP 118/70; PULSE 61; TEMP 36.5; O2SAT 95
[2017-05-22] MEDS: AMOXICILLIN 500 MG CAP PO SCH ×2 (08:23→14:47)
[2017-05-22] MEDS: GABAPENTIN 100 MG CAP PO SCH ×2 (08:23→14:47)
[2017-05-22] MEDS: LACTOBACILLUS ACIDOPHILUS (FLORANEX) TAB PO SCH ×2 (08:23→14:48)
[2017-05-22 11:49] VITALS: BP 148/85; PULSE 72; TEMP 36.6; O2SAT 95
[2017-05-22 12:00] VITALS: O2SAT 95
--- NOTE | 2017-05-22 13:21 | Discharge Instructions ---
Discharge Instructions Date of Service May 22, 2017. Admission Reason for Admission: Thrombosis In Peripherally Inserted Central Cath Discharge Discharge Diagnosis / Problem: Thrombosis in PICC line Discharge Goals Goal(s): Decrease discomfort, Improve function Activity Recommendations Activity Limitations: resume your previous activity . Instructions / Follow-Up Instructions / Follow-Up You were admitted after you were found to have a blood clot in the blood vessel which had the PICC line and was also found to have a low INR. The PICC line was removed and he was started on IV heparin for anticoagulation. You will be transitioned back to Coumadin with a Lovenox bridge treatment for actinomyces has been switched to oral antibiotics Recommendations PICC line thrombosis: - Please use Lovenox 120 milligrams subcutaneous injections every day until your INR is between 2-3 - Use Coumadin 5 mg today and tomorrow - Please check your INR on Wednesday, 05/24 and adjust Coumadin dosage for a goal INR of 2-3( you will need to report to the Coumadin clinic for checking INR) - You can stop the Lovenox once your INR is between 2 and 3 - You may use a compression sleeve to reduce the swelling on your right arm Actinomyces infection: - Continue to use amoxicillin 500 mg 3 times a day for 6 months - Please follow up with infectious disease, Dr. Ng in 2 weeks Please follow-up with your PCP in about a week - Please call Dr. Rivera's office for managing your INR - Follow up with Dr. Ng in 2 weeks Current Hospital Diet Patient's current hospital diet: Regular Diet Discharge Diet Recommended Diet: Regular Diet Pending Studies Studies pending at discharge: no Laboratory Results Last 24 Hours Test 05/22/17 06:05 05/22/17 13:18 White Blood Count 7.08 K/uL Red Blood Count 4.36 M/uL Hemoglobin 13.1 g/dL Hematocrit 37.2 % Mean Corpuscular Volume 85.3 fL Mean Corpuscular Hemoglobin 30.0 pg Mean Corpuscular Hemoglobin Concent 35.2 g/dl RDW Standard Deviation 35.5 fL RDW Coefficient of Variation 11.4 % Platelet Count 272 K/uL Mean Platelet Volume 9.3 fL Prothrombin Time 19.0 SECONDS Prothromb Time International Ratio 1.7 Activated Partial Thromboplast Time 76.3 SECONDS Partial Thromboplastin Ratio 2.9 Medical Emergencies . Who to Call and When: Medical Emergencies: If at any time you feel your situation is an emergency, please call 911 immediately. . Non-Emergent Contact Non-Emergency issues call your: Primary Care Provider . . "Provider Documentation" section prepared by Kait Rodriguez. . VTE Core Measure Inpt VTE Proph given/why not?: Other Anticoagulation (heparin, coumadin)
[2017-05-22] MEDS ORDERED: CMD5 PO (13:36)
[2017-05-22] MEDS ORDERED: AMX500 PO (13:36)
[2017-05-22] MEDS ORDERED: ENOXAPARIN 120 MG/0.8 ML SYR SQ ONE (13:45)
[2017-05-22] MEDS ORDERED: LOVENOX TEACHING KIT ONE (13:45)
[2017-05-22] MEDS ORDERED: AMOX500C3 PO (14:03)
--- NOTE | 2017-05-22 14:04 | Discharge Summary ---
Discharge Summary Date of Service May 22, 2017. (Kait Rodriguez MD) Discharge Summary Admission Date: May 20, 2017 at 20:23 Discharge Date: May 22, 2017 Discharge Disposition: Home Principal Diagnosis: thrombosis of PICC line in right upper extremity Problems/Secondary Diagnoses: Actinomyces pneumonia Consultations: Infectious disease (Kait Rodriguez MD) Medication Reconciliation New Medications: Amoxicillin (Amoxil) 500 Mg Cap 1 CAP PO TID for 30 Days, #90 CAP 6 Refills Warfarin Sod (Coumadin) 5 Mg Tab 5 MG PO DAILY@16 for 30 Days, TAB Continued Medications: Buprenorphine Hcl-Naloxone Hcl (Suboxone 8-2 Mg) 1 Sub Sub 0.5 TAB PO DAILY Gabapentin (Neurontin) 100 Mg Cap 200 MG PO TID, CAP Lactobacillus (Floranex) 1 Tab Tab 4 TABS PO TID Discontinued Medications: Warfarin Sodium (Coumadin) 5 Mg Tab 2.5 MG PO Q2D, TAB Warfarin Sodium (Coumadin) 5 Mg Tab 5 MG PO Q2D, TAB Discharge Exam Denies any chest pain, shortness of breath, palpitations, cough. Denies any fevers or chills or worsening pain at the site of DVT in his right upper extremity Review of Systems: Constitutional: No fever, No chills Eyes: No worsening of vision ENT: No hearing loss Respiratory: No cough, No sputum Abdomen: No pain, No nausea, No vomiting Genitourinary - Male: No hematuria, No dysuria Neurologic: No memory loss Psychiatric: No depression symptoms Endocrine: No fatigue Physical Exam: General Appearance: WD/WN, no apparent distress Eyes: normal inspection ENT: hearing grossly normal Neck: supple Respiratory/Chest: lungs clear, normal breath sounds, no respiratory distress Cardiovascular: regular rate, rhythm Abdomen / GI: normal bowel sounds, non tender, soft Extremities: no calf tenderness, no pedal edema, + pertinent finding ( swelling in the right upper extremity, nontender, nonerythematous) Neurologic/Psychiatric: alert, normal mood/affect Skin: normal color, warm/dry, no rash (Kait Rodriguez MD) Hospital Course 32-year-old male with a past medical history of sickle cell trait, lupus anticoagulant, pulmonary emboli, drug abuse and actinomyces pulmonary infection present to the ER with complaints of right arm pain and swelling surrounding his PICC line. The patient was recently admitted to [facility] For pulmonary embolus and pneumonia on April 29. He was found to have an actinomyces infection and treated with penicillin G for 6 weeks via his PICC line. He was also discharged on Coumadin to manage his PE. The patient stated that he had been compliant with his Coumadin and had been following with the Coumadin clinic. An echo during that time revealed an intra atrial shunt In the ED, he was found to have a subtherapeutic INR And a Doppler ultrasound of his right upper extremity revealed a nearly occlusive thrombus in the basilic vein Near his PICC line. He was started on IV heparin and the PICC line was removed. He was bridged to Coumadin using IV heparin initially and later was discharged on Lovenox to bridge with Coumadin. He was recommended to use 5 mg of Coumadin for 2 days along with Lovenox and check his INR on Wednesday and adjust his Coumadin dosage. In regards to his actinomyces lung infection, IV penicillin was switched to by mouth amoxicillin 500 mg 3 times a day For about 6 months per ID recommendations. He was recommended to follow up with Dr. Ng's office in 2 weeks Total Time Spent: Greater than 30 minutes This includes examination of the patient, discharge planning, medication reconciliation, and communication with other providers. (Kait Rodriguez MD) Resident Physician Supervision Note: I was present with Dr. Rodriguez during the history and exam. I discussed the case with the resident and agree with the findings and plan as documented in the note. Any exceptions or clarifications are listed here: Documented By: Erich Hernandez Total Time Spent: Greater than 30 minutes I spent 50 minutes in the discharge of this patient. (Erich Hernandez.,D.O.) Discharge Instructions Please refer to the electronic Patient Visit Report (Discharge Instructions) for additional information. (Kait Rodriguez MD) Follow-Up Follow up with Coumadin clinic on Thursday 05/24 to check INR and adjust Coumadin dosage. Follow-up with PCP within one week Follow-up with Dr. Ng's office in 2 weeks. (Kait Rodriguez MD) Resident Tracking Resident Involvement: Resident Care Provided Care Provided: Adult Hospital Medicine (Kait Rodriguez MD)
[2017-05-22 14:18] LABS: PARTIAL THROMBOPLASTIN RATIO 2.7
[2017-05-22 14:33] VITALS: BP 148/85; PULSE 72; TEMP 36.6; O2SAT 95
[2017-05-22] MEDS ORDERED: WARFARIN SOD 5 MG TAB PO SCH (16:00)
== END 2017-05-22 15:22 | disposition home or self-care (01) | DRG 315 ==
LOC: C.EDB 13:46 → C.MED 20:23 → ENRESERV 20:48
PROVIDERS: ADMIT Internal Medicine; ATTEND Internal Medicine
PROC: 05PYX3Z Removal of Infusion Device from Upper Vein, External Approach (ICD-10-PCS; principal; 2017-05-21)
DX: T82.868A Thrombosis due to vascular prosthetic devices, implants and grafts, initial encounter (principal); I82.621 Acute embolism and thrombosis of deep veins of right upper extremity; A42.0 Pulmonary actinomycosis; F17.200 Nicotine dependence, unspecified, uncomplicated; D57.3 Sickle-cell trait; Z86.711 Personal history of pulmonary embolism; F43.10 Post-traumatic stress disorder, unspecified; F63.81 Intermittent explosive disorder; Y71.2 Prosthetic and other implants, materials and accessory cardiovascular devices associated with adverse incidents; Y92.009 Unspecified place in unspecified non-institutional (private) residence as the place of occurrence of the external cause; F15.10 Other stimulant abuse, uncomplicated; R79.1 Abnormal coagulation profile

== ENCOUNTER → 2017-05-27 | Outpatient (CLI) | payer OTHER ==
[~2017-05-27] MED LIST changes: +AMOX500C3 PO; +BUPR1SUB23 PO; +CMD5 PO; +LACT1TAB4 PO; -LCTX PO; -WARF5TAB90 PO
[2017-05-27 14:52] LABS: PROTHROMBIN TIME (PATIENT) 22.6 SECONDS (9.0-12.0)
== END | disposition home or self-care (01) ==
LOC: C.LAB1850 12:58
PROVIDERS: ATTEND Internal Medicine
DX: I26.99 Other pulmonary embolism without acute cor pulmonale (principal)

== ENCOUNTER → 2017-05-28 | Outpatient (CLI) | payer OTHER ==
--- NOTE | 2017-05-28 11:43 | DIAGNOSTIC IMAGING REPORT ---
CHEST 2 VIEWS ROUTINE HISTORY: J18.9 [id number] Pleural effusion on right COMPARISON: Chest 05/10/2017. FINDINGS: The heart is normal in size. The left lung is clear. No pneumothorax. Small right pleural effusion has slightly increased in size. A few linear densities the right lung base persist and favor subsegmental atelectasis. IMPRESSION: Slight increase in size in the small right pleural effusion. Electronically signed by: Edmond Garner M.D. 05/28/2017 11:41 AM Dictated Date/Time: 05/28/2017 11:39 AM
== END | disposition home or self-care (01) ==
LOC: C.RAD1850 10:55
PROVIDERS: ATTEND Physician Assistant
DX: J18.9 Pneumonia, unspecified organism (principal); J90 Pleural effusion, not elsewhere classified

== ENCOUNTER → 2017-07-27 | Outpatient (CLI) | payer OTHER ==
[2017-07-27 17:25] LABS: MEAN CELL VOLUME 84.2 fL (80-100); MEAN CORPUSCULAR HEMOGLOBIN 29.8 pg (25-34); MEAN CORPUSCULAR HGB CONC 35.4 g/dl (32-36); MEAN PLATELET VOLUME 9.8 fL (7.4-10.4); PLATELET COUNT 217 K/uL (130-400); RED BLOOD COUNT 4.63 M/uL (4.7-6.1); WHITE BLOOD COUNT 7.28 K/uL (4.8-10.8)
[2017-07-27 17:33] LABS: INR 1.4 (0.9-1.1); PROTHROMBIN TIME (PATIENT) 14.7 SECONDS (9.0-12.0)
== END | disposition home or self-care (01) ==
LOC: C.LAB1850 16:27
PROVIDERS: ATTEND Internal Medicine
DX: R41.3 Other amnesia (principal); I26.99 Other pulmonary embolism without acute cor pulmonale

== ENCOUNTER 2017-10-08 18:50 | Emergency (ER) | payer OTHER ==
[~2017-10-08] VITALS: Ht 180.3 cm; Wt 86.6 kg
[2017-10-08 18:55] VITALS: TEMP 36.4; Ht 180.3 cm; Wt 86.6 kg
--- NOTE | 2017-10-08 19:15 | EMERGENCY ROOM VISIT NOTE ---
History Report prepared by Kevinibe: Ewa Quiroga Under the Supervision of: Dr. Greg Murphy M.D. First contact with patient: 19:04 Chief Complaint: SYNCOPE Stated Complaint: DISORIENTED,PASSED OUT,TROUBLE BREATHING History of Present Illness The patient is a 32 year old male who presents to the Emergency Room with complaints of a syncopal episode that occurred earlier this evening. He states he was hanging out with friends at the [place], a local bar and bowling [employer], this evening. He went out to his car and reports he woke up "45 minutes later" unaware of what had happened. The patient states he started to feel dizzy and experienced abdominal pain before the episode occurred. He notes he did eat at [employer] earlier today. He denies sustaining and any injuries during the episode. He did experience some trouble breathing when he initially came too. He also complains of "hot flashes" in his arms for the past few weeks. The patient has a history of pulmonary embolism, found in May 2017, and is currently on Coumadin. He also complains of worsening anxiety recently and states he has been fatigued as he hasn't been sleeping well for the past few weeks. Source of History: patient Onset: SUSPENSION CORD TIER Position: other (global) Timing: resolved Associated Symptoms: + LOC, + SOB, + abdominal pain, + fatigue Review of Systems See HPI for pertinent positives & negatives. A total of 10 systems reviewed and were otherwise negative. Past Medical & Surgical Medical Problems: (1) Chest pain, pleuritic (2) Pulmonary embolism (3) Thrombosis in peripherally inserted central catheter (PICC) Family History FH: pulmonary embolism Heart disease Hypertension Social History Smoking Status: Current Every Day Smoker Alcohol Use: heavy Drug Use: other Marital Status: in relationship Housing Status: lives with significant other Occupation Status: employed Current/Historical Medications Scheduled Buprenorphine Hcl-Naloxone Hcl (Suboxone 8-2 Mg), 0.5 TAB PO DAILY Gabapentin (Neurontin), 200 MG PO TID Lactobacillus (Floranex), 4 TABS PO TID Warfarin Sod (Coumadin), 5 MG PO DAILY@16 Allergies Coded Allergies: Fish (Verified Allergy, Severe, ANAPHYLAXIS, 04/24/17) Physical Exam Vital Signs Date Time Temp Pulse Resp B/P (MAP) Pulse Ox O2 Delivery O2 Flow Rate FiO2 10/08/17 20:09 67 20 128/97 97 Room Air 10/08/17 19:29 67 144/84 71 143/89 72 141/87 10/08/17 19:27 98 Room Air 10/08/17 19:25 73 10/08/17 18:55 36.4 70 18 145/95 100 Room Air Physical Exam GENERAL: Patient is a healthy-appearing well-nourished 32 year old male HEAD: Normocephalic atraumatic EYES: Ocular movements intact pupils equal and react to light OROPHARYNX mucous membranes are moist no exudates present no erythema or edema present NECK: Supple no nuchal rigidity CHEST: Good equal expansion LUNGS: Clear and equal to auscultation CARDIAC: Normal S1 and S2 ABDOMEN: Soft nontender no guarding BACK: No CVA tenderness EXTREMITIES: No pain upon palpation normal muscle strength in all groups no clubbing cyanosis or edema NEURO: Patient is following commands and answering questions appropriately. Alert and oriented x3 Cranial Nerves 2-12 grossly intact Medical Decision & Procedures ER Provider Diagnostic Interpretation: Radiology results as stated below per my review and radiologist interpretation: CHEST ONE VIEW PORTABLE CLINICAL HISTORY: Shortness of breath. COMPARISON STUDY: Chest CT May 20, 2017 and chest radiograph May 28, 2017. FINDINGS: Lung volumes are normal. No pneumothorax or pleural effusion is noted. Pulmonary vascularity is normal. Cardiomediastinal silhouette is normal. No consolidation is identified. IMPRESSION: No acute cardiopulmonary findings. Electronically signed by: Robert Schulte M.D. 10/08/2017 7:43 PM Laboratory Results 10/08/17 19:23 Red Blood Count 4.60, Mean Corpuscular Volume 86.1, Mean Corpuscular Hemoglobin 30.4, Mean Corpuscular Hemoglobin Concent 35.4, Mean Platelet Volume 9.3, Neutrophils (%) (Auto) 50.8, Lymphocytes (%) (Auto) 34.7, Monocytes (%) (Auto) 10.7, Eosinophils (%) (Auto) 3.0, Basophils (%) (Auto) 0.4, Neutrophils # (Auto ) 3.42, Lymphocytes # (Auto) 2.34, Monocytes # (Auto) 0.72, Eosinophils # (Auto ) 0.20, Basophils # (Auto) 0.03 10/08/17 19:23 Test 10/08/17 19:21 10/08/17 19:23 10/08/17 19:46 Bedside Glucose 83 mg/dl (70-99) White Blood Count 6.74 K/uL (4.8-10.8) Red Blood Count 4.60 M/uL (4.7-6.1) Hemoglobin 14.0 g/dL (14.0-18.0) Hematocrit 39.6 % (42-52) Mean Corpuscular Volume 86.1 fL (80-100) Mean Corpuscular Hemoglobin 30.4 pg (25-34) Mean Corpuscular Hemoglobin Concent 35.4 g/dl (32-36) Platelet Count 239 K/uL (130-400) Mean Platelet Volume 9.3 fL (7.4-10.4) Neutrophils (%) (Auto) 50.8 % Lymphocytes (%) (Auto) 34.7 % Monocytes (%) (Auto) 10.7 % Eosinophils (%) (Auto) 3.0 % Basophils (%) (Auto) 0.4 % Neutrophils # (Auto) 3.42 K/uL (1.4-6.5) Lymphocytes # (Auto) 2.34 K/uL (1.2-3.4) Monocytes # (Auto) 0.72 K/uL (0.11-0.59) Eosinophils # (Auto) 0.20 K/uL (0-0.5) Basophils # (Auto) 0.03 K/uL (0-0.2) RDW Standard Deviation 39.4 fL (36.4-46.3) RDW Coefficient of Variation 12.4 % (11.5-14.5) Immature Granulocyte % (Auto) 0.4 % Immature Granulocyte # (Auto) 0.03 K/uL (0.00-0.02) Prothrombin Time 28.1 SECONDS (9.0-12.0) Prothromb Time International Ratio 2.7 (0.9-1.1) Anion Gap 5.0 mmol/L (3-11) Est Creatinine Clear Calc Drug Dose 95.5 ml/min Estimated GFR () 94.7 Estimated GFR (Non- 81.7 BUN/Creatinine Ratio 16.9 (10-20) Calcium Level 8.3 mg/dl (8.5-10.1) Total Bilirubin 0.3 mg/dl (0.2-1) Direct Bilirubin < 0.1 mg/dl (0-0.2) Aspartate Amino Transf (AST/SGOT) 32 U/L (15-37) Alanine Aminotransferase (ALT/SGPT) 42 U/L (12-78) Alkaline Phosphatase 129 U/L (45-117) Total Creatine Kinase 498 U/L (39-308) Creatine Kinase MB 2.9 ng/ml (0.5-3.6) Creatine Kinase MB Ratio 0.6 (0-3.0) Troponin I < 0.015 ng/ml (0-0.045) Total Protein 7.4 gm/dl (6.4-8.2) Albumin 3.8 gm/dl (3.4-5.0) Thyroid Stimulating Hormone (TSH) 1.710 uIu/ml (0.300-4.500) Urine Color YELLOW Urine Appearance CLEAR (CLEAR) Urine pH 6.0 (4.5-7.5) Urine Specific [place] 1.020 (1.000-1.030) Urine Protein NEG (NEG) Urine Glucose (UA) NEG (NEG) Urine Ketones NEG (NEG) Urine Occult Blood NEG (NEG) Urine Nitrite NEG (NEG) Urine Bilirubin NEG (NEG) Urine Urobilinogen NEG (NEG) Urine Leukocyte Esterase TRACE (NEG) Urine WBC (Auto) 1-5 /hpf (0-5) Urine RBC (Auto) 0-4 /hpf (0-4) Urine Hyaline Casts (Auto) 1-5 /lpf (0-5) Urine Epithelial Cells (Auto) 5-10 /lpf (0-5) Urine Bacteria (Auto) NEG (NEG) Labs reviewed by ED physician. ECG Indication: syncope Rate (beats per minute): 62 Rhythm: normal sinus Findings: T-wave inversion (Inferior) Change: no significant change (No change from 05/20/17) ED Course 190: Past medical records reviewed. The patient was evaluated in room C9. A complete history and physical examination was performed. 2008: I reevaluated the patient. He is resting comfortably. I discussed his results and discharge instructions and he verbalized complete understanding and agreement. Medical Decision Prior records/ancillary studies reviewed. Triage Nursing notes reviewed. The patient's history was concerning for syncope. Differential diagnosis: Etiologies such as vasovagal event, infection, hypoglycemia, electrolyte abnormalities, cardiac sources, intracerebral event, toxicologic, neurologic, as well as others were entertained. This is a 32-year-old male who presents emergency department complaining of shortness of a syncopal episode. The patient has a history of PE however he denies any chest pain. In addition he is not tachycardic. His INR level is therapeutic at 2.7. Based on these findings my suspicion of a PE is exceedingly low. The patient feels that he has had an anxiety attack. This would certainly fit with his complaints of numbness and tingling in his arms and legs. His normal CBC normal renal profile normal liver profile. His EKG is unchanged from previous. Based on these findings I feel the patient can be safely discharged home for follow-up with his primary care physician. Patient was in agreement with the treatment plan. Medication Reconcilliation Current Medication List: was personally reviewed by me Blood Pressure Screening Patient's blood pressure: Elevated blood pressure Blood pressure disposition: Referred to PCP Impression Primary Impression: Vasovagal syncope Additional Impression: Syncope Scribe Attestation The scribe's documentation has been prepared under my direction and personally reviewed by me in its entirety. I confirm that the note above accurately reflects all work, treatment, procedures, and medical decision making performed by me. Departure Information Dispostion Home / Self-Care Referrals No Doctor, Assigned (PCP) Patient Instructions Anxiety Body Response, ED Syncope Vasovagal, My [facility] Additional Instructions Increase fluids next 48 hours You have been examined and treated today on an emergency basis only. This is not a substitute for, or an effort to provide, complete comprehensive medical care. It is impossible to recognize and treat all injuries or illnesses in a single emergency department visit. It is therefore important that you follow up closely with your PCP. Call as soon as possible for an appointment. Thank you for your time and consideration. I look forward to speaking with you again soon. Please don't hesitate to call us if you have any questions. Problem Qualifiers Additional Impression: Syncope Syncope type: vasovagal syncope Qualified Codes: R55 - Syncope and collapse
[2017-10-08 19:27] VITALS: O2SAT 98
[2017-10-08 19:35] LABS: BASO % 0.4 %; BASO ABS # 0.03 K/uL (0-0.2); HEMATOCRIT 39.6 % (42-52); IG# 0.03 K/uL (0.00-0.02); LYMPH % 34.7 %; LYMPH ABS # 2.34 K/uL (1.2-3.4); MEAN CELL VOLUME 86.1 fL (80-100); MEAN CORPUSCULAR HEMOGLOBIN 30.4 pg (25-34); MEAN CORPUSCULAR HGB CONC 35.4 g/dl (32-36); MEAN PLATELET VOLUME 9.3 fL (7.4-10.4); MONO % 10.7 %; MONO ABS # 0.72 K/uL (0.11-0.59); NEUT % 50.8 %; NEUT ABS # 3.42 K/uL (1.4-6.5); PLATELET COUNT 239 K/uL (130-400); RED CELL DISTRIBUTION WIDTH CV 12.4 % (11.5-14.5); RED CELL DISTRIBUTION WIDTH SD 39.4 fL (36.4-46.3); WHITE BLOOD COUNT 6.74 K/uL (4.8-10.8)
--- NOTE | 2017-10-08 19:44 | DIAGNOSTIC IMAGING REPORT ---
CHEST ONE VIEW PORTABLE CLINICAL HISTORY: Shortness of breath. COMPARISON STUDY: Chest CT May 20, 2017 and chest radiograph May 28, 2017. FINDINGS: Lung volumes are normal. No pneumothorax or pleural effusion is noted. Pulmonary vascularity is normal. Cardiomediastinal silhouette is normal. No consolidation is identified. IMPRESSION: No acute cardiopulmonary findings. Electronically signed by: Robert Schulte M.D. 10/08/2017 7:43 PM Dictated Date/Time: 10/08/2017 7:42 PM
[2017-10-08 19:48] LABS: INR 2.7 (0.9-1.1)
[2017-10-08 19:55] LABS: ALBUMIN 3.8 gm/dl (3.4-5.0); ALT/SGPT 42 U/L (12-78); BLOOD UREA NITROGEN 20 mg/dl (7-18); CALCIUM 8.3 mg/dl (8.5-10.1); CARBON DIOXIDE 29 mmol/L (21-32); CREATININE 1.16 mg/dl (0.60-1.40); GLUCOSE 70 mg/dl (70-99); POTASSIUM 4.1 mmol/L (3.5-5.1); SODIUM 140 mmol/L (136-145)
[2017-10-08 20:06] LABS: ALKALINE PHOSPHATASE 129 U/L (45-117); AST/SGOT 32 U/L (15-37); CKMB 2.9 ng/ml (0.5-3.6); TOTAL PROTEIN 7.4 gm/dl (6.4-8.2)
[2017-10-08 20:09] VITALS: BP 128/97; PULSE 67; O2SAT 97
== END 2017-10-08 20:22 | disposition home or self-care (01) ==
LOC: C.EDB 18:53 → C.EDC 20:22
DX: R55 Syncope and collapse (principal); Z86.711 Personal history of pulmonary embolism; Z86.718 Personal history of other venous thrombosis and embolism; F17.210 Nicotine dependence, cigarettes, uncomplicated; Z79.01 Long term (current) use of anticoagulants

== ENCOUNTER 2017-10-16 12:19 | Emergency (ER) | payer OTHER ==
[~2017-10-16] VITALS: Ht 180.3 cm; Wt 88.5 kg
[~2017-10-16 12:19] MED LIST changes: -AMOX500C3 PO
[2017-10-16 12:30] VITALS: TEMP 36.6
[2017-10-16 13:03] VITALS: Ht 180.3 cm; Wt 88.5 kg
[2017-10-16 13:17] LABS: BASO % 0.2 %; BASO ABS # 0.02 K/uL (0-0.2); EOS % 1.7 %; EOS ABS # 0.21 K/uL (0-0.5); HEMATOCRIT 37.9 % (42-52); HEMOGLOBIN 13.8 g/dL (14.0-18.0); IG# 0.03 K/uL (0.00-0.02); LYMPH % 16.9 %; LYMPH ABS # 2.11 K/uL (1.2-3.4); MEAN CELL VOLUME 85.2 fL (80-100); MEAN CORPUSCULAR HGB CONC 36.4 g/dl (32-36); MEAN PLATELET VOLUME 9.7 fL (7.4-10.4); MONO % 13.5 %; MONO ABS # 1.68 K/uL (0.11-0.59); NEUT % 67.5 %; NEUT ABS # 8.43 K/uL (1.4-6.5); PLATELET COUNT 248 K/uL (130-400); RED CELL DISTRIBUTION WIDTH CV 12.4 % (11.5-14.5); RED CELL DISTRIBUTION WIDTH SD 38.5 fL (36.4-46.3); WHITE BLOOD COUNT 12.48 K/uL (4.8-10.8)
[2017-10-16] MEDS ORDERED: BUPR1SUB23 SL (13:22)
[2017-10-16 13:24] LABS: INR 3.4 (0.9-1.1); PTT PATIENT 43.1 SECONDS (21.0-31.0)
--- NOTE | 2017-10-16 13:24 | DIAGNOSTIC IMAGING REPORT ---
CHEST ONE VIEW PORTABLE CLINICAL HISTORY: EVALUATE RESPIRATORY DISTRESS.DYSPNEA dyspnea COMPARISON STUDY: 10/08/2017 FINDINGS: The bones soft tissues and hemidiaphragms are normal. The cardiomediastinal silhouette is normal. The lungs are clear. The pulmonary vasculature is normal. IMPRESSION: Negative chest. The above report was generated using voice recognition software. It may contain grammatical, syntax or spelling errors. Electronically signed by: Mark Anthony Vasquez M.D. 10/16/2017 1:22 PM Dictated Date/Time: 10/16/2017 1:22 PM
[2017-10-16 13:25] LABS: ALBUMIN 3.8 gm/dl (3.4-5.0); ALT/SGPT 51 U/L (12-78); BLOOD UREA NITROGEN 13 mg/dl (7-18); CALCIUM 8.6 mg/dl (8.5-10.1); CARBON DIOXIDE 27 mmol/L (21-32); CREATININE 1.01 mg/dl (0.60-1.40); GLUCOSE 105 mg/dl (70-99); POTASSIUM 3.8 mmol/L (3.5-5.1); SODIUM 140 mmol/L (136-145)
--- NOTE | 2017-10-16 13:30 | EMERGENCY ROOM VISIT NOTE ---
History Report prepared by Silvina: Peyton Westbrook Under the Supervision of: Dr. Marcus Hull M.D. First contact with patient: 12:43 Chief Complaint: OTHER COMPLAINT Stated Complaint: PULMONARY EMBOLISM,PT HAS HX OF,SWOLLEN FEET History of Present Illness The patient is a 32 year old black male with a past medical history of PE and anxiety who presents to the ED with a cc of leg pain beginning 8 days ago. The patient states that he was admitted to the hospital recently for a PE. He reports that he has been taking Coumadin since his visit. 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 Positive shortness of breath, left arm pain, foot swelling and foot pain. Negative recent trauma. The patient states that he has not been sleeping well in the past 2 days. He reports that he is a smoker and drank last over 6 months ago. Source of History: patient Onset: 8 days ago Position: leg Timing: constant Associated Symptoms: + SOB Note: Positive foot swelling and pain. Negative trauma. Review of Systems See HPI for pertinent positives and negatives. A total of ten systems were reviewed and were otherwise negative. Past Medical & Surgical Medical Problems: (1) Chest pain, pleuritic (2) Pulmonary embolism (3) Thrombosis in peripherally inserted central catheter (PICC) Family History FH: pulmonary embolism Heart disease Hypertension Social History Smoking Status: Current Every Day Smoker Alcohol Use: heavy Drug Use: other Marital Status: in relationship Housing Status: lives with significant other Occupation Status: employed Current/Historical Medications Scheduled Azithromycin (Zithromax), 250 MG PO DAILY Buprenorphine Hcl-Naloxone Hcl (Suboxone 8-2 Mg), 0.5 DOSE SL DAILY Gabapentin (Neurontin), 200 MG PO TID Lactobacillus (Floranex), 4 TABS PO TID Warfarin Sod (Coumadin), 5 MG PO DAILY@16 Allergies Coded Allergies: Shellfish (Verified Allergy, Unknown, ANAPHYLAXIS, 10/16/17) Physical Exam Vital Signs Date Time Temp Pulse Resp B/P (MAP) Pulse Ox O2 Delivery O2 Flow Rate FiO2 10/16/17 15:30 71 15 128/85 100 Room Air 10/16/17 14:39 78 14 128/77 97 Room Air 10/16/17 13:43 89 10/16/17 13:39 98 17 142/76 99 Room Air 10/16/17 13:39 99 Room Air 10/16/17 12:30 36.6 108 20 149/83 100 Room Air Physical Exam GENERAL: Awake, alert, well-appearing, NAD HENT: Normocephalic, atraumatic. EYES: Normal conjunctiva. Sclera non-icteric. NECK: Supple. No nuchal rigidity. FROM. RESPIRATORY: CTAB, no rhonchi, wheezing, crackles CARDIAC: RRR, no MRG ABDOMEN: Soft, NTND, BS+ MSK: No chest wall TTP, non pitting edema around the ankles, no warmth noted, compartments soft. NVI distally NEURO: GCS 15, CN 2-12 intact, moves all 4s on command SKIN: No rash or jaundice noted. Medical Decision & Procedures ER Provider Diagnostic Interpretation: Radiology results as stated below per my review and radiologist interpretation: VENOUS DOPPLER LWR EXT BILA IMPRESSION: No DVT within the right or left lower extremity. The above report was generated using voice recognition software. It may contain grammatical, syntax or spelling errors Electronically signed by: Mark Anthony Vasquez M.D. 10/16/2017 3:14 PM Dictated Date/Time: 10/16/2017 3:11 PM (CHEST FOR PE) ANGIO WITH COMPARISON STUDY: 05/20/2017 FINDINGS: There is a normal caliber thoracic aorta with no evidence for dissection. There is no evidence for pulmonary embolus. No pleural effusions. No pneumothorax. The liver and spleen are unremarkable. No mediastinal or hilar lymphadenopathy. The central airways are patent. The lungs demonstrate minimal interstitial infiltrative change right pulmonary apex. IMPRESSION: No evidence for pulmonary embolus. Minimal interstitial infiltrate right pulmonary apex. The above report was generated using voice recognition software. It may contain grammatical, syntax or spelling errors. Electronically signed by: Mark Anthony Vasquez M.D. 10/16/2017 3:26 PM Dictated Date/Time: 10/16/2017 3:21 PM CHEST ONE VIEW PORTABLE FINDINGS: The bones soft tissues and hemidiaphragms are normal. The cardiomediastinal silhouette is normal. The lungs are clear. The pulmonary vasculature is normal. IMPRESSION: Negative chest. The above report was generated using voice recognition software. It may contain grammatical, syntax or spelling errors. Electronically signed by: Mark Anthony Vasquez M.D. 10/16/2017 1:22 PM Dictated Date/Time: 10/16/2017 1:22 PM Laboratory Results 10/16/17 12:45 Red Blood Count 4.45, Mean Corpuscular Volume 85.2, Mean Corpuscular Hemoglobin 31.0, Mean Corpuscular Hemoglobin Concent 36.4, Mean Platelet Volume 9.7, Neutrophils (%) (Auto) 67.5, Lymphocytes (%) (Auto) 16.9, Monocytes (%) (Auto) 13.5, Eosinophils (%) (Auto) 1.7, Basophils (%) (Auto) 0.2, Neutrophils # (Auto ) 8.43, Lymphocytes # (Auto) 2.11, Monocytes # (Auto) 1.68, Eosinophils # (Auto ) 0.21, Basophils # (Auto) 0.02 10/16/17 12:45 Test 10/16/17 12:45 White Blood Count 12.48 K/uL (4.8-10.8) Red Blood Count 4.45 M/uL (4.7-6.1) Hemoglobin 13.8 g/dL (14.0-18.0) Hematocrit 37.9 % (42-52) Mean Corpuscular Volume 85.2 fL (80-100) Mean Corpuscular Hemoglobin 31.0 pg (25-34) Mean Corpuscular Hemoglobin Concent 36.4 g/dl (32-36) Platelet Count 248 K/uL (130-400) Mean Platelet Volume 9.7 fL (7.4-10.4) Neutrophils (%) (Auto) 67.5 % Lymphocytes (%) (Auto) 16.9 % Monocytes (%) (Auto) 13.5 % Eosinophils (%) (Auto) 1.7 % Basophils (%) (Auto) 0.2 % Neutrophils # (Auto) 8.43 K/uL (1.4-6.5) Lymphocytes # (Auto) 2.11 K/uL (1.2-3.4) Monocytes # (Auto) 1.68 K/uL (0.11-0.59) Eosinophils # (Auto) 0.21 K/uL (0-0.5) Basophils # (Auto) 0.02 K/uL (0-0.2) RDW Standard Deviation 38.5 fL (36.4-46.3) RDW Coefficient of Variation 12.4 % (11.5-14.5) Immature Granulocyte % (Auto) 0.2 % Immature Granulocyte # (Auto) 0.03 K/uL (0.00-0.02) Prothrombin Time 35.3 SECONDS (9.0-12.0) Prothromb Time International Ratio 3.4 (0.9-1.1) Activated Partial Thromboplast Time 43.1 SECONDS (21.0-31.0) Partial Thromboplastin Ratio 1.7 Anion Gap 7.0 mmol/L (3-11) Est Creatinine Clear Calc Drug Dose 109.7 ml/min Estimated GFR () 112.0 Estimated GFR (Non- 96.6 BUN/Creatinine Ratio 12.9 (10-20) Calcium Level 8.6 mg/dl (8.5-10.1) Total Bilirubin 0.3 mg/dl (0.2-1) Aspartate Amino Transf (AST/SGOT) 32 U/L (15-37) Alanine Aminotransferase (ALT/SGPT) 51 U/L (12-78) Alkaline Phosphatase 136 U/L (45-117) Troponin I < 0.015 ng/ml (0-0.045) Pro-B-Type Natriuretic Peptide 7 pg/ml (0-450) Total Protein 7.4 gm/dl (6.4-8.2) Albumin 3.8 gm/dl (3.4-5.0) Globulin 3.6 gm/dl (2.5-4.0) Albumin/Globulin Ratio 1.0 (0.9-2) Laboratory results reviewed by me Medications Administered Medications (Trade) Dose Ordered Sig/Herb Route Start Time Stop Time Status Last Admin Dose Admin Azithromycin (Zithromax Tab) 500 mg NOW ONCE PO 10/16/17 15:45 10/16/17 15:46 DC 10/16/17 15:59 500 MG ECG Indication: SOB/dyspnea Rate (beats per minute): 92 Rhythm: normal sinus Findings: T-wave inversion (lead 3), other (normal axis, normal intervals, no other TWI or STS changes) ED Course 1243: The patient was evaluated in room B3. A complete history and physical exam was performed. 1602: I reevaluated and updated the patient. The patient is going to discuss his anxiety with a case advocate before going home. I reevaluated the patient. Discussed results and discharge instructions: He verbalized understanding and agreement. The patient is ready for discharge. Medical Decision The patient is a 32 year old black male with a past medical history of PE and anxiety who presents to the ED with a cc of leg pain beginning 8 days ago. Differential diagnosis: Etiologies such as anxiety, infections, reactive airway disease, pneumonia, pneumothorax, COPD, CHF, cardiac ischemia, pulmonary embolism, musculoskeletal, gastrointestinal, as well as others were entertained. Patient seen and evaluated at the bedside. Patient is a prior history of PE and DVTs. Also is a prior history of alcohol in drug abuse in the past. Patient denies any recent alcohol or drug abuse. States he has not had a drink in 6 months. Patient was admitted for PE discharge on Coumadin back in May. Patient states been compliant with his medications. Patient has noticed some bilateral lower extremity swelling as well as some shortness of breath. Patient denies any cough. Of note patient is a smoker. Patient denies any hemoptysis or recent prolonged car or plane travel. Patient did have blood work , EKG, troponin, BNP, CT PE. Patient's EKG nonischemic without noted right heart strain. Patient troponin negative. BNP is not elevated. Patient chest x -ray clear. B/l LE dopplers performed. Patient's CT PE or PE protocol negative for PEs. Patient does have crushable interstitial infiltrate in the right apex. Patient was given azithromycin. Bilateral lower extremity Dopplers were negative for acute DVT. Patient's other blood work was fairly unremarkable. Given the patient's white blood cell count of 12,000 with his interstitial infiltrate patient was given antibiotics. Patient was counseled on smoking cessation. Patient was having some anxiety patient was given some outpatient resources via the site case advocate. Patient was deemed suitable for outpatient follow-up and treatment at this time.Patient was given strict follow-up, discharge, and return precautions. All questions were answered. Patient was deemed suitable for outpatient follow-up at this time. Patient agreed with the plan of care and was safely discharged home. The chart was completed utilizing [employer] voice recognition software. Grammatical errors, random word insertions, pronoun errors, and incomplete sentences are an occasional consequence of this system due to software limitations, ambient noise, and hardware issues. Any formal questions or concerns about the content, text, or information contained within the body of this dictation should be directly addressed to the physician for clarification. Medication Reconcilliation Current Medication List: was personally reviewed by me Blood Pressure Screening Patient's blood pressure: Elevated blood pressure Blood pressure disposition: Elevated BP felt to be situational Impression Primary Impression: Pneumonia Additional Impression: SOB (shortness of breath) Scribe Attestation The scribe's documentation has been prepared under my direction and personally reviewed by me in its entirety. I confirm that the note above accurately reflects all work, treatment, procedures, and medical decision making performed by me. Departure Information Dispostion Home / Self-Care Prescriptions Azithromycin (Zithromax) 250 Mg Tab 250 MG PO DAILY for 4 Days, #4 TAB Prov: Marcus Hull M.D. 10/16/17 Referrals No Doctor, Assigned (PCP) Patient Instructions ED Smoking Cessation, [facility], Pneumonia Additional Instructions Please return to the emergency department if you have worsening or recurrent symptoms not amenable to at-home treatment. Please call for a follow-up appointment with her primary care physician. Please take your medications as prescribed. If you have other concerns and/or complaints please feel free to also call your primary care physician's office or return the ED for further evaluation, management, and treatment. You may take tylenol 1000 mg every 6 hours as needed for pain. Consider smoking cessation. Take your medications as prescribed. If taking an antibiotic consider taking a probiotic and/or eating yogurt, but at the least, please take with food as it can cause upset stomach. Please take your medications as prescribed. Please also follow up with the Coumadin clinic to make sure that you're Coumadin levels are normal. They were mildly elevated today at 3.4. If he did take 10 mg per day please try taking 7.5 mg for your next dose. You have been examined and treated today on an emergency basis only. This is not a substitute for, or an effort to provide, complete comprehensive medical care. It is impossible to recognize and treat all injuries or illnesses in a single emergency department visit. It is therefore important that you follow up closely with [facility], your PCP, and/or your specialist(s). Call as soon as possible for an appointment. Thank you for your time and consideration. I look forward to speaking with you again soon. Please don't hesitate to call us if you have any questions. Problem Qualifiers Primary Impression: Pneumonia Pneumonia type: due to unspecified organism Laterality: right Lung location : upper lobe of lung Qualified Codes: J18.1 - Lobar pneumonia, unspecified organism
[2017-10-16 13:31] LABS: ALKALINE PHOSPHATASE 136 U/L (45-117); AST/SGOT 32 U/L (15-37); TOTAL PROTEIN 7.4 gm/dl (6.4-8.2)
[2017-10-16 13:39] VITALS: O2SAT 99
--- NOTE | 2017-10-16 15:15 | DIAGNOSTIC IMAGING REPORT ---
VENOUS DOPPLER LWR EXT BILA HISTORY: Pain. Edema. h/o PE, SOB, mild b/l LE swelling at ankles COMPARISON STUDY: 04/29/2017 FINDINGS: There is normal compressibility, flow, and augmentation within the bilateral lower extremity deep venous systems. IMPRESSION: No DVT within the right or left lower extremity. The above report was generated using voice recognition software. It may contain grammatical, syntax or spelling errors. Electronically signed by: Mark Anthony Vasquez M.D. 10/16/2017 3:14 PM Dictated Date/Time: 10/16/2017 3:11 PM
--- NOTE | 2017-10-16 15:27 | DIAGNOSTIC IMAGING REPORT ---
(CHEST FOR PE) ANGIO WITH CT DOSE: 360.00 mGy.cm HISTORY: Chest pain dyspnea TECHNIQUE: Multiaxial CT images of the chest were performed following the intravenous administration of contrast to evaluate the pulmonary arteries. Maximal intensity projection images were also obtained. A dose lowering technique was utilized adhering to the principles of ALARA. COMPARISON STUDY: 05/20/2017 FINDINGS: There is a normal caliber thoracic aorta with no evidence for dissection. There is no evidence for pulmonary embolus. No pleural effusions. No pneumothorax. The liver and spleen are unremarkable. No mediastinal or hilar lymphadenopathy. The central airways are patent. The lungs demonstrate minimal interstitial infiltrative change right pulmonary apex. IMPRESSION: No evidence for pulmonary embolus. Minimal interstitial infiltrate right pulmonary apex. The above report was generated using voice recognition software. It may contain grammatical, syntax or spelling errors. Electronically signed by: Mark Anthony Vasquez M.D. 10/16/2017 3:26 PM Dictated Date/Time: 10/16/2017 3:21 PM
[2017-10-16] MEDS ORDERED: OPTIRAY 320 IV PRN (15:30)
[2017-10-16] MEDS ORDERED: AZITHROMYCIN 250 MG TAB PO ONE (15:45)
[2017-10-16] MEDS ORDERED: AZIT250T PO (16:03)
[2017-10-16 16:55] VITALS: BP 128/85; PULSE 71; O2SAT 100
== END 2017-10-16 16:57 | disposition home or self-care (01) ==
LOC: C.EDB 12:20
DX: J18.1 Lobar pneumonia, unspecified organism (principal); R06.02 Shortness of breath; Z86.711 Personal history of pulmonary embolism; Z86.718 Personal history of other venous thrombosis and embolism; Z82.49 Family history of ischemic heart disease and other diseases of the circulatory system; F17.210 Nicotine dependence, cigarettes, uncomplicated; Z79.01 Long term (current) use of anticoagulants; Z79.899 Other long term (current) drug therapy

== ENCOUNTER 2018-01-16 17:49 | Emergency (ER) | payer OTHER ==
[~2018-01-16] VITALS: Ht 180.3 cm; Wt 94.9 kg
[~2018-01-16 17:49] MED LIST changes: +AMPH20TA2 PO; -BUPR1SUB23 PO; +BUPR1SUB23 SL; +ESCI10TA17 PO; +GABA100C13 PO; -GABA1CAP PO; -LACT1TAB4 PO; +MISCCAP80 PO
[2018-01-16 17:58] VITALS: TEMP 37; Ht 180.3 cm; Wt 94.9 kg
[2018-01-16] MEDS ORDERED: ACETAMINOPHEN 325 MG TAB PO STA (18:10)
[2018-01-16] MEDS ORDERED: MoRPHine SULFATE 4 MG/ML 1 ML CARP\\VIAL IV STA (18:10)
[2018-01-16] MEDS ORDERED: SODIUM CHLORIDE 0.9% 500ML 500 ML IV STA (18:14)
--- NOTE | 2018-01-16 18:21 | EMERGENCY ROOM VISIT NOTE ---
History Report prepared by Silvina: Miller Hankins Under the Supervision of: Dr. Marcus Hull M.D. First contact with patient: 18:03 Chief Complaint: PAIN (GENERALIZED) Stated Complaint: COULNT MOVE, PAIN IN ARM, FOOT TO THIGH SWOLLEN History of Present Illness The patient is a 32 year old black male with a past medical history of pulmonary embolisms who presents to the ED with a cc of worsening swelling to his lower extremities beginning three months ago. Pt states his swelling started in his bilateral feet and has now moved up his legs three days ago. Positive shortness of breath, right lower back pain that woke him up this morning, constant bloating, nausea, short term memory problems, and taking Coumadin. Negative vomiting and missing a dose of his Coumadin. Review of EMR showed the patient was evaluated three months ago and had a negative CT and bilateral lower extremity Doppler ultrasounds. It reports he was also evaluated for foot and ankle swelling a month ago and had another negative Doppler ultrasound. EMR notes he is being treated for cellulitis. Source of History: patient Onset: three months ago Position: other (bilateral lower extremities) Quality: other (swelling) Timing: worsening Associated Symptoms: + SOB, + nausea, + back pain (right lower), No vomiting Note: Associated symptoms: constant bloating, short term memory problems Review of Systems See HPI for pertinent positives and negatives. A total of ten systems were reviewed and were otherwise negative. Past Medical & Surgical Medical Problems: (1) Chest pain, pleuritic (2) Pulmonary embolism (3) Thrombosis in peripherally inserted central catheter (PICC) Family History FH: pulmonary embolism Heart disease Hypertension Social History Smoking Status: Current Every Day Smoker Alcohol Use: heavy Drug Use: other Marital Status: in relationship Housing Status: lives with significant other Occupation Status: employed Current/Historical Medications Scheduled Amphetamine-Dextroamphetamine 20MG (Adderall 20MG), 20 MG PO DAILY Buprenorphine Hcl-Naloxone Hcl (Suboxone 8-2 Mg), Unknown Dose SL DAILY Escitalopram (Lexapro), 10 MG PO DAILY Gabapentin (Neurontin), 200 MG PO TID Probiotic Product (Probiotic), 1 CAP PO TID Warfarin Sodium (Coumadin), 5 MG PO DAILY AT 1600 Allergies Coded Allergies: Shellfish (Verified Allergy, Severe, ANAPHYLAXIS, 01/16/18) Physical Exam Vital Signs Date Time Temp Pulse Resp B/P (MAP) Pulse Ox O2 Delivery O2 Flow Rate FiO2 01/16/18 20:00 91 20 145/87 95 Room Air 01/16/18 18:30 109 17 137/78 99 Room Air 01/16/18 18:14 Room Air 01/16/18 18:13 119 01/16/18 17:58 37.0 125 20 141/80 97 Room Air Physical Exam GENERAL: Awake, alert, well-appearing, NAD HENT: Normocephalic, atraumatic. EYES: Normal conjunctiva. Sclera non-icteric. NECK: Supple. No nuchal rigidity. FROM. RESPIRATORY: CTAB, no rhonchi, wheezing, crackles CARDIAC: Tachy and regular, no MRG ABDOMEN: Soft, ND, BS+, reproducible right sided abdominal pain. MSK: No chest wall TTP, 1+ bilateral LE edema up to the mild chin. NEURO: GCS 15, CN 2-12 intact, moves all 4s on command SKIN: No rash or jaundice noted. Medical Decision & Procedures ER Provider Diagnostic Interpretation: X-ray: Per my interpretation, radiologist review. CHEST ONE VIEW PORTABLE CLINICAL HISTORY: 32 years-old Male presenting with CHEST PAIN, swollen leg. TECHNIQUE: Portable upright AP view of the chest was obtained. COMPARISON: 10/16/2017. FINDINGS: Cardiomediastinal silhouette normal. Lungs and pleural spaces clear. Osseous structures normal. Upper abdomen normal. IMPRESSION: 1. No acute cardiopulmonary disease. Electronically signed by: Chau Mathews M.D. 01/16/2018 6:47 PM Dictated Date/Time: 01/16/2018 6:46 PM Laboratory Results 01/16/18 18:14 Red Blood Count 4.37, Mean Corpuscular Volume 84.9, Mean Corpuscular Hemoglobin 30.9, Mean Corpuscular Hemoglobin Concent 36.4, Mean Platelet Volume 9.0, Neutrophils (%) (Auto) 70.9, Lymphocytes (%) (Auto) 12.7, Monocytes (%) (Auto) 14.9, Eosinophils (%) (Auto) 1.0, Basophils (%) (Auto) 0.1, Neutrophils # (Auto ) 6.46, Lymphocytes # (Auto) 1.16, Monocytes # (Auto) 1.36, Eosinophils # (Auto ) 0.09, Basophils # (Auto) 0.01 01/16/18 18:14 Test 01/16/18 18:14 White Blood Count 9.12 K/uL (4.8-10.8) Red Blood Count 4.37 M/uL (4.7-6.1) Hemoglobin 13.5 g/dL (14.0-18.0) Hematocrit 37.1 % (42-52) Mean Corpuscular Volume 84.9 fL (80-100) Mean Corpuscular Hemoglobin 30.9 pg (25-34) Mean Corpuscular Hemoglobin Concent 36.4 g/dl (32-36) Platelet Count 211 K/uL (130-400) Mean Platelet Volume 9.0 fL (7.4-10.4) Neutrophils (%) (Auto) 70.9 % Lymphocytes (%) (Auto) 12.7 % Monocytes (%) (Auto) 14.9 % Eosinophils (%) (Auto) 1.0 % Basophils (%) (Auto) 0.1 % Neutrophils # (Auto) 6.46 K/uL (1.4-6.5) Lymphocytes # (Auto) 1.16 K/uL (1.2-3.4) Monocytes # (Auto) 1.36 K/uL (0.11-0.59) Eosinophils # (Auto) 0.09 K/uL (0-0.5) Basophils # (Auto) 0.01 K/uL (0-0.2) RDW Standard Deviation 36.3 fL (36.4-46.3) RDW Coefficient of Variation 11.6 % (11.5-14.5) Immature Granulocyte % (Auto) 0.4 % Immature Granulocyte # (Auto) 0.04 K/uL (0.00-0.02) Prothrombin Time 15.7 SECONDS (9.0-12.0) Prothromb Time International Ratio 1.5 (0.9-1.1) Activated Partial Thromboplast Time 36.9 SECONDS (21.0-31.0) Partial Thromboplastin Ratio 1.4 Anion Gap 6.0 mmol/L (3-11) Est Creatinine Clear Calc Drug Dose 103.7 ml/min Estimated GFR () 92.8 Estimated GFR (Non- 80.0 BUN/Creatinine Ratio 10.1 (10-20) Calcium Level 8.5 mg/dl (8.5-10.1) Total Bilirubin 0.7 mg/dl (0.2-1) Direct Bilirubin 0.2 mg/dl (0-0.2) Aspartate Amino Transf (AST/SGOT) 61 U/L (15-37) Alanine Aminotransferase (ALT/SGPT) 64 U/L (12-78) Alkaline Phosphatase 158 U/L (45-117) Troponin I < 0.015 ng/ml (0-0.045) Pro-B-Type Natriuretic Peptide 22 pg/ml (0-450) Total Protein 7.3 gm/dl (6.4-8.2) Albumin 3.6 gm/dl (3.4-5.0) Lipase 71 U/L (73-393) Laboratory results reviewed by me Medications Administered Medications (Trade) Dose Ordered Sig/Herb Route Start Time Stop Time Status Last Admin Dose Admin Acetaminophen (Tylenol Tab) 650 mg NOW STAT PO 01/16/18 18:10 01/16/18 18:12 DC 01/16/18 18:19 650 MG Morphine Sulfate (MoRPHine SULFATE INJ) 4 mg NOW STAT IV 01/16/18 18:10 01/16/18 18:12 DC 01/16/18 18:19 4 MG Sodium Chloride 500 ml @ 500 mls/hr Q1H STAT IV 01/16/18 18:14 01/16/18 19:13 DC 01/16/18 18:19 500 MLS/HR ECG Per My Interpretation Indication: SOB/dyspnea Rate (beats per minute): 116 Rhythm: sinus tachycardia Findings: T-wave inversion (Lead III), other (Normal intervals and axis. No other STS changes or TWI.) ED Course 1805: The patient was evaluated in room C12B. A complete history and physical exam was performed. 1946: I reevaluated the patient. Discussed results and discharge instructions: he verbalized understanding and agreement. The patient is ready for discharge. Medical Decision Nursing notes reviewed. Ancillary studies and prior records reviewed. The patient is a 32 year old black male with a past medical history of pulmonary embolisms who presents to the ED with a cc of worsening swelling to his lower extremities beginning three months ago. Differential diagnosis: Etiologies such as infections, reactive airway disease, pneumonia, pneumothorax , COPD, CHF, cardiac ischemia, pulmonary embolism, musculoskeletal, gastrointestinal, as well as others were entertained. Patient was seen and evaluated the bedside. Patient was complaining of some shortness of breath as well as some lower extremity swelling. The patient has had an issues with chronic lower extremity swelling was recently seen and treated for cellulitis. The patient of note is on his feet quite a lot. On exam the patient does have some symmetric bilateral lower extremity swelling. Patient's lung sounds are clear. The patient does have some mild tachycardia. Patient also does complain of some mild right-sided low back pain. It is reproducible on exam. Patient did blood work completed, EKG, troponin, BNP, chest x-ray. Patient was also given IV fluids as well as pain control. Patient's blood work is fairly unremarkable. Patient does have some trace anemia. Patient white blood cell count is normal. Patient has a negative troponin and BNP is not elevated. I believe this less likely ACS or failure. Furthermore, I think if he had elevated right-sided heart pressures causing his lower extremity edema he will have an elevated BNP and his chest film might show some evidence of volume overload. Believe there is an element of dehydration also. Patient's INR was 1.5. Patient was told to make sure that he has it checked to ensure that this improves and that it is therapeutic. The patient has had bilateral lower extremity Dopplers during his last 2 visits at which time they have been negative. There is no asymmetry the patient does not have pain in the lower extremities. Patient also has had a CT PE protocol completed within the last 3 months which did not show any evidence of PE. I believe based on the patient's history and physical exam that PE is less likely. On his EKG is TW I in lead III is chronic and the patient does not show evidence of right-sided heart strain as there are not T-wave inversions in the anterior leads. Patient's tachycardia did improve with pain control as well as fluids. Upon reassessment the patient was not tachypneic, tachycardic, nor hypoxic. I did discuss with the patient that he needs to wear compression stockings or even consider Star wraps for his bilateral lower extremities and stay off his feet when he can. Patient was given strict follow-up, discharge, and return precautions. All questions were answered. Patient was deemed suitable for outpatient follow-up at this time. Patient agreed with the plan of care and was safely discharged home. Medication Reconcilliation Current Medication List: was personally reviewed by me Blood Pressure Screening Patient's blood pressure: Normal blood pressure Blood pressure disposition: Did not require urgent referral Impression Primary Impression: Dehydration Additional Impression: Bilateral lower extremity edema Scribe Attestation The scribe's documentation has been prepared under my direction and personally reviewed by me in its entirety. I confirm that the note above accurately reflects all work, treatment, procedures, and medical decision making performed by me. Departure Information Dispostion Home / Self-Care Referrals Lidya Breaux M.D. (PCP) Forms HOME CARE DOCUMENTATION FORM, IMPORTANT VISIT INFORMATION, WORK / SCHOOL INSTRUCTIONS Patient Instructions ED Leg Swelling Bilateral, My [facility] Additional Instructions Please return to the emergency department if you have worsening or recurrent symptoms not amenable to at-home treatment. Please call for a follow-up appointment with her primary care physician. Please take your medications as prescribed. If you have other concerns and/or complaints please feel free to also call your primary care physician's office or return the ED for further evaluation, management, and treatment. You were found to have an elevated blood pressure today (>120 sytolic or >90 diastolic). Per medicare guidelines, you need to follow up with this blood pressure screening with your Primary Care Physician (PCP). For a new PCP call [phone]. You received narcotic or benzodiazepene medication while in the emergency room today. This is an addictive medication that may cause drowziness as well as constipation. Do not drive, operate heavy machinery, or drink alcohol under the influence of this medication. You may take 800 mg Ibuprofen every 6 hours as needed for pain/fever with food. You may take tylenol 1000 mg every 6 hours as needed for pain. You may take motrin and tylenol separately or at the same time. Take your medications as prescribed. Your INR is 1.5 today. Please follow-up to have your INR checked and discuss any changes that may need to be made with your prescriber. Please return if you have worsening lower extremity swelling, shortness of breath, chest pains, or coughing of blood. You have been examined and treated today on an emergency basis only. This is not a substitute for, or an effort to provide, complete comprehensive medical care. It is impossible to recognize and treat all injuries or illnesses in a single emergency department visit. It is therefore important that you follow up closely with [facility], your PCP, and/or your specialist(s). Call as soon as possible for an appointment. Thank you for your time and consideration. I look forward to speaking with you again soon. Please don't hesitate to call us if you have any questions. Problem Qualifiers
[2018-01-16 18:30] LABS: BASO % 0.1 %; BASO ABS # 0.01 K/uL (0-0.2); EOS ABS # 0.09 K/uL (0-0.5); HEMATOCRIT 37.1 % (42-52); HEMOGLOBIN 13.5 g/dL (14.0-18.0); IG# 0.04 K/uL (0.00-0.02); LYMPH % 12.7 %; LYMPH ABS # 1.16 K/uL (1.2-3.4); MEAN CELL VOLUME 84.9 fL (80-100); MEAN CORPUSCULAR HEMOGLOBIN 30.9 pg (25-34); MEAN CORPUSCULAR HGB CONC 36.4 g/dl (32-36); MONO % 14.9 %; MONO ABS # 1.36 K/uL (0.11-0.59); NEUT % 70.9 %; NEUT ABS # 6.46 K/uL (1.4-6.5); PLATELET COUNT 211 K/uL (130-400); RED CELL DISTRIBUTION WIDTH CV 11.6 % (11.5-14.5); RED CELL DISTRIBUTION WIDTH SD 36.3 fL (36.4-46.3); WHITE BLOOD COUNT 9.12 K/uL (4.8-10.8)
[2018-01-16] MEDS ORDERED: WARF5TAB90 PO (18:32)
[2018-01-16 18:42] LABS: INR 1.5 (0.9-1.1); PTT PATIENT 36.9 SECONDS (21.0-31.0)
--- NOTE | 2018-01-16 18:49 | DIAGNOSTIC IMAGING REPORT ---
CHEST ONE VIEW PORTABLE CLINICAL HISTORY: 32 years-old Male presenting with CHEST PAIN, swollen leg. TECHNIQUE: Portable upright AP view of the chest was obtained. COMPARISON: 10/16/2017. FINDINGS: Cardiomediastinal silhouette normal. Lungs and pleural spaces clear. Osseous structures normal. Upper abdomen normal. IMPRESSION: 1. No acute cardiopulmonary disease. Electronically signed by: Chau Mathews M.D. 01/16/2018 6:47 PM Dictated Date/Time: 01/16/2018 6:46 PM
[2018-01-16 18:59] LABS: ALBUMIN 3.6 gm/dl (3.4-5.0); ALT/SGPT 64 U/L (12-78); AST/SGOT 61 U/L (15-37); BLOOD UREA NITROGEN 12 mg/dl (7-18); CALCIUM 8.5 mg/dl (8.5-10.1); CARBON DIOXIDE 28 mmol/L (21-32); CREATININE 1.18 mg/dl (0.60-1.40); GLUCOSE 104 mg/dl (70-99); LIPASE 71 U/L (73-393); POTASSIUM 3.8 mmol/L (3.5-5.1); SODIUM 138 mmol/L (136-145)
[2018-01-16 19:04] LABS: ALKALINE PHOSPHATASE 158 U/L (45-117); TOTAL PROTEIN 7.3 gm/dl (6.4-8.2)
[2018-01-16 20:00] VITALS: BP 145/87; PULSE 91; O2SAT 95
== END 2018-01-16 20:25 | disposition home or self-care (01) ==
LOC: C.EDB 17:50 → C.EDC 20:25
DX: E86.0 Dehydration (principal); R60.0 Localized edema; T85.868A Thrombosis due to other internal prosthetic devices, implants and grafts, initial encounter; F17.200 Nicotine dependence, unspecified, uncomplicated; Z79.01 Long term (current) use of anticoagulants; Z51.81 Encounter for therapeutic drug level monitoring; Z91.013 Allergy to seafood